=== PATIENT | male | born 1955 | race Caucasian/White ===

== ENCOUNTER 2020-12-21 09:50 | Emergency (ER) | payer OTHER ==
[2020-12-21] MEDS ORDERED: Ondansetron 4 MG/2 ML SDV IVPUSH ONE (10:05)
[2020-12-21] MEDS ORDERED: Lactated Ringers 1,000 ML IV ONE ×2 (10:05→10:44)
--- NOTE | 2020-12-21 10:12 | EDM.PDOC ---
ED HPI GENERAL MEDICAL PROBLEM - General Chief Complaint: Gastrointestinal Problem Stated Complaint: EMS Time Seen by Provider: 12/21/20 10:10 - History of Present Illness INITIAL COMMENTS - FREE TEXT/NARRATIVE: 65-year-old man with minimal past medical history presents with lightheadedness near syncope and emesis. Patient developed some chills this morning associated with lightheadedness. He originally takes a walk and got up and walked around he became more more lightheaded with walking. He had had tunnel vision went down to the ground and felt like he could pass out. He denied significant vomiting and dry heaves. No chest pain no back pain no vertigo. Abdominal pain during the night he was in emesis but not otherwise. Patient had bilateral inguinal hernia repairs 2 years ago but no other abdominal surgeries. Remote history of hepatitis in the past as well. Symptoms improved somewhat with the milligrams of Zofran that he was given by EMS in route. No other associated symptoms symptoms currently moderate. Treatments PIGMENT AND LACQUER MIXER: Reports: IV/IO, Other (see below) Other Treatments PIGMENT AND LACQUER MIXER: NS 500mls bolus, Zofran 8mg abdomen Pain Score (Numeric/FACES): 2 - Related Data Allergies Allergy/AdvReac Type Severity Reaction Status Date / Time codeine Allergy Other Verified 12/21/20 10:02 Corticosteroids Allergy Change Verified 08/26/16 08:54 (Glucocorticoids) Mental Status Home Meds: Home Meds Anti-Htn 12/21/20 [History] Potassium Chloride [Klor-Con M20] 20 meq PO DAILY 14 Days #14 tab.er.prt 12/21/20 [Rx] Past Medical History - Past Health History Medical/Surgical History: Denies Medical/Surgical History HEENT History: Reports: Sinusitis Other HEENT History: wears glasses Cardiovascular History: Reports: High Cholesterol, Hypertension Respiratory History: Reports: Sleep Apnea Gastrointestinal History: Reports: Hepatitis Other Gastrointestinal History: 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 Genitourinary History: Reports: Renal Calculus Musculoskeletal History: Reports: Arthritis Other Musculoskeletal History: hx right arm fx Neurological History: Reports: Other (See Below) Other Neuro History: [place] dse Psychiatric History: Reports: Anxiety Endocrine/Metabolic History: Reports: Obesity/BMI 30+ Hematologic History: Reports: None Immunologic History: Reports: None Oncologic (Cancer) History: Reports: None Dermatologic History: Reports: Eczema Other Dermatologic History: cellulitis or shingles to face, states "they were not sure which" - Infectious Disease History Infectious Disease History: Reports: Chicken Pox, Measles Other Infectious Disease History: Hepatitis possibly from too much codiene - Past Surgical History HEENT Surgical History: Reports: Naso-Sinus Surgery, Tonsillectomy Musculoskeletal Surgical History: Reports: Arthroscopic Knee Social & Family History - Family History Family Medical History: No Pertinent Family History - Caffeine Use Caffeine Use: Reports: None ED ROS GENERAL - Review of Systems Review Of Systems: See Below Free Text/Narrative/Comment: General: No fever. Skin: No rash. Eyes: No vision problems. ENT: No sore throat. Neck: No neck stiffness. Respiratory: No shortness of breath. Cardiac: No chest pain. Gastrointestinal: Per HPI Urinary: No dysuria. Musculoskeletal: No myalgias/arthralgias. Neurologic: No headache. ED EXAM, GENERAL - Physical Exam Exam: See Below Free Text/Narrative:: General Appearance: Pale but not acutely ill Skin: No rash HEENT: Normocephalic/atraumatic, sclera anicteric, mucous membranes dry Neck: Normal range of motion Chest and Lungs: Bilateral breath sounds, clear to auscultation Cardiovascular: Regular rate and rhythm, no murmur Abdomen: Soft, non-tender Back: Normal Musculoskeletal: No edema or tenderness Neurologic: Awake, alert, no obvious deficits, moving all extremities Psychiatric: Appropriate, cooperative #1 Interpretation EKG Date: 12/21/20 Time: 10:15 EKG Interpretation Comments: Normal sinus rhythm rate of 77 right bundle branch block no acute ischemia otherwise unremarkable QTC 472 Course - Vital Signs Last Recorded V/S: Last Vital Signs Temp 97.9 F 12/21/20 09:56 Pulse 82 12/21/20 09:56 Resp 18 12/21/20 09:56 BP 154/79 H 12/21/20 09:56 Pulse Ox 98 12/21/20 09:56 - Orders/Labs/Meds Orders: Active Orders 24 hr Category Date Time Status Accu Check [Blood Glucose Check, Bedside] [RC] ONETIME Care 12/21/20 12:19 Active EKG Documentation Completion [RC] STAT Care 12/21/20 10:05 Active Labs: Laboratory Tests 12/21/20 12/21/20 12/21/20 Range/Units 09:35 09:35 09:35 WBC 16.23 H (4.0-11.0) K/uL RBC 4.37 L (4.50-5.90) M/uL Hgb 14.4 (13.0-17.0) g/dL Hct 39.6 (38.0-50.0) % MCV 90.6 (80.0-98.0) fL MCH 33.0 H (27.0-32.0) pg MCHC 36.4 (31.0-37.0) g/dL RDW Std Deviation 41.9 (28.0-62.0) fl RDW Coeff of [place] 13 (11.0-15.0) % Plt Count 173 (150-400) K/uL MPV 11.10 (7.40-12.00) fL Neut % (Auto) 94.2 H (48.0-80.0) % Lymph % (Auto) 3.1 L (16.0-40.0) % [place] % (Auto) 2.5 (0.0-15.0) % Eos % (Auto) 0.1 (0.0-7.0) % Baso % (Auto) 0.1 (0.0-1.5) % Neut # (Auto) 15.3 H (1.4-5.7) K/uL Lymph # (Auto) 0.5 L (0.6-2.4) K/uL [place] # (Auto) 0.4 (0.0-0.8) K/uL Eos # (Auto) 0.0 (0.0-0.7) K/uL Baso # (Auto) 0.0 (0.0-0.1) K/uL Nucleated RBC % 0.0 /100WBC Nucleated RBCs # 0 K/uL Sodium 139 (136-148) mmol/L Potassium 3.2 L (3.5-5.1) mmol/L Chloride 103 (98-107) mmol/L Carbon Dioxide 17.9 L (21.0-32.0) mmol/L BUN 11 (7.0-18.0) mg/dL Creatinine 1.0 (0.8-1.3) mg/dL Est Cr Clr Drug Dosing 81.91 mL/min Estimated GFR (MDRD) > 60.0 ml/min Glucose 359 H (74-106) mg/dL POC Glucose (70-99) mg/dL Calcium 8.7 (8.5-10.1) mg/dL Total Bilirubin 1.1 H (0.2-1.0) mg/dL AST 13 L (15-37) IU/L ALT 18 (14-63) IU/L Alkaline Phosphatase 90 (46-116) U/L Troponin I (0.000-0.056) ng/mL Total Protein 6.5 (6.4-8.2) g/dL Albumin 3.7 (3.4-5.0) g/dL Globulin 2.8 (2.6-4.0) g/dL Albumin/Globulin Ratio 1.3 (0.9-1.6) Lipase 51 L (73-393) U/L 12/21/20 12/21/20 Range/Units 09:35 12:24 WBC (4.0-11.0) K/uL RBC (4.50-5.90) M/uL Hgb (13.0-17.0) g/dL Hct (38.0-50.0) % MCV (80.0-98.0) fL MCH (27.0-32.0) pg MCHC (31.0-37.0) g/dL RDW Std Deviation (28.0-62.0) fl RDW Coeff of [place] (11.0-15.0) % Plt Count (150-400) K/uL MPV (7.40-12.00) fL Neut % (Auto) (48.0-80.0) % Lymph % (Auto) (16.0-40.0) % [place] % (Auto) (0.0-15.0) % Eos % (Auto) (0.0-7.0) % Baso % (Auto) (0.0-1.5) % Neut # (Auto) (1.4-5.7) K/uL Lymph # (Auto) (0.6-2.4) K/uL [place] # (Auto) (0.0-0.8) K/uL Eos # (Auto) (0.0-0.7) K/uL Baso # (Auto) (0.0-0.1) K/uL Nucleated RBC % /100WBC Nucleated RBCs # K/uL Sodium (136-148) mmol/L Potassium (3.5-5.1) mmol/L Chloride (98-107) mmol/L Carbon Dioxide (21.0-32.0) mmol/L BUN (7.0-18.0) mg/dL Creatinine (0.8-1.3) mg/dL Est Cr Clr Drug Dosing mL/min Estimated GFR (MDRD) ml/min Glucose (74-106) mg/dL POC Glucose 262 H (70-99) mg/dL Calcium (8.5-10.1) mg/dL Total Bilirubin (0.2-1.0) mg/dL AST (15-37) IU/L ALT (14-63) IU/L Alkaline Phosphatase (46-116) U/L Troponin I < 0.050 (0.000-0.056) ng/mL Total Protein (6.4-8.2) g/dL Albumin (3.4-5.0) g/dL Globulin (2.6-4.0) g/dL Albumin/Globulin Ratio (0.9-1.6) Lipase (73-393) U/L Meds: Medications Discontinued Medications Generic Name Dose Route Start Last Admin Trade Name Freq PRN Reason Stop Dose Admin Lactated Ringer's 1,000 mls @ 999 mls/hr 12/21/20 10:05 12/21/20 10:12 Ringers, Lactated IV 12/21/20 11:05 999 mls/hr .BOLUS ONE Administration Lactated Ringer's 1,000 mls @ 999 mls/hr 12/21/20 10:44 12/21/20 10:55 Ringers, Lactated IV 12/21/20 11:44 999 mls/hr .BOLUS ONE Administration Iopamidol 100 ml 12/21/20 11:15 12/21/20 11:16 Iopamidol 755 Mg/Ml 500 Ml Multipack Bottle IVPUSH 12/21/20 11:16 100 ml ONETIME ONE Administration Ondansetron HCl 4 mg 12/21/20 10:05 12/21/20 10:19 Ondansetron 4 Mg/2 Ml Sdv IVPUSH 12/21/20 10:06 Not Given ONETIME ONE Departure - Departure Time of Disposition: 12:19 Disposition: Home, Self-Care 01 Condition: Good Clinical Impression: Hypokalemia, Hyperglycemia - Discharge Information *PRESCRIPTION DRUG MONITORING PROGRAM REVIEWED*: Not Applicable *COPY OF PRESCRIPTION DRUG MONITORING REPORT IN PATIENT OBI: Not Applicable Prescriptions: Potassium Chloride [Klor-Con M20] 20 meq PO DAILY 14 Days #14 tab.er.prt Instructions: Hypokalemia, Hyperglycemia, [id number] Referrals: Yue Burks NP [Primary Care Provider] - Forms: ED Department Discharge Additional Instructions: You have been placed on potassium supplements to help with your low potassium. Your blood sugar was also significantly elevated today. I strongly encourage you to follow-up with your primary care doctor for repeat blood work and further evaluation of your general health. Given your age and gender you are at risk for hypertension, high cholesterol, diabetes as well as coronary artery disease. [facility] [address] [place] [address] [place] [address] The following information is given to patients seen in the emergency department who are being discharged to home. This information is to outline your options for follow-up care. We provide all patients seen in our emergency department with a follow-up referral. The need for follow-up, as well as the timing and circumstances, are variable depending upon the specifics of your emergency department visit. If you don't have a primary care physician on staff, we will provide you with a referral. We always advise you to contact your personal physician following an emergency department visit to inform them of the circumstance of the visit and for follow-up with them and/or the need for any referrals to a consulting specialist. The emergency department will also refer you to a specialist when appropriate. This referral assures that you have the opportunity for follow-up care with a specialist. All of these measure are taken in an effort to provide you with optimal care, which includes your follow-up. Under all circumstances we always encourage you to contact your private physician who remains a resource for coordinating your care. When calling for follow-up care, please make the office aware that this follow-up is from your recent emergency room visit. If for any reason you are refused follow-up, please contact the [facility] Emergency Department at and asked to speak to the emergency department charge nurse. Sepsis Event Note (ED) - Evaluation Sepsis Screening Result: No Definite Risk - Focused Exam Vital Signs: Vital Signs Temp Pulse Resp BP Pulse Ox 12/21/20 09:56 97.9 F 82 18 154/79 H 98 - My Orders Last 24 Hours: My Active Orders 12/21/20 10:05 EKG Documentation Completion [RC] STAT 12/21/20 12:19 Accu Check [Blood Glucose Check, Bedside] [RC] ONETIME - Assessment/Plan Last 24 Hours: My Active Orders 12/21/20 10:05 EKG Documentation Completion [RC] STAT 12/21/20 12:19 Accu Check [Blood Glucose Check, Bedside] [RC] ONETIME Assessment:: 65-year-old male presenting with lightheadedness near syncope while walking associate with nausea vomiting dry heaves. There is a significant gastrointestinal illness on through the community at this time it could represent a case of that. However, cardiac process considered as well I think this is less likely as there is no chest pain but EKG and troponin pending. Pancreatitis is a consideration though no significant abdominal pain makes this less likely. Abdomen is without focal finding on exam. Nothing at this point suggest Boerhaave's chest x-ray ordered to exclude. CBC, CMP, lipase, IV fluid and will reassess. Patient is already given 8 mg of Zofran by EMS. 1220: Patient's labs are notable for hypokalemia and hyperglycemia. He was given 2 L of IV fluid for this. Patient now feels much better. We will perform an ambulatory trial. EKG is without acute ischemia imaging is without concerning finding. Is: Is full of stool. He reports that he had a bowel movement yesterday. His stools have been intermittently loose for some time. Patient will be placed on potassium supplements we discussed his low potassium and his hyperglycemia and I strongly recommended follow-up with primary care. 1230: BG has improved, pt ambulates well without sx. Pt discharged with instructions to f/u.
[2020-12-21 10:25] LABS: CARBON DIOXIDE,CO2 17.9 mmol/L (21.0-32.0); CHLORIDE,CL 103 mmol/L (98-107); POTASSIUM,K 3.2 mmol/L (3.5-5.1); SODIUM,NA 139 mmol/L (136-148)
[2020-12-21 10:38] LABS: BLOOD UREA NITROGEN,BUN 11 mg/dL (7.0-18.0); GLUCOSE RANDOM 359 mg/dL (74-106)
[2020-12-21] MEDS ORDERED: Iopamidol 755 MG/ML 500 ML Multipack Bottle IVPUSH ONE (11:15)
--- NOTE | 2020-12-21 12:05 | CT ---
INDICATION: Lower abdominal tenderness, emesis TECHNIQUE: CT abdomen and pelvis acquired with IV contrast. 100 cc Isovue 370 COMPARISON: 04/27/2014 FINDINGS: Lower chest: Unremarkable. Liver: Subcentimeter probable cyst left lobe of the liver. Spleen: Unremarkable. Pancreas: Unremarkable. Gallbladder and bile ducts: Unremarkable. Kidneys: Unremarkable. Adrenal glands: Unremarkable. GI tract: Diffuse colonic fecal retention. Normal appendix. Vascular structures: Unremarkable. Lymph nodes: Unremarkable. Miscellaneous: 2.8 centimeter soft tissue density left lower quadrant anterior to the iliopsoas muscle belly. Findings are nonspecific. No free air or significant free fluid. Pelvic Organs: Prostatomegaly. Bones: Unremarkable for age. IMPRESSION: Diffuse colonic fecal retention. 2.8 centimeters soft tissue density left lower quadrant anterior to the iliopsoas muscle belly. Findings nonspecific. Prostatomegaly. Please note that all CT scans at this facility use dose modulation, iterative reconstruction, and/or weight-based dosing when appropriate to reduce radiation dose to as low as reasonably achievable. Dictated by Jose J Eastman MD @ 12/21/2020 12:03:[address] Jose J Eastman @ Dec 21 2020 12:03PM
[2020-12-21 18:19] VITALS: BP 122/55; PULSE 98
== END 2020-12-21 13:12 | disposition home or self-care (01) ==
LOC: MW.ED 09:50
DX: R73.9 Hyperglycemia, unspecified (principal); E87.6 Hypokalemia; I10 Essential (primary) hypertension; E66.9 Obesity, unspecified; Z68.31 Body mass index [BMI] 31.0-31.9, adult; Z88.5 Allergy status to narcotic agent; Z88.8 Allergy status to other drugs, medicaments and biological substances
CPT/HCPCS: 36415; 74177; 80053; 82947; 83690; 84484; 85025; 93005; 99284; J7120; Q9967

== ENCOUNTER 2020-12-30 21:57 | Observation (INO) | payer OTHER ==
[2020-12-30] MEDS ORDERED: Sodium Chloride 0.9% 2.5 ML Syringe FLUSH PRN (22:17)
[2020-12-30] MEDS ORDERED: Sodium Chloride 0.9% 10 ML Syringe FLUSH PRN (22:17)
--- NOTE | 2020-12-30 22:20 | EDM.PDOC ---
<Nohemy Cruz - Last Filed: 12/30/20 23:10> ED HPI GENERAL MEDICAL PROBLEM - General Chief Complaint: Chest Pain Stated Complaint: CHEST PAIN, SHORT OF BREATH, LT ARM TINGLING Time Seen by Provider: 12/30/20 22:15 Source of Information: Reports: Patient History Limitations: Reports: No Limitations - History of Present Illness INITIAL COMMENTS - FREE TEXT/NARRATIVE: HISTORY AND PHYSICAL: History of present illness: Patient is a 65-year-old male that presents to the emergency room complaints of chest pain for the last 4 to 5 days. The patient reports that he falls asleep and wakes up feeling as if he is about ready to . He states his chest pain is midsternal nonreproducible. The patient was seen in this ER on December 21 after becoming ill at work and having a syncopal episode. The patient was started on potassium. The patient followed up with his primary care provider and the potassium was discontinued. It was found that the patient's glucose was 300 and a new diabetic. He was started on Metformin 500 mg ER with instructions to take 1 tablet daily by mouth for 3 days, 2 tablets for 3 days, 3 tablets for 3 days, then 4 tablets daily thereafter. The patient reports that he has had some stomach upset but no diarrhea at present. The patient reports that he was also started on a diabetic medication that starts with a "B" that he takes once a week. He stated that his blood sugar prior to arrival was 225. The patient was also started on a blood pressure medication Telmisartan 40 daily around the same time as the metformin was started but has not taken it today because he states when he wakes up when he was taking it he felt as if his blood pressure was too low. The patient acknowledges that his chest pain is only at night. During the day he walks 1 mile 3 times during the day and does not have chest pain or shortness of breath or any problems with it. At night after falling asleep he wakes up with chest pain, anxiety, diaphoresis. Patient states he did have an attack like this once before when he was on antianxiety medication he just could not take it. Patient denies any fever, chills, headache, change in vision, syncope or near syncope. Denies any chest pain, back pain, or cough. Denies any diarrhea, constipation or dysuria. Has not noted any blood in urine or stool. Patient has been eating and drinking appropriately. Review of systems: As per history of present illness and below otherwise all systems reviewed and negative. Past medical history: As per history of present illness and as reviewed below otherwise noncontributory. Surgical history: As per history of present illness and as reviewed below otherwise noncontributory. Social history: See social history for further information Family history: As per history of present illness and as reviewed below otherwise noncontributory. Physical exam: General: Well developed and well nourished. Alert and orientated x 3. Nontoxic in appearance and in no acute distress. Vital signs are stable and have been reviewed by me. Nursing notes were reviewed. HEENT: Atraumatic, normocephalic, pupils equal and reactive bilaterally, negati ve for conjunctival pallor or scleral icterus, mucous membranes moist, TMs normal bilaterally, throat clear, neck supple, nontender, trachea midline. No drooling or trismus noted. No meningeal signs. No hot potato voice noted. Lungs: Clear to auscultation bilaterally. No wheezes, rales, or rhonchi. Chest nontender. Normal work of breathing, no accessory muscles used. Heart: S1S2, regular rate and rhythm without overt murmur, gallops, or rubs. No JVD. LLE edematous. Abdomen: Soft, nondistended, nontender. Normoactive bowel sounds. Negative for masses or costovertebral tenderness. Skin: Intact, warm, dry. No lesions or rashes noted. Hematologic: No petechiae or purpra. Mucosa appropriate color and normal nail bed color and refill. Extremities: Atraumatic, moves all extremities per self without difficulty or deficits, negative for cords or calf pain. Neurovascular unremarkable. Neuro: Awake, alert, oriented. Cranial nerves II through XII unremarkable. Cerebellum unremarkable. Motor and sensory unremarkable throughout. Exam nonfocal. Psychiatric: Mood and affect are appropriate. Normal thought process. Answering questions appropriately. Notes: *This patient was seen and evaluated during the 2019 SARS-CoV-2 novel coronavirus pandemic period. Community viral transmission is ongoing at time of this encounter and the emergency department is operating under pandemic response procedures. After examination and discussion the patient is agreeable to blood work, EKG, chest x-ray, Zofran. The patient's D-dimer is elevated, his creatinine is normal I will order a PE CT. The CBC is unremarkable. Troponin is < 0.050. CMP: Potassium is 3.1, I will treat with 40 mEq of potassium orally. Carbon dioxide 19.6 and glucose 216. Patient reports that he had a cellulitis of his left leg and had a flareup a little while ago and it and as such his left leg has remained edematous. There is a noted difference in the circumference with the left > right. Report given to Dr. Moura who will take over and handle patient's disposition. I have talked with the patient about today's findings, in addition to providing specific details for plan of care. Reassessment at the time of disposition demonstrates that the patient is in no acute distress. The patient is stable for discharge, counseling was provided and we discussed in great detail signs and symptoms that would prompt them to return to the Emergency Department. Medication, follow up and supportive care measures were reviewed and discussed. Voices understanding and is agreeable to plan of care. Denies any further questions or concerns at this time. Diagnostics: CBC, CMP, troponin, EKG, magnesium, CXR Therapeutics: Zofran Prescription: Impression: Plan: 1. You were evaluated today on an emergent basis. Your 2. You can alternate Tylenol and ibuprofen as needed for pain and fever management. 3. We encourage you to follow up with your primary care provider and/or recommended specialist in the next few days for re-evaluation and further care/management. 4. If your symptoms should worsen, new symptoms develop or any of the signs and symptoms we discussed should arise please return to the emergency room or call 911 (if needed). Definitive disposition and diagnosis as appropriate pending reevaluation and review of above. Middle Chest Pain Score (Numeric/FACES): 4 - Related Data Allergies Allergy/AdvReac Type Severity Reaction Status Date / Time codeine Allergy Other Verified 12/21/20 10:02 Corticosteroids Allergy Change Verified 08/26/16 08:54 (Glucocorticoids) Mental Status Home Meds: Home Meds Anti-Htn 12/21/20 [History] Potassium Chloride [Klor-Con M20] 20 meq PO DAILY 14 Days #14 tab.er.prt 12/21/20 [Rx] Past Medical History - Past Health History Medical/Surgical History: Denies Medical/Surgical History HEENT History: Reports: Sinusitis Other HEENT History: wears glasses Cardiovascular History: Reports: High Cholesterol, Hypertension Respiratory History: Reports: Sleep Apnea Gastrointestinal History: Reports: Hepatitis Other Gastrointestinal History: 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 Genitourinary History: Reports: Renal Calculus Musculoskeletal History: Reports: Arthritis Other Musculoskeletal History: hx right arm fx Neurological History: Reports: Other (See Below) Other Neuro History: [place] dse Psychiatric History: Reports: Anxiety Endocrine/Metabolic History: Reports: Obesity/BMI 30+ Hematologic History: Reports: None Immunologic History: Reports: None Oncologic (Cancer) History: Reports: None Dermatologic History: Reports: Eczema Other Dermatologic History: cellulitis or shingles to face, states "they were not sure which" - Infectious Disease History Infectious Disease History: Reports: Chicken Pox, Hepatitis C, Measles Other Infectious Disease History: Hepatitis possibly from too much codiene - Past Surgical History HEENT Surgical History: Reports: Naso-Sinus Surgery, Tonsillectomy Musculoskeletal Surgical History: Reports: Arthroscopic Knee Social & Family History - Family History Family Medical History: No Pertinent Family History - Caffeine Use Caffeine Use: Reports: Coffee, Soda Departure - Departure Disposition: Refer to Observation Clinical Impression: Hypokalemia, Chest pain, Pulmonary emboli, Ventricular dysfunction, right Instructions: Hypokalemia Referrals: Yue Burks NP [Primary Care Provider] - Forms: ED Department Discharge Sepsis Event Note (ED) - Evaluation Sepsis Screening Result: No Definite Risk <Maurice Moura - Last Filed: 12/31/20 01:59> ED ROS GENERAL - Review of Systems Review Of Systems: Comprehensive ROS is negative, except as noted in HPI. ED EXAM, GENERAL - Physical Exam Exam: See Below Free Text/Narrative:: Physical exam is in the HPI #1 Interpretation EKG Interpretation Comments: KG done at 2200 hrs. sinus rhythm heart rate 60. GA interval 166 QT duration 458. [place] 69. Normal QRS. Nonspecific ST changes. T wave is inverted in V1. Compared to 12/21/2020 it was not read in V1 and V2 likely lead placement no other change. Impression no obvious injury. Course - Vital Signs Text/Narrative:: 0155 hrs. the patient has proven to have a pulmonary embolus with evidence on the CT of ventricular strain. He is stable. He is not short of breath at rest. He has a good blood pressure. His oxygen saturations have been good. Discussed with Dr. Lerma and she agreed to admit the patient. Patient admitted and heparinized. Heparin bolus was adjusted according to local protocol. Last Recorded V/S: Last Vital Signs Temp 36.2 C 12/31/20 01:18 Pulse 62 12/31/20 01:18 Resp 18 12/31/20 01:18 BP 175/92 H 12/31/20 01:18 Pulse Ox 100 12/31/20 01:18 - Orders/Labs/Meds Orders: Active Orders 24 hr Category Date Time Status Admission Status [Patient Status] [ADT] Stat ADT 12/31/20 01:52 Active EKG Documentation Completion [RC] STAT Care 12/30/20 22:17 Active CORONAVIRUS COVID-19 LEONARD [MOLEC] Stat Lab 12/31/20 01:20 Received PTT,PARTIAL THROMBOPLSTIN TIME [COAG] Q Lab 12/31/20 02:00 Ordered PTT,PARTIAL THROMBOPLSTIN TIME [COAG] Q Lab 12/31/20 07:30 Ordered PTT,PARTIAL THROMBOPLSTIN TIME [COAG] [facility] Lab 12/31/20 08:00 Ordered PTT,PARTIAL THROMBOPLSTIN TIME [COAG] [facility] Lab 12/31/20 13:30 Ordered PTT,PARTIAL THROMBOPLSTIN TIME [COAG] [facility] Lab 12/31/20 14:00 Ordered PTT,PARTIAL THROMBOPLSTIN TIME [COAG] [facility] Lab 12/31/20 19:30 Ordered PTT,PARTIAL THROMBOPLSTIN TIME [COAG] Q Lab 12/31/20 20:00 Ordered PTT,PARTIAL THROMBOPLSTIN TIME [COAG] Q Lab 01/01/21 01:30 Ordered PTT,PARTIAL THROMBOPLSTIN TIME [COAG] Q Lab 01/01/21 02:00 Ordered PTT,PARTIAL THROMBOPLSTIN TIME [COAG] Q Lab 01/01/21 07:30 Ordered PTT,PARTIAL THROMBOPLSTIN TIME [COAG] Q Lab 01/01/21 08:00 Ordered PTT,PARTIAL THROMBOPLSTIN TIME [COAG] [facility] Lab 01/01/21 13:30 Ordered PTT,PARTIAL THROMBOPLSTIN TIME [COAG] Q6H Lab 01/01/21 14:00 Ordered PTT,PARTIAL THROMBOPLSTIN TIME [COAG] Stat Lab 12/31/20 01:52 Ordered Heparin Sodium/0.45% NaCl [Heparin 25,000 Units in 1/2 Med 12/31/20 01:45 Active NS 500 ML] 500 ml IV TITRATE Sodium Chloride 0.9% [Saline Flush] Med 12/30/20 22:17 Active 10 ml FLUSH ASDIRECTED PRN Sodium Chloride 0.9% [Saline Flush] Med 12/30/20 22:17 Active 2.5 ml FLUSH ASDIRECTED PRN Saline Lock Insert [OM.PC] Stat Oth 12/30/20 22:17 Ordered Medication Orders Heparin Sodium/Sodium Chloride (Heparin 25,000 Units In 1/2 Ns 500 Ml) 500 mls @ 38.16 mls/hr IV TITRATE AWA; Protocol Sodium Chloride (Sodium Chloride 0.9% 10 Ml Syringe) 10 ml FLUSH ASDIRECTED PRN PRN Reason: Keep Vein Open Sodium Chloride (Sodium Chloride 0.9% 2.5 Ml Syringe) 2.5 ml FLUSH ASDIRECTED PRN PRN Reason: Keep Vein Open Labs: Laboratory Tests 12/30/20 12/30/20 12/30/20 Range/Units 22:10 22:10 22:10 WBC 8.25 (4.0-11.0) K/uL RBC 4.92 (4.50-5.90) M/uL Hgb 16.2 (13.0-17.0) g/dL Hct 45.0 (38.0-50.0) % MCV 91.5 (80.0-98.0) fL MCH 32.9 H (27.0-32.0) pg MCHC 36.0 (31.0-37.0) g/dL RDW Std Deviation 42.7 (28.0-62.0) fl RDW Coeff of [place] 13 (11.0-15.0) % Plt Count 256 (150-400) K/uL MPV 10.80 (7.40-12.00) fL Neut % (Auto) 49.0 (48.0-80.0) % Lymph % (Auto) 43.5 H (16.0-40.0) % [place] % (Auto) 6.1 (0.0-15.0) % Eos % (Auto) 1.0 (0.0-7.0) % Baso % (Auto) 0.4 (0.0-1.5) % Neut # (Auto) 4.1 (1.4-5.7) K/uL Lymph # (Auto) 3.6 H (0.6-2.4) K/uL [place] # (Auto) 0.5 (0.0-0.8) K/uL Eos # (Auto) 0.1 (0.0-0.7) K/uL Baso # (Auto) 0.0 (0.0-0.1) K/uL Nucleated RBC % 0.0 /100WBC Nucleated RBCs # 0 K/uL APTT (18.6-31.3) SEC D-Dimer, Quantitative 2.38 H (0.0-0.50) mg/L FEU Sodium 138 (136-148) mmol/L Potassium 3.1 L (3.5-5.1) mmol/L Chloride 102 (98-107) mmol/L Carbon Dioxide 19.6 L (21.0-32.0) mmol/L BUN 14 (7.0-18.0) mg/dL Creatinine 1.2 (0.8-1.3) mg/dL Est Cr Clr Drug Dosing 52.67 mL/min Estimated GFR (MDRD) > 60.0 ml/min Glucose 216 H (74-106) mg/dL Calcium 9.6 (8.5-10.1) mg/dL Magnesium 1.8 (1.8-2.4) mg/dL Total Bilirubin 0.9 (0.2-1.0) mg/dL AST 15 (15-37) IU/L ALT 26 (14-63) IU/L Alkaline Phosphatase 88 (46-116) U/L Lactate Dehydrogenase (81-234) U/L Troponin I < 0.050 (0.000-0.056) ng/mL Total Protein 8.3 H (6.4-8.2) g/dL Albumin 4.2 (3.4-5.0) g/dL Globulin 4.1 H (2.6-4.0) g/dL Albumin/Globulin Ratio 1.0 (0.9-1.6) Urine Color Urine Appearance Urine pH (5.0-8.0) Ur Specific [place] (1.001-1.035) Urine Protein (NEGATIVE) mg/dL Urine Glucose (UA) (NEGATIVE) mg/dL Urine Ketones (NEGATIVE) mg/dL Urine Occult Blood (NEGATIVE) Urine Nitrite (NEGATIVE) Urine Bilirubin (NEGATIVE) Urine Urobilinogen (<2.0) EU/dL Ur Leukocyte Esterase (NEGATIVE) Urine RBC (0-2/HPF) Urine WBC (0-5/HPF) Ur Epithelial Cells (NONE-FEW) Urine Bacteria (NEGATIVE) 12/30/20 12/31/20 12/31/20 Range/Units 22:25 00:50 00:50 WBC (4.0-11.0) K/uL RBC (4.50-5.90) M/uL Hgb (13.0-17.0) g/dL Hct (38.0-50.0) % MCV (80.0-98.0) fL MCH (27.0-32.0) pg MCHC (31.0-37.0) g/dL RDW Std Deviation (28.0-62.0) fl RDW Coeff of [place] (11.0-15.0) % Plt Count (150-400) K/uL MPV (7.40-12.00) fL Neut % (Auto) (48.0-80.0) % Lymph % (Auto) (16.0-40.0) % [place] % (Auto) (0.0-15.0) % Eos % (Auto) (0.0-7.0) % Baso % (Auto) (0.0-1.5) % Neut # (Auto) (1.4-5.7) K/uL Lymph # (Auto) (0.6-2.4) K/uL [place] # (Auto) (0.0-0.8) K/uL Eos # (Auto) (0.0-0.7) K/uL Baso # (Auto) (0.0-0.1) K/uL Nucleated RBC % /100WBC Nucleated RBCs # K/uL APTT (18.6-31.3) SEC D-Dimer, Quantitative (0.0-0.50) mg/L FEU Sodium (136-148) mmol/L Potassium (3.5-5.1) mmol/L Chloride (98-107) mmol/L Carbon Dioxide (21.0-32.0) mmol/L BUN (7.0-18.0) mg/dL Creatinine (0.8-1.3) mg/dL Est Cr Clr Drug Dosing mL/min Estimated GFR (MDRD) ml/min Glucose (74-106) mg/dL Calcium (8.5-10.1) mg/dL Magnesium (1.8-2.4) mg/dL Total Bilirubin (0.2-1.0) mg/dL AST (15-37) IU/L ALT (14-63) IU/L Alkaline Phosphatase (46-116) U/L Lactate Dehydrogenase 168 (81-234) U/L Troponin I < 0.050 (0.000-0.056) ng/mL Total Protein (6.4-8.2) g/dL Albumin (3.4-5.0) g/dL Globulin (2.6-4.0) g/dL Albumin/Globulin Ratio (0.9-1.6) Urine Color YELLOW Urine Appearance CLEAR Urine pH 6.0 (5.0-8.0) Ur Specific [place] 1.010 (1.001-1.035) Urine Protein NEGATIVE (NEGATIVE) mg/dL Urine Glucose (UA) NEGATIVE (NEGATIVE) mg/dL Urine Ketones TRACE H (NEGATIVE) mg/dL Urine Occult Blood NEGATIVE (NEGATIVE) Urine Nitrite NEGATIVE (NEGATIVE) Urine Bilirubin NEGATIVE (NEGATIVE) Urine Urobilinogen 0.2 (<2.0) EU/dL Ur Leukocyte Esterase NEGATIVE (NEGATIVE) Urine RBC 0-1 (0-2/HPF) Urine WBC 0-2 (0-5/HPF) Ur Epithelial Cells RARE (NONE-FEW) Urine Bacteria RARE (NEGATIVE) 12/31/20 Range/Units 01:30 WBC (4.0-11.0) K/uL RBC (4.50-5.90) M/uL Hgb (13.0-17.0) g/dL Hct (38.0-50.0) % MCV (80.0-98.0) fL MCH (27.0-32.0) pg MCHC (31.0-37.0) g/dL RDW Std Deviation (28.0-62.0) fl RDW Coeff of [place] (11.0-15.0) % Plt Count (150-400) K/uL MPV (7.40-12.00) fL Neut % (Auto) (48.0-80.0) % Lymph % (Auto) (16.0-40.0) % [place] % (Auto) (0.0-15.0) % Eos % (Auto) (0.0-7.0) % Baso % (Auto) (0.0-1.5) % Neut # (Auto) (1.4-5.7) K/uL Lymph # (Auto) (0.6-2.4) K/uL [place] # (Auto) (0.0-0.8) K/uL Eos # (Auto) (0.0-0.7) K/uL Baso # (Auto) (0.0-0.1) K/uL Nucleated RBC % /100WBC Nucleated RBCs # K/uL APTT 21.6 (18.6-31.3) SEC D-Dimer, Quantitative (0.0-0.50) mg/L FEU Sodium (136-148) mmol/L Potassium (3.5-5.1) mmol/L Chloride (98-107) mmol/L Carbon Dioxide (21.0-32.0) mmol/L BUN (7.0-18.0) mg/dL Creatinine (0.8-1.3) mg/dL Est Cr Clr Drug Dosing mL/min Estimated GFR (MDRD) ml/min Glucose (74-106) mg/dL Calcium (8.5-10.1) mg/dL Magnesium (1.8-2.4) mg/dL Total Bilirubin (0.2-1.0) mg/dL AST (15-37) IU/L ALT (14-63) IU/L Alkaline Phosphatase (46-116) U/L Lactate Dehydrogenase (81-234) U/L Troponin I (0.000-0.056) ng/mL Total Protein (6.4-8.2) g/dL Albumin (3.4-5.0) g/dL Globulin (2.6-4.0) g/dL Albumin/Globulin Ratio (0.9-1.6) Urine Color Urine Appearance Urine pH (5.0-8.0) Ur Specific [place] (1.001-1.035) Urine Protein (NEGATIVE) mg/dL Urine Glucose (UA) (NEGATIVE) mg/dL Urine Ketones (NEGATIVE) mg/dL Urine Occult Blood (NEGATIVE) Urine Nitrite (NEGATIVE) Urine Bilirubin (NEGATIVE) Urine Urobilinogen (<2.0) EU/dL Ur Leukocyte Esterase (NEGATIVE) Urine RBC (0-2/HPF) Urine WBC (0-5/HPF) Ur Epithelial Cells (NONE-FEW) Urine Bacteria (NEGATIVE) Meds: Medications Generic Name Dose Route Start Last Admin Trade Name Freq PRN Reason Stop Dose Admin Heparin Sodium/Sodium Chloride 500 mls @ 38.16 mls/hr 12/31/20 01:45 Heparin 25,000 Units In 1/2 Ns 500 Ml IV TITRATE AWA Protocol 18 UNITS/KG/HR Sodium Chloride 10 ml 12/30/20 22:17 Sodium Chloride 0.9% 10 Ml Syringe FLUSH ASDIRECTED PRN Keep Vein Open Sodium Chloride 2.5 ml 12/30/20 22:17 Sodium Chloride 0.9% 2.5 Ml Syringe FLUSH ASDIRECTED PRN Keep Vein Open Discontinued Medications Generic Name Dose Route Start Last Admin Trade Name Freq PRN Reason Stop Dose Admin Heparin Sodium (Porcine) 4,800 units 12/31/20 01:27 12/31/20 01:49 Heparin Sodium 5,000 Units/Ml Vial IVPUSH 12/31/20 01:28 Not Given .BOLUS ONE Heparin Sodium (Porcine) 8,480 units 12/31/20 01:39 Heparin Sodium 5,000 Units/Ml Vial IVPUSH 12/31/20 01:40 .BOLUS ONE Heparin Sodium (Porcine) 7,500 units 12/31/20 01:50 Heparin Sodium 5,000 Units/Ml Vial IVPUSH 12/31/20 01:51 ONETIME ONE Protocol Sodium Chloride 1,000 mls @ 999 mls/hr 12/30/20 23:15 12/30/20 23:20 Normal Saline IV 12/31/20 00:15 999 mls/hr .BOLUS ONE Administration Heparin Sodium/Sodium Chloride 500 mls @ 21.555 mls/hr 12/31/20 01:30 Heparin 25,000 Units In 1/2 Ns 500 Ml IV TITRATE AWA Protocol 18 UNITS/KG/HR Iopamidol 100 ml 12/31/20 00:32 12/31/20 00:32 Iopamidol 755 Mg/Ml 500 Ml Multipack Bottle IVPUSH 12/31/20 00:33 100 ml ONETIME STA Administration Ondansetron HCl 4 mg 12/30/20 22:27 12/30/20 22:34 Ondansetron 4 Mg/2 Ml Sdv IVPUSH 12/30/20 22:28 4 mg ONETIME ONE Administration Potassium Chloride 40 meq 12/30/20 23:15 12/30/20 23:25 Potassium Chloride 20 Meq Tab.Er PO 12/30/20 23:16 Not Given ONETIME ONE Departure - Departure Time of Disposition: 01:56 Condition: Good Sepsis Event Note (ED) - Focused Exam Vital Signs: Vital Signs Temp Pulse Resp BP Pulse Ox 12/31/20 01:18 36.2 C 62 18 175/92 H 100 12/30/20 23:20 55 L 18 153/78 H 97 12/30/20 21:59 35.8 C L 56 L 20 189/111 H 99 - My Orders Last 24 Hours: My Active Orders 12/31/20 01:20 CORONAVIRUS COVID-19 LEONARD [MOLEC] Stat 12/31/20 01:45 Heparin Sodium/0.45% NaCl [Heparin 25,000 Units in 1/2 NS 500 ML] 500 ml IV TITRATE 12/31/20 01:52 Admission Status [Patient Status] [ADT] Stat PTT,PARTIAL THROMBOPLSTIN TIME [COAG] Stat 12/31/20 02:00 PTT,PARTIAL THROMBOPLSTIN TIME [COAG] Q6H 12/31/20 07:30 PTT,PARTIAL THROMBOPLSTIN TIME [COAG] Q6H 12/31/20 08:00 PTT,PARTIAL THROMBOPLSTIN TIME [COAG] Q6H 12/31/20 13:30 PTT,PARTIAL THROMBOPLSTIN TIME [COAG] Q6H 12/31/20 14:00 PTT,PARTIAL THROMBOPLSTIN TIME [COAG] Q6H 12/31/20 19:30 PTT,PARTIAL THROMBOPLSTIN TIME [COAG] Q6H 12/31/20 20:00 PTT,PARTIAL THROMBOPLSTIN TIME [COAG] Q6H 01/01/21 01:30 PTT,PARTIAL THROMBOPLSTIN TIME [COAG] Q6 01/01/21 02:00 PTT,PARTIAL THROMBOPLSTIN TIME [COAG] Q6 01/01/21 07:30 PTT,PARTIAL THROMBOPLSTIN TIME [COAG] Q6 01/01/21 08:00 PTT,PARTIAL THROMBOPLSTIN TIME [COAG] Q6 01/01/21 13:30 PTT,PARTIAL THROMBOPLSTIN TIME [COAG] Q6 01/01/21 14:00 PTT,PARTIAL THROMBOPLSTIN TIME [COAG] Q6 - Assessment/Plan Last 24 Hours: My Active Orders 12/31/20 01:20 CORONAVIRUS COVID-19 LEONARD [MOLEC] Stat 12/31/20 01:45 Heparin Sodium/0.45% NaCl [Heparin 25,000 Units in 1/2 NS 500 ML] 500 ml IV TIT RATE 12/31/20 01:52 Admission Status [Patient Status] [ADT] Stat PTT,PARTIAL THROMBOPLSTIN TIME [COAG] Stat 12/31/20 02:00 PTT,PARTIAL THROMBOPLSTIN TIME [COAG] Q6 12/31/20 07:30 PTT,PARTIAL THROMBOPLSTIN TIME [COAG] Q6 12/31/20 08:00 PTT,PARTIAL THROMBOPLSTIN TIME [COAG] Q6 12/31/20 13:30 PTT,PARTIAL THROMBOPLSTIN TIME [COAG] Q6 12/31/20 14:00 PTT,PARTIAL THROMBOPLSTIN TIME [COAG] Q6 12/31/20 19:30 PTT,PARTIAL THROMBOPLSTIN TIME [COAG] Q6 12/31/20 20:00 PTT,PARTIAL THROMBOPLSTIN TIME [COAG] Q6 01/01/21 01:30 PTT,PARTIAL THROMBOPLSTIN TIME [COAG] Q6 01/01/21 02:00 PTT,PARTIAL THROMBOPLSTIN TIME [COAG] Q6 01/01/21 07:30 PTT,PARTIAL THROMBOPLSTIN TIME [COAG] Q6 01/01/21 08:00 PTT,PARTIAL THROMBOPLSTIN TIME [COAG] Q6 01/01/21 13:30 PTT,PARTIAL THROMBOPLSTIN TIME [COAG] Q6 01/01/21 14:00 PTT,PARTIAL THROMBOPLSTIN TIME [COAG] Q6H
[2020-12-30] MEDS ORDERED: Ondansetron 4 MG/2 ML SDV IVPUSH ONE (22:27)
[2020-12-30 22:40] LABS: BLOOD UREA NITROGEN,BUN 14 mg/dL (7.0-18.0); CARBON DIOXIDE,CO2 19.6 mmol/L (21.0-32.0); CHLORIDE,CL 102 mmol/L (98-107); GLUCOSE RANDOM 216 mg/dL (74-106); POTASSIUM,K 3.1 mmol/L (3.5-5.1); SODIUM,NA 138 mmol/L (136-148)
[2020-12-30] MEDS ORDERED: Potassium Chloride 20 MEQ Tab.ER PO ONE (23:15)
[2020-12-30] MEDS ORDERED: Sodium Chloride 0.9% 1,000 ML IV ONE (23:15)
--- NOTE | 2020-12-30 23:21 | CR ---
INDICATION: Chest pain TECHNIQUE: Portable upright AP view of the chest COMPARISON: None FINDINGS: The lungs are clear. There is no sizable pleural effusion or pneumothorax. The cardiomediastinal silhouette is normal. The visualized osseous structures are unremarkable. IMPRESSION: No acute intrathoracic process. Dictated by Shoshana Oshea MD @ 12/30/2020 11:19:[address] Shoshana Oshea @ Dec 30 2020 11:19PM
[2020-12-31] MEDS ORDERED: Iopamidol 755 MG/ML 500 ML Multipack Bottle IVPUSH STA (00:32)
--- NOTE | 2020-12-31 01:18 | CT ---
INDICATION: Chest pain, elevated D-dimer TECHNIQUE: CT chest pulmonary PE protocol acquired with 100 cc Isovue 370 IV contrast. COMPARISON: Chest radiograph December 30, 2020 FINDINGS: Cardiovascular structures: There is a small pulmonary embolism in the proximal right pulmonary artery as well as segmental and subsegmental right upper lobe and segmental right lower pulmonary emboli. Heart size is normal. Mild bowing of the intraventricular septum. There are coronary artery calcifications. No sign of aneurysm in the thoracic aorta. Mediastinum and jose roberto: No mass or adenopathy. Lungs: Clear. Pleura and pericardium: No effusions. Chest wall and axilla: No mass or adenopathy. Upper abdomen: Cholelithiasis. Bones: No significant findings. IMPRESSION: Right-sided, acute pulmonary emboli with evidence for right heart strain. Cholelithiasis. Findings discussed with Dr. Moura at 1:15am on 12/31/2020. Please note that all CT scans at this facility use dose modulation, iterative reconstruction, and/or weight-based dosing when appropriate to reduce radiation dose to as low as reasonably achievable. Dictated by Ana Paula Noriega MD @ 12/31/2020 1:15:[address] Ana Paula Noriega @ Dec 31 2020 1:15AM
[2020-12-31] MEDS ORDERED: Heparin Sodium 5,000 Units/ML Vial IVPUSH ONE ×5 (01:27→14:56)
[2020-12-31] MEDS ORDERED: Heparin Sodium/0.45% NaCl 500 ML IV SCH ×2 (01:30→01:45)
[2020-12-31] MEDS ORDERED: Heparin Sodium/0.45% NaCl 500 ML ONE (01:54)
[2020-12-31] MEDS ORDERED: Potassium Chloride 20 MEQ Tab.ER PO ONE (04:51)
[2020-12-31] MEDS ORDERED: Glucagon,Human Recombinant 1 MG Vial IM PRN (04:58)
[2020-12-31] MEDS ORDERED: 50% Dextrose in Water 50 ML Syringe IV PRN (04:58)
[2020-12-31] MEDS ORDERED: Morphine 2 MG/ML SYRINGE IVPUSH PRN (05:01)
[2020-12-31] MEDS ORDERED: Albuterol/Ipratropium 3.0-0.5 MG/3 ML Neb Soln NEB PRN (05:02)
[2020-12-31] MEDS: Lactated Ringers 1,000 ML IV SCH ×2 (06:47→19:59)
[2020-12-31] MEDS: Insulin Aspart 100 Units/ML 3 ML Pen SUBCUT SCH ×3 (07:49→17:23)
--- NOTE | 2020-12-31 08:16 | PCM.HP.2 ---
H&P History of Present Illness - General Date of Service: 12/31/20 Admit Problem/Dx: Admission Diagnosis/Problem Admission Diagnosis/Problem Pulmonary embolism Source of Information: Patient History Limitations: Reports: No Limitations - History of Present Illness Initial Comments - Free Text/Narative: This 65-year-old male with past medical history of elevated blood sugars, hypertension and anxiety presented to the ER last night with concerns of shortness of breath waking up and feeling like he cannot sleep along with lightheadedness dizziness. He reports that he was seen December 21 in the ER with complaints of syncopal episode along with lightheadedness of dizziness at home. He was found to be hypokalemic with elevated blood sugars he was started on potassium as well as Metformin and to follow-up with PCP. He reports he is continue to have this dizziness and trouble breathing especially at nighttime. He reports his anxiety is significantly elevated and feeling like he is unable to breathe. He denies any long travel or flights. He does report recent cellu litis to left lower extremity which was treated with topical ointment. He denies any history of bleeding or clotting. Denies any history of fevers chills or chest pain. No abdominal pain no dysuria. No black or bloody bowel movements. He denies any tobacco, alcohol or recreational drug use. In the ER no leukocytosis noted hemoglobin 16.2 hematocrit 45.0 platelet count 256,000 D-dimer elevated at 2.38 sodium 138 potassium 3.1 bicarb 19.6. Glucose elevated at 216 no transaminitis or hyperbilirubinemia noted, troponins negative. Chest x-ray obtained which revealed no acute intrathoracic process. Due to elevated D-dimer CTA of the chest was performed. This revealed small pulmonary embolism in the proximal right pulmonary artery as well as segmental and subsegmental right upper lobe and segmental right lower lobe emboli. Heart size is normal mild bowing of the intraventricular septum. There are coronary artery calcifications no sign of aneurysm in the thoracic aorta. Lungs clear. He started on heparin with heparin bolus. PTT 21.6. Middle Chest Pain Score (Numeric/FACES): 4 - Related Data Allergies/Adverse Reactions: Allergies Allergy/AdvReac Type Severity Reaction Status Date / Time codeine Allergy Other Verified 12/31/20 03:32 Corticosteroids Allergy Change Verified 12/31/20 03:32 (Glucocorticoids) Mental Status Home Medications: Home Meds Telmisartan 1 tab PO DAILY 12/21/20 [History] Exenatide Microspheres [Bydureon] 1 injection SQ WEEKLY 12/31/20 [History] metFORMIN HCl [Metformin HCl ER] 3 tab PO DAILY 12/31/20 [History] Past Medical History - Past Health History Medical/Surgical History: Denies Medical/Surgical History HEENT History: Reports: Sinusitis Other HEENT History: wears glasses Cardiovascular History: Reports: High Cholesterol, Hypertension Respiratory History: Reports: Sleep Apnea Gastrointestinal History: Reports: Hepatitis Other Gastrointestinal History: 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 Genitourinary History: Reports: Renal Calculus Musculoskeletal History: Reports: Arthritis Other Musculoskeletal History: hx right arm fx Neurological History: Reports: Other (See Below) Other Neuro History: Lyme dse Psychiatric History: Reports: Anxiety Endocrine/Metabolic History: Reports: Obesity/BMI 30+ Hematologic History: Reports: None Immunologic History: Reports: None Oncologic (Cancer) History: Reports: None Dermatologic History: Reports: Eczema Other Dermatologic History: cellulitis or shingles to face, states "they were not sure which" - Infectious Disease History Infectious Disease History: Reports: Chicken Pox, Hepatitis C, Measles Other Infectious Disease History: Hepatitis possibly from too much codiene. Per pt Hepatis C Non A Non B classification - Past Surgical History Head Surgeries/Procedures: Reports: None HEENT Surgical History: Reports: Naso-Sinus Surgery, Tonsillectomy Cardiovascular Surgical History: Reports: None Respiratory Surgical History: Reports: None Other Respiratory Surgeries/Procedures: central sleep apnea GI Surgical History: Reports: Colonoscopy Other GI Surgeries/Procedures: inguinal hernia repair 2x Male Surgical History: Reports: None Endocrine Surgical History: Reports: None Neurological Surgical History: Reports: None Musculoskeletal Surgical History: Reports: Arthroscopic Knee Other Musculoskeletal Surgeries/Procedures:: knee arthroscopy x3, left x2 - ri ght x1 Oncologic Surgical History: Reports: None Dermatological Surgical History: Reports: None Social & Family History - Family History Family Medical History: No Pertinent Family History - Tobacco Use Tobacco Use Status *Q: Never Tobacco User Second Hand Smoke Exposure: Yes - Caffeine Use Caffeine Use: Reports: Coffee, Soda - Recreational Drug Use Recreational Drug Use: No H&P Review of Systems - Review of Systems: Review Of Systems: See Below General: Reports: Malaise. Denies: Fever, Chills HEENT: Denies: No Symptoms, Headaches, Sinus Congestion, Sore Throat, Vertigo Pulmonary: Reports: Shortness of Breath Cardiovascular: Reports: Dyspnea on Exertion, Orthopnea, Syncope. Denies: Chest Pain, Palpitations, Lightheadedness Gastrointestinal: Reports: No Symptoms. Denies: Abdominal Pain, Bloody Stool, Hematemesis, Nausea, Vomiting Genitourinary: Reports: No Symptoms. Denies: Dysuria, Frequency Skin: Reports: No Symptoms. Denies: Erythema, Wound Psychiatric: Reports: Anxiety Neurological: Reports: No Symptoms Hematologic/Lymphatic: Reports: No Symptoms Immunologic: Reports: No Symptoms Exam - Exam Exam: See Below - Vital Signs Vital Signs: Last Vital Signs Temp 97.6 F 12/31/20 08:10 Pulse 60 12/31/20 08:10 Resp 16 12/31/20 08:10 BP 150/83 H 12/31/20 08:10 Pulse Ox 96 12/31/20 08:10 Weight: 105.233 kg - Exam General: Alert, Oriented HEENT: Conjunctiva Clear, Mucosa Moist & [place], Posterior Pharynx Clear Neck: Supple, Trachea Midline Lungs: Clear to Auscultation, Normal Respiratory Effort Cardiovascular: Regular Rate, Regular Rhythm, Normal S1, Normal S2. No: Systolic Murmur GI/Abdominal Exam: Normal Bowel Sounds, Non-Tender Back Exam: Normal Inspection, Full Range of Motion Extremities: Normal Inspection, Normal Range of Motion, Non-Tender, No Pedal Edema Peripheral Pulses: 2+: Posterior Tibial (L), Posterior Tibial (R), Dorsalis Pedis (L), Dorsalis Pedis (R) Skin: Warm, Dry Neurological: Cranial Nerves Intact Neuro Extensive - Mental Status: Alert, Oriented x3 Neuro Extensive - Motor, Sensory, Reflexes: CN II-XII Intact Psychiatric: Alert, Normal Affect, Anxious - Patient Data Lab Results Last 24 hrs: Laboratory Results - last 24 hr 12/30/20 12/30/20 12/30/20 Range/Units 22:10 22:10 22:10 WBC 8.25 (4.0-11.0) K/uL RBC 4.92 (4.50-5.90) M/uL Hgb 16.2 (13.0-17.0) g/dL Hct 45.0 (38.0-50.0) % MCV 91.5 (80.0-98.0) fL MCH 32.9 H (27.0-32.0) pg MCHC 36.0 (31.0-37.0) g/dL RDW Std Deviation 42.7 (28.0-62.0) fl RDW Coeff of [place] 13 (11.0-15.0) % Plt Count 256 (150-400) K/uL MPV 10.80 (7.40-12.00) fL Neut % (Auto) 49.0 (48.0-80.0) % Lymph % (Auto) 43.5 H (16.0-40.0) % Ralls % (Auto) 6.1 (0.0-15.0) % Eos % (Auto) 1.0 (0.0-7.0) % Baso % (Auto) 0.4 (0.0-1.5) % Neut # (Auto) 4.1 (1.4-5.7) K/uL Lymph # (Auto) 3.6 H (0.6-2.4) K/uL Ralls # (Auto) 0.5 (0.0-0.8) K/uL Eos # (Auto) 0.1 (0.0-0.7) K/uL Baso # (Auto) 0.0 (0.0-0.1) K/uL Nucleated RBC % 0.0 /100WBC Nucleated RBCs # 0 K/uL APTT (18.6-31.3) SEC D-Dimer, Quantitative 2.38 H (0.0-0.50) mg/L FEU Sodium 138 (136-148) mmol/L Potassium 3.1 L (3.5-5.1) mmol/L Chloride 102 (98-107) mmol/L Carbon Dioxide 19.6 L (21.0-32.0) mmol/L BUN 14 (7.0-18.0) mg/dL Creatinine 1.2 (0.8-1.3) mg/dL Est Cr Clr Drug Dosing 52.67 mL/min Estimated GFR (MDRD) > 60.0 ml/min Glucose 216 H (74-106) mg/dL Calcium 9.6 (8.5-10.1) mg/dL Phosphorus (2.6-4.7) mg/dL Magnesium 1.8 (1.8-2.4) mg/dL Total Bilirubin 0.9 (0.2-1.0) mg/dL AST 15 (15-37) IU/L ALT 26 (14-63) IU/L Alkaline Phosphatase 88 (46-116) U/L Lactate Dehydrogenase (81-234) U/L Troponin I < 0.050 (0.000-0.056) ng/mL B-Natriuretic Peptide (<100) PG/ML Total Protein 8.3 H (6.4-8.2) g/dL Albumin 4.2 (3.4-5.0) g/dL Globulin 4.1 H (2.6-4.0) g/dL Albumin/Globulin Ratio 1.0 (0.9-1.6) Urine Color Urine Appearance Urine pH (5.0-8.0) Ur Specific [place] (1.001-1.035) Urine Protein (NEGATIVE) mg/dL Urine Glucose (UA) (NEGATIVE) mg/dL Urine Ketones (NEGATIVE) mg/dL Urine Occult Blood (NEGATIVE) Urine Nitrite (NEGATIVE) Urine Bilirubin (NEGATIVE) Urine Urobilinogen (<2.0) EU/dL Ur Leukocyte Esterase (NEGATIVE) Urine RBC (0-2/HPF) Urine WBC (0-5/HPF) Ur Epithelial Cells (NONE-FEW) Urine Bacteria (NEGATIVE) SARS-CoV-2 RNA (LEONARD) (NEGATIVE) 12/30/20 12/31/20 12/31/20 Range/Units 22:25 00:50 00:50 WBC (4.0-11.0) K/uL RBC (4.50-5.90) M/uL Hgb (13.0-17.0) g/dL Hct (38.0-50.0) % MCV (80.0-98.0) fL MCH (27.0-32.0) pg MCHC (31.0-37.0) g/dL RDW Std Deviation (28.0-62.0) fl RDW Coeff of [place] (11.0-15.0) % Plt Count (150-400) K/uL MPV (7.40-12.00) fL Neut % (Auto) (48.0-80.0) % Lymph % (Auto) (16.0-40.0) % Ralls % (Auto) (0.0-15.0) % Eos % (Auto) (0.0-7.0) % Baso % (Auto) (0.0-1.5) % Neut # (Auto) (1.4-5.7) K/uL Lymph # (Auto) (0.6-2.4) K/uL Ralls # (Auto) (0.0-0.8) K/uL Eos # (Auto) (0.0-0.7) K/uL Baso # (Auto) (0.0-0.1) K/uL Nucleated RBC % /100WBC Nucleated RBCs # K/uL APTT (18.6-31.3) SEC D-Dimer, Quantitative (0.0-0.50) mg/L FEU Sodium (136-148) mmol/L Potassium (3.5-5.1) mmol/L Chloride (98-107) mmol/L Carbon Dioxide (21.0-32.0) mmol/L BUN (7.0-18.0) mg/dL Creatinine (0.8-1.3) mg/dL Est Cr Clr Drug Dosing mL/min Estimated GFR (MDRD) ml/min Glucose (74-106) mg/dL Calcium (8.5-10.1) mg/dL Phosphorus (2.6-4.7) mg/dL Magnesium (1.8-2.4) mg/dL Total Bilirubin (0.2-1.0) mg/dL AST (15-37) IU/L ALT (14-63) IU/L Alkaline Phosphatase (46-116) U/L Lactate Dehydrogenase 168 (81-234) U/L Troponin I < 0.050 (0.000-0.056) ng/mL B-Natriuretic Peptide (<100) PG/ML Total Protein (6.4-8.2) g/dL Albumin (3.4-5.0) g/dL Globulin (2.6-4.0) g/dL Albumin/Globulin Ratio (0.9-1.6) Urine Color YELLOW Urine Appearance CLEAR Urine pH 6.0 (5.0-8.0) Ur Specific [place] 1.010 (1.001-1.035) Urine Protein NEGATIVE (NEGATIVE) mg/dL Urine Glucose (UA) NEGATIVE (NEGATIVE) mg/dL Urine Ketones TRACE H (NEGATIVE) mg/dL Urine Occult Blood NEGATIVE (NEGATIVE) Urine Nitrite NEGATIVE (NEGATIVE) Urine Bilirubin NEGATIVE (NEGATIVE) Urine Urobilinogen 0.2 (<2.0) EU/dL Ur Leukocyte Esterase NEGATIVE (NEGATIVE) Urine RBC 0-1 (0-2/HPF) Urine WBC 0-2 (0-5/HPF) Ur Epithelial Cells RARE (NONE-FEW) Urine Bacteria RARE (NEGATIVE) SARS-CoV-2 RNA (LEONARD) (NEGATIVE) 12/31/20 12/31/20 12/31/20 Range/Units 01:20 01:30 05:40 WBC 6.35 (4.0-11.0) K/uL RBC 4.39 L (4.50-5.90) M/uL Hgb 14.4 (13.0-17.0) g/dL Hct 40.0 (38.0-50.0) % MCV 91.1 (80.0-98.0) fL MCH 32.8 H (27.0-32.0) pg MCHC 36.0 (31.0-37.0) g/dL RDW Std Deviation 42.1 (28.0-62.0) fl RDW Coeff of [place] 13 (11.0-15.0) % Plt Count 238 (150-400) K/uL MPV 10.90 (7.40-12.00) fL Neut % (Auto) 58.0 (48.0-80.0) % Lymph % (Auto) 36.2 (16.0-40.0) % [place] % (Auto) 4.4 (0.0-15.0) % Eos % (Auto) 1.1 (0.0-7.0) % Baso % (Auto) 0.3 (0.0-1.5) % Neut # (Auto) 3.7 (1.4-5.7) K/uL Lymph # (Auto) 2.3 (0.6-2.4) K/uL [place] # (Auto) 0.3 (0.0-0.8) K/uL Eos # (Auto) 0.1 (0.0-0.7) K/uL Baso # (Auto) 0.0 (0.0-0.1) K/uL Nucleated RBC % 0.0 /100WBC Nucleated RBCs # 0 K/uL APTT 21.6 (18.6-31.3) SEC D-Dimer, Quantitative (0.0-0.50) mg/L FEU Sodium (136-148) mmol/L Potassium (3.5-5.1) mmol/L Chloride (98-107) mmol/L Carbon Dioxide (21.0-32.0) mmol/L BUN (7.0-18.0) mg/dL Creatinine (0.8-1.3) mg/dL Est Cr Clr Drug Dosing mL/min Estimated GFR (MDRD) ml/min Glucose (74-106) mg/dL Calcium (8.5-10.1) mg/dL Phosphorus (2.6-4.7) mg/dL Magnesium (1.8-2.4) mg/dL Total Bilirubin (0.2-1.0) mg/dL AST (15-37) IU/L ALT (14-63) IU/L Alkaline Phosphatase (46-116) U/L Lactate Dehydrogenase (81-234) U/L Troponin I (0.000-0.056) ng/mL B-Natriuretic Peptide (<100) PG/ML Total Protein (6.4-8.2) g/dL Albumin (3.4-5.0) g/dL Globulin (2.6-4.0) g/dL Albumin/Globulin Ratio (0.9-1.6) Urine Color Urine Appearance Urine pH (5.0-8.0) Ur Specific [place] (1.001-1.035) Urine Protein (NEGATIVE) mg/dL Urine Glucose (UA) (NEGATIVE) mg/dL Urine Ketones (NEGATIVE) mg/dL Urine Occult Blood (NEGATIVE) Urine Nitrite (NEGATIVE) Urine Bilirubin (NEGATIVE) Urine Urobilinogen (<2.0) EU/dL Ur Leukocyte Esterase (NEGATIVE) Urine RBC (0-2/HPF) Urine WBC (0-5/HPF) Ur Epithelial Cells (NONE-FEW) Urine Bacteria (NEGATIVE) SARS-CoV-2 RNA (LEONARD) NEGATIVE (NEGATIVE) 12/31/20 12/31/20 Range/Units 05:40 05:40 WBC (4.0-11.0) K/uL RBC (4.50-5.90) M/uL Hgb (13.0-17.0) g/dL Hct (38.0-50.0) % MCV (80.0-98.0) fL MCH (27.0-32.0) pg MCHC (31.0-37.0) g/dL RDW Std Deviation (28.0-62.0) fl RDW Coeff of [place] (11.0-15.0) % Plt Count (150-400) K/uL MPV (7.40-12.00) fL Neut % (Auto) (48.0-80.0) % Lymph % (Auto) (16.0-40.0) % [place] % (Auto) (0.0-15.0) % Eos % (Auto) (0.0-7.0) % Baso % (Auto) (0.0-1.5) % Neut # (Auto) (1.4-5.7) K/uL Lymph # (Auto) (0.6-2.4) K/uL [place] # (Auto) (0.0-0.8) K/uL Eos # (Auto) (0.0-0.7) K/uL Baso # (Auto) (0.0-0.1) K/uL Nucleated RBC % /100WBC Nucleated RBCs # K/uL APTT (18.6-31.3) SEC D-Dimer, Quantitative (0.0-0.50) mg/L FEU Sodium (136-148) mmol/L Potassium (3.5-5.1) mmol/L Chloride (98-107) mmol/L Carbon Dioxide (21.0-32.0) mmol/L BUN (7.0-18.0) mg/dL Creatinine (0.8-1.3) mg/dL Est Cr Clr Drug Dosing mL/min Estimated GFR (MDRD) ml/min Glucose (74-106) mg/dL Calcium (8.5-10.1) mg/dL Phosphorus 2.5 L (2.6-4.7) mg/dL Magnesium 1.6 L (1.8-2.4) mg/dL Total Bilirubin (0.2-1.0) mg/dL AST (15-37) IU/L ALT (14-63) IU/L Alkaline Phosphatase (46-116) U/L Lactate Dehydrogenase (81-234) U/L Troponin I (0.000-0.056) ng/mL B-Natriuretic Peptide 21 (<100) PG/ML Total Protein (6.4-8.2) g/dL Albumin (3.4-5.0) g/dL Globulin (2.6-4.0) g/dL Albumin/Globulin Ratio (0.9-1.6) Urine Color Urine Appearance Urine pH (5.0-8.0) Ur Specific [place] (1.001-1.035) Urine Protein (NEGATIVE) mg/dL Urine Glucose (UA) (NEGATIVE) mg/dL Urine Ketones (NEGATIVE) mg/dL Urine Occult Blood (NEGATIVE) Urine Nitrite (NEGATIVE) Urine Bilirubin (NEGATIVE) Urine Urobilinogen (<2.0) EU/dL Ur Leukocyte Esterase (NEGATIVE) Urine RBC (0-2/HPF) Urine WBC (0-5/HPF) Ur Epithelial Cells (NONE-FEW) Urine Bacteria (NEGATIVE) SARS-CoV-2 RNA (LEONARD) (NEGATIVE) Result Diagrams: 12/31/20 05:40 12/30/20 22:10 Sepsis Event Note - Evaluation Sepsis Screening Result: No Definite Risk - Focused Exam Vital Signs: Vital Signs Temp Pulse Resp BP BP Pulse Ox Pulse Ox 12/31/20 08:10 97.6 F 60 16 150/83 H 96 12/31/20 04:50 98 12/31/20 03:32 96.8 F L 55 L 20 150/88 H 98 12/31/20 01:18 97.2 F 62 18 175/92 H 100 12/30/20 23:20 55 L 18 153/78 H 97 12/30/20 21:59 96.4 F L 56 L 20 189/111 H 99 - Problem List (1) Pulmonary emboli SNOMED Code(s): 39988428 ICD Code: I26.99 - OTHER PULMONARY EMBOLISM WITHOUT ACUTE COR PULMONALE Status: Acute Current Visit: Yes Qualifiers: Chronicity: acute Acute cor pulmonale presence: without acute cor pulmonale (2) Diabetes type 2, uncontrolled SNOMED Code(s): 203992869, 669026406 ICD Code: E11.65 - TYPE 2 DIABETES MELLITUS WITH HYPERGLYCEMIA Status: Chronic Current Visit: Yes Qualifiers: Glycemic state: with hyperglycemia Qualified Code(s): E11.65 - Type 2 diabetes mellitus with hyperglycemia (3) Hypertension SNOMED Code(s): 09129118 ICD Code: I10 - ESSENTIAL (PRIMARY) HYPERTENSION Status: Chronic Current Visit: Yes Qualifiers: Hypertension type: essential hypertension Qualified Code(s): I10 - Essential (primary) hypertension (4) Hypokalemia SNOMED Code(s): 94358249 ICD Code: E87.6 - HYPOKALEMIA Status: Acute Current Visit: Yes Problem List Initiated/Reviewed/Updated: Yes Orders Last 24hrs: Active Orders 24 hr Category Date Time Status Admission Status [Patient Status] [ADT] Stat ADT 12/31/20 01:52 Active Activity as Tolerated [RC] .Routine Care 12/31/20 04:54 Active Blood Glucose Check, Bedside [RC] TIDMEALS Care 12/31/20 04:56 Active Communication Order [RC] ROUTINE Care 12/31/20 04:52 Active Communication Order [RC] ROUTINE Care 12/31/20 04:52 Active Oxygen Therapy Adult [Oxygen Therapy] [RC] ASDIRECTED Care 12/31/20 04:50 Active RT Aerosol Therapy [RC] ASDIRECTED Care 12/31/20 05:04 Active Telemetry Monitoring [Cardiac Monitoring] [RC] Q8H Care 12/31/20 02:28 Active Vital Signs [RC] Q4H Care 12/31/20 04:50 Active ADA Diabetic [[place] [employer] Diet] [DIET Diet 12/31/20 Breakfast Active ] Echo Comp wo Cont [US] Routine Exams 12/31/20 07:36 Ordered PTT,PARTIAL THROMBOPLSTIN TIME [COAG] Q6H Lab 12/31/20 08:00 Ordered PTT,PARTIAL THROMBOPLSTIN TIME [COAG] Q6H Lab 12/31/20 14:00 Ordered PTT,PARTIAL THROMBOPLSTIN TIME [COAG] Q6H Lab 12/31/20 20:00 Ordered PTT,PARTIAL THROMBOPLSTIN TIME [COAG] Q6H Lab 01/01/21 02:00 Ordered PTT,PARTIAL THROMBOPLSTIN TIME [COAG] Q6H Lab 01/01/21 08:00 Ordered PTT,PARTIAL THROMBOPLSTIN TIME [COAG] Q6H Lab 01/01/21 14:00 Ordered Acetaminophen [TylenoL] Med 12/31/20 05:00 Active 650 mg PO Q4H PRN Albuterol/Ipratropium [DuoNeb 3.0-0.5 MG/3 ML] Med 12/31/20 05:02 Active 3 ml NEB Q4HRRT PRN Dextrose 50% in Water Med 12/31/20 04:58 Active 50 ml IV ASDIRECTED PRN Glucagon,Human Recombinant [GlucaGen] Med 12/31/20 04:58 Active 1 mg IM ASDIRECTED PRN Heparin Sodium/0.45% NaCl [Heparin 25,000 Units in 1/2 Med 12/31/20 02:45 Active NS 500 ML] 500 ml IV TITRATE Insulin Aspart [NovoLOG] Med 12/31/20 07:30 Active See Protocol SUBCUT TIDAC Lactated Ringers [Ringers, Lactated] 1,000 ml Med 12/31/20 05:00 Active IV ASDIRECTED Magnesium Sulfate 2 GM ONETIME Med 12/31/20 08:14 Ordered Magnesium Sulfate/Water [Magnesium Sulfate in Water 2 GM/50 ML] 2 gm in 50 ml IV ONETIME Morphine Med 12/31/20 05:01 Active 1 mg IVPUSH Q4H PRN Potassium Chloride 40 meq Med 12/31/20 08:14 Ordered Sodium Chloride 0.9% [Normal Saline] 500 ml IV ONETIME Sodium Chloride 0.9% [Saline Flush] Med 12/30/20 22:17 Active 10 ml FLUSH ASDIRECTED PRN Sodium Chloride 0.9% [Saline Flush] Med 12/30/20 22:17 Active 2.5 ml FLUSH ASDIRECTED PRN Telmisartan [Micardis] Med 12/31/20 09:00 Active 40 mg PO DAILY Saline Lock Insert [OM.PC] Stat Oth 12/30/20 22:17 Ordered Medication Orders Acetaminophen (Acetaminophen 325 Mg Tab) 650 mg PO Q4H PRN PRN Reason: Pain Albuterol/Ipratropium (Albuterol/Ipratropium 3.0-0.5 Mg/3 Ml Neb Soln) 3 ml NEB Q4HRRT PRN PRN Reason: Shortness of Breath Dextrose/Water (50% Dextrose In Water 50 Ml Syringe) 50 ml IV ASDIRECTED PRN PRN Reason: Hypoglycemia Glucagon (Glucagon,Human Recombinant 1 Mg Vial) 1 mg IM ASDIRECTED PRN PRN Reason: Hypoglycemia Heparin Sodium/Sodium Chloride (Heparin 25,000 Units In 1/2 Ns 500 Ml) 500 mls @ 25.991 mls/hr IV TITRATE AWA; Protocol Lactated Ringer's (Ringers, Lactated) 1,000 mls @ 125 mls/hr IV ASDIRECTED AWA Last Admin: 12/31/20 06:47 Dose: 125 mls/hr Documented by: ALEC Potassium Chloride 40 meq/ (Sodium Chloride) 520 mls @ 75 mls/hr IV ONETIME ONE Stop: 12/31/20 15:09 Magnesium Sulfate (Magnesium Sulfate In Water 2 Gm/50 Ml) 2 gm in 50 mls @ 50 mls/hr IV ONETIME ONE Stop: 12/31/20 09:13 Insulin Aspart (Insulin Aspart 100 Units/Ml 3 Ml Pen) 0 unit SUBCUT TIDAC AWA; Protocol Last Admin: 12/31/20 07:49 Dose: Not Given Documented by: VIRILAMarcio Morphine Sulfate (Morphine 2 Mg/Ml Syringe) 1 mg IVPUSH Q4H PRN PRN Reason: Pain Sodium Chloride (Sodium Chloride 0.9% 10 Ml Syringe) 10 ml FLUSH ASDIRECTED PRN PRN Reason: Keep Vein Open Sodium Chloride (Sodium Chloride 0.9% 2.5 Ml Syringe) 2.5 ml FLUSH ASDIRECTED PRN PRN Reason: Keep Vein Open Telmisartan (Telmisartan 40 Mg Tab) 40 mg PO DAILY AWA Assessment/Plan Comment:: This 65-year-old male admitted with acute PE with mild right heart strain. 1. Acute pulmonary embolism with right heart strain -Continue heparin drip, monitoring PTTs per policy -Echo pending -Continuous pulse ox -Likely provoked secondary to recent left lower extremity cellulitis and swelling -May need lab work to evaluate hypercoagulable state as an outpatient -Monitor on telemetry 2. DM type II -Reports he has a history of elevated blood sugars but has not been on me dication recently. -He was recently started on Bydureon and Metformin outpatient. -A1c today 12.1 -NovoLog sliding scale -Monitor blood sugars 3 times daily AC -ADA diet 3. Hypertension -Continue losartan monitor blood pressures 4. Anxiety -Patient usually just monitor his diet unable to tolerate any benzodiazepines as these have caused suicidal ideation in the past. VTE prophylaxis: Heparin CODE STATUS: Full code Dispo: 1 to 2 days pending improvement. Significant other at bedside and updated on rounds this morning. - Mortality Measure Prognosis:: Good
[2020-12-31] MEDS ORDERED: Sodium Chloride 0.9% 2.5 ML Syringe FLUSH PRN (08:19)
[2020-12-31] MEDS ORDERED: Magnesium Sulfate/Water 2 GM/50 ML BAG IV ONE (08:30)
[2020-12-31] MEDS ORDERED: Potassium Chloride 40 MEQ in Sodium Chloride 0.9% 500 ML IV ONE (08:30)
[2020-12-31] MEDS: Heparin Sodium/0.45% NaCl 500 ML IV SCH ×2 (09:38→19:49)
[2020-12-31 10:22] LABS: HEMOGLOBIN A1C 12.1 %
[2020-12-31] MEDS: Phosphorus #1 250 MG Tab PO SCH ×2 (15:23→17:35)
[2021-01-01] MEDS: Phosphorus #1 250 MG Tab PO SCH ×4 (00:21→17:15)
[2021-01-01] MEDS: Acetaminophen 325 MG Tab PO PRN ×3 (00:27→21:04)
[2021-01-01] MEDS: Lactated Ringers 1,000 ML IV SCH ×2 (05:09→20:08)
[2021-01-01] MEDS: Insulin Aspart 100 Units/ML 3 ML Pen SUBCUT SCH ×3 (08:29→17:15)
[2021-01-01] MEDS: Docusate Sodium 100 MG Cap PO SCH (08:30)
[2021-01-01] MEDS ORDERED: Bisacodyl 5 MG Tab PO ONE (08:30)
[2021-01-01 08:48] LABS: BLOOD UREA NITROGEN,BUN 6 mg/dL (7.0-18.0); CARBON DIOXIDE,CO2 22.9 mmol/L (21.0-32.0); CHLORIDE,CL 106 mmol/L (98-107); GLUCOSE RANDOM 234 mg/dL (74-106); POTASSIUM,K 3.6 mmol/L (3.5-5.1); SODIUM,NA 139 mmol/L (136-148)
[2021-01-01] MEDS ORDERED: Magnesium Sulfate/Water 2 GM/50 ML BAG IV ONE (09:30)
[2021-01-01] MEDS: Apixaban 5 MG Tab PO SCH ×2 (09:53→21:04)
--- NOTE | 2021-01-01 10:02 | PCM.PN ---
<Mey Claudio M - Last Filed: 01/01/21 11:37> - General Info Date of Service: 01/01/21 Admission Dx/Problem (Free Text): Admission Diagnosis/Problem Admission Diagnosis/Problem Pulmonary embolism Subjective Update: Doing well today, had dip in oxygen overnight to 88% with sleep. Denies chest pain, mild SOB otherwise doing better. Continues to have anxiety intermittently. Functional Status: Reports: Pain Controlled, Tolerating Diet, Ambulating, Urinating - Review of Systems General: Denies: Weakness, Fatigue, Malaise HEENT: Reports: No Symptoms. Denies: Headaches, Sore Throat, Visual Changes Pulmonary: Reports: Shortness of Breath (intermittently) Cardiovascular: Reports: No Symptoms. Denies: Chest Pain Gastrointestinal: Reports: No Symptoms. Denies: Abdominal Pain, Nausea, Vomiting Genitourinary: Reports: No Symptoms Musculoskeletal: Reports: No Symptoms Skin: Reports: No Symptoms Neurological: Reports: No Symptoms Psychiatric: Reports: Anxiety - Patient Data Vitals - Most Recent: Last Vital Signs Temp 97.5 F 01/01/21 05:53 Pulse 51 L 01/01/21 05:53 Resp 16 01/01/21 05:53 BP 149/90 H 01/01/21 05:53 Pulse Ox 99 01/01/21 05:53 Weight - Most Recent: 105.233 kg I&O - Last 24 Hours: Intake & Output 12/31/20 01/01/21 01/01/21 22:59 06:59 14:59 Intake Total 2139 3564 Output Total 1900 2070 Balance 239 1494 Lab Results Last 24 Hours: Laboratory Results - last 24 hr 12/31/20 12/31/20 12/31/20 Range/Units 05:40 06:41 11:26 WBC (4.0-11.0) K/uL RBC (4.50-5.90) M/uL Hgb (13.0-17.0) g/dL Hct (38.0-50.0) % MCV (80.0-98.0) fL MCH (27.0-32.0) pg MCHC (31.0-37.0) g/dL RDW Std Deviation (28.0-62.0) fl RDW Coeff of [place] (11.0-15.0) % Plt Count (150-400) K/uL MPV (7.40-12.00) fL Neut % (Auto) (48.0-80.0) % Lymph % (Auto) (16.0-40.0) % [place] % (Auto) (0.0-15.0) % Eos % (Auto) (0.0-7.0) % Baso % (Auto) (0.0-1.5) % Neut # (Auto) (1.4-5.7) K/uL Lymph # (Auto) (0.6-2.4) K/uL [place] # (Auto) (0.0-0.8) K/uL Eos # (Auto) (0.0-0.7) K/uL Baso # (Auto) (0.0-0.1) K/uL Nucleated RBC % /100WBC Nucleated RBCs # K/uL APTT (18.6-31.3) SEC Sodium (136-148) mmol/L Potassium (3.5-5.1) mmol/L Chloride (98-107) mmol/L Carbon Dioxide (21.0-32.0) mmol/L BUN (7.0-18.0) mg/dL Creatinine (0.8-1.3) mg/dL Est Cr Clr Drug Dosing mL/min Estimated GFR (MDRD) ml/min Glucose (74-106) mg/dL POC Glucose 189 H 167 H (70-99) mg/dL Hemoglobin A1c 12.1 H (4.5 - 6.2) % Calcium (8.5-10.1) mg/dL Magnesium (1.8-2.4) mg/dL 12/31/20 12/31/20 12/31/20 Range/Units 14:25 17:21 20:08 WBC (4.0-11.0) K/uL RBC (4.50-5.90) M/uL Hgb (13.0-17.0) g/dL Hct (38.0-50.0) % MCV (80.0-98.0) fL MCH (27.0-32.0) pg MCHC (31.0-37.0) g/dL RDW Std Deviation (28.0-62.0) fl RDW Coeff of [place] (11.0-15.0) % Plt Count (150-400) K/uL MPV (7.40-12.00) fL Neut % (Auto) (48.0-80.0) % Lymph % (Auto) (16.0-40.0) % [place] % (Auto) (0.0-15.0) % Eos % (Auto) (0.0-7.0) % Baso % (Auto) (0.0-1.5) % Neut # (Auto) (1.4-5.7) K/uL Lymph # (Auto) (0.6-2.4) K/uL [place] # (Auto) (0.0-0.8) K/uL Eos # (Auto) (0.0-0.7) K/uL Baso # (Auto) (0.0-0.1) K/uL Nucleated RBC % /100WBC Nucleated RBCs # K/uL APTT 44.8 H 51.4 H (18.6-31.3) SEC Sodium (136-148) mmol/L Potassium (3.5-5.1) mmol/L Chloride (98-107) mmol/L Carbon Dioxide (21.0-32.0) mmol/L BUN (7.0-18.0) mg/dL Creatinine (0.8-1.3) mg/dL Est Cr Clr Drug Dosing mL/min Estimated GFR (MDRD) ml/min Glucose (74-106) mg/dL POC Glucose 203 H (70-99) mg/dL Hemoglobin A1c (4.5 - 6.2) % Calcium (8.5-10.1) mg/dL Magnesium (1.8-2.4) mg/dL 01/01/21 01/01/21 01/01/21 Range/Units 02:12 06:34 08:16 WBC 6.43 (4.0-11.0) K/uL RBC 4.46 L (4.50-5.90) M/uL Hgb 14.4 (13.0-17.0) g/dL Hct 41.0 (38.0-50.0) % MCV 91.9 (80.0-98.0) fL MCH 32.3 H (27.0-32.0) pg MCHC 35.1 (31.0-37.0) g/dL RDW Std Deviation 42.9 (28.0-62.0) fl RDW Coeff of [place] 13 (11.0-15.0) % Plt Count 215 (150-400) K/uL MPV 10.90 (7.40-12.00) fL Neut % (Auto) 58.5 (48.0-80.0) % Lymph % (Auto) 35.0 (16.0-40.0) % [place] % (Auto) 4.8 (0.0-15.0) % Eos % (Auto) 1.4 (0.0-7.0) % Baso % (Auto) 0.3 (0.0-1.5) % Neut # (Auto) 3.8 (1.4-5.7) K/uL Lymph # (Auto) 2.3 (0.6-2.4) K/uL [place] # (Auto) 0.3 (0.0-0.8) K/uL Eos # (Auto) 0.1 (0.0-0.7) K/uL Baso # (Auto) 0.0 (0.0-0.1) K/uL Nucleated RBC % 0.0 /100WBC Nucleated RBCs # 0 K/uL APTT 63.0 H (18.6-31.3) SEC Sodium (136-148) mmol/L Potassium (3.5-5.1) mmol/L Chloride (98-107) mmol/L Carbon Dioxide (21.0-32.0) mmol/L BUN (7.0-18.0) mg/dL Creatinine (0.8-1.3) mg/dL Est Cr Clr Drug Dosing mL/min Estimated GFR (MDRD) ml/min Glucose (74-106) mg/dL POC Glucose 185 H (70-99) mg/dL Hemoglobin A1c (4.5 - 6.2) % Calcium (8.5-10.1) mg/dL Magnesium (1.8-2.4) mg/dL 01/01/21 Range/Units 08:16 WBC (4.0-11.0) K/uL RBC (4.50-5.90) M/uL Hgb (13.0-17.0) g/dL Hct (38.0-50.0) % MCV (80.0-98.0) fL MCH (27.0-32.0) pg MCHC (31.0-37.0) g/dL RDW Std Deviation (28.0-62.0) fl RDW Coeff of [place] (11.0-15.0) % Plt Count (150-400) K/uL MPV (7.40-12.00) fL Neut % (Auto) (48.0-80.0) % Lymph % (Auto) (16.0-40.0) % [place] % (Auto) (0.0-15.0) % Eos % (Auto) (0.0-7.0) % Baso % (Auto) (0.0-1.5) % Neut # (Auto) (1.4-5.7) K/uL Lymph # (Auto) (0.6-2.4) K/uL [place] # (Auto) (0.0-0.8) K/uL Eos # (Auto) (0.0-0.7) K/uL Baso # (Auto) (0.0-0.1) K/uL Nucleated RBC % /100WBC Nucleated RBCs # K/uL APTT (18.6-31.3) SEC Sodium 139 (136-148) mmol/L Potassium 3.6 (3.5-5.1) mmol/L Chloride 106 (98-107) mmol/L Carbon Dioxide 22.9 (21.0-32.0) mmol/L BUN 6 L (7.0-18.0) mg/dL Creatinine 0.8 (0.8-1.3) mg/dL Est Cr Clr Drug Dosing 102.39 mL/min Estimated GFR (MDRD) > 60.0 ml/min Glucose 234 H (74-106) mg/dL POC Glucose (70-99) mg/dL Hemoglobin A1c (4.5 - 6.2) % Calcium 8.2 L (8.5-10.1) mg/dL Magnesium 1.7 L (1.8-2.4) mg/dL Med Orders - Current: Current Medications Acetaminophen (Acetaminophen 325 Mg Tab) 650 mg PO Q4H PRN PRN Reason: Pain Last Admin: 01/01/21 05:02 Dose: 650 mg Documented by: Albuterol/Ipratropium (Albuterol/Ipratropium 3.0-0.5 Mg/3 Ml Neb Soln) 3 ml NEB Q4HRRT PRN PRN Reason: Shortness of Breath Apixaban (Apixaban 5 Mg Tab) 10 mg PO BID [facility] Last Admin: 01/01/21 09:53 Dose: 10 mg Documented by: Dextrose/Water (50% Dextrose In Water 50 Ml Syringe) 50 ml IV ASDIRECTED PRN PRN Reason: Hypoglycemia Docusate Sodium (Docusate Sodium 100 Mg Cap) 100 mg PO DAILY [facility] Last Admin: 01/01/21 08:30 Dose: 100 mg Documented by: Glucagon (Glucagon,Human Recombinant 1 Mg Vial) 1 mg IM ASDIRECTED PRN PRN Reason: Hypoglycemia Lactated Ringer's (Ringers, Lactated) 1,000 mls @ 125 mls/hr IV ASDIRECTED [facility] Last Admin: 01/01/21 05:09 Dose: 125 mls/hr Documented by: Magnesium Sulfate (Magnesium Sulfate In Water 2 Gm/50 Ml) 2 gm in 50 mls @ 50 mls/hr IV ONETIME ONE Stop: 01/01/21 10:29 Last Admin: 01/01/21 09:55 Dose: 50 mls/hr Documented by: Insulin Aspart (Insulin Aspart 100 Units/Ml 3 Ml Pen) 0 unit SUBCUT TIDAC [facility]; Protocol Last Admin: 01/01/21 08:29 Dose: 1 unit Documented by: Morphine Sulfate (Morphine 2 Mg/Ml Syringe) 1 mg IVPUSH Q4H PRN PRN Reason: Pain Telmisartan 40 Mg (Tablet) 1 each PO DAILY [facility] Last Admin: 01/01/21 08:31 Dose: 1 each Documented by: Sodium Chloride (Sodium Chloride 0.9% 2.5 Ml Syringe) 2.5 ml FLUSH ASDIRECTED PRN PRN Reason: Keep Vein Open Sodium Phosphate (Phosphorus #1 250 Mg Tab) 250 mg PO QID [facility] Last Admin: 01/01/21 05:02 Dose: 250 mg Documented by: Discontinued Medications Bisacodyl (Bisacodyl 5 Mg Tab) 5 mg PO ONETIME ONE Stop: 01/01/21 08:31 Last Admin: 01/01/21 08:30 Dose: 5 mg Documented by: Heparin Sodium (Porcine) (Heparin Sodium 5,000 Units/Ml Vial) 4,800 units IVPUSH .BOLUS ONE Stop: 12/31/20 01:28 Last Admin: 12/31/20 01:49 Dose: Not Given Documented by: Heparin Sodium (Porcine) (Heparin Sodium 5,000 Units/Ml Vial) 8,480 units IVPUSH .BOLUS ONE Stop: 12/31/20 01:40 Last Admin: 12/31/20 02:09 Dose: Not Given Documented by: Heparin Sodium (Porcine) (Heparin Sodium 5,000 Units/Ml Vial) 7,500 units IVPUSH ONETIME ONE; Protocol Stop: 12/31/20 01:51 Last Admin: 12/31/20 02:06 Dose: 7,500 units Documented by: Heparin Sodium (Porcine) (Heparin Sodium 5,000 Units/Ml Vial) 1,500 units IVPUSH .BOLUS ONE Stop: 12/31/20 09:31 Last Admin: 12/31/20 09:38 Dose: 1,500 units Documented by: Heparin Sodium (Porcine) (Heparin Sodium 5,000 Units/Ml Vial) 1,500 units IVPUSH .BOLUS ONE Stop: 12/31/20 14:57 Last Admin: 12/31/20 15:20 Dose: 1,500 units Documented by: Sodium Chloride (Normal Saline) 1,000 mls @ 999 mls/hr IV .BOLUS ONE Stop: 12/31/20 00:15 Last Admin: 12/30/20 23:20 Dose: 999 mls/hr Documented by: Heparin Sodium/Sodium Chloride (Heparin 25,000 Units In 1/2 Ns 500 Ml) 500 mls @ 21.555 mls/hr IV TITRATE AWA; Protocol Heparin Sodium/Sodium Chloride (Heparin 25,000 Units In 1/2 Ns 500 Ml) 500 mls @ 38.16 mls/hr IV TITRATE AWA; Protocol Last Titration: 12/31/20 02:47 Dose: 12 units/kg/hr, 25.44 mls/hr Documented by: Heparin Sodium/Sodium Chloride (Heparin 25,000 Units In 1/2 Ns 500 Ml) Confirm Administered Dose 500 mls @ as directed .ROUTE .STK-MED ONE Stop: 12/31/20 01:55 Last Admin: 12/31/20 02:14 Dose: Not Given Documented by: Heparin Sodium/Sodium Chloride (Heparin 25,000 Units In 1/2 Ns 500 Ml) 500 mls @ 25.991 mls/hr IV TITRATE AWA; Protocol Last Titration: 01/01/21 03:36 Dose: 16 unit/kg/hr, 33.92 mls/hr Documented by: Potassium Chloride 40 meq/ (Sodium Chloride) 520 mls @ 75 mls/hr IV ONETIME ONE Stop: 12/31/20 15:25 Last Admin: 12/31/20 09:41 Dose: 75 mls/hr Documented by: Magnesium Sulfate (Magnesium Sulfate In Water 2 Gm/50 Ml) 2 gm in 50 mls @ 50 mls/hr IV ONETIME ONE Stop: 12/31/20 09:29 Last Admin: 12/31/20 08:29 Dose: 50 mls/hr Documented by: Iopamidol (Iopamidol 755 Mg/Ml 500 Ml Multipack Bottle) 100 ml IVPUSH ONETIME STA Stop: 12/31/20 00:33 Last Admin: 12/31/20 00:32 Dose: 100 ml Documented by: Ondansetron HCl (Ondansetron 4 Mg/2 Ml Sdv) 4 mg IVPUSH ONETIME ONE Stop: 12/30/20 22:28 Last Admin: 12/30/20 22:34 Dose: 4 mg Documented by: Potassium Chloride (Potassium Chloride 20 Meq Tab.Er) 40 meq PO ONETIME ONE Stop: 12/30/20 23:16 Last Admin: 12/30/20 23:25 Dose: Not Given Documented by: Potassium Chloride (Potassium Chloride 20 Meq Tab.Er) 40 meq PO ONETIME ONE Stop: 12/31/20 04:52 Last Admin: 12/31/20 06:47 Dose: Not Given Documented by: Sodium Chloride (Sodium Chloride 0.9% 10 Ml Syringe) 10 ml FLUSH ASDIRECTED PRN PRN Reason: Keep Vein Open Sodium Chloride (Sodium Chloride 0.9% 2.5 Ml Syringe) 2.5 ml FLUSH ASDIRECTED PRN PRN Reason: Keep Vein Open - Exam Quality Assessment: Supplemental Oxygen (for comfort) General: Alert, Oriented, Cooperative Lungs: Clear to Auscultation, Normal Respiratory Effort Cardiovascular: Regular Rate, Regular Rhythm, No Murmurs GI/Abdominal Exam: Normal Bowel Sounds, Soft, Non-Tender Extremities: Normal Inspection, Normal Range of Motion, Non-Tender, No Pedal Edema Neurological: No New Focal Deficit Psy/Mental Status: Alert, Normal Affect, Anxious (on second rounds) - Patient Data Lab Results Last 24 hrs: Laboratory Results - last 24 hr 12/31/20 12/31/20 12/31/20 Range/Units 05:40 06:41 11:26 WBC (4.0-11.0) K/uL RBC (4.50-5.90) M/uL Hgb (13.0-17.0) g/dL Hct (38.0-50.0) % MCV (80.0-98.0) fL MCH (27.0-32.0) pg MCHC (31.0-37.0) g/dL RDW Std Deviation (28.0-62.0) fl RDW Coeff of [place] (11.0-15.0) % Plt Count (150-400) K/uL MPV (7.40-12.00) fL Neut % (Auto) (48.0-80.0) % Lymph % (Auto) (16.0-40.0) % [place] % (Auto) (0.0-15.0) % Eos % (Auto) (0.0-7.0) % Baso % (Auto) (0.0-1.5) % Neut # (Auto) (1.4-5.7) K/uL Lymph # (Auto) (0.6-2.4) K/uL [place] # (Auto) (0.0-0.8) K/uL Eos # (Auto) (0.0-0.7) K/uL Baso # (Auto) (0.0-0.1) K/uL Nucleated RBC % /100WBC Nucleated RBCs # K/uL APTT (18.6-31.3) SEC Sodium (136-148) mmol/L Potassium (3.5-5.1) mmol/L Chloride (98-107) mmol/L Carbon Dioxide (21.0-32.0) mmol/L BUN (7.0-18.0) mg/dL Creatinine (0.8-1.3) mg/dL Est Cr Clr Drug Dosing mL/min Estimated GFR (MDRD) ml/min Glucose (74-106) mg/dL POC Glucose 189 H 167 H (70-99) mg/dL Hemoglobin A1c 12.1 H (4.5 - 6.2) % Calcium (8.5-10.1) mg/dL Magnesium (1.8-2.4) mg/dL 12/31/20 12/31/20 12/31/20 Range/Units 14:25 17:21 20:08 WBC (4.0-11.0) K/uL RBC (4.50-5.90) M/uL Hgb (13.0-17.0) g/dL Hct (38.0-50.0) % MCV (80.0-98.0) fL MCH (27.0-32.0) pg MCHC (31.0-37.0) g/dL RDW Std Deviation (28.0-62.0) fl RDW Coeff of [place] (11.0-15.0) % Plt Count (150-400) K/uL MPV (7.40-12.00) fL Neut % (Auto) (48.0-80.0) % Lymph % (Auto) (16.0-40.0) % [place] % (Auto) (0.0-15.0) % Eos % (Auto) (0.0-7.0) % Baso % (Auto) (0.0-1.5) % Neut # (Auto) (1.4-5.7) K/uL Lymph # (Auto) (0.6-2.4) K/uL [place] # (Auto) (0.0-0.8) K/uL Eos # (Auto) (0.0-0.7) K/uL Baso # (Auto) (0.0-0.1) K/uL Nucleated RBC % /100WBC Nucleated RBCs # K/uL APTT 44.8 H 51.4 H (18.6-31.3) SEC Sodium (136-148) mmol/L Potassium (3.5-5.1) mmol/L Chloride (98-107) mmol/L Carbon Dioxide (21.0-32.0) mmol/L BUN (7.0-18.0) mg/dL Creatinine (0.8-1.3) mg/dL Est Cr Clr Drug Dosing mL/min Estimated GFR (MDRD) ml/min Glucose (74-106) mg/dL POC Glucose 203 H (70-99) mg/dL Hemoglobin A1c (4.5 - 6.2) % Calcium (8.5-10.1) mg/dL Magnesium (1.8-2.4) mg/dL 01/01/21 01/01/21 01/01/21 Range/Units 02:12 06:34 08:16 WBC 6.43 (4.0-11.0) K/uL RBC 4.46 L (4.50-5.90) M/uL Hgb 14.4 (13.0-17.0) g/dL Hct 41.0 (38.0-50.0) % MCV 91.9 (80.0-98.0) fL MCH 32.3 H (27.0-32.0) pg MCHC 35.1 (31.0-37.0) g/dL RDW Std Deviation 42.9 (28.0-62.0) fl RDW Coeff of [place] 13 (11.0-15.0) % Plt Count 215 (150-400) K/uL MPV 10.90 (7.40-12.00) fL Neut % (Auto) 58.5 (48.0-80.0) % Lymph % (Auto) 35.0 (16.0-40.0) % [place] % (Auto) 4.8 (0.0-15.0) % Eos % (Auto) 1.4 (0.0-7.0) % Baso % (Auto) 0.3 (0.0-1.5) % Neut # (Auto) 3.8 (1.4-5.7) K/uL Lymph # (Auto) 2.3 (0.6-2.4) K/uL [place] # (Auto) 0.3 (0.0-0.8) K/uL Eos # (Auto) 0.1 (0.0-0.7) K/uL Baso # (Auto) 0.0 (0.0-0.1) K/uL Nucleated RBC % 0.0 /100WBC Nucleated RBCs # 0 K/uL APTT 63.0 H (18.6-31.3) SEC Sodium (136-148) mmol/L Potassium (3.5-5.1) mmol/L Chloride (98-107) mmol/L Carbon Dioxide (21.0-32.0) mmol/L BUN (7.0-18.0) mg/dL Creatinine (0.8-1.3) mg/dL Est Cr Clr Drug Dosing mL/min Estimated GFR (MDRD) ml/min Glucose (74-106) mg/dL POC Glucose 185 H (70-99) mg/dL Hemoglobin A1c (4.5 - 6.2) % Calcium (8.5-10.1) mg/dL Magnesium (1.8-2.4) mg/dL 01/01/21 Range/Units 08:16 WBC (4.0-11.0) K/uL RBC (4.50-5.90) M/uL Hgb (13.0-17.0) g/dL Hct (38.0-50.0) % MCV (80.0-98.0) fL MCH (27.0-32.0) pg MCHC (31.0-37.0) g/dL RDW Std Deviation (28.0-62.0) fl RDW Coeff of [place] (11.0-15.0) % Plt Count (150-400) K/uL MPV (7.40-12.00) fL Neut % (Auto) (48.0-80.0) % Lymph % (Auto) (16.0-40.0) % [place] % (Auto) (0.0-15.0) % Eos % (Auto) (0.0-7.0) % Baso % (Auto) (0.0-1.5) % Neut # (Auto) (1.4-5.7) K/uL Lymph # (Auto) (0.6-2.4) K/uL [place] # (Auto) (0.0-0.8) K/uL Eos # (Auto) (0.0-0.7) K/uL Baso # (Auto) (0.0-0.1) K/uL Nucleated RBC % /100WBC Nucleated RBCs # K/uL APTT (18.6-31.3) SEC Sodium 139 (136-148) mmol/L Potassium 3.6 (3.5-5.1) mmol/L Chloride 106 (98-107) mmol/L Carbon Dioxide 22.9 (21.0-32.0) mmol/L BUN 6 L (7.0-18.0) mg/dL Creatinine 0.8 (0.8-1.3) mg/dL Est Cr Clr Drug Dosing 102.39 mL/min Estimated GFR (MDRD) > 60.0 ml/min Glucose 234 H (74-106) mg/dL POC Glucose (70-99) mg/dL Hemoglobin A1c (4.5 - 6.2) % Calcium 8.2 L (8.5-10.1) mg/dL Magnesium 1.7 L (1.8-2.4) mg/dL Result Diagrams: 01/01/21 08:16 01/01/21 08:16 Sepsis Event Note - Evaluation Sepsis Screening Result: No Definite Risk - Focused Exam Vital Signs: Vital Signs Temp Pulse Resp BP BP Pulse Ox 01/01/21 05:53 97.5 F 51 L 16 149/90 H 99 01/01/21 00:22 97.7 F 54 L 15 140/78 100 - Problem List & Annotations (1) Pulmonary emboli SNOMED Code(s): 27286919 Code(s): I26.99 - OTHER PULMONARY EMBOLISM WITHOUT ACUTE COR PULMONALE Status: Acute Current Visit: Yes Qualifiers: Chronicity: acute Acute cor pulmonale presence: without acute cor pulmonale (2) Diabetes type 2, uncontrolled SNOMED Code(s): 201116800, 540695650 Code(s): E11.65 - TYPE 2 DIABETES MELLITUS WITH HYPERGLYCEMIA Status: Chronic Current Visit: Yes Qualifiers: Glycemic state: with hyperglycemia Qualified Code(s): E11.65 - Type 2 diabetes mellitus with hyperglycemia (3) Hypertension SNOMED Code(s): 59030213 Code(s): I10 - ESSENTIAL (PRIMARY) HYPERTENSION Status: Chronic Current Visit: Yes Qualifiers: Hypertension type: essential hypertension Qualified Code(s): I10 - Essenti al (primary) hypertension (4) Hypokalemia SNOMED Code(s): 31522389 Code(s): E87.6 - HYPOKALEMIA Status: Acute Current Visit: Yes - Problem List Review Problem List Initiated/Reviewed/Updated: Yes - My Orders Last 24 Hours: My Active Orders 12/31/20 14:27 Phosphorus #1 [Neutra-Phos] 250 mg PO QID 01/01/21 08:58 Overnight Pulse Oximetry [RC] Click to Edit 01/01/21 09:00 Docusate Sodium [Colace] 100 mg PO DAILY 01/01/21 09:30 Apixaban [Eliquis] 10 mg PO BID Magnesium Sulfate/Water [Magnesium Sulfate in Water 2 GM/50 ML] 2 gm in 50 ml IV ONETIME - Plan Plan:: This 65-year-old male admitted with acute PE with mild right heart strain. 1. Acute pulmonary embolism with right heart strain -DC heparin gtt, transition to Eliquis 10 mg BID x 7 days then 5 mg BID there after -Echo reveals EF 60 to 65%. Normal right ventricular systolic function, aortic valve is structurally normal and tricuspid, no evidence of mitral valve regurg no tricuspid valve regurgitation. Right ventricular systolic pressure is unable to be determined and no regional wall motion abnormalities noted -Continuous pulse ox for comfort of patient -Patient feels more comfortable with 1 L of oxygen on even though oxygen saturations ranged from 98 to 100% on room air. -Likely provoked secondary to recent left lower extremity cellulitis and swelling -Monitor on telemetry -Patient ambulated with nursing staff in the hallway tolerated well did multiple laps oxygen saturations well above 92% on room air during the entire walk. 2. DM type II -Blood sugar stable -He was recently started on Bydureon and Metformin outpatient. -A1c today 12.1 -NovoLog sliding scale -Monitor blood sugars 3 times daily AC -ADA diet 3. Hypertension -Continue losartan monitor blood pressures 4. Anxiety -Patient usually just monitor his diet unable to tolerate any benzodiazepines as these have caused suicidal ideation in the past. VTE prophylaxis: Heparin CODE STATUS: Full code Dispo: Possible DC in the morning <Harish Lerma - Last Filed: 01/02/21 12:01> - Patient Data Vitals - Most Recent: Last Vital Signs Temp 36.7 C 01/02/21 11:42 Pulse 51 L 01/02/21 11:42 Resp 14 01/02/21 11:42 BP 154/83 H 01/02/21 11:42 Pulse Ox 97 01/02/21 11:42 I&O - Last 24 Hours: Intake & Output 01/01/21 01/02/21 01/02/21 22:59 06:59 14:59 Intake Total 1400 2493 Output Total 1925 2200 Balance -525 293 Lab Results Last 24 Hours: Laboratory Results - last 24 hr 01/01/21 01/02/21 01/02/21 Range/Units 17:08 05:03 05:03 WBC 6.74 (4.0-11.0) K/uL RBC 4.49 L (4.50-5.90) M/uL Hgb 14.4 (13.0-17.0) g/dL Hct 41.5 (38.0-50.0) % MCV 92.4 (80.0-98.0) fL MCH 32.1 H (27.0-32.0) pg MCHC 34.7 (31.0-37.0) g/dL RDW Std Deviation 43.7 (28.0-62.0) fl RDW Coeff of [place] 13 (11.0-15.0) % Plt Count 223 (150-400) K/uL MPV 11.00 (7.40-12.00) fL Neut % (Auto) 59.0 (48.0-80.0) % Lymph % (Auto) 34.0 (16.0-40.0) % [place] % (Auto) 5.3 (0.0-15.0) % Eos % (Auto) 1.3 (0.0-7.0) % Baso % (Auto) 0.4 (0.0-1.5) % Neut # (Auto) 4.0 (1.4-5.7) K/uL Lymph # (Auto) 2.3 (0.6-2.4) K/uL [place] # (Auto) 0.4 (0.0-0.8) K/uL Eos # (Auto) 0.1 (0.0-0.7) K/uL Baso # (Auto) 0.0 (0.0-0.1) K/uL Nucleated RBC % 0.0 /100WBC Nucleated RBCs # 0 K/uL Sodium 141 (136-148) mmol/L Potassium 3.6 (3.5-5.1) mmol/L Chloride 106 (98-107) mmol/L Carbon Dioxide 22.2 (21.0-32.0) mmol/L BUN 11 (7.0-18.0) mg/dL Creatinine 0.9 (0.8-1.3) mg/dL Est Cr Clr Drug Dosing 91.01 mL/min Estimated GFR (MDRD) > 60.0 ml/min Glucose 211 H (74-106) mg/dL POC Glucose 201 H (70-99) mg/dL Calcium 8.2 L (8.5-10.1) mg/dL Magnesium 1.8 (1.8-2.4) mg/dL 01/02/21 01/02/21 Range/Units 06:22 11:37 WBC (4.0-11.0) K/uL RBC (4.50-5.90) M/uL Hgb (13.0-17.0) g/dL Hct (38.0-50.0) % MCV (80.0-98.0) fL MCH (27.0-32.0) pg MCHC (31.0-37.0) g/dL RDW Std Deviation (28.0-62.0) fl RDW Coeff of [place] (11.0-15.0) % Plt Count (150-400) K/uL MPV (7.40-12.00) fL Neut % (Auto) (48.0-80.0) % Lymph % (Auto) (16.0-40.0) % [place] % (Auto) (0.0-15.0) % Eos % (Auto) (0.0-7.0) % Baso % (Auto) (0.0-1.5) % Neut # (Auto) (1.4-5.7) K/uL Lymph # (Auto) (0.6-2.4) K/uL [place] # (Auto) (0.0-0.8) K/uL Eos # (Auto) (0.0-0.7) K/uL Baso # (Auto) (0.0-0.1) K/uL Nucleated RBC % /100WBC Nucleated RBCs # K/uL Sodium (136-148) mmol/L Potassium (3.5-5.1) mmol/L Chloride (98-107) mmol/L Carbon Dioxide (21.0-32.0) mmol/L BUN (7.0-18.0) mg/dL Creatinine (0.8-1.3) mg/dL Est Cr Clr Drug Dosing mL/min Estimated GFR (MDRD) ml/min Glucose (74-106) mg/dL POC Glucose 194 H 188 H (70-99) mg/dL Calcium (8.5-10.1) mg/dL Magnesium (1.8-2.4) mg/dL Med Orders - Current: Current Medications Acetaminophen (Acetaminophen 325 Mg Tab) 650 mg PO Q4H PRN PRN Reason: Pain Last Admin: 01/01/21 21:04 Dose: 650 mg Documented by: Albuterol/Ipratropium (Albuterol/Ipratropium 3.0-0.5 Mg/3 Ml Neb Soln) 3 ml NEB Q4HRRT PRN PRN Reason: Shortness of Breath Apixaban (Apixaban 5 Mg Tab) 10 mg PO BID [facility] Last Admin: 01/02/21 08:17 Dose: 10 mg Documented by: Dextrose/Water (50% Dextrose In Water 50 Ml Syringe) 50 ml IV ASDIRECTED PRN PRN Reason: Hypoglycemia Docusate Sodium (Docusate Sodium 100 Mg Cap) 100 mg PO DAILY [facility] Last Admin: 01/02/21 08:17 Dose: 100 mg Documented by: Glucagon (Glucagon,Human Recombinant 1 Mg Vial) 1 mg IM ASDIRECTED PRN PRN Reason: Hypoglycemia Lactated Ringer's (Ringers, Lactated) 1,000 mls @ 125 mls/hr IV ASDIRECTED [facility] Last Admin: 01/02/21 04:10 Dose: 125 mls/hr Documented by: Insulin Aspart (Insulin Aspart 100 Units/Ml 3 Ml Pen) 0 unit SUBCUT TIDAC [facility]; Protocol Last Admin: 01/02/21 11:39 Dose: 1 unit Documented by: Morphine Sulfate (Morphine 2 Mg/Ml Syringe) 1 mg IVPUSH Q4H PRN PRN Reason: Pain Telmisartan 40 Mg (Tablet) 1 each PO DAILY [facility] Last Admin: 01/02/21 08:18 Dose: 1 each Documented by: Polyethylene Glycol (Polyethylene Glycol 3350 Powder 17 Gm Packet) 17 gm PO TID PRN PRN Reason: Constipation Last Admin: 01/02/21 11:39 Dose: 17 gm Documented by: Sodium Chloride (Sodium Chloride 0.9% 2.5 Ml Syringe) 2.5 ml FLUSH ASDIRECTED PRN PRN Reason: Keep Vein Open Last Admin: 01/01/21 19:31 Dose: 2.5 ml Documented by: Sodium Phosphate (Phosphorus #1 250 Mg Tab) 250 mg PO QID AWA Last Admin: 01/02/21 11:39 Dose: 250 mg Documented by: Discontinued Medications Bisacodyl (Bisacodyl 5 Mg Tab) 5 mg PO ONETIME ONE Stop: 01/01/21 08:31 Last Admin: 01/01/21 08:30 Dose: 5 mg Documented by: Heparin Sodium (Porcine) (Heparin Sodium 5,000 Units/Ml Vial) 4,800 units IVPUSH .BOLUS ONE Stop: 12/31/20 01:28 Last Admin: 12/31/20 01:49 Dose: Not Given Documented by: Heparin Sodium (Porcine) (Heparin Sodium 5,000 Units/Ml Vial) 8,480 units IVPUSH .BOLUS ONE Stop: 12/31/20 01:40 Last Admin: 12/31/20 02:09 Dose: Not Given Documented by: Heparin Sodium (Porcine) (Heparin Sodium 5,000 Units/Ml Vial) 7,500 units IVPUSH ONETIME ONE; Protocol Stop: 12/31/20 01:51 Last Admin: 12/31/20 02:06 Dose: 7,500 units Documented by: Heparin Sodium (Porcine) (Heparin Sodium 5,000 Units/Ml Vial) 1,500 units IVPUSH .BOLUS ONE Stop: 12/31/20 09:31 Last Admin: 12/31/20 09:38 Dose: 1,500 units Documented by: Heparin Sodium (Porcine) (Heparin Sodium 5,000 Units/Ml Vial) 1,500 units IVPUSH .BOLUS ONE Stop: 12/31/20 14:57 Last Admin: 12/31/20 15:20 Dose: 1,500 units Documented by: Sodium Chloride (Normal Saline) 1,000 mls @ 999 mls/hr IV .BOLUS ONE Stop: 12/31/20 00:15 Last Admin: 12/30/20 23:20 Dose: 999 mls/hr Documented by: Heparin Sodium/Sodium Chloride (Heparin 25,000 Units In 1/2 Ns 500 Ml) 500 mls @ 21.555 mls/hr IV TITRATE AWA; Protocol Heparin Sodium/Sodium Chloride (Heparin 25,000 Units In 1/2 Ns 500 Ml) 500 mls @ 38.16 mls/hr IV TITRATE AWA; Protocol Last Titration: 12/31/20 02:47 Dose: 12 units/kg/hr, 25.44 mls/hr Documented by: Heparin Sodium/Sodium Chloride (Heparin 25,000 Units In 1/2 Ns 500 Ml) Confirm Administered Dose 500 mls @ as directed .ROUTE .STK-MED ONE Stop: 12/31/20 01:55 Last Admin: 12/31/20 02:14 Dose: Not Given Documented by: Heparin Sodium/Sodium Chloride (Heparin 25,000 Units In 1/2 Ns 500 Ml) 500 mls @ 25.991 mls/hr IV TITRATE AWA; Protocol Last Titration: 01/01/21 03:36 Dose: 16 unit/kg/hr, 33.92 mls/hr Documented by: Potassium Chloride 40 meq/ (Sodium Chloride) 520 mls @ 75 mls/hr IV ONETIME ONE Stop: 12/31/20 15:25 Last Admin: 12/31/20 09:41 Dose: 75 mls/hr Documented by: Magnesium Sulfate (Magnesium Sulfate In Water 2 Gm/50 Ml) 2 gm in 50 mls @ 50 mls/hr IV ONETIME ONE Stop: 12/31/20 09:29 Last Admin: 12/31/20 08:29 Dose: 50 mls/hr Documented by: Magnesium Sulfate (Magnesium Sulfate In Water 2 Gm/50 Ml) 2 gm in 50 mls @ 50 mls/hr IV ONETIME ONE Stop: 01/01/21 10:29 Last Admin: 01/01/21 09:55 Dose: 50 mls/hr Documented by: Iopamidol (Iopamidol 755 Mg/Ml 500 Ml Multipack Bottle) 100 ml IVPUSH ONETIME STA Stop: 12/31/20 00:33 Last Admin: 12/31/20 00:32 Dose: 100 ml Documented by: Ondansetron HCl (Ondansetron 4 Mg/2 Ml Sdv) 4 mg IVPUSH ONETIME ONE Stop: 12/30/20 22:28 Last Admin: 12/30/20 22:34 Dose: 4 mg Documented by: Potassium Chloride (Potassium Chloride 20 Meq Tab.Er) 40 meq PO ONETIME ONE Stop: 12/30/20 23:16 Last Admin: 12/30/20 23:25 Dose: Not Given Documented by: Potassium Chloride (Potassium Chloride 20 Meq Tab.Er) 40 meq PO ONETIME ONE Stop: 12/31/20 04:52 Last Admin: 12/31/20 06:47 Dose: Not Given Documented by: Sodium Chloride (Sodium Chloride 0.9% 10 Ml Syringe) 10 ml FLUSH ASDIRECTED PRN PRN Reason: Keep Vein Open Sodium Chloride (Sodium Chloride 0.9% 2.5 Ml Syringe) 2.5 ml FLUSH ASDIRECTED PRN PRN Reason: Keep Vein Open - Patient Data Lab Results Last 24 hrs: Laboratory Results - last 24 hr 01/01/21 01/02/21 01/02/21 Range/Units 17:08 05:03 05:03 WBC 6.74 (4.0-11.0) K/uL RBC 4.49 L (4.50-5.90) M/uL Hgb 14.4 (13.0-17.0) g/dL Hct 41.5 (38.0-50.0) % MCV 92.4 (80.0-98.0) fL MCH 32.1 H (27.0-32.0) pg MCHC 34.7 (31.0-37.0) g/dL RDW Std Deviation 43.7 (28.0-62.0) fl RDW Coeff of [place] 13 (11.0-15.0) % Plt Count 223 (150-400) K/uL MPV 11.00 (7.40-12.00) fL Neut % (Auto) 59.0 (48.0-80.0) % Lymph % (Auto) 34.0 (16.0-40.0) % [place] % (Auto) 5.3 (0.0-15.0) % Eos % (Auto) 1.3 (0.0-7.0) % Baso % (Auto) 0.4 (0.0-1.5) % Neut # (Auto) 4.0 (1.4-5.7) K/uL Lymph # (Auto) 2.3 (0.6-2.4) K/uL [place] # (Auto) 0.4 (0.0-0.8) K/uL Eos # (Auto) 0.1 (0.0-0.7) K/uL Baso # (Auto) 0.0 (0.0-0.1) K/uL Nucleated RBC % 0.0 /100WBC Nucleated RBCs # 0 K/uL Sodium 141 (136-148) mmol/L Potassium 3.6 (3.5-5.1) mmol/L Chloride 106 (98-107) mmol/L Carbon Dioxide 22.2 (21.0-32.0) mmol/L BUN 11 (7.0-18.0) mg/dL Creatinine 0.9 (0.8-1.3) mg/dL Est Cr Clr Drug Dosing 91.01 mL/min Estimated GFR (MDRD) > 60.0 ml/min Glucose 211 H (74-106) mg/dL POC Glucose 201 H (70-99) mg/dL Calcium 8.2 L (8.5-10.1) mg/dL Magnesium 1.8 (1.8-2.4) mg/dL 01/02/21 01/02/21 Range/Units 06:22 11:37 WBC (4.0-11.0) K/uL RBC (4.50-5.90) M/uL Hgb (13.0-17.0) g/dL Hct (38.0-50.0) % MCV (80.0-98.0) fL MCH (27.0-32.0) pg MCHC (31.0-37.0) g/dL RDW Std Deviation (28.0-62.0) fl RDW Coeff of [place] (11.0-15.0) % Plt Count (150-400) K/uL MPV (7.40-12.00) fL Neut % (Auto) (48.0-80.0) % Lymph % (Auto) (16.0-40.0) % [place] % (Auto) (0.0-15.0) % Eos % (Auto) (0.0-7.0) % Baso % (Auto) (0.0-1.5) % Neut # (Auto) (1.4-5.7) K/uL Lymph # (Auto) (0.6-2.4) K/uL [place] # (Auto) (0.0-0.8) K/uL Eos # (Auto) (0.0-0.7) K/uL Baso # (Auto) (0.0-0.1) K/uL Nucleated RBC % /100WBC Nucleated RBCs # K/uL Sodium (136-148) mmol/L Potassium (3.5-5.1) mmol/L Chloride (98-107) mmol/L Carbon Dioxide (21.0-32.0) mmol/L BUN (7.0-18.0) mg/dL Creatinine (0.8-1.3) mg/dL Est Cr Clr Drug Dosing mL/min Estimated GFR (MDRD) ml/min Glucose (74-106) mg/dL POC Glucose 194 H 188 H (70-99) mg/dL Calcium (8.5-10.1) mg/dL Magnesium (1.8-2.4) mg/dL Result Diagrams: 01/02/21 05:03 01/02/21 05:03 Sepsis Event Note - Focused Exam Vital Signs: Vital Signs Temp Pulse Resp BP BP Pulse Ox 01/02/21 11:42 36.7 C 51 L 14 154/83 H 97 01/02/21 08:13 36.3 C 51 L 14 146/78 H 98 01/02/21 05:05 36.6 C 50 L 16 145/90 H 98 01/02/21 00:49 36.5 C 47 L 16 139/75 96 - My Orders Last 24 Hours: My Active Orders 01/02/21 11:27 Ready for Discharge [RC] PER UNIT ROUTINE - Plan Plan:: I have seen and evaluated the patient and agree with the residents note unless specified in my note.
[2021-01-02] MEDS: Phosphorus #1 250 MG Tab PO SCH ×3 (00:49→11:39)
[2021-01-02] MEDS: Lactated Ringers 1,000 ML IV SCH (04:10)
[2021-01-02] MEDS: Acetaminophen 325 MG Tab PO PRN (05:07)
[2021-01-02 06:01] LABS: BLOOD UREA NITROGEN,BUN 11 mg/dL (7.0-18.0); CARBON DIOXIDE,CO2 22.2 mmol/L (21.0-32.0); CHLORIDE,CL 106 mmol/L (98-107); GLUCOSE RANDOM 211 mg/dL (74-106); POTASSIUM,K 3.6 mmol/L (3.5-5.1); SODIUM,NA 141 mmol/L (136-148)
[2021-01-02 08:14] VITALS: PULSE 51
[2021-01-02] MEDS: Insulin Aspart 100 Units/ML 3 ML Pen SUBCUT SCH ×2 (08:16→11:39)
[2021-01-02] MEDS: Docusate Sodium 100 MG Cap PO SCH (08:17)
[2021-01-02] MEDS: Apixaban 5 MG Tab PO SCH (08:17)
[2021-01-02] MEDS ORDERED: Polyethylene Glycol 3350 Powder 17 GM Packet PO PRN (09:33)
--- NOTE | 2021-01-02 11:32 | PCM.DCSUM1 ---
Discharge Summary - Hospital Course Free Text/Narrative:: This 65-year-old male with past medical history of elevated blood sugars, hypertension and anxiety presented to the ER last night with concerns of shortness of breath waking up and feeling like he cannot sleep along with lightheadedness dizziness. He reports that he was seen December 21 in the ER with complaints of syncopal episode along with lightheadedness of dizziness at home. He was found to be hypokalemic with elevated blood sugars he was started on p otassium as well as Metformin and to follow-up with PCP. He reports he is continue to have this dizziness and trouble breathing especially at nighttime. He reports his anxiety is significantly elevated and feeling like he is unable to breathe. He denies any long travel or flights. He does report recent cellulitis/swelling, to left lower extremity which was treated with topical ointment. He denies any history of bleeding or clotting. Denies any history of fevers chills or chest pain. No abdominal pain no dysuria. No black or bloody bowel movements. He denies any tobacco, alcohol or recreational drug use. 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 In the ER no leukocytosis noted hemoglobin 16.2 hematocrit 45.0 platelet count 256,000 D-dimer elevated at 2.38 sodium 138 potassium 3.1 bicarb 19.6. Glucose elevated at 216 no transaminitis or hyperbilirubinemia noted, troponin negative. Chest x-ray obtained which revealed no acute intrathoracic process. Due to elevated D-dimer CTA of the chest was performed. This revealed small pulmonary embolism in the proximal right pulmonary artery as well as segmental and subsegmental right upper lobe and segmental right lower lobe emboli. Heart size is normal mild bowing of the intraventricular septum. There are coronary artery calcifications no sign of aneurysm in the thoracic aorta. Lungs clear. He started on heparin with heparin bolus, Troponin was negative. Patient was on heparin gtt for 24 hours later switch to NOAC (Eliquis) , patient was hemodynamically stable, required oxygen only for comfort, ambulatory oxygen was checked, patient did several laps around the hallways without any hypoxia or SOB. Patient was hemodynamically stable for dc on oral NOAC with recommendations to fu with PCP upon dc. Diagnosis: Stroke: No - Discharge Data Discharge Date: 01/02/21 Discharge Disposition: Home, Self-Care 01 Condition: Stable - Referral to Home Health Primary Care Physician: Yue Burks NP - Patient Instructions Diet: Heart Healthy Diet Driving: May Drive Today Showering/Bathing: May Shower Notify Provider of: Fever, Increased Pain, Swelling and Redness, Drainage, Nausea and/or Vomiting Other/Special Instructions: Inform a doctor/return to ER in case of worsening shortness of breath, dizziness, syncope, chest pain - Discharge Plan *PRESCRIPTION DRUG MONITORING PROGRAM REVIEWED*: No *COPY OF PRESCRIPTION DRUG MONITORING REPORT IN PATIENT OBI: No Prescriptions/Med Rec: Apixaban [Eliquis] 10 mg PO BID #64 tablet Home Medications: Home Meds Telmisartan 40 mg PO DAILY 12/21/20 [History] Exenatide Microspheres [Bydureon] 2 mg SQ WEEKLY 12/31/20 [History] metFORMIN HCl [Metformin HCl ER] 1,500 mg PO DAILY 12/31/20 [History] Potassium Chloride [Klor-Con M20] 20 meq PO DAILY 01/01/21 [History] Apixaban [Eliquis] 10 mg PO BID #64 tablet 01/02/21 [Rx] Patient Handouts: Hypokalemia, Hyperglycemia, [id number], Nonspecific Chest P ain, Adult, [id number], Pulmonary Embolism, Hypertension, Adult, [id number], Apixaban oral tablets Referrals: Yue Burks NP [Primary Care Provider] - 01/07/21 10:15 am - Discharge Summary/Plan Comment DC Time >30 min.: No - Patient Data Vitals - Most Recent: Last Vital Signs Temp 36.3 C 01/02/21 08:13 Pulse 51 L 01/02/21 08:13 Resp 14 01/02/21 08:13 BP 146/78 H 01/02/21 08:13 Pulse Ox 98 01/02/21 08:13 Weight - Most Recent: 105.233 kg I&O - Last 24 hours: Intake & Output 01/01/21 01/02/21 01/02/21 22:59 06:59 14:59 Intake Total 1400 2493 Output Total 1925 2200 Balance -525 293 Lab Results - Last 24 hrs: Laboratory Results - last 24 hr 01/01/21 01/01/21 01/02/21 Range/Units 11:19 17:08 05:03 WBC 6.74 (4.0-11.0) K/uL RBC 4.49 L (4.50-5.90) M/uL Hgb 14.4 (13.0-17.0) g/dL Hct 41.5 (38.0-50.0) % MCV 92.4 (80.0-98.0) fL MCH 32.1 H (27.0-32.0) pg MCHC 34.7 (31.0-37.0) g/dL RDW Std Deviation 43.7 (28.0-62.0) fl RDW Coeff of [place] 13 (11.0-15.0) % Plt Count 223 (150-400) K/uL MPV 11.00 (7.40-12.00) fL Neut % (Auto) 59.0 (48.0-80.0) % Lymph % (Auto) 34.0 (16.0-40.0) % [place] % (Auto) 5.3 (0.0-15.0) % Eos % (Auto) 1.3 (0.0-7.0) % Baso % (Auto) 0.4 (0.0-1.5) % Neut # (Auto) 4.0 (1.4-5.7) K/uL Lymph # (Auto) 2.3 (0.6-2.4) K/uL [place] # (Auto) 0.4 (0.0-0.8) K/uL Eos # (Auto) 0.1 (0.0-0.7) K/uL Baso # (Auto) 0.0 (0.0-0.1) K/uL Nucleated RBC % 0.0 /100WBC Nucleated RBCs # 0 K/uL Sodium (136-148) mmol/L Potassium (3.5-5.1) mmol/L Chloride (98-107) mmol/L Carbon Dioxide (21.0-32.0) mmol/L BUN (7.0-18.0) mg/dL Creatinine (0.8-1.3) mg/dL Est Cr Clr Drug Dosing mL/min Estimated GFR (MDRD) ml/min Glucose (74-106) mg/dL POC Glucose 193 H 201 H (70-99) mg/dL Calcium (8.5-10.1) mg/dL Magnesium (1.8-2.4) mg/dL 01/02/21 01/02/21 Range/Units 05:03 06:22 WBC (4.0-11.0) K/uL RBC (4.50-5.90) M/uL Hgb (13.0-17.0) g/dL Hct (38.0-50.0) % MCV (80.0-98.0) fL MCH (27.0-32.0) pg MCHC (31.0-37.0) g/dL RDW Std Deviation (28.0-62.0) fl RDW Coeff of [place] (11.0-15.0) % Plt Count (150-400) K/uL MPV (7.40-12.00) fL Neut % (Auto) (48.0-80.0) % Lymph % (Auto) (16.0-40.0) % [place] % (Auto) (0.0-15.0) % Eos % (Auto) (0.0-7.0) % Baso % (Auto) (0.0-1.5) % Neut # (Auto) (1.4-5.7) K/uL Lymph # (Auto) (0.6-2.4) K/uL [place] # (Auto) (0.0-0.8) K/uL Eos # (Auto) (0.0-0.7) K/uL Baso # (Auto) (0.0-0.1) K/uL Nucleated RBC % /100WBC Nucleated RBCs # K/uL Sodium 141 (136-148) mmol/L Potassium 3.6 (3.5-5.1) mmol/L Chloride 106 (98-107) mmol/L Carbon Dioxide 22.2 (21.0-32.0) mmol/L BUN 11 (7.0-18.0) mg/dL Creatinine 0.9 (0.8-1.3) mg/dL Est Cr Clr Drug Dosing 91.01 mL/min Estimated GFR (MDRD) > 60.0 ml/min Glucose 211 H (74-106) mg/dL POC Glucose 194 H (70-99) mg/dL Calcium 8.2 L (8.5-10.1) mg/dL Magnesium 1.8 (1.8-2.4) mg/dL Med Orders - Current: Current Medications Acetaminophen (Acetaminophen 325 Mg Tab) 650 mg PO Q4H PRN PRN Reason: Pain Last Admin: 01/01/21 21:04 Dose: 650 mg Documented by: Albuterol/Ipratropium (Albuterol/Ipratropium 3.0-0.5 Mg/3 Ml Neb Soln) 3 ml NEB Q4HRRT PRN PRN Reason: Shortness of Breath Apixaban (Apixaban 5 Mg Tab) 10 mg PO BID [facility] Last Admin: 01/02/21 08:17 Dose: 10 mg Documented by: Dextrose/Water (50% Dextrose In Water 50 Ml Syringe) 50 ml IV ASDIRECTED PRN PRN Reason: Hypoglycemia Docusate Sodium (Docusate Sodium 100 Mg Cap) 100 mg PO DAILY [facility] Last Admin: 01/02/21 08:17 Dose: 100 mg Documented by: Glucagon (Glucagon,Human Recombinant 1 Mg Vial) 1 mg IM ASDIRECTED PRN PRN Reason: Hypoglycemia Lactated Ringer's (Ringers, Lactated) 1,000 mls @ 125 mls/hr IV ASDIRECTED [facility] Last Admin: 01/02/21 04:10 Dose: 125 mls/hr Documented by: Insulin Aspart (Insulin Aspart 100 Units/Ml 3 Ml Pen) 0 unit SUBCUT TIDAC [facility]; Protocol Last Admin: 01/02/21 08:16 Dose: 1 unit Documented by: Morphine Sulfate (Morphine 2 Mg/Ml Syringe) 1 mg IVPUSH Q4H PRN PRN Reason: Pain Telmisartan 40 Mg (Tablet) 1 each PO DAILY [facility] Last Admin: 01/02/21 08:18 Dose: 1 each Documented by: Polyethylene Glycol (Polyethylene Glycol 3350 Powder 17 Gm Packet) 17 gm PO TID PRN PRN Reason: Constipation Sodium Chloride (Sodium Chloride 0.9% 2.5 Ml Syringe) 2.5 ml FLUSH ASDIRECTED PRN PRN Reason: Keep Vein Open Last Admin: 01/01/21 19:31 Dose: 2.5 ml Documented by: Sodium Phosphate (Phosphorus #1 250 Mg Tab) 250 mg PO QID [facility] Last Admin: 01/02/21 06:21 Dose: 250 mg Documented by: Discontinued Medications Bisacodyl (Bisacodyl 5 Mg Tab) 5 mg PO ONETIME ONE Stop: 01/01/21 08:31 Last Admin: 01/01/21 08:30 Dose: 5 mg Documented by: Heparin Sodium (Porcine) (Heparin Sodium 5,000 Units/Ml Vial) 4,800 units IVPUSH .BOLUS ONE Stop: 12/31/20 01:28 Last Admin: 12/31/20 01:49 Dose: Not Given Documented by: Heparin Sodium (Porcine) (Heparin Sodium 5,000 Units/Ml Vial) 8,480 units IVPUSH .BOLUS ONE Stop: 12/31/20 01:40 Last Admin: 12/31/20 02:09 Dose: Not Given Documented by: Heparin Sodium (Porcine) (Heparin Sodium 5,000 Units/Ml Vial) 7,500 units IVPUSH ONETIME ONE; Protocol Stop: 12/31/20 01:51 Last Admin: 12/31/20 02:06 Dose: 7,500 units Documented by: Heparin Sodium (Porcine) (Heparin Sodium 5,000 Units/Ml Vial) 1,500 units IVPUSH .BOLUS ONE Stop: 12/31/20 09:31 Last Admin: 12/31/20 09:38 Dose: 1,500 units Documented by: Heparin Sodium (Porcine) (Heparin Sodium 5,000 Units/Ml Vial) 1,500 units IVPUSH .BOLUS ONE Stop: 12/31/20 14:57 Last Admin: 12/31/20 15:20 Dose: 1,500 units Documented by: Sodium Chloride (Normal Saline) 1,000 mls @ 999 mls/hr IV .BOLUS ONE Stop: 12/31/20 00:15 Last Admin: 12/30/20 23:20 Dose: 999 mls/hr Documented by: Heparin Sodium/Sodium Chloride (Heparin 25,000 Units In 1/2 Ns 500 Ml) 500 mls @ 21.555 mls/hr IV TITRATE AWA; Protocol Heparin Sodium/Sodium Chloride (Heparin 25,000 Units In 1/2 Ns 500 Ml) 500 mls @ 38.16 mls/hr IV TITRATE AWA; Protocol Last Titration: 12/31/20 02:47 Dose: 12 units/kg/hr, 25.44 mls/hr Documented by: Heparin Sodium/Sodium Chloride (Heparin 25,000 Units In 1/2 Ns 500 Ml) Confirm Administered Dose 500 mls @ as directed .ROUTE .STK-MED ONE Stop: 12/31/20 01:55 Last Admin: 12/31/20 02:14 Dose: Not Given Documented by: Heparin Sodium/Sodium Chloride (Heparin 25,000 Units In 1/2 Ns 500 Ml) 500 mls @ 25.991 mls/hr IV TITRATE AWA; Protocol Last Titration: 01/01/21 03:36 Dose: 16 unit/kg/hr, 33.92 mls/hr Documented by: Potassium Chloride 40 meq/ (Sodium Chloride) 520 mls @ 75 mls/hr IV ONETIME ONE Stop: 12/31/20 15:25 Last Admin: 12/31/20 09:41 Dose: 75 mls/hr Documented by: Magnesium Sulfate (Magnesium Sulfate In Water 2 Gm/50 Ml) 2 gm in 50 mls @ 50 mls/hr IV ONETIME ONE Stop: 12/31/20 09:29 Last Admin: 12/31/20 08:29 Dose: 50 mls/hr Documented by: Magnesium Sulfate (Magnesium Sulfate In Water 2 Gm/50 Ml) 2 gm in 50 mls @ 50 mls/hr IV ONETIME ONE Stop: 01/01/21 10:29 Last Admin: 01/01/21 09:55 Dose: 50 mls/hr Documented by: Iopamidol (Iopamidol 755 Mg/Ml 500 Ml Multipack Bottle) 100 ml IVPUSH ONETIME STA Stop: 12/31/20 00:33 Last Admin: 12/31/20 00:32 Dose: 100 ml Documented by: Ondansetron HCl (Ondansetron 4 Mg/2 Ml Sdv) 4 mg IVPUSH ONETIME ONE Stop: 12/30/20 22:28 Last Admin: 12/30/20 22:34 Dose: 4 mg Documented by: Potassium Chloride (Potassium Chloride 20 Meq Tab.Er) 40 meq PO ONETIME ONE Stop: 12/30/20 23:16 Last Admin: 12/30/20 23:25 Dose: Not Given Documented by: Potassium Chloride (Potassium Chloride 20 Meq Tab.Er) 40 meq PO ONETIME ONE Stop: 12/31/20 04:52 Last Admin: 12/31/20 06:47 Dose: Not Given Documented by: Sodium Chloride (Sodium Chloride 0.9% 10 Ml Syringe) 10 ml FLUSH ASDIRECTED PRN PRN Reason: Keep Vein Open Sodium Chloride (Sodium Chloride 0.9% 2.5 Ml Syringe) 2.5 ml FLUSH ASDIRECTED PRN PRN Reason: Keep Vein Open
[2021-01-02 11:44] VITALS: BP 154/83
--- NOTE | 2021-01-03 12:04 | ECHO ---
EXAM DATE: 12/31/20 PATIENT'S AGE: 65 The ECHO report has been scanned into [employer] and can be seen in this patient's EMR (Electronic Medical Record) under the REPORTS section. The report has also been scanned into PACS. [facility]
== END 2021-01-02 15:50 | disposition home or self-care (01) ==
LOC: MW.ED 21:57 → MW.MS 12-31 01:52
PROVIDERS: ADMIT Student in an Organized Health Care Education/Training Program; ATTEND Student in an Organized Health Care Education/Training Program
DX: I26.99 Other pulmonary embolism without acute cor pulmonale (principal); E87.6 Hypokalemia; I51.9 Heart disease, unspecified; R07.9 Chest pain, unspecified; I10 Essential (primary) hypertension; E11.65 Type 2 diabetes mellitus with hyperglycemia; E78.00 Pure hypercholesterolemia, unspecified; G47.30 Sleep apnea, unspecified; F41.9 Anxiety disorder, unspecified; R79.1 Abnormal coagulation profile; E66.9 Obesity, unspecified; Z68.31 Body mass index [BMI] 31.0-31.9, adult; Z20.822 Contact with and (suspected) exposure to COVID-19; Z88.6 Allergy status to analgesic agent; Z88.8 Allergy status to other drugs, medicaments and biological substances; Z79.84 Long term (current) use of oral hypoglycemic drugs
CPT/HCPCS: 36415; 71045; 71275; 80048; 80053; 81001; 82947; 83036; 83615; 83735; 83880; 84100; 84484; 85025; 85379; 85730; 87635; 93005; 93306; 96365; 96366; 96367; 96375; 96376; 99285; A9270; G0378; J1644; J1815; J2405; J3475; J3480; J7030; J7040; J7120; Q9967; U0002

== ENCOUNTER 2021-01-09 02:13 | Emergency (ER) | payer OTHER ==
[2021-01-09] MEDS ORDERED: Ondansetron 4 MG/2 ML SDV IVPUSH ONE (02:35)
[2021-01-09] MEDS ORDERED: Sodium Chloride 0.9% 1,000 ML IV ONE (02:35)
[2021-01-09] MEDS ORDERED: Sodium Chloride 0.9% 10 ML Syringe FLUSH PRN (02:35)
[2021-01-09] MEDS ORDERED: Sodium Chloride 0.9% 2.5 ML Syringe FLUSH PRN (02:35)
[2021-01-09] MEDS ORDERED: Morphine 4 MG/ML Syringe IVPUSH ONE (02:36)
[2021-01-09 03:02] LABS: BLOOD UREA NITROGEN,BUN 19 mg/dL (7.0-18.0); CARBON DIOXIDE,CO2 18.9 mmol/L (21.0-32.0); CHLORIDE,CL 101 mmol/L (98-107); GLUCOSE RANDOM 147 mg/dL (74-106); POTASSIUM,K 3.8 mmol/L (3.5-5.1); SODIUM,NA 137 mmol/L (136-148)
[2021-01-09] MEDS ORDERED: Iopamidol 755 Mg/ML 100 ML Bottle IVPUSH ONE (03:17)
--- NOTE | 2021-01-09 04:41 | CT ---
HISTORY: Chest pain. History of pulmonary embolism. TECHNIQUE: CT chest with IV contrast, pulmonary embolism protocol. 100 mL Isovue 370 IV. COMPARISON: CT chest 12/31/2020. FINDINGS: Pulmonary arteries: Small hypodense filling defect in right upper lobar pulmonary artery has slightly decreased in size. Additional hypodense filling defects seen previously in right pulmonary artery branches have resolved. No new pulmonary emboli. Main pulmonary artery is normal caliber. Lungs: Central airways are patent. No airspace consolidation. No pleural effusion or pneumothorax. Mediastinum: Thoracic aorta is normal caliber. Coronary artery calcifications. No pericardial effusion. Lymph nodes: No lymphadenopathy. Musculoskeletal: Degenerative changes of the spine. Upper abdomen: Cholelithiasis. IMPRESSION: 1. Small amount of persistent thrombus in right upper lobe pulmonary artery. Other pulmonary emboli have resolved. No new pulmonary emboli. 2. No acute pulmonary abnormality. Please note that all CT scans at this facility use dose modulation, iterative reconstruction, and/or weight-based dosing when appropriate to reduce radiation dose to as low as reasonably achievable. Dictated by Edin Baker MD @ 01/09/2021 4:40:[address] Edin Baker @ Jan 09 2021 4:40AM
--- NOTE | 2021-01-09 04:44 | EDM.PDOC ---
ED HPI GENERAL MEDICAL PROBLEM - General Chief Complaint: Chest Pain Stated Complaint: CHEST PAIN Time Seen by Provider: 01/09/21 02:25 - History of Present Illness INITIAL COMMENTS - FREE TEXT/NARRATIVE: HISTORY AND PHYSICAL: History of present illness: This is a 65-year-old gentleman with history significant for hypertension, diabetes, recent diagnosis of PE currently on Xarelto, presents ER today complaining of left-sided sharp chest pain similar to the pain he had when he was diagnosed with his PE approximately 1-2 week ago. Patient denies any recent fevers, shakes, chills, nausea, vomiting, diarrhea, dysuria, frequency, urgency, abdominal pain. Patient denies any diaphoresis. Patient has any pain rating down his arm jaw or back. Patient denies any exertional component to the discomfort. Patient reports that the pain is sharp in nature. Patient reports pain started earlier this evening. Patient reports he was also recently diagnosed with infection to his lower extremities however he reports that he was ruled out for a blood clot. Review of systems: As per history of present illness and below otherwise all systems reviewed and negative. Past medical history: As per history of present illness and as reviewed below otherwise noncontributory. Surgical history: As per history of present illness and as reviewed below otherwise noncontributory. Social history: No reported history of drug abuse. Family history: As per history of present illness and as reviewed below otherwise noncontributory. Physical exam: This patient was seen and evaluated during the 2019 SARS-CoV-2 novel coronavirus pandemic period. Community viral transmission is ongoing at time of this encounter and the emergency department is operating under pandemic response procedures. Constitutional: Patient is oriented to person, place, and time. Appears well- developed and well-nourished. No distress. HEENT: Moist mucous membranes Head: Normocephalic and atraumatic Eyes: Right eye exhibits no discharge. Left eye exhibits no discharge. No scleral icterus Neck: Normal range of motion. No tracheal deviation present. Cardiovascular: Normal rate and regular rhythm. Pulmonary: Effort normal, no respiratory distress. Abdominal: No distention Musculoskeletal: Normal range of motion Neurologic: Alert and oriented to person, place and time. Skin: [place], warm and dry. Psychiatric: Normal mood and affect. Behavior is normal. Judgment and thought content normal. Nursing note and vital signs have been reviewed Diagnostics: CBC, CMP within normal limits. Patient's troponin is normal. CT scan of the thorax reveals small amount of persistent thrombus in the right upper lobe pulmonary arteries. Other pulmonary emboli have resolved. No new pulmonary emboli identified. No acute pulmonary abnormalities identified. EKG: As interpreted by ER physician: Carolynn: Nonspecific ST-T wave abnormalities Normal axis No evidence of ST elevation MD Normal sinus rhythm heart rate of 68 Therapeutics: Morphine for pain Assessment and plan: 65-year-old gentleman who presents ER today complaining of chest pain discomfort similar to his prior PE. Patient reports that his prior PE was on the right side however this time is on the left. Patient will get a CTA of his chest to further evaluate the discomfort that he is having. Patient's presentation does not appear to be consistent with coronary artery disease. Patient's presentation is unclear as to the cause. Patient's labs including troponin, EKG are all within normal limits. At this time, I do not see an indication for admission to the hospital. I will recommend that the patient follow-up with his primary care physician in the morning for reevaluation. Patient was instructed to return to the ER if he develops any new or concerning symptoms. Reassessment at the time of disposition demonstrates that the patient is in no acute distress. The patient has remained stable throughout the entire ED visit and is without objective evidence for acute process requiring urgent intervention or hospitalization. The patient is stable for discharge, counseling is provided as documented above, discussed symptomatic treatment and specific conditions for return. I have spoken with the patient/caregiver and discussed todays findings, in addition to providing specific details for the plan of care. Questions are answered and there is agreement with the plan. Definitive disposition and diagnosis as appropriate pending reevaluation and review of above. back, chest, side Pain Score (Numeric/FACES): 7 - Related Data Allergies Allergy/AdvReac Type Severity Reaction Status Date / Time codeine Allergy Other Verified 01/09/21 02:21 Corticosteroids Allergy Change Verified 01/09/21 02:21 (Glucocorticoids) Mental Status Home Meds: Home Meds Telmisartan 40 mg PO DAILY 12/21/20 [History] Exenatide Microspheres [Bydureon] 2 mg SQ WEEKLY 12/31/20 [History] metFORMIN HCl [Metformin HCl ER] 1,000 mg PO DAILY 12/31/20 [History] Potassium Chloride [Klor-Con M20] 20 meq PO DAILY 01/01/21 [History] Apixaban [Eliquis] 10 mg PO BID #64 tablet 01/02/21 [Rx] Past Medical History - Past Health History Medical/Surgical History: Denies Medical/Surgical History HEENT History: Reports: Sinusitis Other HEENT History: wears glasses Cardiovascular History: Reports: High Cholesterol, Hypertension Respiratory History: Reports: Sleep Apnea Gastrointestinal History: Reports: Hepatitis Other Gastrointestinal History: 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 Genitourinary History: Reports: Renal Calculus Musculoskeletal History: Reports: Arthritis Other Musculoskeletal History: hx right arm fx Neurological History: Reports: Other (See Below) Other Neuro History: Lyme dse Psychiatric History: Reports: Anxiety Endocrine/Metabolic History: Reports: Obesity/BMI 30+ Hematologic History: Reports: None Immunologic History: Reports: None Oncologic (Cancer) History: Reports: None Dermatologic History: Reports: Eczema Other Dermatologic History: cellulitis or shingles to face, states "they were not sure which" - Infectious Disease History Infectious Disease History: Reports: Chicken Pox, Hepatitis C, Measles, Rubella Other Infectious Disease History: Hepatitis possibly from too much codiene. Per pt Hepatis C Non A Non B classification - Past Surgical History Head Surgeries/Procedures: Reports: None HEENT Surgical History: Reports: Naso-Sinus Surgery, Tonsillectomy Cardiovascular Surgical History: Reports: None Respiratory Surgical History: Reports: None Other Respiratory Surgeries/Procedures: central sleep apnea GI Surgical History: Reports: Colonoscopy Other GI Surgeries/Procedures: inguinal hernia repair 2x Male Surgical History: Reports: None Endocrine Surgical History: Reports: None Neurological Surgical History: Reports: None Musculoskeletal Surgical History: Reports: Arthroscopic Knee Other Musculoskeletal Surgeries/Procedures:: knee arthroscopy x3, left x2 - right x1 Oncologic Surgical History: Reports: None Dermatological Surgical History: Reports: None Social & Family History - Family History Family Medical History: No Pertinent Family History - Caffeine Use Caffeine Use: Reports: Coffee, Soda ED ROS GENERAL - Review of Systems Review Of Systems: See Below ED EXAM, GENERAL - Physical Exam Exam: See Below #1 Interpretation EKG Interpretation Comments: EKG: As interpreted by ER physician: Carolynn: Nonspecific ST-T wave abnormalities Normal axis No evidence of ST elevation MD Normal sinus rhythm heart rate of 68 Course - Vital Signs Last Recorded V/S: Last Vital Signs Temp 97.0 F 01/09/21 02:22 Pulse 55 L 01/09/21 04:17 Resp 18 01/09/21 02:22 BP 137/78 01/09/21 04:17 Pulse Ox 96 01/09/21 04:17 - Orders/Labs/Meds Orders: Active Orders 24 hr Category Date Time Status EKG Documentation Completion [RC] AM Care 01/09/21 02:35 Active Sodium Chloride 0.9% [Saline Flush] Med 01/09/21 02:35 Active 10 ml FLUSH ASDIRECTED PRN Sodium Chloride 0.9% [Saline Flush] Med 01/09/21 02:35 Active 2.5 ml FLUSH ASDIRECTED PRN Saline Lock Insert [OM.PC] Stat Oth 01/09/21 02:35 Ordered Medication Orders Sodium Chloride (Sodium Chloride 0.9% 10 Ml Syringe) 10 ml FLUSH ASDIRECTED PRN PRN Reason: Keep Vein Open Last Admin: 01/09/21 02:43 Dose: 10 ml Documented by: PAPO Sodium Chloride (Sodium Chloride 0.9% 2.5 Ml Syringe) 2.5 ml FLUSH ASDIRECTED PRN PRN Reason: Keep Vein Open Last Admin: 01/09/21 02:44 Dose: 2.5 ml Documented by: PAPO Labs: Laboratory Tests 01/09/21 01/09/21 Range/Units 02:20 02:20 WBC 7.07 (4.0-11.0) K/uL RBC 4.86 (4.50-5.90) M/uL Hgb 16.0 (13.0-17.0) g/dL Hct 45.0 (38.0-50.0) % MCV 92.6 (80.0-98.0) fL MCH 32.9 H (27.0-32.0) pg MCHC 35.6 (31.0-37.0) g/dL RDW Std Deviation 43.5 (28.0-62.0) fl RDW Coeff of [place] 13 (11.0-15.0) % Plt Count 205 (150-400) K/uL MPV 11.10 (7.40-12.00) fL Neut % (Auto) 51.9 (48.0-80.0) % Lymph % (Auto) 39.9 (16.0-40.0) % [place] % (Auto) 6.6 (0.0-15.0) % Eos % (Auto) 1.3 (0.0-7.0) % Baso % (Auto) 0.3 (0.0-1.5) % Neut # (Auto) 3.7 (1.4-5.7) K/uL Lymph # (Auto) 2.8 H (0.6-2.4) K/uL [place] # (Auto) 0.5 (0.0-0.8) K/uL Eos # (Auto) 0.1 (0.0-0.7) K/uL Baso # (Auto) 0.0 (0.0-0.1) K/uL Nucleated RBC % 0.0 /100WBC Nucleated RBCs # 0 K/uL Sodium 137 (136-148) mmol/L Potassium 3.8 (3.5-5.1) mmol/L Chloride 101 (98-107) mmol/L Carbon Dioxide 18.9 L (21.0-32.0) mmol/L BUN 19 H (7.0-18.0) mg/dL Creatinine 1.1 (0.8-1.3) mg/dL Est Cr Clr Drug Dosing 74.46 mL/min Estimated GFR (MDRD) > 60.0 ml/min Glucose 147 H (74-106) mg/dL Calcium 9.0 (8.5-10.1) mg/dL Total Bilirubin 0.8 (0.2-1.0) mg/dL AST 10 L (15-37) IU/L ALT 31 (14-63) IU/L Alkaline Phosphatase 83 (46-116) U/L Troponin I < 0.050 (0.000-0.056) ng/mL Total Protein 8.3 H (6.4-8.2) g/dL Albumin 4.3 (3.4-5.0) g/dL Globulin 4.0 (2.6-4.0) g/dL Albumin/Globulin Ratio 1.1 (0.9-1.6) TSH 3rd Generation 3.58 (0.36-3.74) uIU/mL Meds: Medications Generic Name Dose Route Start Last Admin Trade Name Freq PRN Reason Stop Dose Admin Sodium Chloride 10 ml 01/09/21 02:35 01/09/21 02:43 Sodium Chloride 0.9% 10 Ml Syringe FLUSH 10 ml ASDIRECTED PRN Administration Keep Vein Open Sodium Chloride 2.5 ml 01/09/21 02:35 01/09/21 02:44 Sodium Chloride 0.9% 2.5 Ml Syringe FLUSH 2.5 ml ASDIRECTED PRN Administration Keep Vein Open Discontinued Medications Generic Name Dose Route Start Last Admin Trade Name [place] PRN Reason Stop Dose Admin Sodium Chloride 1,000 mls @ 999 mls/hr 01/09/21 02:35 01/09/21 02:42 Normal Saline IV 01/09/21 03:35 999 mls/hr .Bol[place] ONE Administration Iopamidol 100 ml 01/09/21 03:17 01/09/21 03:48 Iopamidol 755 Mg/Ml 100 Ml Bottle IVPUSH 01/09/21 03:18 100 ml ONETIME ONE Administration Morphine Sulfate 4 mg 01/09/21 02:36 01/09/21 02:44 Morphine 4 Mg/Ml Syringe IVPUSH 01/09/21 02:37 4 mg ONETIME ONE Administration Ondansetron HCl 4 mg 01/09/21 02:35 01/09/21 02:43 Ondansetron 4 Mg/2 Ml Sdv IVPUSH 01/09/21 02:36 4 mg ONETIME ONE Administration Departure - Departure Time of Disposition: 04:48 Disposition: Home, Self-Care 01 Condition: Good Clinical Impression: Atypical chest pain - Discharge Information Instructions: Nonspecific Chest Pain, Adult Referrals: David Prieto MD [Primary Care Provider] - Forms: ED Department Discharge Additional Instructions: You were seen and evaluated in ER today secondary to pain in your chest similar to your prior pulmonary embolism pain. The CT scan that we obtained today reveals a small amount of persistent thrombus in the right upper lobe of your lung however the other pulmonary emboli have resolved and there is no new pulmonary emboli identified. The etiology of the pain that you are experiencing is unclear at this time. Please make an appointment to see your doctor in the morning for reevaluation. Continue taking all your medications. The following information is given to patients seen in the emergency department who are being discharged to home. This information is to outline your options for follow-up care. We provide all patients seen in our emergency department with a follow-up referral. The need for follow-up, as well as the timing and circumstances, are variable depending upon the specifics of your emergency department visit. If you don't have a primary care physician on staff, we will provide you with a referral. We always advise you to contact your personal physician following an emergency department visit to inform them of the circumstance of the visit and for follow-up with them and/or the need for any referrals to a consulting specialist. The emergency department will also refer you to a specialist when appropriate. This referral assures that you have the opportunity for follow-up care with a specialist. All of these measure are taken in an effort to provide you with optimal care, which includes your follow-up. Under all circumstances we always encourage you to contact your private physician who remains a resource for coordinating your care. When calling for follow-up care, please make the office aware that this follow-up is from your recent emergency room visit. If for any reason you are refused follow-up, please contact the [facility] Emergency Department at and asked to speak to the emergency department charge nurse. [facility] - [facility] [address] [place] [address] [place] [address] Sepsis Event Note (ED) - Evaluation Sepsis Screening Result: No Definite Risk - Focused Exam Vital Signs: Vital Signs Temp Pulse Resp BP Pulse Ox 01/09/21 04:17 55 L 137/78 96 01/09/21 03:48 56 L 151/84 H 98 01/09/21 03:15 56 L 163/89 H 97 01/09/21 02:45 61 151/85 H 96 01/09/21 02:22 97.0 F 63 18 190/101 H 96 - My Orders Last 24 Hours: My Active Orders 01/09/21 02:35 EKG Documentation Completion [RC] AM Sodium Chloride 0.9% [Saline Flush] 10 ml FLUSH ASDIRECTED PRN Sodium Chloride 0.9% [Saline Flush] 2.5 ml FLUSH ASDIRECTED PRN Saline Lock Insert [OM.PC] Stat - Assessment/Plan Last 24 Hours: My Active Orders 01/09/21 02:35 EKG Documentation Completion [RC] AM Sodium Chloride 0.9% [Saline Flush] 10 ml FLUSH ASDIRECTED PRN Sodium Chloride 0.9% [Saline Flush] 2.5 ml FLUSH ASDIRECTED PRN Saline Lock Insert [OM.PC] Stat
[2021-01-09 05:04] VITALS: BP 136/72; PULSE 63
== END 2021-01-09 05:02 | disposition home or self-care (01) ==
LOC: MW.ED 02:13
DX: R07.89 Other chest pain (principal); I10 Essential (primary) hypertension; E78.00 Pure hypercholesterolemia, unspecified; E66.9 Obesity, unspecified; E11.9 Type 2 diabetes mellitus without complications; Z86.711 Personal history of pulmonary embolism; Z79.01 Long term (current) use of anticoagulants; Z88.5 Allergy status to narcotic agent; Z88.8 Allergy status to other drugs, medicaments and biological substances; Z68.30 Body mass index [BMI] 30.0-30.9, adult
CPT/HCPCS: 36415; 71275; 80053; 84443; 84484; 85025; 93005; 96374; 96375; 99285; J2270; J2405; J7030; Q9967; 93010; 99284

== ENCOUNTER 2021-04-11 15:04 | Inpatient (IN) | payer OTHER ==
[2021-04-11] MEDS ORDERED: Sodium Chloride 0.9% 1,000 ML IV ONE ×2 (18:16→19:21)
[2021-04-11] MEDS ORDERED: Cephalexin 500 MG Cap PO ONE (18:22)
[2021-04-11] MEDS ORDERED: Sulfamethoxazole/Trimethoprim 800-160 MG Tab PO ONE (18:24)
--- NOTE | 2021-04-11 18:26 | EDM.PDOC ---
ED HPI GENERAL MEDICAL PROBLEM - General Chief Complaint: Lower Extremity Injury/Pain Stated Complaint: CELLULITIS ON LEFT LEG Time Seen by Provider: 04/11/21 17:50 Source of Information: Reports: Patient History Limitations: Reports: No Limitations - History of Present Illness INITIAL COMMENTS - FREE TEXT/NARRATIVE: HISTORY AND PHYSICAL: History of present illness: Patient is a 65-year-old male who presents to the emergency room with complaints of cellulitis to the left anterior dooley. He states on Thursday he had a cat scratch to his dooley and has progressively become red and warm to touch. He initially went to the walk-in clinic as he was concerned of fevers. They performed a COVID-19 test (negative) and recommended he come to the emergency room for his cellulitis. Patient is a type II diabetic, takes oral Metformin. Does not have any neuropathy. Patient denies any chills, headache, change in vision, syncope or near syncope. Denies any chest pain, back pain, shortness of breath or cough. Denies any abdominal pain, diarrhea, constipation or dysuria. Has not noted any blood in urine or stool. Patient has been eating and drinking appropriately. Currently on Eliquist for previous PE. Review of systems: As per history of present illness and below otherwise all systems reviewed and negative. Past medical history: As per history of present illness and as reviewed below otherwise noncontributory. Surgical history: As per history of present illness and as reviewed below otherwise noncontributory. Social history: See social history for further information Family history: As per history of present illness and as reviewed below otherwise noncontributory. Physical exam: General: Well developed and well nourished 65 year old male. Alert and orien tated x 3. Nontoxic in appearance and in no acute distress. Vital signs are stable and have been reviewed by me. Nursing notes were reviewed. HEENT: Atraumatic, normocephalic, pupils equal and reactive bilaterally, negative for conjunctival pallor or scleral icterus, mucous membranes moist, trachea midline. No drooling or trismus noted. No meningeal signs. No hot potato voice noted. Lungs: Clear to auscultation bilaterally. No wheezes, rales, or rhonchi. Chest nontender. Normal work of breathing, no accessory muscles used. Heart: S1S2, regular rate and rhythm without overt murmur, gallops, or rubs. No JVD. No peripheral edema Abdomen: Soft, nondistended, nontender. Normoactive bowel sounds. Negative for masses or costovertebral tenderness. Skin: Erythema and warmth from distal dooley to distal ankle,sparingly involves the posterior calf. It does not involve the foot. Remaining skin is intact, warm, dry. No lesions or rashes noted. Hematologic: No petechiae or purpra. Mucosa appropriate color and normal nail bed color and refill. Extremities: Atraumatic, moves all extremities per self without difficulty or deficits, negative for cords or calf pain. See SKIN for details. Strong pedal and pretibial pulses. Cap refill less than 3 seconds. Neurovascular unremarkable. Neuro: Awake, alert, oriented. Cranial nerves II through XII unremarkable. Cerebellum unremarkable. Motor and sensory unremarkable throughout. Exam nonfocal. Psychiatric: Mood and affect are appropriate. Normal thought process. Answering questions appropriately. Notes: *This patient was seen and evaluated during the 2019 SARS-CoV-2 novel coronavirus pandemic period. Community viral transmission is ongoing at time of this encounter and the emergency department is operating under pandemic response procedures. Patient is a 65-year-old male who has a cellulitis of the left lower extremity. Upon arrival I did inform the patient that his cellulitis looked significant enough that he should possibly be admitted for IV antibiotics and further care. He states he had a COVID-19 swab at [facility] and although he is unable to get his records to prove negative test he will not be admitted if he needs to be re-swabbed. The nursing staff went in for IV establishment, he declines stating he will not be admitted so he does not need an IV. He is agreeable to have lab draw him. Refuses x-ray. Nursing staff was able to convince the patient to allow diagnostics. He has now agreeable to appropriate lab work, x-ray and COVID swab. He does have a leukocytosis. I spoke with Dr. Lerma about this patient, we feel he needs admission. Patient is aware and agreeable to plan of care. Zosyn and vancomycin will be hung after blood cultures have been obtained. Diagnostics: CBC, CMP, blood cultures x2, lactate, Lower ext xray Therapeutics: Vancomycin, Zosyn Impression: Cellulitis Plan: Observation to Med/Surg Definitive disposition and diagnosis as appropriate pending reevaluation and review of above. Duration: Day(s): Location: Reports: Lower Extremity, Left Left Lower Leg Pain Score (Numeric/FACES): 6 - Related Data Allergies Allergy/AdvReac Type Severity Reaction Status Date / Time codeine Allergy Other Verified 01/09/21 02:21 Corticosteroids Allergy Change Verified 01/09/21 02:21 (Glucocorticoids) Mental Status Home Meds: Home Meds Telmisartan 40 mg PO DAILY 12/21/20 [History] metFORMIN HCl [Metformin HCl ER] 500 mg PO DAILY 12/31/20 [History] Apixaban [Eliquis] 5 mg PO BID 04/11/21 [History] Past Medical History - Past Health History Medical/Surgical History: Denies Medical/Surgical History HEENT History: Reports: Sinusitis Other HEENT History: wears glasses Cardiovascular History: Reports: High Cholesterol, Hypertension Respiratory History: Reports: Sleep Apnea Gastrointestinal History: Reports: Hepatitis Other Gastrointestinal History: 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 Genitourinary History: Reports: Renal Calculus Musculoskeletal History: Reports: Arthritis Other Musculoskeletal History: hx right arm fx Neurological History: Reports: Other (See Below) Other Neuro History: Lyme dse Psychiatric History: Reports: Anxiety Endocrine/Metabolic History: Reports: Obesity/BMI 30+ Hematologic History: Reports: None Immunologic History: Reports: None Oncologic (Cancer) History: Reports: None Dermatologic History: Reports: Eczema Other Dermatologic History: cellulitis or shingles to face, states "they were not sure which" - Infectious Disease History Infectious Disease History: Reports: Chicken Pox, Hepatitis C, Measles, Rubella Other Infectious Disease History: Hepatitis possibly from too much codiene. Per pt Hepatis C Non A Non B classification - Past Surgical History Head Surgeries/Procedures: Reports: None HEENT Surgical History: Reports: Naso-Sinus Surgery, Tonsillectomy Cardiovascular Surgical History: Reports: None Respiratory Surgical History: Reports: None Other Respiratory Surgeries/Procedures: central sleep apnea GI Surgical History: Reports: Colonoscopy Other GI Surgeries/Procedures: inguinal hernia repair 2x Male Surgical History: Reports: None Endocrine Surgical History: Reports: None Neurological Surgical History: Reports: None Musculoskeletal Surgical History: Reports: Arthroscopic Knee Other Musculoskeletal Surgeries/Procedures:: knee arthroscopy x3, left x2 - right x1 Oncologic Surgical History: Reports: None Dermatological Surgical History: Reports: None Social & Family History - Family History Family Medical History: No Pertinent Family History - Tobacco Use Tobacco Use Status *Q: Never Tobacco User - Caffeine Use Caffeine Use: Reports: Coffee, Energy Drinks, Soda - Recreational Drug Use Recreational Drug Use: No Review of Systems - Review of Systems Review Of Systems: Comprehensive ROS is negative, except as noted in HPI. ED EXAM, GENERAL - Physical Exam Exam: See Below (See dictation) Course - Vital Signs Last Recorded V/S: Last Vital Signs Temp 97.6 F 04/11/21 16:11 Pulse 69 04/11/21 16:11 Resp 20 04/11/21 16:11 BP 151/96 H 04/11/21 16:11 Pulse Ox 96 04/11/21 16:11 - Orders/Labs/Meds Orders: Active Orders 24 hr Category Date Time Status CULTURE BLOOD [BC] Stat Lab 04/11/21 19:07 Received CULTURE BLOOD [BC] Stat Lab 04/11/21 19:15 Received Sodium Chloride 0.9% [Normal Saline] 1,000 ml Med 04/11/21 19:21 Active IV STAT Blood Culture x2 Reflex Set [OM.PC] Stat Oth 04/11/21 18:16 Ordered Medication Orders Sodium Chloride (Normal Saline) 1,000 mls @ 100 mls/hr IV STAT ONE Stop: 04/12/21 05:20 Last Admin: 04/11/21 19:35 Dose: 100 mls/hr Documented by: KELLEN Labs: Laboratory Tests 04/11/21 04/11/21 04/11/21 Range/Units 19:07 19:07 19:07 WBC 16.66 H (4.0-11.0) K/uL RBC 4.50 (4.50-5.90) M/uL Hgb 14.9 (13.0-17.0) g/dL Hct 41.0 (38.0-50.0) % MCV 91.1 (80.0-98.0) fL MCH 33.1 H (27.0-32.0) pg MCHC 36.3 (31.0-37.0) g/dL RDW Std Deviation 45.6 (28.0-62.0) fl RDW Coeff of [place] 14 (11.0-15.0) % Plt Count 176 (150-400) K/uL MPV 11.30 (7.40-12.00) fL Neut % (Auto) 86.7 H (48.0-80.0) % Lymph % (Auto) 8.6 L (16.0-40.0) % [place] % (Auto) 4.4 (0.0-15.0) % Eos % (Auto) 0.2 (0.0-7.0) % Baso % (Auto) 0.1 (0.0-1.5) % Neut # (Auto) 14.4 H (1.4-5.7) K/uL Lymph # (Auto) 1.4 (0.6-2.4) K/uL [place] # (Auto) 0.7 (0.0-0.8) K/uL Eos # (Auto) 0.0 (0.0-0.7) K/uL Baso # (Auto) 0.0 (0.0-0.1) K/uL Nucleated RBC % 0.0 /100WBC Nucleated RBCs # 0 K/uL Sodium 137 (136-148) mmol/L Potassium 3.4 L (3.5-5.1) mmol/L Chloride 102 (98-107) mmol/L Carbon Dioxide 23.0 (21.0-32.0) mmol/L BUN 19 H (7.0-18.0) mg/dL Creatinine 1.2 (0.8-1.3) mg/dL Est Cr Clr Drug Dosing 66.24 mL/min Estimated GFR (MDRD) > 60.0 ml/min Glucose 125 H (74-106) mg/dL Lactic Acid 1.3 (0.4-2.0) mmol/L Calcium 8.8 (8.5-10.1) mg/dL Total Bilirubin 1.2 H (0.2-1.0) mg/dL AST 17 (15-37) IU/L ALT 25 (14-63) IU/L Alkaline Phosphatase 76 (46-116) U/L Total Protein 7.3 (6.4-8.2) g/dL Albumin 3.6 (3.4-5.0) g/dL Globulin 3.7 (2.6-4.0) g/dL Albumin/Globulin Ratio 1.0 (0.9-1.6) SARS-CoV-2 RNA (LEONARD) (NEGATIVE) 04/11/21 Range/Units 19:20 WBC (4.0-11.0) K/uL RBC (4.50-5.90) M/uL Hgb (13.0-17.0) g/dL Hct (38.0-50.0) % MCV (80.0-98.0) fL MCH (27.0-32.0) pg MCHC (31.0-37.0) g/dL RDW Std Deviation (28.0-62.0) fl RDW Coeff of [place] (11.0-15.0) % Plt Count (150-400) K/uL MPV (7.40-12.00) fL Neut % (Auto) (48.0-80.0) % Lymph % (Auto) (16.0-40.0) % [place] % (Auto) (0.0-15.0) % Eos % (Auto) (0.0-7.0) % Baso % (Auto) (0.0-1.5) % Neut # (Auto) (1.4-5.7) K/uL Lymph # (Auto) (0.6-2.4) K/uL [place] # (Auto) (0.0-0.8) K/uL Eos # (Auto) (0.0-0.7) K/uL Baso # (Auto) (0.0-0.1) K/uL Nucleated RBC % /100WBC Nucleated RBCs # K/uL Sodium (136-148) mmol/L Potassium (3.5-5.1) mmol/L Chloride (98-107) mmol/L Carbon Dioxide (21.0-32.0) mmol/L BUN (7.0-18.0) mg/dL Creatinine (0.8-1.3) mg/dL Est Cr Clr Drug Dosing mL/min Estimated GFR (MDRD) ml/min Glucose (74-106) mg/dL Lactic Acid (0.4-2.0) mmol/L Calcium (8.5-10.1) mg/dL Total Bilirubin (0.2-1.0) mg/dL AST (15-37) IU/L ALT (14-63) IU/L Alkaline Phosphatase (46-116) U/L Total Protein (6.4-8.2) g/dL Albumin (3.4-5.0) g/dL Globulin (2.6-4.0) g/dL Albumin/Globulin Ratio (0.9-1.6) SARS-CoV-2 RNA (LEONARD) NEGATIVE (NEGATIVE) Meds: Medications Generic Name Dose Route Start Last Admin Trade Name [place] PRN Reason Stop Dose Admin Sodium Chloride 1,000 mls @ 100 mls/hr 04/11/21 19:21 04/11/21 19:35 Normal Saline IV 04/12/21 05:20 100 mls/hr STAT ONE Administration Discontinued Medications Generic Name Dose Route Start Last Admin Trade Name Meetq PRN Reason Stop Dose Admin Cephalexin 500 mg 04/11/21 18:22 04/11/21 18:51 Cephalexin 500 Mg Cap PO 04/11/21 18:23 500 mg ONETIME ONE Administration Sodium Chloride 1,000 mls @ 125 mls/hr 04/11/21 18:16 04/11/21 18:22 Normal Saline IV 04/12/21 02:15 Not Given STAT ONE Vancomycin HCl 1 gm/ Sodium 250 mls @ 166 mls/hr 04/11/21 19:41 Chloride IV 04/11/21 21:11 ONETIME ONE Piperacillin Sod/Tazobactam 50 mls @ 100 mls/hr 04/11/21 19:42 04/11/21 20:16 Sod 3.375 gm/ Sodium Chloride IV 04/11/21 20:11 100 mls/hr ONETIME ONE Administration Trimethoprim/Sulfamethoxazole 1 tab 04/11/21 18:24 04/11/21 18:51 Sulfamethoxazole/Trimethoprim 800-160 Mg Tab PO 04/11/21 18:25 1 tab ONETIME ONE Administration Departure - Departure Time of Disposition: 21:52 Disposition: Refer to Observation Clinical Impression: Cellulitis - Discharge Information Sepsis Event Note (ED) - Focused Exam Vital Signs: Vital Signs Temp Pulse Resp BP Pulse Ox 04/11/21 16:11 97.6 F 69 20 151/96 H 96 - My Orders Last 24 Hours: My Active Orders 04/11/21 18:16 Blood Culture x2 Reflex Set [OM.PC] Stat 04/11/21 19:07 CULTURE BLOOD [BC] Stat 04/11/21 19:15 CULTURE BLOOD [BC] Stat 04/11/21 19:21 Sodium Chloride 0.9% [Normal Saline] 1,000 ml IV STAT - Assessment/Plan Last 24 Hours: My Active Orders 04/11/21 18:16 Blood Culture x2 Reflex Set [OM.PC] Stat 04/11/21 19:07 CULTURE BLOOD [BC] Stat 04/11/21 19:15 CULTURE BLOOD [BC] Stat 04/11/21 19:21 Sodium Chloride 0.9% [Normal Saline] 1,000 ml IV STAT
[2021-04-11 19:42] LABS: BLOOD UREA NITROGEN,BUN 19 mg/dL (7.0-18.0); CHLORIDE,CL 102 mmol/L (98-107); GLUCOSE RANDOM 125 mg/dL (74-106); POTASSIUM,K 3.4 mmol/L (3.5-5.1); SODIUM,NA 137 mmol/L (136-148)
[2021-04-11] MEDS ORDERED: Piperacillin/Tazobactam 3.375 GM in Sodium Chloride 0.9% 50 ML IV ONE (19:42)
--- NOTE | 2021-04-11 20:57 | CR ---
INDICATION: Swelling/cellulitis. COMPARISON: None. FINDINGS/IMPRESSION: Left tibia/fibula, four views. Diffuse soft tissue swelling is present over the distal leg proper. No soft tissue gas collections are noted. No bony erosions are seen to suggest osteomyelitis. Incidentally noted is a small plantar calcaneal spur. Dictated by Frankie Joy MD @ 04/11/2021 8:54:48 PM Dictated by: Frankie Joy MD @ 04/11/2021 20:55:01 (Electronically Signed)
--- NOTE | 2021-04-11 22:38 | PCM.HP.2 ---
H&P History of Present Illness - General Date of Service: 04/11/21 Admit Problem/Dx: Admission Diagnosis/Problem Admission Diagnosis/Problem Cellulitis - History of Present Illness Initial Comments - Free Text/Narative: Patient is a 65-year-old male with past medical history of diabetes, hypertension, PE on anticoagulation and anxiety presented to the ER with complaints of cellulitis to the left anterior dooley redness and swelling. He states on Thursday his son's dog scratched his leg and has progressively become red and warm to touch. He went to the walk-in clinic after he felt he was febrile, he was checked for Covid at the clinic which was reportedly negative and patient was recommended he come to the emergency room for possible cellulitis patient is a type II diabetic, takes oral Metformin. Patient denies any chills, headache, change in vision, syncope or near syncope. Denies any chest pain, back pain, shortness of breath or cough. Denies any abdominal pain, diarrhea, constipation or dysuria. Has not noted any blood in urine or stool. Patient has been eating and drinking appropriately. In the ER x-ray of the showed some cellulitic soft tissue changes but no underlying bone involvement, patient also had leukocytosis but was not septic. Initially patient had normal stool and received oral antibiotics but eventually he decided to stay for admission and was started on IV antibiotics. Patient was admitted to the hospital for further management of his cellulitis. Left Lower Leg Pain Score (Numeric/FACES): 6 - Related Data Allergies/Adverse Reactions: Allergies Allergy/AdvReac Type Severity Reaction Status Date / Time codeine Allergy Other Verified 01/09/21 02:21 Corticosteroids Allergy Change Verified 01/09/21 02:21 (Glucocorticoids) Mental Status Home Medications: Home Meds Telmisartan 40 mg PO DAILY 12/21/20 [History] metFORMIN HCl [Metformin HCl ER] 500 mg PO DAILY 12/31/20 [History] Apixaban [Eliquis] 5 mg PO BID 04/11/21 [History] Past Medical History - Past Health History Medical/Surgical History: Denies Medical/Surgical History HEENT History: Reports: Sinusitis Other HEENT History: wears glasses Cardiovascular History: Reports: High Cholesterol, Hypertension Respiratory History: Reports: Sleep Apnea Gastrointestinal History: Reports: Hepatitis Other Gastrointestinal History: 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 Genitourinary History: Reports: Renal Calculus Musculoskeletal History: Reports: Arthritis Other Musculoskeletal History: hx right arm fx Neurological History: Reports: Other (See Below) Other Neuro History: Lyme dse Psychiatric History: Reports: Anxiety Endocrine/Metabolic History: Reports: Obesity/BMI 30+ Hematologic History: Reports: None Immunologic History: Reports: None Oncologic (Cancer) History: Reports: None Dermatologic History: Reports: Eczema Other Dermatologic History: cellulitis or shingles to face, states "they were not sure which" - Infectious Disease History Infectious Disease History: Reports: Chicken Pox, Hepatitis C, Measles, Rubella Other Infectious Disease History: Hepatitis possibly from too much codiene. Per pt Hepatis C Non A Non B classification - Past Surgical History Head Surgeries/Procedures: Reports: None HEENT Surgical History: Reports: Naso-Sinus Surgery, Tonsillectomy Cardiovascular Surgical History: Reports: None Respiratory Surgical History: Reports: None Other Respiratory Surgeries/Procedures: central sleep apnea GI Surgical History: Reports: Colonoscopy Other GI Surgeries/Procedures: inguinal hernia repair 2x Male Surgical History: Reports: None Endocrine Surgical History: Reports: None Neurological Surgical History: Reports: None Musculoskeletal Surgical History: Reports: Arthroscopic Knee Other Musculoskeletal Surgeries/Procedures:: knee arthroscopy x3, left x2 - right x1 Oncologic Surgical History: Reports: None Dermatological Surgical History: Reports: None Social & Family History - Family History Family Medical History: No Pertinent Family History - Tobacco Use Tobacco Use Status *Q: Never Tobacco User - Caffeine Use Caffeine Use: Reports: Coffee, Energy Drinks, Soda - Recreational Drug Use Recreational Drug Use: No H&P Review of Systems - Review of Systems: Review Of Systems: See Below General: Reports: Fever. Denies: Chills, Malaise, Weakness, Fatigue Pulmonary: Denies: Shortness of Breath, Wheezing Cardiovascular: Denies: Chest Pain, Palpitations, Dyspnea on Exertion Gastrointestinal: Denies: Abdominal Pain, Anorexia, Black Stool Genitourinary: Denies: Dysuria, Frequency, Burning, Urgency Musculoskeletal: Denies: Neck Pain, Shoulder Pain, Arm Pain Skin: Reports: Erythema, Change in Color. Denies: Cyanosis, Jaundice, Mottled Psychiatric: Reports: Anxiety. Denies: Confusion, Depression, Mood Lability Neurological: Denies: Confusion, Dizziness, Headache Exam - Exam Exam: See Below - Vital Signs Vital Signs: Last Vital Signs Temp 36.4 C 04/11/21 16:11 Pulse 69 04/11/21 16:11 Resp 20 04/11/21 16:11 BP 151/96 H 04/11/21 16:11 Pulse Ox 96 04/11/21 16:11 Weight: 101.151 kg - Exam General: Alert, Oriented Neck: Supple, Trachea Midline Lungs: Clear to Auscultation, Normal Respiratory Effort Cardiovascular: Regular Rate, Regular Rhythm, Normal S1, Normal S2 GI/Abdominal Exam: Normal Bowel Sounds, Soft, Non-Tender Extremities: Normal Inspection, Normal Range of Motion, Leg Pain, Increased Warmth, Redness - Patient Data Lab Results Last 24 hrs: Laboratory Results - last 24 hr 04/11/21 04/11/21 04/11/21 Range/Units 19:07 19:07 19:07 WBC 16.66 H (4.0-11.0) K/uL RBC 4.50 (4.50-5.90) M/uL Hgb 14.9 (13.0-17.0) g/dL Hct 41.0 (38.0-50.0) % MCV 91.1 (80.0-98.0) fL MCH 33.1 H (27.0-32.0) pg MCHC 36.3 (31.0-37.0) g/dL RDW Std Deviation 45.6 (28.0-62.0) fl RDW Coeff of [place] 14 (11.0-15.0) % Plt Count 176 (150-400) K/uL MPV 11.30 (7.40-12.00) fL Neut % (Auto) 86.7 H (48.0-80.0) % Lymph % (Auto) 8.6 L (16.0-40.0) % [place] % (Auto) 4.4 (0.0-15.0) % Eos % (Auto) 0.2 (0.0-7.0) % Baso % (Auto) 0.1 (0.0-1.5) % Neut # (Auto) 14.4 H (1.4-5.7) K/uL Lymph # (Auto) 1.4 (0.6-2.4) K/uL [place] # (Auto) 0.7 (0.0-0.8) K/uL Eos # (Auto) 0.0 (0.0-0.7) K/uL Baso # (Auto) 0.0 (0.0-0.1) K/uL Nucleated RBC % 0.0 /100WBC Nucleated RBCs # 0 K/uL Sodium 137 (136-148) mmol/L Potassium 3.4 L (3.5-5.1) mmol/L Chloride 102 (98-107) mmol/L Carbon Dioxide 23.0 (21.0-32.0) mmol/L BUN 19 H (7.0-18.0) mg/dL Creatinine 1.2 (0.8-1.3) mg/dL Est Cr Clr Drug Dosing 66.24 mL/min Estimated GFR (MDRD) > 60.0 ml/min Glucose 125 H (74-106) mg/dL Lactic Acid 1.3 (0.4-2.0) mmol/L Calcium 8.8 (8.5-10.1) mg/dL Total Bilirubin 1.2 H (0.2-1.0) mg/dL AST 17 (15-37) IU/L ALT 25 (14-63) IU/L Alkaline Phosphatase 76 (46-116) U/L Total Protein 7.3 (6.4-8.2) g/dL Albumin 3.6 (3.4-5.0) g/dL Globulin 3.7 (2.6-4.0) g/dL Albumin/Globulin Ratio 1.0 (0.9-1.6) SARS-CoV-2 RNA (LEONARD) (NEGATIVE) 04/11/21 Range/Units 19:20 WBC (4.0-11.0) K/uL RBC (4.50-5.90) M/uL Hgb (13.0-17.0) g/dL Hct (38.0-50.0) % MCV (80.0-98.0) fL MCH (27.0-32.0) pg MCHC (31.0-37.0) g/dL RDW Std Deviation (28.0-62.0) fl RDW Coeff of [place] (11.0-15.0) % Plt Count (150-400) K/uL MPV (7.40-12.00) fL Neut % (Auto) (48.0-80.0) % Lymph % (Auto) (16.0-40.0) % [place] % (Auto) (0.0-15.0) % Eos % (Auto) (0.0-7.0) % Baso % (Auto) (0.0-1.5) % Neut # (Auto) (1.4-5.7) K/uL Lymph # (Auto) (0.6-2.4) K/uL [place] # (Auto) (0.0-0.8) K/uL Eos # (Auto) (0.0-0.7) K/uL Baso # (Auto) (0.0-0.1) K/uL Nucleated RBC % /100WBC Nucleated RBCs # K/uL Sodium (136-148) mmol/L Potassium (3.5-5.1) mmol/L Chloride (98-107) mmol/L Carbon Dioxide (21.0-32.0) mmol/L BUN (7.0-18.0) mg/dL Creatinine (0.8-1.3) mg/dL Est Cr Clr Drug Dosing mL/min Estimated GFR (MDRD) ml/min Glucose (74-106) mg/dL Lactic Acid (0.4-2.0) mmol/L Calcium (8.5-10.1) mg/dL Total Bilirubin (0.2-1.0) mg/dL AST (15-37) IU/L ALT (14-63) IU/L Alkaline Phosphatase (46-116) U/L Total Protein (6.4-8.2) g/dL Albumin (3.4-5.0) g/dL Globulin (2.6-4.0) g/dL Albumin/Globulin Ratio (0.9-1.6) SARS-CoV-2 RNA (LEONARD) NEGATIVE (NEGATIVE) Result Diagrams: 04/11/21 19:07 04/11/21 19:07 Sepsis Event Note - Focused Exam Vital Signs: Vital Signs Temp Pulse Resp BP Pulse Ox 04/11/21 16:11 36.4 C 69 20 151/96 H 96 Problem List Initiated/Reviewed/Updated: Yes Orders Last 24hrs: Active Orders 24 hr Category Date Time Status Admission Status [Patient Status] [ADT] Stat ADT 04/11/21 19:45 Active CULTURE BLOOD [BC] Stat Lab 04/11/21 19:07 Received CULTURE BLOOD [BC] Stat Lab 04/11/21 19:15 Received Sodium Chloride 0.9% [Normal Saline] 1,000 ml Med 04/11/21 19:21 Active IV STAT Blood Culture x2 Reflex Set [OM.PC] Stat Oth 04/11/21 18:16 Ordered Medication Orders Sodium Chloride (Normal Saline) 1,000 mls @ 100 mls/hr IV STAT ONE Stop: 04/12/21 05:20 Last Admin: 04/11/21 19:35 Dose: 100 mls/hr Documented by: CARERIC Assessment/Plan Comment:: 65-year-old male admitted for left leg cellulitis secondary to dog scratch Diffuse erythema and tenderness noted which has been marked Continue IV antibiotics De-escalate based on patient's response, no culture obtained as there is no drainage possibly strep infection Sliding scale insulin Low probability of DVT as patient is already on a blood thinner Continue home meds as appropriate Hypokalemia, repleted Monitor and replete electrolytes as needed Continue IV fluids
[2021-04-11] MEDS ORDERED: Ondansetron 4 MG/2 ML SDV IVPUSH PRN (22:43)
[2021-04-11] MEDS ORDERED: Potassium Chloride 10% 20 MEQ/15 ML Soln 30 ML UD Cup PO ONE (22:48)
[2021-04-11] MEDS ORDERED: 50% Dextrose in Water 50 ML Syringe IVPUSH PRN (22:49)
[2021-04-11] MEDS ORDERED: Glucagon,Human Recombinant 1 MG Vial IM PRN (22:49)
[2021-04-11] MEDS ORDERED: Vancomycin 1 GM AdvVial ONE (23:53)
[2021-04-11] MEDS ORDERED: Sodium Chloride 0.9% 250 ML ONE (23:55)
[2021-04-12] MEDS: Acetaminophen 325 MG Tab PO PRN (00:06)
[2021-04-12] MEDS ORDERED: Morphine 2 MG/ML SYRINGE IVPUSH PRN (01:05)
[2021-04-12] MEDS: Apixaban 5 MG Tab PO SCH ×3 (01:56→20:24)
[2021-04-12] MEDS: Piperacillin/Tazobactam 3.375 GM in Sodium Chloride 0.9% 50 ML IV SCH ×4 (04:41→21:59)
[2021-04-12] MEDS: Lactated Ringers 1,000 ML IV SCH ×2 (06:18→16:32)
[2021-04-12 06:27] LABS: BLOOD UREA NITROGEN,BUN 17 mg/dL (7.0-18.0); CARBON DIOXIDE,CO2 25.4 mmol/L (21.0-32.0); CHLORIDE,CL 104 mmol/L (98-107); GLUCOSE RANDOM 134 mg/dL (74-106); POTASSIUM,K 3.7 mmol/L (3.5-5.1); SODIUM,NA 139 mmol/L (136-148)
[2021-04-12] MEDS: VANCOmycin 1.5 GM/300 ML 1.5 GM in Premix Bag 1 BAG IV SCH ×2 (08:18→20:12)
[2021-04-12] MEDS: Insulin Aspart 100 Units/ML 3 ML Pen SUBCUT SCH ×3 (08:18→17:41)
[2021-04-12] MEDS ORDERED: Non-Formulary Medication 1 Each (Metformin Hcl [Metformin Hcl Er] 500 MG Tab.Er.24h) PO SCH (09:00)
[2021-04-12] MEDS: Pantoprazole 40 MG in Sodium Chloride 0.9% 10 ML IV SCH (09:50)
[2021-04-12 11:44] LABS: HEMOGLOBIN A1C 6.3 %
--- NOTE | 2021-04-12 17:20 | PCM.PN ---
- General Info Date of Service: 04/12/21 Subjective Update: Patient denies pain of the left tibia. Patient states swelling and erythema have subsided significantly. Denies fever, chills, nausea vomiting. - Review of Systems General: Denies: Fever, Chills Pulmonary: Denies: Shortness of Breath Cardiovascular: Denies: Chest Pain, Orthopnea Gastrointestinal: Denies: Abdominal Pain, Nausea, Vomiting Musculoskeletal: Denies: Leg Pain Neurological: Denies: Confusion, Dizziness - Patient Data Vitals - Most Recent: Last Vital Signs Temp 96.9 F 04/12/21 15:47 Pulse 61 04/12/21 15:47 Resp 22 H 04/12/21 15:47 BP 128/75 04/12/21 15:47 Pulse Ox 96 04/12/21 15:47 Weight - Most Recent: 233 lb I&O - Last 24 Hours: Intake & Output 04/12/21 04/12/21 04/12/21 06:59 14:59 22:59 Intake Total 1920 50 2424 Output Total 800 1200 Balance 1120 50 1224 Lab Results Last 24 Hours: Laboratory Results - last 24 hr 04/11/21 04/11/21 04/11/21 Range/Units 19:07 19:07 19:07 WBC 16.66 H (4.0-11.0) K/uL RBC 4.50 (4.50-5.90) M/uL Hgb 14.9 (13.0-17.0) g/dL Hct 41.0 (38.0-50.0) % MCV 91.1 (80.0-98.0) fL MCH 33.1 H (27.0-32.0) pg MCHC 36.3 (31.0-37.0) g/dL RDW Std Deviation 45.6 (28.0-62.0) fl RDW Coeff of [place] 14 (11.0-15.0) % Plt Count 176 (150-400) K/uL MPV 11.30 (7.40-12.00) fL Neut % (Auto) 86.7 H (48.0-80.0) % Lymph % (Auto) 8.6 L (16.0-40.0) % [place] % (Auto) 4.4 (0.0-15.0) % Eos % (Auto) 0.2 (0.0-7.0) % Baso % (Auto) 0.1 (0.0-1.5) % Neut # (Auto) 14.4 H (1.4-5.7) K/uL Lymph # (Auto) 1.4 (0.6-2.4) K/uL [place] # (Auto) 0.7 (0.0-0.8) K/uL Eos # (Auto) 0.0 (0.0-0.7) K/uL Baso # (Auto) 0.0 (0.0-0.1) K/uL Nucleated RBC % 0.0 /100WBC Nucleated RBCs # 0 K/uL Sodium 137 (136-148) mmol/L Potassium 3.4 L (3.5-5.1) mmol/L Chloride 102 (98-107) mmol/L Carbon Dioxide 23.0 (21.0-32.0) mmol/L BUN 19 H (7.0-18.0) mg/dL Creatinine 1.2 (0.8-1.3) mg/dL Est Cr Clr Drug Dosing 66.24 mL/min Estimated GFR (MDRD) > 60.0 ml/min Glucose 125 H (74-106) mg/dL POC Glucose (70-99) mg/dL Hemoglobin A1c (4.5 - 6.2) % Lactic Acid 1.3 (0.4-2.0) mmol/L Calcium 8.8 (8.5-10.1) mg/dL Phosphorus (2.6-4.7) mg/dL Magnesium (1.8-2.4) mg/dL Total Bilirubin 1.2 H (0.2-1.0) mg/dL AST 17 (15-37) IU/L ALT 25 (14-63) IU/L Alkaline Phosphatase 76 (46-116) U/L Total Protein 7.3 (6.4-8.2) g/dL Albumin 3.6 (3.4-5.0) g/dL Globulin 3.7 (2.6-4.0) g/dL Albumin/Globulin Ratio 1.0 (0.9-1.6) SARS-CoV-2 RNA (LEONARD) (NEGATIVE) 04/11/21 04/12/21 04/12/21 Range/Units 19:20 05:11 05:11 WBC 13.75 H (4.0-11.0) K/uL RBC 4.14 L (4.50-5.90) M/uL Hgb 13.5 (13.0-17.0) g/dL Hct 38.1 (38.0-50.0) % MCV 92.0 (80.0-98.0) fL MCH 32.6 H (27.0-32.0) pg MCHC 35.4 (31.0-37.0) g/dL RDW Std Deviation 45.4 (28.0-62.0) fl RDW Coeff of [place] 14 (11.0-15.0) % Plt Count 162 (150-400) K/uL MPV 11.20 (7.40-12.00) fL Neut % (Auto) 79.1 (48.0-80.0) % Lymph % (Auto) 14.6 L (16.0-40.0) % [place] % (Auto) 5.7 (0.0-15.0) % Eos % (Auto) 0.5 (0.0-7.0) % Baso % (Auto) 0.1 (0.0-1.5) % Neut # (Auto) 10.9 H (1.4-5.7) K/uL Lymph # (Auto) 2.0 (0.6-2.4) K/uL [place] # (Auto) 0.8 (0.0-0.8) K/uL Eos # (Auto) 0.1 (0.0-0.7) K/uL Baso # (Auto) 0.0 (0.0-0.1) K/uL Nucleated RBC % 0.0 /100WBC Nucleated RBCs # 0 K/uL Sodium 139 (136-148) mmol/L Potassium 3.7 (3.5-5.1) mmol/L Chloride 104 (98-107) mmol/L Carbon Dioxide 25.4 (21.0-32.0) mmol/L BUN 17 (7.0-18.0) mg/dL Creatinine 1.1 (0.8-1.3) mg/dL Est Cr Clr Drug Dosing 72.26 mL/min Estimated GFR (MDRD) > 60.0 ml/min Glucose 134 H (74-106) mg/dL POC Glucose (70-99) mg/dL Hemoglobin A1c (4.5 - 6.2) % Lactic Acid (0.4-2.0) mmol/L Calcium 8.2 L (8.5-10.1) mg/dL Phosphorus 3.1 (2.6-4.7) mg/dL Magnesium 2.1 (1.8-2.4) mg/dL Total Bilirubin (0.2-1.0) mg/dL AST (15-37) IU/L ALT (14-63) IU/L Alkaline Phosphatase (46-116) U/L Total Protein (6.4-8.2) g/dL Albumin (3.4-5.0) g/dL Globulin (2.6-4.0) g/dL Albumin/Globulin Ratio (0.9-1.6) SARS-CoV-2 RNA (LEONARD) NEGATIVE (NEGATIVE) 04/12/21 04/12/21 04/12/21 Range/Units 05:11 06:21 11:43 WBC (4.0-11.0) K/uL RBC (4.50-5.90) M/uL Hgb (13.0-17.0) g/dL Hct (38.0-50.0) % MCV (80.0-98.0) fL MCH (27.0-32.0) pg MCHC (31.0-37.0) g/dL RDW Std Deviation (28.0-62.0) fl RDW Coeff of [place] (11.0-15.0) % Plt Count (150-400) K/uL MPV (7.40-12.00) fL Neut % (Auto) (48.0-80.0) % Lymph % (Auto) (16.0-40.0) % [place] % (Auto) (0.0-15.0) % Eos % (Auto) (0.0-7.0) % Baso % (Auto) (0.0-1.5) % Neut # (Auto) (1.4-5.7) K/uL Lymph # (Auto) (0.6-2.4) K/uL [place] # (Auto) (0.0-0.8) K/uL Eos # (Auto) (0.0-0.7) K/uL Baso # (Auto) (0.0-0.1) K/uL Nucleated RBC % /100WBC Nucleated RBCs # K/uL Sodium (136-148) mmol/L Potassium (3.5-5.1) mmol/L Chloride (98-107) mmol/L Carbon Dioxide (21.0-32.0) mmol/L BUN (7.0-18.0) mg/dL Creatinine (0.8-1.3) mg/dL Est Cr Clr Drug Dosing mL/min Estimated GFR (MDRD) ml/min Glucose (74-106) mg/dL POC Glucose 137 H 156 H (70-99) mg/dL Hemoglobin A1c 6.3 H (4.5 - 6.2) % Lactic Acid (0.4-2.0) mmol/L Calcium (8.5-10.1) mg/dL Phosphorus (2.6-4.7) mg/dL Magnesium (1.8-2.4) mg/dL Total Bilirubin (0.2-1.0) mg/dL AST (15-37) IU/L ALT (14-63) IU/L Alkaline Phosphatase (46-116) U/L Total Protein (6.4-8.2) g/dL Albumin (3.4-5.0) g/dL Globulin (2.6-4.0) g/dL Albumin/Globulin Ratio (0.9-1.6) SARS-CoV-2 RNA (LEONARD) (NEGATIVE) 04/12/21 Range/Units 16:41 WBC (4.0-11.0) K/uL RBC (4.50-5.90) M/uL Hgb (13.0-17.0) g/dL Hct (38.0-50.0) % MCV (80.0-98.0) fL MCH (27.0-32.0) pg MCHC (31.0-37.0) g/dL RDW Std Deviation (28.0-62.0) fl RDW Coeff of [place] (11.0-15.0) % Plt Count (150-400) K/uL MPV (7.40-12.00) fL Neut % (Auto) (48.0-80.0) % Lymph % (Auto) (16.0-40.0) % [place] % (Auto) (0.0-15.0) % Eos % (Auto) (0.0-7.0) % Baso % (Auto) (0.0-1.5) % Neut # (Auto) (1.4-5.7) K/uL Lymph # (Auto) (0.6-2.4) K/uL [place] # (Auto) (0.0-0.8) K/uL Eos # (Auto) (0.0-0.7) K/uL Baso # (Auto) (0.0-0.1) K/uL Nucleated RBC % /100WBC Nucleated RBCs # K/uL Sodium (136-148) mmol/L Potassium (3.5-5.1) mmol/L Chloride (98-107) mmol/L Carbon Dioxide (21.0-32.0) mmol/L BUN (7.0-18.0) mg/dL Creatinine (0.8-1.3) mg/dL Est Cr Clr Drug Dosing mL/min Estimated GFR (MDRD) ml/min Glucose (74-106) mg/dL POC Glucose 158 H (70-99) mg/dL Hemoglobin A1c (4.5 - 6.2) % Lactic Acid (0.4-2.0) mmol/L Calcium (8.5-10.1) mg/dL Phosphorus (2.6-4.7) mg/dL Magnesium (1.8-2.4) mg/dL Total Bilirubin (0.2-1.0) mg/dL AST (15-37) IU/L ALT (14-63) IU/L Alkaline Phosphatase (46-116) U/L Total Protein (6.4-8.2) g/dL Albumin (3.4-5.0) g/dL Globulin (2.6-4.0) g/dL Albumin/Globulin Ratio (0.9-1.6) SARS-CoV-2 RNA (LEONARD) (NEGATIVE) Med Orders - Current: Current Medications Acetaminophen (Acetaminophen 325 Mg Tab) 650 mg PO Q4H PRN PRN Reason: Pain (Mild 1-3)/fever Last Admin: 04/12/21 00:06 Dose: 650 mg Documented by: Apixaban (Apixaban 5 Mg Tab) 5 mg PO BID AWA Last Admin: 04/12/21 09:47 Dose: 5 mg Documented by: Dextrose/Water (50% Dextrose In Water 50 Ml Syringe) 50 ml IVPUSH ASDIRECTED PRN PRN Reason: Hypoglycemia Glucagon (Glucagon,Human Recombinant 1 Mg Vial) 1 mg IM ASDIRECTED PRN PRN Reason: Hypoglycemia Lactated Ringer's (Ringers, Lactated) 1,000 mls @ 125 mls/hr IV ASDIRECTED [facility] Last Admin: 04/12/21 16:32 Dose: 125 mls/hr Documented by: Pantoprazole Sodium 40 mg/ (Sodium Chloride) 10 mls @ 300 mls/hr IV DAILY [facility] Last Admin: 04/12/21 09:50 Dose: 300 mls/hr Documented by: Piperacillin Sod/Tazobactam (Sod 3.375 gm/ Sodium Chloride) 50 mls @ 100 mls/hr IV Q6H [facility] Last Admin: 04/12/21 15:53 Dose: 100 mls/hr Documented by: Vancomycin HCl 1.5 gm/ Premix 300 mls @ 200 mls/hr IV Q12H [facility] Last Admin: 04/12/21 08:18 Dose: 200 mls/hr Documented by: Insulin Aspart (Insulin Aspart 100 Units/Ml 3 Ml Pen) 0 unit SUBCUT TIDAC [facility]; Protocol Last Admin: 04/12/21 12:11 Dose: 1 unit Documented by: Morphine Sulfate (Morphine 2 Mg/Ml Syringe) 1 mg IVPUSH Q4H PRN PRN Reason: Pain Ondansetron HCl (Ondansetron 4 Mg/2 Ml Sdv) 4 mg IVPUSH Q4H PRN PRN Reason: Nausea/Vomiting Telmisartan (Telmisartan 40 Mg Tab) 40 mg PO DAILY [facility] Last Admin: 04/12/21 12:10 Dose: 40 mg Documented by: Vancomycin HCl (Pharmacy To Dose - Vancomycin) 0 dose .XX ASDIRECTED [facility] Discontinued Medications Cephalexin (Cephalexin 500 Mg Cap) 500 mg PO ONETIME ONE Stop: 04/11/21 18:23 Last Admin: 04/11/21 18:51 Dose: 500 mg Documented by: Sodium Chloride (Normal Saline) 1,000 mls @ 125 mls/hr IV STAT ONE Stop: 04/12/21 02:15 Last Admin: 04/11/21 18:22 Dose: Not Given Documented by: Sodium Chloride (Normal Saline) 1,000 mls @ 100 mls/hr IV STAT ONE Stop: 04/12/21 05:20 Last Admin: 04/11/21 19:35 Dose: 100 mls/hr Documented by: Vancomycin HCl 1 gm/ Sodium (Chloride) 250 mls @ 166 mls/hr IV ONETIME ONE Stop: 04/11/21 21:11 Last Admin: 04/12/21 00:06 Dose: 166 mls/hr Documented by: Piperacillin Sod/Tazobactam (Sod 3.375 gm/ Sodium Chloride) 50 mls @ 100 mls/hr IV ONETIME ONE Stop: 04/11/21 20:11 Last Admin: 04/11/21 20:16 Dose: 100 mls/hr Documented by: Sodium Chloride (Normal Saline (Advbag)) Confirm Administered Dose 250 mls @ as directed .ROUTE .STK-MED ONE Stop: 04/11/21 23:56 Last Admin: 04/12/21 00:11 Dose: Not Given Documented by: Non-Formulary Medication (Metformin Hcl [Metformin Hcl Er]) 500 mg PO DAILY AWA Potassium Chloride (Potassium Chloride 10% 20 Meq/15 Ml Soln 30 Ml Ud Cup) 40 meq PO ONETIME ONE Stop: 04/11/21 22:49 Last Admin: 04/12/21 00:06 Dose: 40 meq Documented by: Trimethoprim/Sulfamethoxazole (Sulfamethoxazole/Trimethoprim 800-160 Mg Tab) 1 tab PO ONETIME ONE Stop: 04/11/21 18:25 Last Admin: 04/11/21 18:51 Dose: 1 tab Documented by: Vancomycin HCl (Vancomycin 1 Gm Advvial) Confirm Administered Dose 1 gm .ROUTE .STK-MED ONE Stop: 04/11/21 23:54 Last Admin: 04/12/21 00:11 Dose: Not Given Documented by: - Exam General: Alert, Oriented Lungs: Clear to Auscultation, Normal Respiratory Effort Cardiovascular: Regular Rate, Regular Rhythm GI/Abdominal Exam: Soft, Non-Tender Extremities: No Pedal Edema, Other (erythema, mild swelling noted on anterior left tibia. Patient denies tenderness or pain with touch. ) - Patient Data Lab Results Last 24 hrs: Laboratory Results - last 24 hr 08/19/21 08/19/21 08/19/21 Range/Units 19:07 19:07 19:07 WBC 16.66 H (4.0-11.0) K/uL RBC 4.50 (4.50-5.90) M/uL Hgb 14.9 (13.0-17.0) g/dL Hct 41.0 (38.0-50.0) % MCV 91.1 (80.0-98.0) fL MCH 33.1 H (27.0-32.0) pg MCHC 36.3 (31.0-37.0) g/dL RDW Std Deviation 45.6 (28.0-62.0) fl RDW Coeff of [place] 14 (11.0-15.0) % Plt Count 176 (150-400) K/uL MPV 11.30 (7.40-12.00) fL Neut % (Auto) 86.7 H (48.0-80.0) % Lymph % (Auto) 8.6 L (16.0-40.0) % [place] % (Auto) 4.4 (0.0-15.0) % Eos % (Auto) 0.2 (0.0-7.0) % Baso % (Auto) 0.1 (0.0-1.5) % Neut # (Auto) 14.4 H (1.4-5.7) K/uL Lymph # (Auto) 1.4 (0.6-2.4) K/uL [place] # (Auto) 0.7 (0.0-0.8) K/uL Eos # (Auto) 0.0 (0.0-0.7) K/uL Baso # (Auto) 0.0 (0.0-0.1) K/uL Nucleated RBC % 0.0 /100WBC Nucleated RBCs # 0 K/uL Sodium 137 (136-148) mmol/L Potassium 3.4 L (3.5-5.1) mmol/L Chloride 102 (98-107) mmol/L Carbon Dioxide 23.0 (21.0-32.0) mmol/L BUN 19 H (7.0-18.0) mg/dL Creatinine 1.2 (0.8-1.3) mg/dL Est Cr Clr Drug Dosing 66.24 mL/min Estimated GFR (MDRD) > 60.0 ml/min Glucose 125 H (74-106) mg/dL POC Glucose (70-99) mg/dL Hemoglobin A1c (4.5 - 6.2) % Lactic Acid 1.3 (0.4-2.0) mmol/L Calcium 8.8 (8.5-10.1) mg/dL Phosphorus (2.6-4.7) mg/dL Magnesium (1.8-2.4) mg/dL Total Bilirubin 1.2 H (0.2-1.0) mg/dL AST 17 (15-37) IU/L ALT 25 (14-63) IU/L Alkaline Phosphatase 76 (46-116) U/L Total Protein 7.3 (6.4-8.2) g/dL Albumin 3.6 (3.4-5.0) g/dL Globulin 3.7 (2.6-4.0) g/dL Albumin/Globulin Ratio 1.0 (0.9-1.6) SARS-CoV-2 RNA (LEONARD) (NEGATIVE) 04/11/21 04/12/21 04/12/21 Range/Units 19:20 05:11 05:11 WBC 13.75 H (4.0-11.0) K/uL RBC 4.14 L (4.50-5.90) M/uL Hgb 13.5 (13.0-17.0) g/dL Hct 38.1 (38.0-50.0) % MCV 92.0 (80.0-98.0) fL MCH 32.6 H (27.0-32.0) pg MCHC 35.4 (31.0-37.0) g/dL RDW Std Deviation 45.4 (28.0-62.0) fl RDW Coeff of [place] 14 (11.0-15.0) % Plt Count 162 (150-400) K/uL MPV 11.20 (7.40-12.00) fL Neut % (Auto) 79.1 (48.0-80.0) % Lymph % (Auto) 14.6 L (16.0-40.0) % [place] % (Auto) 5.7 (0.0-15.0) % Eos % (Auto) 0.5 (0.0-7.0) % Baso % (Auto) 0.1 (0.0-1.5) % Neut # (Auto) 10.9 H (1.4-5.7) K/uL Lymph # (Auto) 2.0 (0.6-2.4) K/uL [place] # (Auto) 0.8 (0.0-0.8) K/uL Eos # (Auto) 0.1 (0.0-0.7) K/uL Baso # (Auto) 0.0 (0.0-0.1) K/uL Nucleated RBC % 0.0 /100WBC Nucleated RBCs # 0 K/uL Sodium 139 (136-148) mmol/L Potassium 3.7 (3.5-5.1) mmol/L Chloride 104 (98-107) mmol/L Carbon Dioxide 25.4 (21.0-32.0) mmol/L BUN 17 (7.0-18.0) mg/dL Creatinine 1.1 (0.8-1.3) mg/dL Est Cr Clr Drug Dosing 72.26 mL/min Estimated GFR (MDRD) > 60.0 ml/min Glucose 134 H (74-106) mg/dL POC Glucose (70-99) mg/dL Hemoglobin A1c (4.5 - 6.2) % Lactic Acid (0.4-2.0) mmol/L Calcium 8.2 L (8.5-10.1) mg/dL Phosphorus 3.1 (2.6-4.7) mg/dL Magnesium 2.1 (1.8-2.4) mg/dL Total Bilirubin (0.2-1.0) mg/dL AST (15-37) IU/L ALT (14-63) IU/L Alkaline Phosphatase (46-116) U/L Total Protein (6.4-8.2) g/dL Albumin (3.4-5.0) g/dL Globulin (2.6-4.0) g/dL Albumin/Globulin Ratio (0.9-1.6) SARS-CoV-2 RNA (LEONARD) NEGATIVE (NEGATIVE) 04/12/21 04/12/21 04/12/21 Range/Units 05:11 06:21 11:43 WBC (4.0-11.0) K/uL RBC (4.50-5.90) M/uL Hgb (13.0-17.0) g/dL Hct (38.0-50.0) % MCV (80.0-98.0) fL MCH (27.0-32.0) pg MCHC (31.0-37.0) g/dL RDW Std Deviation (28.0-62.0) fl RDW Coeff of [place] (11.0-15.0) % Plt Count (150-400) K/uL MPV (7.40-12.00) fL Neut % (Auto) (48.0-80.0) % Lymph % (Auto) (16.0-40.0) % [place] % (Auto) (0.0-15.0) % Eos % (Auto) (0.0-7.0) % Baso % (Auto) (0.0-1.5) % Neut # (Auto) (1.4-5.7) K/uL Lymph # (Auto) (0.6-2.4) K/uL [place] # (Auto) (0.0-0.8) K/uL Eos # (Auto) (0.0-0.7) K/uL Baso # (Auto) (0.0-0.1) K/uL Nucleated RBC % /100WBC Nucleated RBCs # K/uL Sodium (136-148) mmol/L Potassium (3.5-5.1) mmol/L Chloride (98-107) mmol/L Carbon Dioxide (21.0-32.0) mmol/L BUN (7.0-18.0) mg/dL Creatinine (0.8-1.3) mg/dL Est Cr Clr Drug Dosing mL/min Estimated GFR (MDRD) ml/min Glucose (74-106) mg/dL POC Glucose 137 H 156 H (70-99) mg/dL Hemoglobin A1c 6.3 H (4.5 - 6.2) % Lactic Acid (0.4-2.0) mmol/L Calcium (8.5-10.1) mg/dL Phosphorus (2.6-4.7) mg/dL Magnesium (1.8-2.4) mg/dL Total Bilirubin (0.2-1.0) mg/dL AST (15-37) IU/L ALT (14-63) IU/L Alkaline Phosphatase (46-116) U/L Total Protein (6.4-8.2) g/dL Albumin (3.4-5.0) g/dL Globulin (2.6-4.0) g/dL Albumin/Globulin Ratio (0.9-1.6) SARS-CoV-2 RNA (LEONARD) (NEGATIVE) 04/12/21 Range/Units 16:41 WBC (4.0-11.0) K/uL RBC (4.50-5.90) M/uL Hgb (13.0-17.0) g/dL Hct (38.0-50.0) % MCV (80.0-98.0) fL MCH (27.0-32.0) pg MCHC (31.0-37.0) g/dL RDW Std Deviation (28.0-62.0) fl RDW Coeff of [place] (11.0-15.0) % Plt Count (150-400) K/uL MPV (7.40-12.00) fL Neut % (Auto) (48.0-80.0) % Lymph % (Auto) (16.0-40.0) % [place] % (Auto) (0.0-15.0) % Eos % (Auto) (0.0-7.0) % Baso % (Auto) (0.0-1.5) % Neut # (Auto) (1.4-5.7) K/uL Lymph # (Auto) (0.6-2.4) K/uL [place] # (Auto) (0.0-0.8) K/uL Eos # (Auto) (0.0-0.7) K/uL Baso # (Auto) (0.0-0.1) K/uL Nucleated RBC % /100WBC Nucleated RBCs # K/uL Sodium (136-148) mmol/L Potassium (3.5-5.1) mmol/L Chloride (98-107) mmol/L Carbon Dioxide (21.0-32.0) mmol/L BUN (7.0-18.0) mg/dL Creatinine (0.8-1.3) mg/dL Est Cr Clr Drug Dosing mL/min Estimated GFR (MDRD) ml/min Glucose (74-106) mg/dL POC Glucose 158 H (70-99) mg/dL Hemoglobin A1c (4.5 - 6.2) % Lactic Acid (0.4-2.0) mmol/L Calcium (8.5-10.1) mg/dL Phosphorus (2.6-4.7) mg/dL Magnesium (1.8-2.4) mg/dL Total Bilirubin (0.2-1.0) mg/dL AST (15-37) IU/L ALT (14-63) IU/L Alkaline Phosphatase (46-116) U/L Total Protein (6.4-8.2) g/dL Albumin (3.4-5.0) g/dL Globulin (2.6-4.0) g/dL Albumin/Globulin Ratio (0.9-1.6) SARS-CoV-2 RNA (LEONARD) (NEGATIVE) Result Diagrams: 04/12/21 05:11 04/12/21 05:11 Sepsis Event Note - Evaluation Sepsis Screening Result: Possible Sepsis Risk - Focused Exam Vital Signs: Vital Signs Temp Pulse Resp BP BP Pulse Ox 04/12/21 15:47 96.9 F 61 22 H 128/75 96 04/12/21 12:10 141/84 H 04/12/21 11:38 96.5 F L 58 L 20 141/84 H 96 04/12/21 08:00 97.0 F 58 L 20 133/77 99 - Problem List & Annotations (1) Cellulitis SNOMED Code(s): 425909586 Code(s): L03.90 - CELLULITIS, UNSPECIFIED Status: Acute Current Visit: Yes (2) Pulmonary emboli SNOMED Code(s): 66154314 Code(s): I26.99 - OTHER PULMONARY EMBOLISM WITHOUT ACUTE COR PULMONALE Status: Acute Current Visit: No Qualifiers: Chronicity: acute Acute cor pulmonale presence: without acute cor pulmonale (3) Diabetes type 2, uncontrolled SNOMED Code(s): 118934737, 426749491 Code(s): E11.65 - TYPE 2 DIABETES MELLITUS WITH HYPERGLYCEMIA Status: Chronic Current Visit: No Qualifiers: Glycemic state: with hyperglycemia Qualified Code(s): E11.65 - Type 2 loy betes mellitus with hyperglycemia - Problem List Review Problem List Initiated/Reviewed/Updated: Yes - Plan Plan:: Left leg cellulitis secondary to dog scratch-Vancomycin, zosyn Diabetes- Sliding scale insulin, diabetic diet, Hba1c 6.3 Resume Eliquis, Telmisartan, LR 125ml/hr
[2021-04-13] MEDS: Acetaminophen 325 MG Tab PO PRN ×2 (02:44→19:46)
[2021-04-13] MEDS: Lactated Ringers 1,000 ML IV SCH ×2 (02:45→13:45)
[2021-04-13] MEDS: Piperacillin/Tazobactam 3.375 GM in Sodium Chloride 0.9% 50 ML IV SCH ×4 (04:43→21:33)
[2021-04-13] MEDS: Insulin Aspart 100 Units/ML 3 ML Pen SUBCUT SCH ×3 (07:35→18:03)
[2021-04-13] MEDS: VANCOmycin 1.5 GM/300 ML 1.5 GM in Premix Bag 1 BAG IV SCH ×2 (07:35→19:44)
[2021-04-13 08:20] LABS: BLOOD UREA NITROGEN,BUN 15 mg/dL (7.0-18.0); CHLORIDE,CL 106 mmol/L (98-107); GLUCOSE RANDOM 155 mg/dL (74-106); POTASSIUM,K 3.9 mmol/L (3.5-5.1); SODIUM,NA 139 mmol/L (136-148)
[2021-04-13] MEDS: Apixaban 5 MG Tab PO SCH ×2 (08:36→21:33)
[2021-04-13] MEDS: Pantoprazole 40 MG in Sodium Chloride 0.9% 10 ML IV SCH (08:37)
--- NOTE | 2021-04-13 17:50 | PCM.PN ---
- General Info Date of Service: 04/13/21 Subjective Update: Patient states significant improvement of left leg cellulitis from the prior day. Patient states less swelling less erythema no pain or tenderness with touch. Initially patient stated that he would like to go home but after further reconsideration patient states he would like to stay for 1 more night of IV antibiotic therapy. Patient denies fever, chills, nausea, vomiting, left leg pain. - Review of Systems General: Denies: Fever, Chills Pulmonary: Denies: Shortness of Breath, Cough Cardiovascular: Denies: Chest Pain Gastrointestinal: Denies: Abdominal Pain, Nausea, Vomiting Musculoskeletal: Denies: Leg Pain Neurological: Denies: Confusion, Dizziness - Patient Data Vitals - Most Recent: Last Vital Signs Temp 97.3 F 04/13/21 16:09 Pulse 53 L 04/13/21 16:09 Resp 16 04/13/21 16:09 BP 133/65 04/13/21 16:09 Pulse Ox 96 04/13/21 16:09 Weight - Most Recent: 233 lb I&O - Last 24 Hours: Intake & Output 04/13/21 04/13/21 04/13/21 06:59 14:59 22:59 Intake Total 1346 2009 Output Total 1950 1999 Balance -604 10 Lab Results Last 24 Hours: Laboratory Results - last 24 hr 04/13/21 04/13/21 04/13/21 Range/Units 06:56 07:26 07:26 WBC 9.24 (4.0-11.0) K/uL RBC 3.87 L (4.50-5.90) M/uL Hgb 12.7 L (13.0-17.0) g/dL Hct 35.7 L (38.0-50.0) % MCV 92.2 (80.0-98.0) fL MCH 32.8 H (27.0-32.0) pg MCHC 35.6 (31.0-37.0) g/dL RDW Std Deviation 45.1 (28.0-62.0) fl RDW Coeff of [place] 14 (11.0-15.0) % Plt Count 157 (150-400) K/uL MPV 11.20 (7.40-12.00) fL Neut % (Auto) 68.6 (48.0-80.0) % Lymph % (Auto) 22.8 (16.0-40.0) % [place] % (Auto) 7.0 (0.0-15.0) % Eos % (Auto) 1.3 (0.0-7.0) % Baso % (Auto) 0.3 (0.0-1.5) % Neut # (Auto) 6.3 H (1.4-5.7) K/uL Lymph # (Auto) 2.1 (0.6-2.4) K/uL [place] # (Auto) 0.7 (0.0-0.8) K/uL Eos # (Auto) 0.1 (0.0-0.7) K/uL Baso # (Auto) 0.0 (0.0-0.1) K/uL Nucleated RBC % 0.0 /100WBC Nucleated RBCs # 0 K/uL Sodium 139 (136-148) mmol/L Potassium 3.9 (3.5-5.1) mmol/L Chloride 106 (98-107) mmol/L Carbon Dioxide 22.0 (21.0-32.0) mmol/L BUN 15 (7.0-18.0) mg/dL Creatinine 1.0 (0.8-1.3) mg/dL Est Cr Clr Drug Dosing 79.48 mL/min Estimated GFR (MDRD) > 60.0 ml/min Glucose 155 H (74-106) mg/dL POC Glucose 151 H (70-99) mg/dL Calcium 8.2 L (8.5-10.1) mg/dL 04/13/21 Range/Units 11:35 WBC (4.0-11.0) K/uL RBC (4.50-5.90) M/uL Hgb (13.0-17.0) g/dL Hct (38.0-50.0) % MCV (80.0-98.0) fL MCH (27.0-32.0) pg MCHC (31.0-37.0) g/dL RDW Std Deviation (28.0-62.0) fl RDW Coeff of [place] (11.0-15.0) % Plt Count (150-400) K/uL MPV (7.40-12.00) fL Neut % (Auto) (48.0-80.0) % Lymph % (Auto) (16.0-40.0) % [place] % (Auto) (0.0-15.0) % Eos % (Auto) (0.0-7.0) % Baso % (Auto) (0.0-1.5) % Neut # (Auto) (1.4-5.7) K/uL Lymph # (Auto) (0.6-2.4) K/uL [place] # (Auto) (0.0-0.8) K/uL Eos # (Auto) (0.0-0.7) K/uL Baso # (Auto) (0.0-0.1) K/uL Nucleated RBC % /100WBC Nucleated RBCs # K/uL Sodium (136-148) mmol/L Potassium (3.5-5.1) mmol/L Chloride (98-107) mmol/L Carbon Dioxide (21.0-32.0) mmol/L BUN (7.0-18.0) mg/dL Creatinine (0.8-1.3) mg/dL Est Cr Clr Drug Dosing mL/min Estimated GFR (MDRD) ml/min Glucose (74-106) mg/dL POC Glucose 172 H (70-99) mg/dL Calcium (8.5-10.1) mg/dL Thomas Results Last 24 Hours: Microbiology 04/11/21 19:15 Aerobic Blood Culture - Preliminary Blood - Venous - Lab Draw NO GROWTH AFTER 1 DAY Anaerobic Blood Culture - Preliminary NO GROWTH AFTER 1 DAY 04/11/21 19:07 Aerobic Blood Culture - Preliminary Blood - Venous NO GROWTH AFTER 1 DAY Anaerobic Blood Culture - Preliminary NO GROWTH AFTER 1 DAY Med Orders - Current: Current Medications Acetaminophen (Acetaminophen 325 Mg Tab) 650 mg PO Q4H PRN PRN Reason: Pain (Mild 1-3)/fever Last Admin: 04/13/21 02:44 Dose: 650 mg Documented by: Apixaban (Apixaban 5 Mg Tab) 5 mg PO BID AWA Last Admin: 04/13/21 08:36 Dose: 5 mg Documented by: Dextrose/Water (50% Dextrose In Water 50 Ml Syringe) 50 ml IVPUSH ASDIRECTED PRN PRN Reason: Hypoglycemia Glucagon (Glucagon,Human Recombinant 1 Mg Vial) 1 mg IM ASDIRECTED PRN PRN Reason: Hypoglycemia Lactated Ringer's (Ringers, Lactated) 1,000 mls @ 125 mls/hr IV ASDIRECTED [facility] Last Admin: 04/13/21 13:45 Dose: 125 mls/hr Documented by: Pantoprazole Sodium 40 mg/ (Sodium Chloride) 10 mls @ 300 mls/hr IV DAILY [facility] Last Admin: 04/13/21 08:37 Dose: 300 mls/hr Documented by: Piperacillin Sod/Tazobactam (Sod 3.375 gm/ Sodium Chloride) 50 mls @ 100 mls/hr IV Q6H [facility] Last Admin: 04/13/21 16:12 Dose: 100 mls/hr Documented by: Vancomycin HCl 1.5 gm/ Premix 300 mls @ 200 mls/hr IV Q12H [facility] Last Admin: 04/13/21 07:35 Dose: 200 mls/hr Documented by: Insulin Aspart (Insulin Aspart 100 Units/Ml 3 Ml Pen) 0 unit SUBCUT TIDAC [facility]; Protocol Last Admin: 04/13/21 13:55 Dose: Not Given Documented by: Morphine Sulfate (Morphine 2 Mg/Ml Syringe) 1 mg IVPUSH Q4H PRN PRN Reason: Pain Last Admin: 04/12/21 22:09 Dose: 1 mg Documented by: Ondansetron HCl (Ondansetron 4 Mg/2 Ml Sdv) 4 mg IVPUSH Q4H PRN PRN Reason: Nausea/Vomiting Telmisartan (Telmisartan 40 Mg Tab) 40 mg PO DAILY [facility] Last Admin: 04/13/21 08:36 Dose: 40 mg Documented by: Vancomycin HCl (Pharmacy To Dose - Vancomycin) 0 dose .XX ASDIRECTED [facility] Discontinued Medications Cephalexin (Cephalexin 500 Mg Cap) 500 mg PO ONETIME ONE Stop: 04/11/21 18:23 Last Admin: 04/11/21 18:51 Dose: 500 mg Documented by: Sodium Chloride (Normal Saline) 1,000 mls @ 125 mls/hr IV STAT ONE Stop: 04/12/21 02:15 Last Admin: 04/11/21 18:22 Dose: Not Given Documented by: Sodium Chloride (Normal Saline) 1,000 mls @ 100 mls/hr IV STAT ONE Stop: 04/12/21 05:20 Last Admin: 04/11/21 19:35 Dose: 100 mls/hr Documented by: Vancomycin HCl 1 gm/ Sodium (Chloride) 250 mls @ 166 mls/hr IV ONETIME ONE Stop: 04/11/21 21:11 Last Admin: 04/12/21 00:06 Dose: 166 mls/hr Documented by: Piperacillin Sod/Tazobactam (Sod 3.375 gm/ Sodium Chloride) 50 mls @ 100 mls/hr IV ONETIME ONE Stop: 04/11/21 20:11 Last Admin: 04/11/21 20:16 Dose: 100 mls/hr Documented by: Sodium Chloride (Normal Saline (Advbag)) Confirm Administered Dose 250 mls @ as directed .ROUTE .STK-MED ONE Stop: 04/11/21 23:56 Last Admin: 04/12/21 00:11 Dose: Not Given Documented by: Non-Formulary Medication (Metformin Hcl [Metformin Hcl Er]) 500 mg PO DAILY AWA Potassium Chloride (Potassium Chloride 10% 20 Meq/15 Ml Soln 30 Ml Ud Cup) 40 meq PO ONETIME ONE Stop: 04/11/21 22:49 Last Admin: 04/12/21 00:06 Dose: 40 meq Documented by: Trimethoprim/Sulfamethoxazole (Sulfamethoxazole/Trimethoprim 800-160 Mg Tab) 1 tab PO ONETIME ONE Stop: 04/11/21 18:25 Last Admin: 04/11/21 18:51 Dose: 1 tab Documented by: Vancomycin HCl (Vancomycin 1 Gm Advvial) Confirm Administered Dose 1 gm .ROUTE .STK-MED ONE Stop: 04/11/21 23:54 Last Admin: 04/12/21 00:11 Dose: Not Given Documented by: - Exam General: Alert, Oriented Lungs: Clear to Auscultation, Normal Respiratory Effort Cardiovascular: Regular Rate, Regular Rhythm GI/Abdominal Exam: Soft, Non-Tender Extremities: Other (Decreased left leg erythema, swelling from previous day. No pain or tenderness on palpation. Cellulitis area on left leg is still warm to touch.) Psy/Mental Status: Alert - Patient Data Lab Results Last 24 hrs: Laboratory Results - last 24 hr 04/13/21 04/13/21 04/13/21 Range/Units 06:56 07:26 07:26 WBC 9.24 (4.0-11.0) K/uL RBC 3.87 L (4.50-5.90) M/uL Hgb 12.7 L (13.0-17.0) g/dL Hct 35.7 L (38.0-50.0) % MCV 92.2 (80.0-98.0) fL MCH 32.8 H (27.0-32.0) pg MCHC 35.6 (31.0-37.0) g/dL RDW Std Deviation 45.1 (28.0-62.0) fl RDW Coeff of [place] 14 (11.0-15.0) % Plt Count 157 (150-400) K/uL MPV 11.20 (7.40-12.00) fL Neut % (Auto) 68.6 (48.0-80.0) % Lymph % (Auto) 22.8 (16.0-40.0) % [place] % (Auto) 7.0 (0.0-15.0) % Eos % (Auto) 1.3 (0.0-7.0) % Baso % (Auto) 0.3 (0.0-1.5) % Neut # (Auto) 6.3 H (1.4-5.7) K/uL Lymph # (Auto) 2.1 (0.6-2.4) K/uL [place] # (Auto) 0.7 (0.0-0.8) K/uL Eos # (Auto) 0.1 (0.0-0.7) K/uL Baso # (Auto) 0.0 (0.0-0.1) K/uL Nucleated RBC % 0.0 /100WBC Nucleated RBCs # 0 K/uL Sodium 139 (136-148) mmol/L Potassium 3.9 (3.5-5.1) mmol/L Chloride 106 (98-107) mmol/L Carbon Dioxide 22.0 (21.0-32.0) mmol/L BUN 15 (7.0-18.0) mg/dL Creatinine 1.0 (0.8-1.3) mg/dL Est Cr Clr Drug Dosing 79.48 mL/min Estimated GFR (MDRD) > 60.0 ml/min Glucose 155 H (74-106) mg/dL POC Glucose 151 H (70-99) mg/dL Calcium 8.2 L (8.5-10.1) mg/dL 04/13/21 Range/Units 11:35 WBC (4.0-11.0) K/uL RBC (4.50-5.90) M/uL Hgb (13.0-17.0) g/dL Hct (38.0-50.0) % MCV (80.0-98.0) fL MCH (27.0-32.0) pg MCHC (31.0-37.0) g/dL RDW Std Deviation (28.0-62.0) fl RDW Coeff of [place] (11.0-15.0) % Plt Count (150-400) K/uL MPV (7.40-12.00) fL Neut % (Auto) (48.0-80.0) % Lymph % (Auto) (16.0-40.0) % [place] % (Auto) (0.0-15.0) % Eos % (Auto) (0.0-7.0) % Baso % (Auto) (0.0-1.5) % Neut # (Auto) (1.4-5.7) K/uL Lymph # (Auto) (0.6-2.4) K/uL [place] # (Auto) (0.0-0.8) K/uL Eos # (Auto) (0.0-0.7) K/uL Baso # (Auto) (0.0-0.1) K/uL Nucleated RBC % /100WBC Nucleated RBCs # K/uL Sodium (136-148) mmol/L Potassium (3.5-5.1) mmol/L Chloride (98-107) mmol/L Carbon Dioxide (21.0-32.0) mmol/L BUN (7.0-18.0) mg/dL Creatinine (0.8-1.3) mg/dL Est Cr Clr Drug Dosing mL/min Estimated GFR (MDRD) ml/min Glucose (74-106) mg/dL POC Glucose 172 H (70-99) mg/dL Calcium (8.5-10.1) mg/dL Result Diagrams: 04/13/21 07:26 04/13/21 07:26 Thomas Results Last 24 hrs: Microbiology 04/11/21 19:15 Aerobic Blood Culture - Preliminary Blood - Venous - Lab Draw NO GROWTH AFTER 1 DAY Anaerobic Blood Culture - Preliminary NO GROWTH AFTER 1 DAY 04/11/21 19:07 Aerobic Blood Culture - Preliminary Blood - Venous NO GROWTH AFTER 1 DAY Anaerobic Blood Culture - Preliminary NO GROWTH AFTER 1 DAY Sepsis Event Note - Evaluation Sepsis Screening Result: No Definite Risk - Focused Exam Vital Signs: Vital Signs Temp Pulse Resp BP BP Pulse Ox 04/13/21 16:09 97.3 F 53 L 16 133/65 96 04/13/21 11:00 98.2 F 57 L 18 154/85 H 96 04/13/21 08:36 150/87 H 04/13/21 07:30 97.0 F 47 L 16 150/87 H 98 - Problem List & Annotations (1) Cellulitis SNOMED Code(s): 365656514 Code(s): L03.90 - CELLULITIS, UNSPECIFIED Status: Acute Current Visit: Yes (2) Pulmonary emboli SNOMED Code(s): 32194500 Code(s): I26.99 - OTHER PULMONARY EMBOLISM WITHOUT ACUTE COR PULMONALE Status: Acute Current Visit: No Qualifiers: Chronicity: acute Acute cor pulmonale presence: without acute cor pulmonale (3) Diabetes type 2, uncontrolled SNOMED Code(s): 239316766, 645545503 Code(s): E11.65 - TYPE 2 DIABETES MELLITUS WITH HYPERGLYCEMIA Status: Chronic Current Visit: No Qualifiers: Glycemic state: with hyperglycemia Qualified Code(s): E11.65 - Type 2 diabetes mellitus with hyperglycemia - Problem List Review Problem List Initiated/Reviewed/Updated: Yes - Plan Plan:: Left leg cellulitis secondary to dog scratch-Vancomycin, zosyn Diabetes- Sliding scale insulin, diabetic diet, Hba1c 6.3 Resume Eliquis, Telmisartan, LR 125ml/hr Patient to be discharged tomorrow tomorrow on antibiotics.
[2021-04-14] MEDS: Lactated Ringers 1,000 ML IV SCH (00:16)
[2021-04-14] MEDS: Piperacillin/Tazobactam 3.375 GM in Sodium Chloride 0.9% 50 ML IV SCH ×2 (04:17→10:07)
[2021-04-14] MEDS: Acetaminophen 325 MG Tab PO PRN (04:22)
[2021-04-14 08:02] LABS: BLOOD UREA NITROGEN,BUN 15 mg/dL (7.0-18.0); CARBON DIOXIDE,CO2 23.7 mmol/L (21.0-32.0); CHLORIDE,CL 105 mmol/L (98-107); GLUCOSE RANDOM 169 mg/dL (74-106); SODIUM,NA 140 mmol/L (136-148)
[2021-04-14] MEDS: Apixaban 5 MG Tab PO SCH (08:07)
[2021-04-14] MEDS: VANCOmycin 1.5 GM/300 ML 1.5 GM in Premix Bag 1 BAG IV SCH (08:07)
[2021-04-14] MEDS: Insulin Aspart 100 Units/ML 3 ML Pen SUBCUT SCH ×2 (08:07→12:00)
[2021-04-14] MEDS: Pantoprazole 40 MG in Sodium Chloride 0.9% 10 ML IV SCH (08:07)
[2021-04-14 12:03] VITALS: BP 168/81; PULSE 52
--- NOTE | 2021-04-14 13:46 | PCM.DCSUM1 ---
Discharge Summary - Hospital Course Free Text/Narrative:: 65-year-old male was admitted to the hospital for left leg cellulitis after being scratched by a dog. Patient presented with increased left lower leg pain and swelling. He was also found of erythema. Patient was afebrile. Patient was treated with IV Zosyn and vancomycin. Over his stay his pain and erythema gradually improved. There was less swelling and less tenderness to touch. Patient's infection greatly improved, on WBC today 8. Temperature 98.1. This patient was continued on sliding scale for his diabetes and Eliquis for his history of pulmonary embolism. Patient's infection is improving and he is being discharged on doxycycline for 10 days. He is to see his primary care physician for close follow-up to ensure improvement of his cellulitis and also to address his concerns for possible left great toe nail fungus. Return precautions d iscussed. - Discharge Data Discharge Date: 04/14/21 Discharge Disposition: Home, Self-Care 01 Condition: Good - Referral to Home Health Primary Care Physician: David Prieto MD - Patient Instructions Diet: Regular Diet as Tolerated Activity: As Tolerated Notify Provider of: Fever, Increased Pain, Swelling and Redness, Drainage Other/Special Instructions: You are being discharged on doxycycline to be taken every 12 hours for 10 days. If you experience increased redness, swelling, pain or fevers please seek medical attention immediately as your cellulitis infection may be worsening if this occurs. Please follow-up with your primary care doctor for post hospital visit to evaluate the cellulitis and to manage your toenail concerns. - Discharge Plan *PRESCRIPTION DRUG MONITORING PROGRAM REVIEWED*: Not Applicable *COPY OF PRESCRIPTION DRUG MONITORING REPORT IN PATIENT OBI: Not Applicable Prescriptions/Med Rec: Doxycycline [Vibra-Tabs] 100 mg PO Q12HR 10 Days #20 tab Home Medications: Home Meds Telmisartan 40 mg PO DAILY 12/21/20 [History] metFORMIN HCl [Metformin HCl ER] 500 mg PO DAILY 12/31/20 [History] Apixaban [Eliquis] 5 mg PO BID 04/11/21 [History] Doxycycline [Vibra-Tabs] 100 mg PO Q12HR 10 Days #20 tab 04/14/21 [Rx] Patient Handouts: Cellulitis, Adult Forms: ED Department Discharge Referrals: David Prieto MD [Primary Care Provider] - 04/23/21 10:30 am - Discharge Summary/Plan Comment DC Time >30 min.: Yes Total # of Minutes for Discharge Time: 45 - General Info Admission Dx/Problem (Free Text: Admission Diagnosis/Problem Admission Diagnosis/Problem Cellulitis - Review of Systems General: Reports: No Symptoms HEENT: Reports: No Symptoms Pulmonary: Reports: No Symptoms Cardiovascular: Reports: No Symptoms Gastrointestinal: Reports: No Symptoms Genitourinary: Reports: No Symptoms Musculoskeletal: Denies: Leg Pain, Foot Pain, Joint Pain, Joint Swelling Neurological: Reports: No Symptoms - Patient Data Vitals - Most Recent: Last Vital Signs Temp 98.1 F 04/14/21 12:02 Pulse 52 L 04/14/21 12:02 Resp 17 04/14/21 12:02 BP 168/81 H 04/14/21 12:02 Pulse Ox 97 04/14/21 12:02 Weight - Most Recent: 233 lb I&O - Last 24 hours: Intake & Output 04/13/21 04/14/21 04/14/21 22:59 06:59 14:59 Intake Total 2360 1357 Output Total 2000 2700 Balance 360 -1343 Lab Results - Last 24 hrs: Laboratory Results - last 24 hr 04/13/21 04/13/21 04/14/21 Range/Units 17:56 19:01 06:33 WBC 8.45 (4.0-11.0) K/uL RBC 4.13 L (4.50-5.90) M/uL Hgb 13.2 (13.0-17.0) g/dL Hct 38.0 (38.0-50.0) % MCV 92.0 (80.0-98.0) fL MCH 32.0 (27.0-32.0) pg MCHC 34.7 (31.0-37.0) g/dL RDW Std Deviation 44.8 (28.0-62.0) fl RDW Coeff of [place] 13 (11.0-15.0) % Plt Count 191 (150-400) K/uL MPV 11.20 (7.40-12.00) fL Neut % (Auto) 62.0 (48.0-80.0) % Lymph % (Auto) 27.2 (16.0-40.0) % [place] % (Auto) 7.5 (0.0-15.0) % Eos % (Auto) 2.8 (0.0-7.0) % Baso % (Auto) 0.5 (0.0-1.5) % Neut # (Auto) 5.2 (1.4-5.7) K/uL Lymph # (Auto) 2.3 (0.6-2.4) K/uL [place] # (Auto) 0.6 (0.0-0.8) K/uL Eos # (Auto) 0.2 (0.0-0.7) K/uL Baso # (Auto) 0.0 (0.0-0.1) K/uL Nucleated RBC % 0.0 /100WBC Nucleated RBCs # 0 K/uL Sodium (136-148) mmol/L Potassium (3.5-5.1) mmol/L Chloride (98-107) mmol/L Carbon Dioxide (21.0-32.0) mmol/L BUN (7.0-18.0) mg/dL Creatinine (0.8-1.3) mg/dL Est Cr Clr Drug Dosing mL/min Estimated GFR (MDRD) ml/min Glucose (74-106) mg/dL POC Glucose 130 H (70-99) mg/dL Calcium (8.5-10.1) mg/dL Vancomycin Trough 11.3 H (5.0-10.0) ug/mL 04/14/21 04/14/21 04/14/21 Range/Units 06:33 06:55 11:57 WBC (4.0-11.0) K/uL RBC (4.50-5.90) M/uL Hgb (13.0-17.0) g/dL Hct (38.0-50.0) % MCV (80.0-98.0) fL MCH (27.0-32.0) pg MCHC (31.0-37.0) g/dL RDW Std Deviation (28.0-62.0) fl RDW Coeff of [place] (11.0-15.0) % Plt Count (150-400) K/uL MPV (7.40-12.00) fL Neut % (Auto) (48.0-80.0) % Lymph % (Auto) (16.0-40.0) % [place] % (Auto) (0.0-15.0) % Eos % (Auto) (0.0-7.0) % Baso % (Auto) (0.0-1.5) % Neut # (Auto) (1.4-5.7) K/uL Lymph # (Auto) (0.6-2.4) K/uL [place] # (Auto) (0.0-0.8) K/uL Eos # (Auto) (0.0-0.7) K/uL Baso # (Auto) (0.0-0.1) K/uL Nucleated RBC % /100WBC Nucleated RBCs # K/uL Sodium 140 (136-148) mmol/L Potassium 4.0 (3.5-5.1) mmol/L Chloride 105 (98-107) mmol/L Carbon Dioxide 23.7 (21.0-32.0) mmol/L BUN 15 (7.0-18.0) mg/dL Creatinine 0.9 (0.8-1.3) mg/dL Est Cr Clr Drug Dosing 88.31 mL/min Estimated GFR (MDRD) > 60.0 ml/min Glucose 169 H (74-106) mg/dL POC Glucose 155 H 217 H (70-99) mg/dL Calcium 8.6 (8.5-10.1) mg/dL Vancomycin Trough (5.0-10.0) ug/mL NILTNO Results - Last 24 hrs: Microbiology 04/11/21 19:15 Aerobic Blood Culture - Preliminary Blood - Venous - Lab Draw NO GROWTH AFTER 2 DAYS Anaerobic Blood Culture - Preliminary NO GROWTH AFTER 2 DAYS 04/11/21 19:07 Aerobic Blood Culture - Preliminary Blood - Venous NO GROWTH AFTER 2 DAYS Anaerobic Blood Culture - Preliminary NO GROWTH AFTER 2 DAYS Med Orders - Current: Current Medications Acetaminophen (Acetaminophen 325 Mg Tab) 650 mg PO Q4H PRN PRN Reason: Pain (Mild 1-3)/fever Last Admin: 04/14/21 04:22 Dose: 650 mg Documented by: Apixaban (Apixaban 5 Mg Tab) 5 mg PO BID AWA Last Admin: 04/14/21 08:07 Dose: 5 mg Documented by: Dextrose/Water (50% Dextrose In Water 50 Ml Syringe) 50 ml IVPUSH ASDIRECTED PRN PRN Reason: Hypoglycemia Glucagon (Glucagon,Human Recombinant 1 Mg Vial) 1 mg IM ASDIRECTED PRN PRN Reason: Hypoglycemia Pantoprazole Sodium 40 mg/ (Sodium Chloride) 10 mls @ 300 mls/hr IV DAILY [facility] Last Admin: 04/14/21 08:07 Dose: 300 mls/hr Documented by: Piperacillin Sod/Tazobactam (Sod 3.375 gm/ Sodium Chloride) 50 mls @ 100 mls/hr IV Q6H [facility] Last Admin: 04/14/21 10:07 Dose: 100 mls/hr Documented by: Vancomycin HCl 1.5 gm/ Premix 300 mls @ 200 mls/hr IV Q12H [facility] Last Admin: 04/14/21 08:07 Dose: 200 mls/hr Documented by: Insulin Aspart (Insulin Aspart 100 Units/Ml 3 Ml Pen) 0 unit SUBCUT TIDAC [facility]; Protocol Last Admin: 04/14/21 12:00 Dose: 2 unit Documented by: Morphine Sulfate (Morphine 2 Mg/Ml Syringe) 1 mg IVPUSH Q4H PRN PRN Reason: Pain Last Admin: 04/12/21 22:09 Dose: 1 mg Documented by: Ondansetron HCl (Ondansetron 4 Mg/2 Ml Sdv) 4 mg IVPUSH Q4H PRN PRN Reason: Nausea/Vomiting Telmisartan (Telmisartan 40 Mg Tab) 40 mg PO DAILY [facility] Last Admin: 04/14/21 08:07 Dose: 40 mg Documented by: Vancomycin HCl (Pharmacy To Dose - Vancomycin) 0 dose .XX ASDIRECTED [facility] Discontinued Medications Cephalexin (Cephalexin 500 Mg Cap) 500 mg PO ONETIME ONE Stop: 04/11/21 18:23 Last Admin: 04/11/21 18:51 Dose: 500 mg Documented by: Sodium Chloride (Normal Saline) 1,000 mls @ 125 mls/hr IV STAT ONE Stop: 04/12/21 02:15 Last Admin: 04/11/21 18:22 Dose: Not Given Documented by: Sodium Chloride (Normal Saline) 1,000 mls @ 100 mls/hr IV STAT ONE Stop: 04/12/21 05:20 Last Admin: 04/11/21 19:35 Dose: 100 mls/hr Documented by: Vancomycin HCl 1 gm/ Sodium (Chloride) 250 mls @ 166 mls/hr IV ONETIME ONE Stop: 04/11/21 21:11 Last Admin: 04/12/21 00:06 Dose: 166 mls/hr Documented by: Piperacillin Sod/Tazobactam (Sod 3.375 gm/ Sodium Chloride) 50 mls @ 100 mls/hr IV ONETIME ONE Stop: 04/11/21 20:11 Last Admin: 04/11/21 20:16 Dose: 100 mls/hr Documented by: Lactated Ringer's (Ringers, Lactated) 1,000 mls @ 125 mls/hr IV ASDIRECTED [facility] Last Admin: 04/14/21 00:16 Dose: 125 mls/hr Documented by: Sodium Chloride (Normal Saline (Advbag)) Confirm Administered Dose 250 mls @ as directed .ROUTE .STK-MED ONE Stop: 04/11/21 23:56 Last Admin: 04/12/21 00:11 Dose: Not Given Documented by: Non-Formulary Medication (Metformin Hcl [Metformin Hcl Er]) 500 mg PO DAILY [facility] Potassium Chloride (Potassium Chloride 10% 20 Meq/15 Ml Soln 30 Ml Ud Cup) 40 meq PO ONETIME ONE Stop: 04/11/21 22:49 Last Admin: 04/12/21 00:06 Dose: 40 meq Documented by: Trimethoprim/Sulfamethoxazole (Sulfamethoxazole/Trimethoprim 800-160 Mg Tab) 1 tab PO ONETIME ONE Stop: 04/11/21 18:25 Last Admin: 04/11/21 18:51 Dose: 1 tab Documented by: Vancomycin HCl (Vancomycin 1 Gm Advvial) Confirm Administered Dose 1 gm .ROUTE .ST-MED ONE Stop: 04/11/21 23:54 Last Admin: 04/12/21 00:11 Dose: Not Given Documented by: - Exam General: Reports: Alert, Oriented HEENT: Reports: Pupils Equal Neck: Reports: Supple Lungs: Reports: Clear to Auscultation Cardiovascular: Reports: Regular Rate, Regular Rhythm GI/Abdominal Exam: Normal Bowel Sounds, Soft, Non-Tender Back Exam: Reports: Normal Inspection Extremities: Normal Range of Motion, No Pedal Edema, Redness, Other (Left lower extremity erythema regressing in relation to marked outline. No swelling. Not warm to touch.). No: Joint Swelling, Claudy's Sign, Increased Warmth Neurological: Reports: No New Focal Deficit
== END 2021-04-14 14:30 | disposition home or self-care (01) | DRG 603 ==
LOC: MW.ED 15:04 → MW.MS 19:45 → OBSVTOIN 04-13 15:23 → MW.MS 04-13 16:35
PROVIDERS: ADMIT Student in an Organized Health Care Education/Training Program; ATTEND Student in an Organized Health Care Education/Training Program
DX: L03.116 Cellulitis of left lower limb (principal); E78.00 Pure hypercholesterolemia, unspecified; I10 Essential (primary) hypertension; F41.9 Anxiety disorder, unspecified; E66.9 Obesity, unspecified; M19.90 Unspecified osteoarthritis, unspecified site; Z20.822 Contact with and (suspected) exposure to COVID-19; G47.30 Sleep apnea, unspecified; E87.6 Hypokalemia; S80.812A Abrasion, left lower leg, initial encounter; E11.65 Type 2 diabetes mellitus with hyperglycemia; B35.1 Tinea unguium; Z88.5 Allergy status to narcotic agent; Z88.8 Allergy status to other drugs, medicaments and biological substances; Z79.84 Long term (current) use of oral hypoglycemic drugs; Z79.899 Other long term (current) drug therapy; Z98.890 Other specified postprocedural states; Z87.442 Personal history of urinary calculi; Z86.711 Personal history of pulmonary embolism; W54.0XXA Bitten by dog, initial encounter
CPT/HCPCS: 36415; 73590-26-LT; 73590-LT; 80048; 80053; 80202; 82947; 83036; 83605; 83735; 84100; 85025; 87040; 96365; 96366; 96367; 96375; 96376; 99284-25; A9270-GY; C9113; G0378; J1815-GY; J2270; J2543; J3370; J7030; J7050; J7120; U0002

== ENCOUNTER 2021-08-11 11:04 | Emergency (ER) | payer OTHER ==
[2021-08-11] MEDS ORDERED: Sodium Chloride 0.9% 2.5 ML Syringe FLUSH PRN (11:31)
[2021-08-11] MEDS ORDERED: Sodium Chloride 0.9% 10 ML Syringe FLUSH PRN (11:31)
[2021-08-11] MEDS ORDERED: Sodium Chloride 0.9% 1,000 ML IV ONE (11:32)
[2021-08-11] MEDS ORDERED: Ondansetron 4 MG/2 ML SDV IVPUSH ONE (11:32)
--- NOTE | 2021-08-11 11:39 | EDM.PDOC ---
ED HPI GENERAL MEDICAL PROBLEM - General Chief Complaint: Gastrointestinal Problem Stated Complaint: SINUS INFECTION, NAUSEATED Time Seen by Provider: 08/11/21 11:09 Source of Information: Reports: Patient History Limitations: Reports: No Limitations - History of Present Illness INITIAL COMMENTS - FREE TEXT/NARRATIVE: HISTORY AND PHYSICAL: History of present illness: The patient is a 66-year-old male with a history of diabetes type 2, hypertension, and pulmonary embolism, who presents to the emergency department with complaints of nasal drainage, coughing, and nausea that started 3 weeks ago have progressed to diarrhea 4 days ago. The patient states that he was tested for Covid 8 days ago which was negative and was given an antibiotic. He is on day 8 of the antibiotic and states that he is no better. The patient's main reason for the emergency room presentation is that he was unable to sleep last night. He states that coughing and the inability to be comfortable due to right shoulder and lower back pain caused him not to be able to sleep. The right shoulder and lower back pain are chronic. Patient states that he is so nauseated he is unable to eat. The patient has been taking fluids but an increased fluid intake. Patient states that he feels as if he has been having normal urination. Patient denies any fever, chills, headache, change in vision, syncope or near syncope. Denies any chest pain. Denies any abdominal pain, constipation or dysuria. Has not noted any blood in urine or stool. In the emergency department the patient is hemodynamically stable with a blood pressure of 147/82 and a heart rate of 97. The patient is afebrile with a temperature of 98.9. The patient is not in respiratory distress with a respiratory rate of 20 and an SPO2 of 100% Review of systems: As per history of present illness and below otherwise all systems reviewed and negative. Past medical history: As per history of present illness and as reviewed below otherwise noncontributory. Surgical history: As per history of present illness and as reviewed below otherwise noncontributory. Social history: See social history for further information Family history: As per history of present illness and as reviewed below otherwise noncontributory. Physical exam: General: Well developed and well nourished. Alert and orientated x 3. Nontoxic in appearance and in no acute distress. Vital signs are stable and have been reviewed by me. Nursing notes were reviewed. HEENT: Atraumatic, normocephalic, pupils equal and reactive bilaterally, negative for conjunctival pallor or scleral icterus, mucous membranes moist, TMs normal bilaterally, throat clear, neck supple, nontender, trachea midline. No drooling or trismus noted. No meningeal signs. No hot potato voice noted. Lungs: Clear to auscultation bilaterally. No wheezes, rales, or rhonchi. Chest nontender. Normal work of breathing, no accessory muscles used. Heart: S1S2, regular rate and rhythm without overt murmur, gallops, or rubs. No JVD. No peripheral edema Abdomen: Soft, nondistended, nontender. Normoactive bowel sounds. Negative for masses or costovertebral tenderness. Skin: Intact, warm, dry. No lesions or rashes noted. Hematologic: No petechiae or purpra. Mucosa appropriate color and normal nail bed color and refill. Extremities: Atraumatic, moves all extremities per self without difficulty or deficits, negative for cords or calf pain. Neurovascular unremarkable. Neuro: Awake, alert, oriented. Cranial nerves II through XII unremarkable. Cerebellum unremarkable. Motor and sensory unremarkable throughout. Exam nonfocal. Psychiatric: Mood and affect are appropriate. Normal thought process. Answering questions appropriately. Notes: *This patient was seen and evaluated during the 2019 SARS-CoV-2 novel coronavirus pandemic period. Community viral transmission is ongoing at time of this encounter and the emergency department is operating under pandemic response procedures. As stated above the patient is a 66-year-old male who presents to the emergency room with complaints of nausea, coughing, diarrhea, and right and left shoulder pain. The patient was seen 8 days ago and tested for Covid. The patient states that his Covid testing was just in his front years as opposed to a nasopharyngeal testing. Patient said his previous Covid test had caused him to have a nosebleed and since he was on Eliquis his nose bled for approximately 1.5 hours. The patient was given an antibiotic when his Covid test came back negative which he has been taking but which has not helped. For today's purposes we will do a work-up to include blood work, EKG, chest x-ray and give IV fluids and Zofran. The patient CBC is unremarkable, the patient's INR is within normal limits, the patient's sodium is 134 and the patient did receive a liter of fluids. The patient's glucose is 241 and he is a type II diabetic taking Metformin. Chest x- ray IMPRESSION: Moderate diffuse multifocal ground-glass. With the patient's symptoms and his moderate diffuse multifocal groundglass in his chest x-ray will diagnose the patient with presumptive COVID-19. I have discussed the findings with the patient regarding treatment of COVID-19. As we are unsure when the patient started his first symptoms as in his description stated about 3 weeks he does not meet criteria for monoclonal antibodies. The patient's SPO2 is 94 to 95% on room air. I educated the patient on maintaining his distance at home from his family members to decrease the viral load. I advised the patient in detail on when he needed to return to the emergency department. The patient states that his nausea is much better after receiving the Zofran the patient was able to eat some sips and get some rest. I have prescribed Zofran 4 mg ODT 1 every 6 hours as needed for nausea. The patient is agreeable with this discharge plan. a I have talked with the patient about today's findings, in addition to providing specific details for plan of care. Reassessment at the time of disposition demonstrates that the patient is in no acute distress. The patient is stable for discharge, counseling was provided and we discussed in great detail signs and symptoms that would prompt them to return to the Emergency Department. Medication, follow up and supportive care measures were reviewed and discussed. Voices understanding and is agreeable to plan of care. Denies any further questions or concerns at this time. Diagnostics: CBC, CMP, INR, EKG, chest x-ray Therapeutics: IV fluids, Zofran Prescription: Zofran 4 mg ODT every 6 hours as needed for nausea Impression: COVID-19 Plan: 1. You were evaluated today on an emergent basis. Your complaints of nausea, coughing, diarrhea, right and left shoulder pain were evaluated today with blood work and a chest x-ray which did show groundglass appearance which is indicative of COVID-19. I am giving you a presumptive diagnosis of COVID-19. As we discussed obtain an oxygen saturation monitor and if it drops below 90 please return to the emergency department. Just try to keep fluids going in such as Gatorade. I have prescribed Zofran 4 mg ODT every 6 hours as needed for nausea which was sent to [facility] pharmacy. 1. Your COVID-19 screening is positive. That means you do have the coronavirus and you are considered contagious. Your vital signs and oxygen saturation are well enough that you were able to monitor your symptoms at home. Continue to monitor for trouble breathing, new confusion or inability to arouse, bluish lips or face or any of the other symptoms we discussed -if this occurs please return to the emergency room. 2. Please self quarantine until cleared by [facility]. Inform any persons that you have been in contact with since you started becoming symptomatic that you have tested positive; they should be made aware and take the appropriate steps as needed. 3. You can take NyQuil during the evening to help get a restful night sleep. May alternate Tylenol and ibuprofen as needed for pain and fever management. 4. I will give you a note for work and another 6 days off with presumptive Covid. 5. As we are unsure of when you are Covid started you are in eligible for the monoclonal antibodies. Definitive disposition and diagnosis as appropriate pending reevaluation and review of above. legs, lower back Pain Score (Numeric/FACES): 7 - Related Data Allergies Allergy/AdvReac Type Severity Reaction Status Date / Time codeine Allergy Other Verified 08/11/21 11:25 Corticosteroids Allergy Change Verified 08/11/21 11:25 (Glucocorticoids) Mental Status morphine Allergy Other Verified 08/11/21 11:25 antidepressant Allergy Other Uncoded 08/11/21 11:25 Home Meds: Home Meds metFORMIN HCl [Metformin HCl ER] 500 mg PO DAILY 12/31/20 [History] Apixaban [Eliquis] 5 mg PO BID 04/11/21 [History] Doxycycline [Vibra-Tabs] 100 mg PO Q12HR 10 Days #20 tab 04/14/21 [Rx] Telmisartan 40 mg PO DAILY 7 Days #7 tab 04/14/21 [Rx] Ondansetron [Zofran ODT] 4 mg PO Q6H PRN #10 tab.dis 08/11/21 [Rx] Past Medical History - Past Health History Medical/Surgical History: Denies Medical/Surgical History HEENT History: Reports: Sinusitis Other HEENT History: wears glasses Cardiovascular History: Reports: High Cholesterol, Hypertension Respiratory History: Reports: Sleep Apnea Gastrointestinal History: Reports: Hepatitis Other Gastrointestinal History: Pt 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" Genitourinary History: Reports: Renal Calculus Musculoskeletal History: Reports: Arthritis Other Musculoskeletal History: hx right arm fx Neurological History: Reports: Other (See Below) Other Neuro History: Lyme dse Psychiatric History: Reports: Anxiety Endocrine/Metabolic History: Reports: Diabetes, Type II, Obesity/BMI 30+ Hematologic History: Reports: None Immunologic History: Reports: None Oncologic (Cancer) History: Reports: None Dermatologic History: Reports: Eczema Other Dermatologic History: cellulitis - Infectious Disease History Infectious Disease History: Reports: Chicken Pox, Hepatitis C, Measles, Rubella Other Infectious Disease History: Hepatitis possibly from too much codiene/morphine in 1988 - Past Surgical History Head Surgeries/Procedures: Reports: None HEENT Surgical History: Reports: Naso-Sinus Surgery, Tonsillectomy Cardiovascular Surgical History: Reports: None Respiratory Surgical History: Reports: None Other Respiratory Surgeries/Procedures: central sleep apnea GI Surgical History: Reports: Colonoscopy Other GI Surgeries/Procedures: inguinal hernia repair 2x Male Surgical History: Reports: None Endocrine Surgical History: Reports: None Neurological Surgical History: Reports: None Musculoskeletal Surgical History: Reports: Arthroscopic Knee Other Musculoskeletal Surgeries/Procedures:: knee arthroscopy x3, left x2 - right x1 Oncologic Surgical History: Reports: None Dermatological Surgical History: Reports: None Social & Family History - Family History Family Medical History: No Pertinent Family History - Tobacco Use Tobacco Use Status *Q: Never Tobacco User - Caffeine Use Caffeine Use: Reports: Coffee, Tea - Recreational Drug Use Recreational Drug Use: No ED ROS GENERAL - Review of Systems Review Of Systems: Comprehensive ROS is negative, except as noted in HPI. ED EXAM, GENERAL - Physical Exam Exam: See Below (See Dictation) Course - Vital Signs Last Recorded V/S: Last Vital Signs Temp 98.3 F 08/11/21 14:20 Pulse 84 08/11/21 14:20 Resp 21 H 08/11/21 14:20 BP 133/80 08/11/21 14:20 Pulse Ox 93 L 08/11/21 14:20 - Orders/Labs/Meds Orders: Active Orders 24 hr Category Date Time Status Saline Lock Insert [OM.PC] Stat Oth 08/11/21 11:32 Ordered Labs: Laboratory Tests 08/11/21 08/11/21 08/11/21 Range/Units 11:45 12:19 12:19 WBC 6.04 (4.0-11.0) K/uL RBC 4.47 L (4.50-5.90) M/uL Hgb 14.3 (13.0-17.0) g/dL Hct 39.4 (38.0-50.0) % MCV 88.1 (80.0-98.0) fL MCH 32.0 (27.0-32.0) pg MCHC 36.3 (31.0-37.0) g/dL RDW Std Deviation 40.3 (28.0-62.0) fl RDW Coeff of [place] 13 (11.0-15.0) % Plt Count 175 (150-400) K/uL MPV 11.60 (7.40-12.00) fL Neut % (Auto) 72.4 (48.0-80.0) % Lymph % (Auto) 23.3 (16.0-40.0) % [place] % (Auto) 4.1 (0.0-15.0) % Eos % (Auto) 0.0 (0.0-7.0) % Baso % (Auto) 0.2 (0.0-1.5) % Neut # (Auto) 4.4 (1.4-5.7) K/uL Lymph # (Auto) 1.4 (0.6-2.4) K/uL Ste[place]s # (Auto) 0.3 (0.0-0.8) K/uL Eos # (Auto) 0.0 (0.0-0.7) K/uL Baso # (Auto) 0.0 (0.0-0.1) K/uL Nucleated RBC % 0.0 /100WBC Nucleated RBCs # 0 K/uL INR 1.02 Sodium 134 L (136-148) mmol/L Potassium 3.6 (3.5-5.1) mmol/L Chloride 99 (98-107) mmol/L Carbon Dioxide 22.6 (21.0-32.0) mmol/L BUN 18 (7.0-18.0) mg/dL Creatinine 1.2 (0.8-1.3) mg/dL Est Cr Clr Drug Dosing 65.36 mL/min Estimated GFR (MDRD) > 60.0 ml/min Glucose 241 H (74-106) mg/dL Calcium 8.4 L (8.5-10.1) mg/dL Total Bilirubin 0.4 (0.2-1.0) mg/dL AST 25 (15-37) IU/L ALT 17 (14-63) IU/L Alkaline Phosphatase 59 (46-116) U/L Total Protein 6.7 (6.4-8.2) g/dL Albumin 3.1 L (3.4-5.0) g/dL Globulin 3.6 (2.6-4.0) g/dL Albumin/Globulin Ratio 0.9 (0.9-1.6) Meds: Medications Discontinued Medications Generic Name Dose Route Start Last Admin Trade Name Freq PRN Reason Stop Dose Admin Sodium Chloride 1,000 mls @ 999 mls/hr 08/11/21 11:32 08/11/21 11:35 Normal Saline IV 08/11/21 12:32 999 mls/hr .BOLUS ONE Administration Ondansetron HCl 4 mg 08/11/21 11:32 08/11/21 11:55 Ondansetron 4 Mg/2 Ml Sdv IVPUSH 08/11/21 11:33 4 mg ONETIME ONE Administration Sodium Chloride 10 ml 08/11/21 11:31 08/11/21 12:08 Sodium Chloride 0.9% 10 Ml Syringe FLUSH 10 ml ASDIRECTED PRN Administration Keep Vein Open Sodium Chloride 2.5 ml 08/11/21 11:31 08/11/21 12:08 Sodium Chloride 0.9% 2.5 Ml Syringe FLUSH 2.5 ml ASDIRECTED PRN Administration Keep Vein Open Departure - Departure Time of Disposition: 13:51 Disposition: Home, Self-Care 01 Condition: Good Clinical Impression: COVID-19 - Discharge Information *PRESCRIPTION DRUG MONITORING PROGRAM REVIEWED*: Not Applicable *COPY OF PRESCRIPTION DRUG MONITORING REPORT IN PATIENT OBI: Not Applicable Prescriptions: Ondansetron [Zofran ODT] 4 mg PO Q6H PRN #10 tab.dis PRN Reason: Nausea Instructions: COVID-19: What to Do If You Are Sick- [facility] [place] (11/07/2020) Referrals: David Prieto MD [Primary Care Provider] - Forms: ED Department Discharge Additional Instructions: The following information is given to patients seen in the emergency department who are being discharged to home. This information is to outline your options for follow-up care. We provide all patients seen in our emergency department with a follow-up referral. The need for follow-up, as well as the timing and circumstances, are variable depending upon the specifics of your emergency department visit. If you don't have a primary care physician on staff, we will provide you with a referral. We always advise you to contact your personal physician following an emergency department visit to inform them of the circumstance of the visit and for follow-up with them and/or the need for any referrals to a consulting specialist. The emergency department will also refer you to a specialist when appropriate. This referral assures that you have the opportunity for follow-up care with a specialist. All of these measure are taken in an effort to provide you with optimal care, which includes your follow-up. Under all circumstances we always encourage you to contact your private physician who remains a resource for coordinating your care. When calling for follow-up care, please make the office aware that this follow-up is from your recent emergency room visit. If for any reason you are refused follow-up, please contact the [facility] Emergency Department at and asked to speak to the emergency department charge nurse. [facility] - Primary Care [address] [place] [address] [id number] [address] [id number] Plan: 1. You were evaluated today on an emergent basis. Your complaints of nausea, coughing, diarrhea, right and left shoulder pain were evaluated today with blood work and a chest x-ray which did show groundglass appearance which is indicative of COVID-19. I am giving you a presumptive diagnosis of COVID-19. As we discu ssed obtain an oxygen saturation monitor and if it drops below 90 please return to the emergency department. Just try to keep fluids going in such as Gatorade. I have prescribed Zofran 4 mg ODT every 6 hours as needed for nausea which was sent to [facility] pharmacy. 1. Your COVID-19 screening is positive. That means you do have the coronavirus and you are considered contagious. Your vital signs and oxygen saturation are well enough that you were able to monitor your symptoms at home. Continue to monitor for trouble breathing, new confusion or inability to arouse, bluish lips or face or any of the other symptoms we discussed -if this occurs please return to the emergency room. 2. Please self quarantine until cleared by [facility] Department. Inform any persons that you have been in contact with since you started becoming symptomatic that you have tested positive; they should be made aware and take the appropriate steps as needed. 3. You can take NyQuil during the evening to help get a restful night sleep. May alternate Tylenol and ibuprofen as needed for pain and fever management. 4. I will give you a note for work and another 6 days off with presumptive Covid. 5. As we are unsure of when you are Covid started you are in eligible for the monoclonal antibodies. Sepsis Event Note (ED) - Evaluation Sepsis Screening Result: No Definite Risk - Focused Exam Vital Signs: Vital Signs Temp Pulse Resp BP Pulse Ox 08/11/21 14:20 98.3 F 84 21 H 133/80 93 L 08/11/21 11:22 98.9 F 97 20 147/82 H 100 - My Orders Last 24 Hours: My Active Orders 08/11/21 11:32 Saline Lock Insert [OM.PC] Stat - Assessment/Plan Last 24 Hours: My Active Orders 08/11/21 11:32 Saline Lock Insert [OM.PC] Stat
[2021-08-11 12:32] LABS: BLOOD UREA NITROGEN,BUN 18 mg/dL (7.0-18.0)
[2021-08-11 12:45] LABS: CARBON DIOXIDE,CO2 22.6 mmol/L (21.0-32.0); CHLORIDE,CL 99 mmol/L (98-107); GLUCOSE RANDOM 241 mg/dL (74-106); POTASSIUM,K 3.6 mmol/L (3.5-5.1); SODIUM,NA 134 mmol/L (136-148)
--- NOTE | 2021-08-11 13:10 | CR ---
INDICATION: Patient with a cough COMPARISON: December 30, 2020 TECHNIQUE: Single-view chest radiograph obtained is an AP upright study FINDINGS: TUBES AND LINES: None. HEART AND MEDIASTINUM: The heart size is normal. The mediastinal contour appears normal for patient age. LUNGS AND PLEURAL SPACES: Moderate diffuse multifocal ground-glass opacification. The primary differential considerations are edema versus a diffuse inflammatory process.Consistent with COVID related lung disease in the appropriate clinical setting. OSSEOUS STRUCTURES: Age-appropriate appearance. No acute focal finding. IMPRESSION: Moderate diffuse multifocal ground-glass Dictated by Martinez James MD @ 08/11/2021 1:08:05 PM (Electronically Signed)
--- NOTE | 2021-08-11 14:25 | PCM.EKG ---
#1 Interpretation EKG Date: 08/11/21 Time: 12:30 EKG Interpretation Comments: Normal sinus rhythm rate of 76 right axis deviation some baseline wander but no acute ischemia unremarkable intervals
[2021-08-11 14:35] VITALS: BP 133/80; PULSE 84
== END 2021-08-11 14:30 | disposition home or self-care (01) ==
LOC: MW.ED 11:04
DX: U07.1 COVID-19 (principal); E11.9 Type 2 diabetes mellitus without complications; I10 Essential (primary) hypertension; E66.9 Obesity, unspecified; Z68.33 Body mass index [BMI] 33.0-33.9, adult; Z88.5 Allergy status to narcotic agent; Z88.0 Allergy status to penicillin; Z88.8 Allergy status to other drugs, medicaments and biological substances; Z79.84 Long term (current) use of oral hypoglycemic drugs; Z79.899 Other long term (current) drug therapy
CPT/HCPCS: 71045; 80053; 85025; 85610; 93005; 96374; 99284; J2405; J7030

== ENCOUNTER 2021-08-15 19:36 | Inpatient (IN) | payer OTHER ==
[2021-08-15] MEDS ORDERED: REMDESIVIR 200 MG in Sodium Chloride 0.9% 250 ML IV ONE (19:51)
--- NOTE | 2021-08-15 20:01 | EDM.PDOC ---
ED HPI GENERAL MEDICAL PROBLEM - General Chief Complaint: Respiratory Problem Stated Complaint: SOB,COVID Time Seen by Provider: 08/15/21 19:39 Source of Information: Reports: Patient History Limitations: Reports: No Limitations - History of Present Illness INITIAL COMMENTS - FREE TEXT/NARRATIVE: HISTORY AND PHYSICAL: History of present illness: Patient is a 66-year-old male who presents to the emergency room with complaints of shortness of breath with COVID-19. He states he was diagnosed with COVID-19 approximately 1 week ago and has become increasingly short of breath. Upon arrival the patient's oxygen saturation is 79% on room air. Does complain of mild nausea without vomiting. Patient has a past medical history of PE (currently on Eliquis), hypertension, sleep apnea, hepatitis C and type 2 diabetes. Patient denies any fever, chills, headache, change in vision, syncope or near syncope. Denies any chest pain, back pain, abdominal pain, diarrhea, constipation or dysuria. Has not noted any blood in urine or stool. Patient has been eating and drinking appropriately. No recent travel or sick contacts. Review of systems: As per history of present illness and below otherwise all systems reviewed and negative. Past medical history: As per history of present illness and as reviewed below otherwise noncontributory. Surgical history: As per history of present illness and as reviewed below otherwise noncontributory. Social history: See social history for further information Family history: As per history of present illness and as reviewed below otherwise noncontributory. Physical exam: General: Well developed and well nourished 66 year old male. Alert and orientated x 3. Nontoxic in appearance and in mild respiratory distress. Vital signs have been reviewed by me. Nursing notes were reviewed. HEENT: Atraumatic, normocephalic, pupils equal and reactive bilaterally, negative for conjunctival pallor or scleral icterus, mucous membranes moist, TMs normal bilaterally, throat clear, neck supple, nontender, trachea midline. No drooling or trismus noted. No meningeal signs. No hot potato voice noted. Lungs: Diminished to auscultation bilaterally. Fine expiratory wheezes noted. No rales or rhonchi. Chest nontender. Moderate work of breathing with mild accessory muscles used. Heart: S1S2, regular rate and rhythm without overt murmur, gallops, or rubs. No JVD. No peripheral edema Abdomen: Soft, nondistended, nontender. Normoactive bowel sounds. Negative for masses or costovertebral tenderness. Skin: Intact, warm, dry. No lesions or rashes noted. Hematologic: No petechiae or purpra. Mucosa appropriate color and normal nail bed color and refill. Extremities: Atraumatic, moves all extremities per self without difficulty or deficits, negative for cords or calf pain. Neurovascular unremarkable. Neuro: Awake, alert, oriented. Cranial nerves II through XII unremarkable. Cerebellum unremarkable. Motor and sensory unremarkable throughout. Exam nonfocal. Psychiatric: Mood and affect are appropriate. Normal thought process. Answering questions appropriately. Please note that the patient was seen and evaluated during the 2019 SARS-CoV-2 novel coronavirus pandemic period. Community viral transmission is ongoing at time of this encounter and the emergency department is operating under pandemic response procedures. Medical Decision Making: Patient is a 66-year-old male who presents to the emergency room with known COVID-19 with complaints of shortness of breath. Upon arrival his oxygen saturation is 79% on room air. He was placed on a nonrebreather and does feel improved with the effort of breathing. Dr Kate, hospitalist on-call, happened to be here for another patient and was briefed on likely admission. He did go and evaluate the patient and gave verbal orders. Will follow lab work and CT of the chest. Patient will be admitted as inpatient for COVID-19 and hypoxia. Patient was made aware and agreeable to plan of care. Patient is unable to have dexamethasone due to allergies to corticosteroids. Remdesivir has been ordered. Diagnostics: CBC, CMP, CRP,, chest x-ray, D-dimer, troponin, EKG Therapeutics: Remdesivir Impression: COVID-19 Hypoxia Uncontrolled DM Definitive disposition and diagnosis as appropriate pending reevaluation and review of above. - Related Data Allergies Allergy/AdvReac Type Severity Reaction Status Date / Time codeine Allergy Other Verified 08/16/21 00:54 Corticosteroids Allergy Change Verified 08/16/21 00:54 (Glucocorticoids) Mental Status morphine Allergy Other Verified 08/16/21 00:54 antidepressant Allergy Other Uncoded 08/16/21 00:54 Home Meds: Home Meds metFORMIN HCl [Metformin HCl ER] 2,000 mg PO DAILY 12/31/20 [History] Apixaban [Eliquis] 5 mg PO BID 04/11/21 [History] Doxycycline [Vibra-Tabs] 100 mg PO Q12HR 10 Days #20 tab 04/14/21 [Rx] Telmisartan 40 mg PO DAILY 7 Days #7 tab 04/14/21 [Rx] Ondansetron [Zofran ODT] 4 mg PO Q6H PRN #10 tab.dis 08/11/21 [Rx] Past Medical History - Past Health History Medical/Surgical History: Denies Medical/Surgical History HEENT History: Reports: Sinusitis Other HEENT History: wears glasses Cardiovascular History: Reports: High Cholesterol, Hypertension Respiratory History: Reports: Sleep Apnea Gastrointestinal History: Reports: Hepatitis Other Gastrointestinal History: Pt 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" Genitourinary History: Reports: Renal Calculus Musculoskeletal History: Reports: Arthritis Other Musculoskeletal History: hx right arm fx Neurological History: Reports: Other (See Below) Other Neuro History: Lyme dse Psychiatric History: Reports: Anxiety Endocrine/Metabolic History: Reports: Diabetes, Type II, Obesity/BMI 30+ Hematologic History: Reports: None Immunologic History: Reports: None Oncologic (Cancer) History: Reports: None Dermatologic History: Reports: Eczema Other Dermatologic History: cellulitis - Infectious Disease History Infectious Disease History: Reports: Chicken Pox, Hepatitis C, Measles, Rubella Other Infectious Disease History: Hepatitis possibly from too much codiene/morphine in 1988 - Past Surgical History Head Surgeries/Procedures: Reports: None HEENT Surgical History: Reports: Naso-Sinus Surgery, Tonsillectomy Cardiovascular Surgical History: Reports: None Respiratory Surgical History: Reports: None Other Respiratory Surgeries/Procedures: central sleep apnea GI Surgical History: Reports: Colonoscopy Other GI Surgeries/Procedures: inguinal hernia repair 2x Male Surgical History: Reports: None Endocrine Surgical History: Reports: None Neurological Surgical History: Reports: None Musculoskeletal Surgical History: Reports: Arthroscopic Knee Other Musculoskeletal Surgeries/Procedures:: knee arthroscopy x3, left x2 - right x1 Oncologic Surgical History: Reports: None Dermatological Surgical History: Reports: None Social & Family History - Family History Family Medical History: No Pertinent Family History - Caffeine Use Caffeine Use: Reports: Coffee, Tea ED ROS GENERAL - Review of Systems Review Of Systems: Comprehensive ROS is negative, except as noted in HPI. ED EXAM, GENERAL - Physical Exam Exam: See Below (See dictation) Course - Vital Signs Last Recorded V/S: Last Vital Signs Temp 96.4 F L 08/19/21 08:45 Pulse 82 08/19/21 08:45 Resp 20 08/19/21 08:45 BP 137/80 08/19/21 08:45 Pulse Ox 90 L 08/19/21 08:45 - Orders/Labs/Meds Orders: Medication Orders Hydrocodone Bitart/Acetaminophen (Acetaminophen/Hydrocodone 325-5 Mg Tab) 1 tab PO Q4H PRN PRN Reason: Pain (moderate 4-6) Last Admin: 08/19/21 02:36 Dose: 1 tab Documented by: Admin: 08/18/21 17:58 Dose: 1 tab Documented by: BENY Albuterol/Ipratropium (Albuterol/Ipratropium 3.0-0.5 Mg/3 Ml Neb Soln) 3 ml NEB Q2H PRN PRN Reason: Dyspepsia Albuterol/Ipratropium (Albuterol/Ipratropium 3.0-0.5 Mg/3 Ml Neb Soln) 3 ml NEB Q4HRRT [facility] Last Admin: 08/19/21 09:31 Dose: Not Given Documented by: Admin: 08/19/21 06:29 Dose: 3 ml Documented by: Admin: 08/19/21 02:38 Dose: Not Given Documented by: Admin: 08/18/21 21:57 Dose: 3 ml Documented by: Admin: 08/18/21 17:14 Dose: 3 ml Documented by: Admin: 08/18/21 14:04 Dose: 3 ml Documented by: Admin: 08/18/21 09:06 Dose: 3 ml Documented by: Admin: 08/18/21 05:34 Dose: 3 ml Documented by: Admin: 08/18/21 02:14 Dose: 3 ml Documented by: Admin: 08/17/21 22:19 Dose: 3 ml Documented by: Admin: 08/17/21 17:07 Dose: 3 ml Documented by: Admin: 08/17/21 13:55 Dose: 3 ml Documented by: Admin: 08/17/21 10:08 Dose: 3 ml Documented by: Admin: 08/17/21 06:28 Dose: 3 ml Documented by: Admin: 08/17/21 03:29 Dose: Not Given Documented by: Admin: 08/16/21 21:42 Dose: 3 ml Documented by: Admin: 08/16/21 17:07 Dose: 3 ml Documented by: Admin: 08/16/21 14:00 Dose: 3 ml Documented by: Admin: 08/16/21 10:09 Dose: 3 ml Documented by: Admin: 08/16/21 06:25 Dose: 3 ml Documented by: Admin: 08/16/21 06:08 Dose: Not Given Documented by: Admin: 08/16/21 02:46 Dose: Not Given Documented by: Admin: 08/15/21 23:00 Dose: Not Given Documented by: LEVY Baricitinib (Baricitinib 2 Mg Tab) 4 mg PO DAILY [facility] Stop: 08/30/21 09:01 Last Admin: 08/19/21 09:24 Dose: 4 mg Documented by: Admin: 08/18/21 08:01 Dose: 4 mg Documented by: Admin: 08/17/21 08:13 Dose: 4 mg Documented by: Admin: 08/16/21 08:46 Dose: 4 mg Documented by: ADITYA Dexamethasone (Dexamethasone 4 Mg Tab) 6 mg PO DAILY [facility] Last Admin: 08/19/21 09:24 Dose: 6 mg Documented by: Admin: 08/18/21 08:01 Dose: 6 mg Documented by: Admin: 08/17/21 08:13 Dose: 6 mg Documented by: Admin: 08/16/21 09:42 Dose: 6 mg Documented by: Admin: 08/15/21 23:00 Dose: Not Given Documented by: LEVY Dextrose/Water (50% Dextrose In Water 50 Ml Syringe) 50 ml IVPUSH ASDIRECTED PRN PRN Reason: Hypoglycemia Dextrose/Water (50% Dextrose In Water 50 Ml Syringe) 50 ml IVPUSH ASDIRECTED PRN PRN Reason: Hypoglycemia Enoxaparin Sodium (Enoxaparin 40 Mg/0.4 Ml Syringe) 40 mg SUBCUT Q12HR AWA Last Admin: 08/19/21 09:25 Dose: 40 mg Documented by: Admin: 08/18/21 21:45 Dose: 40 mg Documented by: Admin: 08/18/21 08:01 Dose: 40 mg Documented by: Admin: 08/17/21 22:08 Dose: 40 mg Documented by: Admin: 08/17/21 08:13 Dose: 40 mg Documented by: Admin: 08/16/21 20:48 Dose: 40 mg Documented by: Admin: 08/16/21 08:45 Dose: 40 mg Documented by: ADITYA Glucagon (Glucagon,Human Recombinant 1 Mg Vial) 1 mg IM ASDIRECTED PRN PRN Reason: Hypoglycemia Glucagon (Glucagon,Human Recombinant 1 Mg Vial) 1 mg IM ASDIRECTED PRN PRN Reason: Hypoglycemia Guaifenesin/Dextromethorphan (Guaifenesin/Dextromethorphan 100-10 Mg/5 Ml Soln 10 Ml Cup) 10 ml PO Q6H PRN PRN Reason: Cough Last Admin: 08/19/21 02:32 Dose: 10 ml Documented by: KEITH Remdesivir 100 mg/ Sodium (Chloride) 100 mls @ 100 mls/hr IV Q24H AWA Stop: 08/19/21 21:59 Last Admin: 08/18/21 21:42 Dose: 100 mls/hr Documented by: Infusion: 08/17/21 23:09 Dose: 100 mls/hr Documented by: Admin: 08/17/21 22:09 Dose: 100 mls/hr Documented by: Infusion: 08/16/21 21:50 Dose: 100 mls/hr Documented by: Admin: 08/16/21 20:50 Dose: 100 mls/hr Documented by: USHA Insulin Aspart (Insulin Aspart 100 Units/Ml 3 Ml Pen) 0 unit SUBCUT TIDAC AWA; Protocol Last Admin: 08/19/21 09:21 Dose: 6 units Documented by: Admin: 08/18/21 17:58 Dose: 15 units Documented by: Admin: 08/18/21 11:48 Dose: 15 units Documented by: Admin: 08/18/21 08:00 Dose: 12 units Documented by: Admin: 08/17/21 18:13 Dose: 15 units Documented by: Admin: 08/17/21 11:56 Dose: 10 units Documented by: ADITYA Insulin Glargine (Insulin Glargine,Human Rec. Analog 100 Units/Ml 3 Ml Pen) 20 units SUBCUT BEDTIME AWA Last Admin: 08/18/21 21:46 Dose: 20 units Documented by: KEITH Melatonin (Melatonin 3 Mg Tab) 6 mg PO BEDTIME PRN PRN Reason: Insomnia Last Admin: 08/18/21 21:45 Dose: 6 mg Documented by: Admin: 08/17/21 22:16 Dose: 6 mg Documented by: Admin: 08/17/21 13:40 Dose: 6 mg Documented by: ADITYA Ondansetron HCl (Ondansetron 4 Mg Tab.Dis) 4 mg PO Q6H PRN PRN Reason: nausea, able to take PO Last Admin: 08/17/21 13:41 Dose: 4 mg Documented by: Admin: 08/16/21 07:41 Dose: 4 mg Documented by: ADITYA Potassium Chloride (Potassium Chloride 20 Meq Tab.Er) 20 meq PO TID AWA Stop: 08/19/21 14:01 Last Admin: 08/19/21 05:57 Dose: 20 meq Documented by: Admin: 08/18/21 21:44 Dose: 20 meq Documented by: Admin: 08/18/21 13:52 Dose: 20 meq Documented by: Admin: 08/18/21 05:52 Dose: 20 meq Documented by: Admin: 08/17/21 22:16 Dose: 20 meq Documented by: Admin: 08/17/21 13:40 Dose: 20 meq Documented by: Admin: 08/17/21 05:59 Dose: 20 meq Documented by: Admin: 08/16/21 21:42 Dose: 20 meq Documented by: USHA Labs: Laboratory Tests 08/15/21 08/15/21 08/15/21 Range/Units 19:59 20:00 20:00 WBC 9.05 (4.0-11.0) K/uL RBC 4.67 (4.50-5.90) M/uL Hgb 14.9 (13.0-17.0) g/dL Hct 40.4 (38.0-50.0) % MCV 86.5 (80.0-98.0) fL MCH 31.9 (27.0-32.0) pg MCHC 36.9 (31.0-37.0) g/dL RDW Std Deviation 39.6 (28.0-62.0) fl RDW Coeff of [place] 13 (11.0-15.0) % Plt Count 232 (150-400) K/uL MPV 10.90 (7.40-12.00) fL Add Manual Diff YES Neutrophils % (Manual) 92 H (48.0-80.0) % Lymphocytes % (Manual) 7 L (16.0-40.0) % Monocytes % (Manual) 1 (0.0-15.0) % Nucleated RBC % 0.0 /100WBC Absolute Seg Neuts 8.3 H (1.4-5.7) Lymphocytes # (Manual) 0.6 (0.6-2.4) Monocytes # (Manual) 0.1 (0.0-0.8) Nucleated RBCs # 0 K/uL D-Dimer, Quantitative (0.0-0.50) mg/L FEU Sodium 133 L (136-148) mmol/L Potassium 3.2 L (3.5-5.1) mmol/L Chloride 94 L (98-107) mmol/L Carbon Dioxide 23.4 (21.0-32.0) mmol/L BUN 16 (7.0-18.0) mg/dL Creatinine 1.2 (0.8-1.3) mg/dL Est Cr Clr Drug Dosing TNP Estimated GFR (MDRD) > 60.0 ml/min Glucose 214 H (74-106) mg/dL Lactic Acid (0.4-2.0) mmol/L Calcium 9.0 (8.5-10.1) mg/dL Total Bilirubin 1.0 (0.2-1.0) mg/dL AST 76 H (15-37) IU/L ALT 36 (14-63) IU/L Alkaline Phosphatase 60 (46-116) U/L Troponin I < 0.050 (0.000-0.056) ng/mL C-Reactive Protein 22.40 H (0.00-0.90) mg/dL Total Protein 7.7 (6.4-8.2) g/dL Albumin 3.1 L (3.4-5.0) g/dL Globulin 4.6 H (2.6-4.0) g/dL Albumin/Globulin Ratio 0.7 L (0.9-1.6) Influenza Type A RNA NEGATIVE (NEGATIVE) Influenza Type B RNA NEGATIVE (NEGATIVE) SARS-CoV-2 RNA (LEONARD) POSITIVE H (NEGATIVE) 08/15/21 08/15/21 Range/Units 20:00 20:00 WBC (4.0-11.0) K/uL RBC (4.50-5.90) M/uL Hgb (13.0-17.0) g/dL Hct (38.0-50.0) % MCV (80.0-98.0) fL MCH (27.0-32.0) pg MCHC (31.0-37.0) g/dL RDW Std Deviation (28.0-62.0) fl RDW Coeff of [place] (11.0-15.0) % Plt Count (150-400) K/uL MPV (7.40-12.00) fL Add Manual Diff Neutrophils % (Manual) (48.0-80.0) % Lymphocytes % (Manual) (16.0-40.0) % Monocytes % (Manual) (0.0-15.0) % Nucleated RBC % /100WBC Absolute Seg Neuts (1.4-5.7) Lymphocytes # (Manual) (0.6-2.4) Monocytes # (Manual) (0.0-0.8) Nucleated RBCs # K/uL D-Dimer, Quantitative 2.43 H (0.0-0.50) mg/L FEU Sodium (136-148) mmol/L Potassium (3.5-5.1) mmol/L Chloride (98-107) mmol/L Carbon Dioxide (21.0-32.0) mmol/L BUN (7.0-18.0) mg/dL Creatinine (0.8-1.3) mg/dL Est Cr Clr Drug Dosing Estimated GFR (MDRD) ml/min Glucose (74-106) mg/dL Lactic Acid 2.4 H* (0.4-2.0) mmol/L Calcium (8.5-10.1) mg/dL Total Bilirubin (0.2-1.0) mg/dL AST (15-37) IU/L ALT (14-63) IU/L Alkaline Phosphatase (46-116) U/L Troponin I (0.000-0.056) ng/mL C-Reactive Protein (0.00-0.90) mg/dL Total Protein (6.4-8.2) g/dL Albumin (3.4-5.0) g/dL Globulin (2.6-4.0) g/dL Albumin/Globulin Ratio (0.9-1.6) Influenza Type A RNA (NEGATIVE) Influenza Type B RNA (NEGATIVE) SARS-CoV-2 RNA (LEONARD) (NEGATIVE) Meds: Medications Generic Name Dose Route Start Last Admin Trade Name Freq PRN Reason Stop Dose Admin Hydrocodone Bitart/Acetaminophen 1 tab 08/15/21 20:51 08/19/21 02:36 Acetaminophen/Hydrocodone 325-5 Mg Tab PO 1 tab Q4H PRN Administration Pain (moderate 4-6) Albuterol/Ipratropium 3 ml 08/15/21 20:51 Albuterol/Ipratropium 3.0-0.5 Mg/3 Ml Neb Soln NEB Q2H PRN Dyspepsia Albuterol/Ipratropium 3 ml 08/15/21 22:00 08/19/21 09:31 Albuterol/Ipratropium 3.0-0.5 Mg/3 Ml Neb Soln NEB Not Given Q4HRRT AWA Baricitinib 4 mg 08/16/21 09:00 08/19/21 09:24 Baricitinib 2 Mg Tab PO 08/30/21 09:01 4 mg DAILY AWA Administration Dexamethasone 6 mg 08/15/21 23:00 08/19/21 09:24 Dexamethasone 4 Mg Tab PO 6 mg DAILY AWA Administration Dextrose/Water 50 ml 08/15/21 21:32 50% Dextrose In Water 50 Ml Syringe IVPUSH ASDIRECTED PRN Hypoglycemia Dextrose/Water 50 ml 08/17/21 21:16 50% Dextrose In Water 50 Ml Syringe IVPUSH ASDIRECTED PRN Hypoglycemia Enoxaparin Sodium 40 mg 08/16/21 09:00 08/19/21 09:25 Enoxaparin 40 Mg/0.4 Ml Syringe SUBCUT 40 mg Q12HR AWA Administration Glucagon 1 mg 08/15/21 21:32 Glucagon,Human Recombinant 1 Mg Vial IM ASDIRECTED PRN Hypoglycemia Glucagon 1 mg 08/17/21 21:16 Glucagon,Human Recombinant 1 Mg Vial IM ASDIRECTED PRN Hypoglycemia Guaifenesin/Dextromethorphan 10 ml 08/19/21 02:18 08/19/21 02:32 Guaifenesin/Dextromethorphan 100-10 Mg/5 Ml Soln 10 Ml Cup PO 10 ml Q6H PRN Administration Cough Remdesivir 100 mg/ Sodium 100 mls @ 100 mls/hr 08/16/21 21:00 08/18/21 21:42 Chloride IV 08/19/21 21:59 100 mls/hr Q24H AWA Administration Insulin Aspart 0 unit 08/17/21 11:45 08/19/21 09:21 Insulin Aspart 100 Units/Ml 3 Ml Pen SUBCUT 6 units TIDAC AWA Administration Protocol Insulin Glargine 20 units 08/18/21 21:00 08/18/21 21:46 Insulin Glargine,Human Rec. Analog 100 Units/Ml 3 Ml Pen SUBCUT 20 units BEDTIME AWA Administration Melatonin 6 mg 08/17/21 11:40 08/18/21 21:45 Melatonin 3 Mg Tab PO 6 mg BEDTIME PRN Administration Insomnia Ondansetron HCl 4 mg 08/15/21 20:51 08/17/21 13:41 Ondansetron 4 Mg Tab.Dis PO 4 mg Q6H PRN Administration nausea, able to take PO Potassium Chloride 20 meq 08/16/21 22:00 08/19/21 05:57 Potassium Chloride 20 Meq Tab.Er PO 08/19/21 14:01 20 meq TID AWA Administration Discontinued Medications Generic Name Dose Route Start Last Admin Trade Name Freq PRN Reason Stop Dose Admin Dexamethasone 6 mg 08/15/21 21:00 08/16/21 17:40 Dexamethasone Solution 0.5 Mg/5 Ml PO Not Given DAILY AWA Enoxaparin Sodium 40 mg 08/15/21 21:00 08/16/21 17:40 Enoxaparin 40 Mg/0.4 Ml Syringe SUBCUT Not Given Q24H AWA Remdesivir 200 mg/ Sodium 250 mls @ 250 mls/hr 08/15/21 19:51 08/15/21 20:47 Chloride IV 08/15/21 19:52 250 mls/hr ONETIME ONE Administration Sodium Chloride 1,000 mls @ 150 mls/hr 08/15/21 20:57 08/15/21 23:01 Normal Saline IV 08/16/21 03:36 150 mls/hr STAT ONE Administration Potassium Chloride/Sodium Chloride 500 mls @ 75 mls/hr 08/15/21 21:30 Normal Saline With 20 Meq Kcl IV ASDIRECTED [facility] Insulin Aspart 0 unit 08/16/21 07:30 08/17/21 08:16 Insulin Aspart 100 Units/Ml 3 Ml Pen SUBCUT 5 units ACBREAKFASTANDBED [facility] Administration Protocol Insulin Aspart 0 unit 08/17/21 21:00 08/18/21 21:58 Insulin Aspart 100 Units/Ml 3 Ml Pen SUBCUT Not Given BEDTIME [facility] Protocol Insulin Aspart 6 unit 08/18/21 21:52 08/18/21 21:56 Insulin Aspart 100 Units/Ml 3 Ml Pen SUBCUT 08/18/21 21:53 6 units ONETIME ONE Administration Iopamidol 100 ml 08/15/21 20:59 08/15/21 21:37 Iopamidol 755 Mg/Ml 100 Ml Bottle IVPUSH 08/15/21 21:00 100 ml ONETIME ONE Administration Potassium Chloride 40 meq 08/19/21 08:54 08/19/21 09:24 Potassium Chloride 20 Meq Tab.Er PO 08/19/21 08:55 40 meq ONETIME ONE Administration Departure - Departure Time of Disposition: 22:00 Disposition: Admitted As Inpatient 67 Clinical Impression: COVID-19, Hypoxia Diabetes type 2, uncontrolled Qualifiers: Glycemic state: with hyperglycemia Qualified Code(s): E11.65 - Type 2 diabetes mellitus with hyperglycemia - Discharge Information
--- NOTE | 2021-08-15 20:08 | PCM.EKG ---
#1 Interpretation EKG Date: 08/15/21 Time: 19:52 Rhythm: NSR Rate (Beats/Min): 82 [place]: Normal P-Wave: Present QRS: Normal ST-T: Normal QT: Normal Comparison: No Change (08/11/21) EKG Interpretation Comments: Sinus Rhythm
[2021-08-15 20:36] LABS: BLOOD UREA NITROGEN,BUN 16 mg/dL (7.0-18.0); CARBON DIOXIDE,CO2 23.4 mmol/L (21.0-32.0); CHLORIDE,CL 94 mmol/L (98-107); GLUCOSE RANDOM 214 mg/dL (74-106); POTASSIUM,K 3.2 mmol/L (3.5-5.1); SODIUM,NA 133 mmol/L (136-148)
--- NOTE | 2021-08-15 20:46 | PCM.HP.2 ---
H&P History of Present Illness - General Date of Service: 08/15/21 Admit Problem/Dx: Admission Diagnosis/Problem Admission Diagnosis/Problem Hypoxia - History of Present Illness Initial Comments - Free Text/Narative: 66 y/o obese male with a h/o T2DM who presented to the ED with worsening SOB, cough, fatigue and dehydration. Pt has spent the past 3-4 days at home mostly laying in bed. He was first diagnosed 3 wks ago with COVID infection. His symptoms were fatigue and a dry cough. These have slowly progressed into shortness of breath and severe malaise. He denies having a fever or chills. He denies having any GI symptoms such as nausea, vomiting, abd pain or diarrhea. Overall he has had very limited oral intake for a couple of days. - Related Data Allergies/Adverse Reactions: Allergies Allergy/AdvReac Type Severity Reaction Status Date / Time codeine Allergy Other Verified 08/15/21 20:00 Corticosteroids Allergy Change Verified 08/15/21 20:00 (Glucocorticoids) Mental Status morphine Allergy Other Verified 08/15/21 20:00 antidepressant Allergy Other Uncoded 08/15/21 20:00 Home Medications: Home Meds metFORMIN HCl [Metformin HCl ER] 500 mg PO DAILY 12/31/20 [History] Apixaban [Eliquis] 5 mg PO BID 04/11/21 [History] Doxycycline [Vibra-Tabs] 100 mg PO Q12HR 10 Days #20 tab 04/14/21 [Rx] Telmisartan 40 mg PO DAILY 7 Days #7 tab 04/14/21 [Rx] Ondansetron [Zofran ODT] 4 mg PO Q6H PRN #10 tab.dis 08/11/21 [Rx] Past Medical History - Past Health History Medical/Surgical History: Denies Medical/Surgical History HEENT History: Reports: Sinusitis Other HEENT History: wears glasses Cardiovascular History: Reports: High Cholesterol, Hypertension Respiratory History: Reports: Sleep Apnea Gastrointestinal History: Reports: Hepatitis Other Gastrointestinal History: Pt 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" Genitourinary History: Reports: Renal Calculus Musculoskeletal History: Reports: Arthritis Other Musculoskeletal History: hx right arm fx Neurological History: Reports: Other (See Below) Other Neuro History: Lyme dse Psychiatric History: Reports: Anxiety Endocrine/Metabolic History: Reports: Diabetes, Type II, Obesity/BMI 30+ Hematologic History: Reports: None Immunologic History: Reports: None Oncologic (Cancer) History: Reports: None Dermatologic History: Reports: Eczema Other Dermatologic History: cellulitis - Infectious Disease History Infectious Disease History: Reports: Chicken Pox, Hepatitis C, Measles, Rubella Other Infectious Disease History: Hepatitis possibly from too much codiene/morphine in 1988 - Past Surgical History Head Surgeries/Procedures: Reports: None HEENT Surgical History: Reports: Naso-Sinus Surgery, Tonsillectomy Cardiovascular Surgical History: Reports: None Respiratory Surgical History: Reports: None Other Respiratory Surgeries/Procedures: central sleep apnea GI Surgical History: Reports: Colonoscopy Other GI Surgeries/Procedures: inguinal hernia repair 2x Male Surgical History: Reports: None Endocrine Surgical History: Reports: None Neurological Surgical History: Reports: None Musculoskeletal Surgical History: Reports: Arthroscopic Knee Other Musculoskeletal Surgeries/Procedures:: knee arthroscopy x3, left x2 - right x1 Oncologic Surgical History: Reports: None Dermatological Surgical History: Reports: None Social & Family History - Family History Family Medical History: No Pertinent Family History - Caffeine Use Caffeine Use: Reports: Coffee, Tea H&P Review of Systems - Review of Systems: Review Of Systems: See Below Exam - Exam Exam: See Below - Vital Signs Vital Signs: Last Vital Signs Temp 99.1 F 08/15/21 20:00 Pulse 82 08/15/21 20:00 Resp 26 H 08/15/21 20:00 BP 159/92 H 08/15/21 20:00 Pulse Ox 78 L 08/15/21 20:00 Weight: 240 lb - Exam Physical Exam Comments:: General: Obese elderly male. In no distress CVS: S1S2 appreciated. RRR lungs: greatly diminished bilaterally with some crackles pa: soft, non tender ext: no clubbing, cyanosis or edema neuro: no focal deficits. - Patient Data Lab Results Last 24 hrs: Laboratory Results - last 24 hr 08/15/21 08/15/21 08/15/21 Range/Units 20:00 20:00 20:00 WBC 9.05 (4.0-11.0) K/uL RBC 4.67 (4.50-5.90) M/uL Hgb 14.9 (13.0-17.0) g/dL Hct 40.4 (38.0-50.0) % MCV 86.5 (80.0-98.0) fL MCH 31.9 (27.0-32.0) pg MCHC 36.9 (31.0-37.0) g/dL RDW Std Deviation 39.6 (28.0-62.0) fl RDW Coeff of [place] 13 (11.0-15.0) % Plt Count 232 (150-400) K/uL MPV 10.90 (7.40-12.00) fL Add Manual Diff YES Neutrophils % (Manual) 92 H (48.0-80.0) % Lymphocytes % (Manual) 7 L (16.0-40.0) % Monocytes % (Manual) 1 (0.0-15.0) % Nucleated RBC % 0.0 /100WBC Absolute Seg Neuts 8.3 H (1.4-5.7) Lymphocytes # (Manual) 0.6 (0.6-2.4) Monocytes # (Manual) 0.1 (0.0-0.8) Nucleated RBCs # 0 K/uL D-Dimer, Quantitative 2.43 H (0.0-0.50) mg/L FEU Lactic Acid 2.4 H* (0.4-2.0) mmol/L Result Diagrams: 08/15/21 20:00 Sepsis Event Note - Focused Exam Vital Signs: Vital Signs Temp Pulse Resp BP Pulse Ox 08/15/21 20:00 99.1 F 82 26 H 159/92 H 78 L - Problem List (1) Pneumonia due to COVID-19 virus SNOMED Code(s): 078249700388514271 ICD Code: U07.1 - COVID-19; J12.82 - PNEUMONIA DUE TO CORONAVIRUS DISEASE 2019 Status: Acute (2) Acute respiratory disease due to COVID-19 virus SNOMED Code(s): 420710039, 214271258 ICD Code: U07.1 - COVID-19; J06.9 - ACUTE UPPER RESPIRATORY INFECTION, UNSPECIFIED Status: Acute (3) Obesity (BMI 30-39.9) SNOMED Code(s): 366320063, 094511011 ICD Code: E66.9 - OBESITY, UNSPECIFIED Status: Acute (4) T2DM (type 2 diabetes mellitus) SNOMED Code(s): 80338910 ICD Code: E11.9 - TYPE 2 DIABETES MELLITUS WITHOUT COMPLICATIONS Status: Acute (5) Full code status SNOMED Code(s): 481622579 ICD Code: Z78.9 - OTHER SPECIFIED HEALTH STATUS Status: Acute Problem List Initiated/Reviewed/Updated: Yes Orders Last 24hrs: Active Orders 24 hr Category Date Time Status Admission Status [Patient Status] [ADT] Stat ADT 08/15/21 20:08 Active EKG Documentation Completion [RC] STAT Care 08/15/21 19:53 Active Oxygen Therapy, ED [RC] ASDIRECTED Care 08/15/21 19:53 Active PE Chest [Ang Chest] [CT] Stat Exams 08/15/21 20:08 Ordered C-REACTIVE PROTEIN [CHEM] Stat Lab 08/15/21 20:00 Received COMPREHENSIVE METABOLIC PN,CMP [CHEM] Stat Lab 08/15/21 20:00 Received COVID-19/FLU A+B [MOLEC] Stat Lab 08/15/21 19:59 Received REFLEX LACTIC ACID YES OR NO [CHEM] Routine Lab 08/15/21 20:38 Received TROPONIN I [CHEM] Stat Lab 08/15/21 20:00 Received UA RFX NILTON AND CULT IF INDIC [URIN] Stat Lab 08/15/21 19:51 Ordered Assessment/Plan Comment:: Acute hypoxemic respiratory failure due to COVID 19 pneumonia Admit to the med floor. Oxygen supplementation. Pt is currently requiring 15 L HFNC. Covid infection Start pt on decadron, remdesivir and duonebs. lovenox for anticoagulation check D dimer, CRP and CT Angio r/o P.E T2DM accuchecks BID resume home OHA's Obesity Full code. - Mortality Measure Prognosis:: Good
[2021-08-15] MEDS ORDERED: Albuterol/Ipratropium 3.0-0.5 MG/3 ML Neb Soln NEB PRN (20:51)
[2021-08-15 20:54] LABS: CORONAVIRUS COVID-19 NAA POSITIVE (NEGATIVE); INFLUENZA A NAA NEGATIVE (NEGATIVE); INFLUENZA B NAA NEGATIVE (NEGATIVE)
[2021-08-15] MEDS ORDERED: Sodium Chloride 0.9% 1,000 ML IV ONE (20:57)
[2021-08-15] MEDS ORDERED: Iopamidol 755 Mg/ML 100 ML Bottle IVPUSH ONE (20:59)
[2021-08-15] MEDS ORDERED: Enoxaparin 40 MG/0.4 ML Syringe SUBCUT SCH (21:00)
[2021-08-15] MEDS ORDERED: NS + KCl 20mEq/L 500 ML IV SCH (21:30)
[2021-08-15] MEDS ORDERED: Glucagon,Human Recombinant 1 MG Vial IM PRN (21:32)
[2021-08-15] MEDS ORDERED: 50% Dextrose in Water 50 ML Syringe IVPUSH PRN (21:32)
[2021-08-15 22:05] LABS: BLOOD UREA NITROGEN,BUN 16 mg/dL (7.0-18.0); CARBON DIOXIDE,CO2 21.4 mmol/L (21.0-32.0); CHLORIDE,CL 96 mmol/L (98-107); GLUCOSE RANDOM 222 mg/dL (74-106); SODIUM,NA 133 mmol/L (136-148)
--- NOTE | 2021-08-15 22:20 | CT ---
INDICATION: COVID-19 positive. Hypoxia. Elevated D-dimer. History pulmonary embolism. COMPARISON: CT pulmonary angiogram from 01/09/2021 TECHNIQUE: CT examination of the chest was performed with the uneventful intravenous administration of 100 cc of Isovue 370 while 1 in 1.5 mm thick axial sections were obtained through the pulmonary arteries. Please note that all CT scans at this facility use dose modulation, iterative reconstruction, and/or weight-based dosing when appropriate to reduce radiation dose to as low as reasonably achievable. FINDINGS: : There is no sign of pulmonary embolism, with normal enhancement and branching of the pulmonary arteries. The previously seen mild residual thrombus in the subsegmental branch of the anterior segment of the right upper lobe has resolved. There are new prominent confluent ground-glass infiltrates involving both lower lobes with moderate involvement throughout the rest of the chest, findings of severe COVID-19 pneumonia. There is new moderate right hilar lymphadenopathy with a dominant lymph node with short axis diameter of 1.6 centimeters. There is a moderately enlarged lymph node in the inferior left hilum measuring 1.5 centimeters in diameter. There is new mild mediastinal lymphadenopathy with a new right paratracheal lymph node with short axis diameter of 1.1 centimeters. The lymphadenopathy is probably reactive. There is no change in prominent LAD and mild LCX and RCA coronary calcification. The heart remains normal in size. There is age appropriate appearance of the thoracic aorta and ascending great vessels. There is no sign of supraclavicular axillary mass or adenopathy. The visualized superior liver, spleen, pancreas, kidneys, and adrenals are normal in appearance. Again seen is a small hiatal hernia. The osseous structures are normal in appearance for the patient`s age. IMPRESSION: No sign of pulmonary embolism. Resolution of previously seen minimal residual pulmonary embolism involving the anterior segment of the right upper lobe. New severe COVID-19 pneumonia, with most prominent involvement is in the lower lobes bilaterally. New mild mediastinal and moderate bilateral hilar lymphadenopathy, probably reactive. Again seen is a small hiatal hernia. Please note that all CT scans at this facility use dose modulation, iterative reconstruction, and/or weight-based dosing when appropriate to reduce radiation dose to as low as reasonably achievable. Dictated by Brien Saini MD @ 08/15/2021 10:18:56 PM (Electronically Signed)
[2021-08-15] MEDS: Albuterol/Ipratropium 3.0-0.5 MG/3 ML Neb Soln NEB SCH (23:00)
[2021-08-15] MEDS: Dexamethasone 4 MG Tab PO SCH (23:00)
[2021-08-16] MEDS: Albuterol/Ipratropium 3.0-0.5 MG/3 ML Neb Soln NEB SCH ×7 (02:46→21:42)
[2021-08-16 07:23] LABS: BLOOD UREA NITROGEN,BUN 14 mg/dL (7.0-18.0); CARBON DIOXIDE,CO2 23.6 mmol/L (21.0-32.0); CHLORIDE,CL 97 mmol/L (98-107); GLUCOSE RANDOM 214 mg/dL (74-106); SODIUM,NA 135 mmol/L (136-148)
[2021-08-16] MEDS: Ondansetron 4 MG Tab.DIS PO PRN (07:41)
[2021-08-16] MEDS: Enoxaparin 40 MG/0.4 ML Syringe SUBCUT SCH ×2 (08:45→20:48)
[2021-08-16] MEDS: Insulin Aspart 100 Units/ML 3 ML Pen SUBCUT SCH ×2 (08:51→20:48)
[2021-08-16] MEDS: Dexamethasone 4 MG Tab PO SCH (09:42)
--- NOTE | 2021-08-16 14:14 | PCM.PN ---
- General Info Date of Service: 08/16/21 Subjective Update: The patient is a 66-year-old male, on day 2 of service, who has a significant past medical history of obesity and diabetes mellitus type 2, who was admitted to the medical floor due to acute respiratory failure secondary to COVID-19 pneumonia. Upon interview with the patient today he was extremely tired and could barely answer questions. He was able to admit that his shortness of breath and cough have not changed since admission. He is currently on high flow nasal cannula 15 L and saturating above 90%. He seems to have a poor appetite as his meal near bedside was completely untouched. According to nursing staff the patient stated he could not tolerate steroid treatments but later received a dose without any reactions. He is on duo nebulizer treatments which are scheduled in order to alleviate his shortness of breath. We will continue to mon itor this patient. - Review of Systems General: Reports: Fatigue HEENT: Denies: Headaches Pulmonary: Reports: Shortness of Breath, Cough Cardiovascular: Denies: Chest Pain, Palpitations Gastrointestinal: Denies: Abdominal Pain Genitourinary: Denies: Dysuria - Patient Data Vitals - Most Recent: Last Vital Signs Temp 96.0 F L 08/16/21 12:00 Pulse 81 08/16/21 12:00 Resp 22 H 08/16/21 12:00 BP 129/76 08/16/21 12:00 Pulse Ox 90 L 08/16/21 12:00 Weight - Most Recent: 243 lb I&O - Last 24 Hours: Intake & Output 08/15/21 08/16/21 08/16/21 22:59 06:59 14:59 Intake Total 100 Output Total 350 Balance -250 Lab Results Last 24 Hours: Laboratory Results - last 24 hr 08/15/21 08/15/21 08/15/21 Range/Units 19:59 20:00 20:00 WBC 9.05 (4.0-11.0) K/uL RBC 4.67 (4.50-5.90) M/uL Hgb 14.9 (13.0-17.0) g/dL Hct 40.4 (38.0-50.0) % MCV 86.5 (80.0-98.0) fL MCH 31.9 (27.0-32.0) pg MCHC 36.9 (31.0-37.0) g/dL RDW Std Deviation 39.6 (28.0-62.0) fl RDW Coeff of [place] 13 (11.0-15.0) % Plt Count 232 (150-400) K/uL MPV 10.90 (7.40-12.00) fL Add Manual Diff YES Neutrophils % (Manual) 92 H (48.0-80.0) % Lymphocytes % (Manual) 7 L (16.0-40.0) % Monocytes % (Manual) 1 (0.0-15.0) % Nucleated RBC % 0.0 /100WBC Absolute Seg Neuts 8.3 H (1.4-5.7) Lymphocytes # (Manual) 0.6 (0.6-2.4) Monocytes # (Manual) 0.1 (0.0-0.8) Nucleated RBCs # 0 K/uL D-Dimer, Quantitative (0.0-0.50) mg/L FEU Sodium 133 L (136-148) mmol/L Potassium 3.2 L (3.5-5.1) mmol/L Chloride 94 L (98-107) mmol/L Carbon Dioxide 23.4 (21.0-32.0) mmol/L BUN 16 (7.0-18.0) mg/dL Creatinine 1.2 (0.8-1.3) mg/dL Est Cr Clr Drug Dosing TNP Estimated GFR (MDRD) > 60.0 ml/min Glucose 214 H (74-106) mg/dL POC Glucose (70-99) mg/dL Lactic Acid (0.4-2.0) mmol/L Calcium 9.0 (8.5-10.1) mg/dL Total Bilirubin 1.0 (0.2-1.0) mg/dL Direct Bilirubin (0.0-0.5) mg/dL AST 76 H (15-37) IU/L ALT 36 (14-63) IU/L Alkaline Phosphatase 60 (46-116) U/L Troponin I < 0.050 (0.000-0.056) ng/mL C-Reactive Protein 22.40 H (0.00-0.90) mg/dL Total Protein 7.7 (6.4-8.2) g/dL Albumin 3.1 L (3.4-5.0) g/dL Globulin 4.6 H (2.6-4.0) g/dL Albumin/Globulin Ratio 0.7 L (0.9-1.6) Urine Color Urine Appearance Urine pH (5.0-8.0) Ur Specific [place] (1.001-1.035) Urine Protein (NEGATIVE) mg/dL Urine Glucose (UA) (NEGATIVE) mg/dL Urine Ketones (NEGATIVE) mg/dL Urine Occult Blood (NEGATIVE) Urine Nitrite (NEGATIVE) Urine Bilirubin (NEGATIVE) Urine Urobilinogen (<2.0) EU/dL Ur Leukocyte Esterase (NEGATIVE) U Hyaline Cast (Auto) (0-2/LPF) Urine RBC (0-2/HPF) Urine WBC (0-5/HPF) Ur Epithelial Cells (NONE-FEW) Amorphous Sediment (NEGATIVE) Urine Bacteria (NEGATIVE) Urine Mucus (NONE-MOD) Influenza Type A RNA NEGATIVE (NEGATIVE) Influenza Type B RNA NEGATIVE (NEGATIVE) SARS-CoV-2 RNA (LEONARD) POSITIVE H (NEGATIVE) 08/15/21 08/15/21 08/15/21 Range/Units 20:00 20:00 21:41 WBC (4.0-11.0) K/uL RBC (4.50-5.90) M/uL Hgb (13.0-17.0) g/dL Hct (38.0-50.0) % MCV (80.0-98.0) fL MCH (27.0-32.0) pg MCHC (31.0-37.0) g/dL RDW Std Deviation (28.0-62.0) fl RDW Coeff of [place] (11.0-15.0) % Plt Count (150-400) K/uL MPV (7.40-12.00) fL Add Manual Diff Neutrophils % (Manual) (48.0-80.0) % Lymphocytes % (Manual) (16.0-40.0) % Monocytes % (Manual) (0.0-15.0) % Nucleated RBC % /100WBC Absolute Seg Neuts (1.4-5.7) Lymphocytes # (Manual) (0.6-2.4) Monocytes # (Manual) (0.0-0.8) Nucleated RBCs # K/uL D-Dimer, Quantitative 2.43 H (0.0-0.50) mg/L FEU Sodium 133 L (136-148) mmol/L Potassium 3.0 L (3.5-5.1) mmol/L Chloride 96 L (98-107) mmol/L Carbon Dioxide 21.4 (21.0-32.0) mmol/L BUN 16 (7.0-18.0) mg/dL Creatinine 1.0 (0.8-1.3) mg/dL Est Cr Clr Drug Dosing 78.44 Estimated GFR (MDRD) > 60.0 ml/min Glucose 222 H (74-106) mg/dL POC Glucose (70-99) mg/dL Lactic Acid 2.4 H* (0.4-2.0) mmol/L Calcium 8.0 L (8.5-10.1) mg/dL Total Bilirubin 0.9 (0.2-1.0) mg/dL Direct Bilirubin 0.30 (0.0-0.5) mg/dL AST 67 H (15-37) IU/L ALT 32 (14-63) IU/L Alkaline Phosphatase 54 (46-116) U/L Troponin I (0.000-0.056) ng/mL C-Reactive Protein (0.00-0.90) mg/dL Total Protein 5.9 L (6.4-8.2) g/dL Albumin 2.7 L (3.4-5.0) g/dL Globulin 3.2 (2.6-4.0) g/dL Albumin/Globulin Ratio 0.8 L (0.9-1.6) Urine Color Urine Appearance Urine pH (5.0-8.0) Ur Specific [place] (1.001-1.035) Urine Protein (NEGATIVE) mg/dL Urine Glucose (UA) (NEGATIVE) mg/dL Urine Ketones (NEGATIVE) mg/dL Urine Occult Blood (NEGATIVE) Urine Nitrite (NEGATIVE) Urine Bilirubin (NEGATIVE) Urine Urobilinogen (<2.0) EU/dL Ur Leukocyte Esterase (NEGATIVE) U Hyaline Cast (Auto) (0-2/LPF) Urine RBC (0-2/HPF) Urine WBC (0-5/HPF) Ur Epithelial Cells (NONE-FEW) Amorphous Sediment (NEGATIVE) Urine Bacteria (NEGATIVE) Urine Mucus (NONE-MOD) Influenza Type A RNA (NEGATIVE) Influenza Type B RNA (NEGATIVE) SARS-CoV-2 RNA (LE[place]ARD) (NEGATIVE) 08/15/21 08/16/21 08/16/21 Range/Units 21:52 01:25 06:20 WBC (4.0-11.0) K/uL RBC (4.50-5.90) M/uL Hgb (13.0-17.0) g/dL Hct (38.0-50.0) % MCV (80.0-98.0) fL MCH (27.0-32.0) pg MCHC (31.0-37.0) g/dL RDW Std Deviation (28.0-62.0) fl RDW Coeff of [place] (11.0-15.0) % Plt Count (150-400) K/uL MPV (7.40-12.00) fL Add Manual Diff Neutrophils % (Manual) (48.0-80.0) % Lymphocytes % (Manual) (16.0-40.0) % Monocytes % (Manual) (0.0-15.0) % Nucleated RBC % /100WBC Absolute Seg Neuts (1.4-5.7) Lymphocytes # (Manual) (0.6-2.4) Monocytes # (Manual) (0.0-0.8) Nucleated RBCs # K/uL D-Dimer, Quantitative (0.0-0.50) mg/L FEU Sodium (136-148) mmol/L Potassium (3.5-5.1) mmol/L Chloride (98-107) mmol/L Carbon Dioxide (21.0-32.0) mmol/L BUN (7.0-18.0) mg/dL Creatinine (0.8-1.3) mg/dL Est Cr Clr Drug Dosing Estimated GFR (MDRD) ml/min Glucose (74-106) mg/dL POC Glucose 202 H (70-99) mg/dL Lactic Acid 1.6 (0.4-2.0) mmol/L Calcium (8.5-10.1) mg/dL Total Bilirubin (0.2-1.0) mg/dL Direct Bilirubin (0.0-0.5) mg/dL AST (15-37) IU/L ALT (14-63) IU/L Alkaline Phosphatase (46-116) U/L Troponin I (0.000-0.056) ng/mL C-Reactive Protein (0.00-0.90) mg/dL Total Protein (6.4-8.2) g/dL Albumin (3.4-5.0) g/dL Globulin (2.6-4.0) g/dL Albumin/Globulin Ratio (0.9-1.6) Urine Color YELLOW Urine Appearance HAZY Urine pH 6.0 (5.0-8.0) Ur Specific [place] 1.025 (1.001-1.035) Urine Protein 100 H (NEGATIVE) mg/dL Urine Glucose (UA) 100 H (NEGATIVE) mg/dL Urine Ketones 15 H (NEGATIVE) mg/dL Urine Occult Blood LARGE H (NEGATIVE) Urine Nitrite NEGATIVE (NEGATIVE) Urine Bilirubin NEGATIVE (NEGATIVE) Urine Urobilinogen 0.2 (<2.0) EU/dL Ur Leukocyte Esterase NEGATIVE (NEGATIVE) U Hyaline Cast (Auto) 0-1 (0-2/LPF) Urine RBC 0-3 (0-2/HPF) Urine WBC 0-2 (0-5/HPF) Ur Epithelial Cells OCCASIONAL (NONE-FEW) Amorphous Sediment LIGHT (NEGATIVE) Urine Bacteria FEW (NEGATIVE) Urine Mucus LIGHT (NONE-MOD) Influenza Type A RNA (NEGATIVE) Influenza Type B RNA (NEGATIVE) SARS-CoV-2 RNA ([place]ONARD) (NEGATIVE) 08/16/21 08/16/21 Range/Units 06:54 06:54 WBC 9.88 (4.0-11.0) K/uL RBC 4.59 (4.50-5.90) M/uL Hgb 14.6 (13.0-17.0) g/dL Hct 39.8 (38.0-50.0) % MCV 86.7 (80.0-98.0) fL MCH 31.8 (27.0-32.0) pg MCHC 36.7 (31.0-37.0) g/dL RDW Std Deviation 39.8 (28.0-62.0) fl RDW Coeff of [place] 12 (11.0-15.0) % Plt Count 246 (150-400) K/uL MPV 10.90 (7.40-12.00) fL Add Manual Diff YES Neutrophils % (Manual) 94 H (48.0-80.0) % Lymphocytes % (Manual) 4 L (16.0-40.0) % Monocytes % (Manual) 2 (0.0-15.0) % Nucleated RBC % 0.0 /100WBC Absolute Seg Neuts 9.3 H (1.4-5.7) Lymphocytes # (Manual) 0.4 L (0.6-2.4) Monocytes # (Manual) 0.2 (0.0-0.8) Nucleated RBCs # 0 K/uL D-Dimer, Quantitative (0.0-0.50) mg/L FEU Sodium 135 L (136-148) mmol/L Potassium 3.0 L (3.5-5.1) mmol/L Chloride 97 L (98-107) mmol/L Carbon Dioxide 23.6 (21.0-32.0) mmol/L BUN 14 (7.0-18.0) mg/dL Creatinine 1.1 (0.8-1.3) mg/dL Est Cr Clr Drug Dosing 71.31 Estimated GFR (MDRD) > 60.0 ml/min Glucose 214 H (74-106) mg/dL POC Glucose (70-99) mg/dL Lactic Acid (0.4-2.0) mmol/L Calcium 8.3 L (8.5-10.1) mg/dL Total Bilirubin (0.2-1.0) mg/dL Direct Bilirubin (0.0-0.5) mg/dL AST (15-37) IU/L ALT (14-63) IU/L Alkaline Phosphatase (46-116) U/L Troponin I (0.000-0.056) ng/mL C-Reactive Protein (0.00-0.90) mg/dL Total Protein (6.4-8.2) g/dL Albumin (3.4-5.0) g/dL Globulin (2.6-4.0) g/dL Albumin/Globulin Ratio (0.9-1.6) Urine Color Urine Appearance Urine pH (5.0-8.0) Ur Specific [place] (1.001-1.035) Urine Protein (NEGATIVE) mg/dL Urine Glucose (UA) (NEGATIVE) mg/dL Urine Ketones (NEGATIVE) mg/dL Urine Occult Blood (NEGATIVE) Urine Nitrite (NEGATIVE) Urine Bilirubin (NEGATIVE) Urine Urobilinogen (<2.0) EU/dL Ur Leukocyte Esterase (NEGATIVE) U Hyaline Cast (Auto) (0-2/LPF) Urine RBC (0-2/HPF) Urine WBC (0-5/HPF) Ur Epithelial Cells (NONE-FEW) Amorphous Sediment (NEGATIVE) Urine Bacteria (NEGATIVE) Urine Mucus (NONE-MOD) Influenza Type A RNA (NEGATIVE) Influenza Type B RNA (NEGATIVE) SARS-CoV-2 RNA (LEONARD) (NEGATIVE) Med Orders - Current: Current Medications Hydrocodone Bitart/Acetaminophen (Acetaminophen/Hydrocodone 325-5 Mg Tab) 1 tab PO Q4H PRN PRN Reason: Pain (moderate 4-6) Albuterol/Ipratropium (Albuterol/Ipratropium 3.0-0.5 Mg/3 Ml Neb Soln) 3 ml NEB Q2H PRN PRN Reason: Dyspepsia Albuterol/Ipratropium (Albuterol/Ipratropium 3.0-0.5 Mg/3 Ml Neb Soln) 3 ml NEB Q4HRRT [facility] Last Admin: 08/16/21 14:00 Dose: 3 ml Documented by: Baricitinib (Baricitinib 2 Mg Tab) 4 mg PO DAILY [facility] Stop: 08/30/21 09:01 Last Admin: 08/16/21 08:46 Dose: 4 mg Documented by: Dexamethasone (Dexamethasone 4 Mg Tab) 6 mg PO DAILY [facility] Last Admin: 08/16/21 09:42 Dose: 6 mg Documented by: Dextrose/Water (50% Dextrose In Water 50 Ml Syringe) 50 ml IVPUSH ASDIRECTED PRN PRN Reason: Hypoglycemia Enoxaparin Sodium (Enoxaparin 40 Mg/0.4 Ml Syringe) 40 mg SUBCUT Q12HR [facility] Last Admin: 08/16/21 08:45 Dose: 40 mg Documented by: Glucagon (Glucagon,Human Recombinant 1 Mg Vial) 1 mg IM ASDIRECTED PRN PRN Reason: Hypoglycemia Remdesivir 100 mg/ Sodium (Chloride) 100 mls @ 100 mls/hr IV Q24H [facility] Stop: 08/19/21 21:59 Potassium Chloride/Sodium Chloride (Normal Saline With 20 Meq Kcl) 500 mls @ 75 mls/hr IV ASDIRECTED [facility] Insulin Aspart (Insulin Aspart 100 Units/Ml 3 Ml Pen) 0 unit SUBCUT ACBREAKFASTANDBED [facility]; Protocol Last Admin: 08/16/21 08:51 Dose: 2 units Documented by: Ondansetron HCl (Ondansetron 4 Mg Tab.Dis) 4 mg PO Q6H PRN PRN Reason: nausea, able to take PO Last Admin: 08/16/21 07:41 Dose: 4 mg Documented by: Discontinued Medications Dexamethasone (Dexamethasone Solution 0.5 Mg/5 Ml) 6 mg PO DAILY [facility] Enoxaparin Sodium (Enoxaparin 40 Mg/0.4 Ml Syringe) 40 mg SUBCUT Q24H [facility] Remdesivir 200 mg/ Sodium (Chloride) 250 mls @ 250 mls/hr IV ONETIME ONE Stop: 08/15/21 19:52 Last Admin: 08/15/21 20:47 Dose: 250 mls/hr Documented by: Sodium Chloride (Normal Saline) 1,000 mls @ 150 mls/hr IV STAT ONE Stop: 08/16/21 03:36 Last Admin: 08/15/21 23:01 Dose: 150 mls/hr Documented by: Iopamidol (Iopamidol 755 Mg/Ml 100 Ml Bottle) 100 ml IVPUSH ONETIME ONE Stop: 08/15/21 21:00 Last Admin: 08/15/21 21:37 Dose: 100 ml Documented by: - Exam General: Lethargic HEENT: No: Mucous Membr. Moist/[place] Neck: Trachea Midline Lungs: Wheezing Cardiovascular: Regular Rate, Regular Rhythm GI/Abdominal Exam: Normal Bowel Sounds, Soft - Patient Data Lab Results Last 24 hrs: Laboratory Results - last 24 hr 08/15/21 08/15/21 08/15/21 Range/Units 19:59 20:00 20:00 WBC 9.05 (4.0-11.0) K/uL RBC 4.67 (4.50-5.90) M/uL Hgb 14.9 (13.0-17.0) g/dL Hct 40.4 (38.0-50.0) % MCV 86.5 (80.0-98.0) fL MCH 31.9 (27.0-32.0) pg MCHC 36.9 (31.0-37.0) g/dL RDW Std Deviation 39.6 (28.0-62.0) fl RDW Coeff of [place] 13 (11.0-15.0) % Plt Count 232 (150-400) K/uL MPV 10.90 (7.40-12.00) fL Add Manual Diff YES Neutrophils % (Manual) 92 H (48.0-80.0) % Lymphocytes % (Manual) 7 L (16.0-40.0) % Monocytes % (Manual) 1 (0.0-15.0) % Nucleated RBC % 0.0 /100WBC Absolute Seg Neuts 8.3 H (1.4-5.7) Lymphocytes # (Manual) 0.6 (0.6-2.4) Monocytes # (Manual) 0.1 (0.0-0.8) Nucleated RBCs # 0 K/uL D-Dimer, Quantitative (0.0-0.50) mg/L FEU Sodium 133 L (136-148) mmol/L Potassium 3.2 L (3.5-5.1) mmol/L Chloride 94 L (98-107) mmol/L Carbon Dioxide 23.4 (21.0-32.0) mmol/L BUN 16 (7.0-18.0) mg/dL Creatinine 1.2 (0.8-1.3) mg/dL Est Cr Clr Drug Dosing TNP Estimated GFR (MDRD) > 60.0 ml/min Glucose 214 H (74-106) mg/dL POC Glucose (70-99) mg/dL Lactic Acid (0.4-2.0) mmol/L Calcium 9.0 (8.5-10.1) mg/dL Total Bilirubin 1.0 (0.2-1.0) mg/dL Direct Bilirubin (0.0-0.5) mg/dL AST 76 H (15-37) IU/L ALT 36 (14-63) IU/L Alkaline Phosphatase 60 (46-116) U/L Troponin I < 0.050 (0.000-0.056) ng/mL C-Reactive Protein 22.40 H (0.00-0.90) mg/dL Total Protein 7.7 (6.4-8.2) g/dL Albumin 3.1 L (3.4-5.0) g/dL Globulin 4.6 H (2.6-4.0) g/dL Albumin/Globulin Ratio 0.7 L (0.9-1.6) Urine Color Urine Appearance Urine pH (5.0-8.0) Ur Specific [place] (1.001-1.035) Urine Protein (NEGATIVE) mg/dL Urine Glucose (UA) (NEGATIVE) mg/dL Urine Ketones (NEGATIVE) mg/dL Urine Occult Blood (NEGATIVE) Urine Nitrite (NEGATIVE) Urine Bilirubin (NEGATIVE) Urine Urobilinogen (<2.0) EU/dL Ur Leukocyte Esterase (NEGATIVE) U Hyaline Cast (Auto) (0-2/LPF) Urine RBC (0-2/HPF) Urine WBC (0-5/HPF) Ur Epithelial Cells (NONE-FEW) Amorphous Sediment (NEGATIVE) Urine Bacteria (NEGATIVE) Urine Mucus (NONE-MOD) Influenza Type A RNA NEGATIVE (NEGATIVE) Influenza Type B RNA NEGATIVE (NEGATIVE) SARS-CoV-2 RNA (LEONARD) POSITIVE H (NEGATIVE) 08/15/21 08/15/21 08/15/21 Range/Units 20:00 20:00 21:41 WBC (4.0-11.0) K/uL RBC (4.50-5.90) M/uL Hgb (13.0-17.0) g/dL Hct (38.0-50.0) % MCV (80.0-98.0) fL MCH (27.0-32.0) pg MCHC (31.0-37.0) g/dL RDW Std Deviation (28.0-62.0) fl RDW Coeff of [place] (11.0-15.0) % Plt Count (150-400) K/uL MPV (7.40-12.00) fL Add Manual Diff Neutrophils % (Manual) (48.0-80.0) % Lymphocytes % (Manual) (16.0-40.0) % Monocytes % (Manual) (0.0-15.0) % Nucleated RBC % /100WBC Absolute Seg Neuts (1.4-5.7) Lymphocytes # (Manual) (0.6-2.4) Monocytes # (Manual) (0.0-0.8) Nucleated RBCs # K/uL D-Dimer, Quantitative 2.43 H (0.0-0.50) mg/L FEU Sodium 133 L (136-148) mmol/L Potassium 3.0 L (3.5-5.1) mmol/L Chloride 96 L (98-107) mmol/L Carbon Dioxide 21.4 (21.0-32.0) mmol/L BUN 16 (7.0-18.0) mg/dL Creatinine 1.0 (0.8-1.3) mg/dL Est Cr Clr Drug Dosing 78.44 Estimated GFR (MDRD) > 60.0 ml/min Glucose 222 H (74-106) mg/dL POC Glucose (70-99) mg/dL Lactic Acid 2.4 H* (0.4-2.0) mmol/L Calcium 8.0 L (8.5-10.1) mg/dL Total Bilirubin 0.9 (0.2-1.0) mg/dL Direct Bilirubin 0.30 (0.0-0.5) mg/dL AST 67 H (15-37) IU/L ALT 32 (14-63) IU/L Alkaline Phosphatase 54 (46-116) U/L Troponin I (0.000-0.056) ng/mL C-Reactive Protein (0.00-0.90) mg/dL Total Protein 5.9 L (6.4-8.2) g/dL Albumin 2.7 L (3.4-5.0) g/dL Globulin 3.2 (2.6-4.0) g/dL Albumin/Globulin Ratio 0.8 L (0.9-1.6) Urine Color Urine Appearance Urine pH (5.0-8.0) Ur Specific [place] (1.001-1.035) Urine Protein (NEGATIVE) mg/dL Urine Glucose (UA) (NEGATIVE) mg/dL Urine Ketones (NEGATIVE) mg/dL Urine Occult Blood (NEGATIVE) Urine Nitrite (NEGATIVE) Urine Bilirubin (NEGATIVE) Urine Urobilinogen (<2.0) EU/dL Ur Leukocyte Esterase (NEGATIVE) U Hyaline Cast (Auto) (0-2/LPF) Urine RBC (0-2/HPF) Urine WBC (0-5/HPF) Ur Epithelial Cells (NONE-FEW) Amorphous Sediment (NEGATIVE) Urine Bacteria (NEGATIVE) Urine Mucus (NONE-MOD) Influenza Type A RNA (NEGATIVE) Influenza Type B RNA (NEGATIVE) SARS-CoV-2 RNA (LEONARD) (NEGATIVE) 08/15/21 08/16/21 08/16/21 Range/Units 21:52 01:25 06:20 WBC (4.0-11.0) K/uL RBC (4.50-5.90) M/uL Hgb (13.0-17.0) g/dL Hct (38.0-50.0) % MCV (80.0-98.0) fL MCH (27.0-32.0) pg MCHC (31.0-37.0) g/dL RDW Std Deviation (28.0-62.0) fl RDW Coeff of [place] (11.0-15.0) % Plt Count (150-400) K/uL MPV (7.40-12.00) fL Add Manual Diff Neutrophils % (Manual) (48.0-80.0) % Lymphocytes % (Manual) (16.0-40.0) % Monocytes % (Manual) (0.0-15.0) % Nucleated RBC % /100WBC Absolute Seg Neuts (1.4-5.7) Lymphocytes # (Manual) (0.6-2.4) Monocytes # (Manual) (0.0-0.8) Nucleated RBCs # K/uL D-Dimer, Quantitative (0.0-0.50) mg/L FEU Sodium (136-148) mmol/L Potassium (3.5-5.1) mmol/L Chloride (98-107) mmol/L Carbon Dioxide (21.0-32.0) mmol/L BUN (7.0-18.0) mg/dL Creatinine (0.8-1.3) mg/dL Est Cr Clr Drug Dosing Estimated GFR (MDRD) ml/min Glucose (74-106) mg/dL POC Glucose 202 H (70-99) mg/dL Lactic Acid 1.6 (0.4-2.0) mmol/L Calcium (8.5-10.1) mg/dL Total Bilirubin (0.2-1.0) mg/dL Direct Bilirubin (0.0-0.5) mg/dL AST (15-37) IU/L ALT (14-63) IU/L Alkaline Phosphatase (46-116) U/L Troponin I (0.000-0.056) ng/mL C-Reactive Protein (0.00-0.90) mg/dL Total Protein (6.4-8.2) g/dL Albumin (3.4-5.0) g/dL Globulin (2.6-4.0) g/dL Albumin/Globulin Ratio (0.9-1.6) Urine Color YELLOW Urine Appearance HAZY Urine pH 6.0 (5.0-8.0) Ur Specific [place] 1.025 (1.001-1.035) Urine Protein 100 H (NEGATIVE) mg/dL Urine Glucose (UA) 100 H (NEGATIVE) mg/dL Urine Ketones 15 H (NEGATIVE) mg/dL Urine Occult Blood LARGE H (NEGATIVE) Urine Nitrite NEGATIVE (NEGATIVE) Urine Bilirubin NEGATIVE (NEGATIVE) Urine Urobilinogen 0.2 (<2.0) EU/dL Ur Leukocyte Esterase NEGATIVE (NEGATIVE) U Hyaline Cast (Auto) 0-1 (0-2/LPF) Urine RBC 0-3 (0-2/HPF) Urine WBC 0-2 (0-5/HPF) Ur Epithelial Cells OCCASIONAL (NONE-FEW) Amorphous Sediment LIGHT (NEGATIVE) Urine Bacteria FEW (NEGATIVE) Urine Mucus LIGHT (NONE-MOD) Influenza Type A RNA (NEGATIVE) Influenza Type B RNA (NEGATIVE) SARS-CoV-2 RNA (LEONARD) (NEGATIVE) 08/16/21 08/16/21 Range/Units 06:54 06:54 WBC 9.88 (4.0-11.0) K/uL RBC 4.59 (4.50-5.90) M/uL Hgb 14.6 (13.0-17.0) g/dL Hct 39.8 (38.0-50.0) % MCV 86.7 (80.0-98.0) fL MCH 31.8 (27.0-32.0) pg MCHC 36.7 (31.0-37.0) g/dL RDW Std Deviation 39.8 (28.0-62.0) fl RDW Coeff of [place] 12 (11.0-15.0) % Plt Count 246 (150-400) K/uL MPV 10.90 (7.40-12.00) fL Add Manual Diff YES Neutrophils % (Manual) 94 H (48.0-80.0) % Lymphocytes % (Manual) 4 L (16.0-40.0) % Monocytes % (Manual) 2 (0.0-15.0) % Nucleated RBC % 0.0 /100WBC Absolute Seg Neuts 9.3 H (1.4-5.7) Lymphocytes # (Manual) 0.4 L (0.6-2.4) Monocytes # (Manual) 0.2 (0.0-0.8) Nucleated RBCs # 0 K/uL D-Dimer, Quantitative (0.0-0.50) mg/L FEU Sodium 135 L (136-148) mmol/L Potassium 3.0 L (3.5-5.1) mmol/L Chloride 97 L (98-107) mmol/L Carbon Dioxide 23.6 (21.0-32.0) mmol/L BUN 14 (7.0-18.0) mg/dL Creatinine 1.1 (0.8-1.3) mg/dL Est Cr Clr Drug Dosing 71.31 Estimated GFR (MDRD) > 60.0 ml/min Glucose 214 H (74-106) mg/dL POC Glucose (70-99) mg/dL Lactic Acid (0.4-2.0) mmol/L Calcium 8.3 L (8.5-10.1) mg/dL Total Bilirubin (0.2-1.0) mg/dL Direct Bilirubin (0.0-0.5) mg/dL AST (15-37) IU/L ALT (14-63) IU/L Alkaline Phosphatase (46-116) U/L Troponin I (0.000-0.056) ng/mL C-Reactive Protein (0.00-0.90) mg/dL Total Protein (6.4-8.2) g/dL Albumin (3.4-5.0) g/dL Globulin (2.6-4.0) g/dL Albumin/Globulin Ratio (0.9-1.6) Urine Color Urine Appearance Urine pH (5.0-8.0) Ur Specific [place] (1.001-1.035) Urine Protein (NEGATIVE) mg/dL Urine Glucose (UA) (NEGATIVE) mg/dL Urine Ketones (NEGATIVE) mg/dL Urine Occult Blood (NEGATIVE) Urine Nitrite (NEGATIVE) Urine Bilirubin (NEGATIVE) Urine Urobilinogen (<2.0) EU/dL Ur Leukocyte Esterase (NEGATIVE) U Hyaline Cast (Auto) (0-2/LPF) Urine RBC (0-2/HPF) Urine WBC (0-5/HPF) Ur Epithelial Cells (NONE-FEW) Amorphous Sediment (NEGATIVE) Urine Bacteria (NEGATIVE) Urine Mucus (NONE-MOD) Influenza Type A RNA (NEGATIVE) Influenza Type B RNA (NEGATIVE) SARS-CoV-2 RNA (LEONARD) (NEGATIVE) Result Diagrams: 08/16/21 06:54 08/16/21 06:54 Sepsis Event Note - Evaluation Sepsis Screening Result: No Definite Risk - Focused Exam Vital Signs: Vital Signs Temp Pulse Resp BP Pulse Ox 08/16/21 12:00 96.0 F L 81 22 H 129/76 90 L 08/16/21 07:34 98.6 F 86 90 H 142/75 H 08/16/21 03:49 97.8 F 73 22 H 153/73 H 91 L - Problem List & Annotations (1) Acute respiratory disease due to COVID-19 virus SNOMED Code(s): 622816261, 160670483 Code(s): U07.1 - COVID-19; J06.9 - ACUTE UPPER RESPIRATORY INFECTION, UNSPECIFIED Status: Acute Current Visit: Yes (2) Obesity (BMI 30-39.9) SNOMED Code(s): 853752340, 857028908 Code(s): E66.9 - OBESITY, UNSPECIFIED Status: Acute Current Visit: Yes (3) T2DM (type 2 diabetes mellitus) SNOMED Code(s): 06976808 Code(s): E11.9 - TYPE 2 DIABETES MELLITUS WITHOUT COMPLICATIONS Status: Acute Current Visit: Yes - Problem List Review Problem List Initiated/Reviewed/Updated: Yes - Assessment Assessment:: 1. Acute respiratory failure secondary to COVID-19 pneumonia -continue dexamethasone 6 mg per oral route once a day -continue remdesivir 100 mg per IV route once a day -for shortness of breath continue duo nebulizer treatments -continue baricitinib 4 mg per oral route daily -encourage incentive spirometry in the prone position -supply oxygen as needed, patient is currently on high flow nasal cannula 15 L 2. Diabetes mellitus type 2 -continue with Accu-Cheks twice daily/insulin sliding scale/NovoLog
[2021-08-16] MEDS: REMDESIVIR 100 MG in Sodium Chloride 0.9% 100 ML IV SCH (20:50)
[2021-08-16] MEDS: Potassium Chloride 20 MEQ Tab.ER PO SCH (21:42)
[2021-08-17] MEDS: Albuterol/Ipratropium 3.0-0.5 MG/3 ML Neb Soln NEB SCH ×6 (03:29→22:19)
[2021-08-17] MEDS: Potassium Chloride 20 MEQ Tab.ER PO SCH ×3 (05:59→22:16)
[2021-08-17] MEDS: Enoxaparin 40 MG/0.4 ML Syringe SUBCUT SCH ×2 (08:13→22:08)
[2021-08-17] MEDS: Dexamethasone 4 MG Tab PO SCH (08:13)
[2021-08-17] MEDS: Insulin Aspart 100 Units/ML 3 ML Pen SUBCUT SCH ×4 (08:16→22:17)
[2021-08-17 08:27] LABS: CARBON DIOXIDE,CO2 26.5 mmol/L (21.0-32.0); POTASSIUM,K 3.2 mmol/L (3.5-5.1)
[2021-08-17] MEDS: Melatonin 3 MG Tab PO PRN ×2 (13:40→22:16)
[2021-08-17] MEDS: Ondansetron 4 MG Tab.DIS PO PRN (13:41)
--- NOTE | 2021-08-17 16:36 | PCM.PN ---
<Dmitri Presley - Last Filed: 08/17/21 20:58> - General Info Date of Service: 08/17/21 Subjective Update: Patient states Shortness of breath with exertion, fatigue, nausea, poor appetite, difficulty sleeping. States he is able to tolerate water and jello. Denies chest pain. - Review of Systems General: Reports: Weakness, Fatigue. Denies: Fever Pulmonary: Reports: Shortness of Breath. Denies: Wheezing Cardiovascular: Denies: Chest Pain, Edema Gastrointestinal: Reports: Decreased Appetite, Nausea. Denies: Abdominal Pain Neurological: Denies: Confusion Psychiatric: Denies: Confusion - Patient Data Vitals - Most Recent: Last Vital Signs Temp 97.5 F 08/17/21 12:00 Pulse 79 08/17/21 12:00 Resp 20 08/17/21 12:00 BP 126/64 08/17/21 12:00 Pulse Ox 92 L 08/17/21 12:00 Weight - Most Recent: 243 lb I&O - Last 24 Hours: Intake & Output 08/17/21 08/17/21 08/17/21 06:59 14:59 22:59 Intake Total 1000 Output Total 350 Balance 650 Lab Results Last 24 Hours: Laboratory Results - last 24 hr 08/16/21 08/17/21 08/17/21 Range/Units 20:47 06:20 07:03 WBC 9.49 (4.0-11.0) K/uL RBC 4.72 (4.50-5.90) M/uL Hgb 15.1 (13.0-17.0) g/dL Hct 41.4 (38.0-50.0) % MCV 87.7 (80.0-98.0) fL MCH 32.0 (27.0-32.0) pg MCHC 36.5 (31.0-37.0) g/dL RDW Std Deviation 40.5 (28.0-62.0) fl RDW Coeff of [place] 13 (11.0-15.0) % Plt Count 315 (150-400) K/uL MPV 11.10 (7.40-12.00) fL Neut % (Auto) 85.8 H (48.0-80.0) % Lymph % (Auto) 11.7 L (16.0-40.0) % [place] % (Auto) 2.4 (0.0-15.0) % Eos % (Auto) 0.0 (0.0-7.0) % Baso % (Auto) 0.1 (0.0-1.5) % Neut # (Auto) 8.1 H (1.4-5.7) K/uL Lymph # (Auto) 1.1 (0.6-2.4) K/uL [place] # (Auto) 0.2 (0.0-0.8) K/uL Eos # (Auto) 0.0 (0.0-0.7) K/uL Baso # (Auto) 0.0 (0.0-0.1) K/uL Nucleated RBC % 0.0 /100WBC Nucleated RBCs # 0 K/uL Sodium (136-148) mmol/L Potassium (3.5-5.1) mmol/L Chloride (98-107) mmol/L Carbon Dioxide (21.0-32.0) mmol/L BUN (7.0-18.0) mg/dL Creatinine (0.8-1.3) mg/dL Est Cr Clr Drug Dosing mL/min Estimated GFR (MDRD) ml/min Glucose (74-106) mg/dL POC Glucose 382 H 393 H (70-99) mg/dL Calcium (8.5-10.1) mg/dL Total Bilirubin (0.2-1.0) mg/dL AST (15-37) IU/L ALT (14-63) IU/L Alkaline Phosphatase (46-116) U/L Total Protein (6.4-8.2) g/dL Albumin (3.4-5.0) g/dL Globulin (2.6-4.0) g/dL Albumin/Globulin Ratio (0.9-1.6) 08/17/21 08/17/21 Range/Units 07:03 11:53 WBC (4.0-11.0) K/uL RBC (4.50-5.90) M/uL Hgb (13.0-17.0) g/dL Hct (38.0-50.0) % MCV (80.0-98.0) fL MCH (27.0-32.0) pg MCHC (31.0-37.0) g/dL RDW Std Deviation (28.0-62.0) fl RDW Coeff of [place] (11.0-15.0) % Plt Count (150-400) K/uL MPV (7.40-12.00) fL Neut % (Auto) (48.0-80.0) % Lymph % (Auto) (16.0-40.0) % [place] % (Auto) (0.0-15.0) % Eos % (Auto) (0.0-7.0) % Baso % (Auto) (0.0-1.5) % Neut # (Auto) (1.4-5.7) K/uL Lymph # (Auto) (0.6-2.4) K/uL [place] # (Auto) (0.0-0.8) K/uL Eos # (Auto) (0.0-0.7) K/uL Baso # (Auto) (0.0-0.1) K/uL Nucleated RBC % /100WBC Nucleated RBCs # K/uL Sodium 137 (136-148) mmol/L Potassium 3.2 L (3.5-5.1) mmol/L Chloride 98 (98-107) mmol/L Carbon Dioxide 26.5 (21.0-32.0) mmol/L BUN 23 H (7.0-18.0) mg/dL Creatinine 1.3 (0.8-1.3) mg/dL Est Cr Clr Drug Dosing 60.34 mL/min Estimated GFR (MDRD) 55.4 ml/min Glucose 391 H (74-106) mg/dL POC Glucose 386 H (70-99) mg/dL Calcium 9.0 (8.5-10.1) mg/dL Total Bilirubin 0.7 (0.2-1.0) mg/dL AST 52 H (15-37) IU/L ALT 43 (14-63) IU/L Alkaline Phosphatase 64 (46-116) U/L Total Protein 7.4 (6.4-8.2) g/dL Albumin 2.8 L (3.4-5.0) g/dL Globulin 4.6 H (2.6-4.0) g/dL Albumin/Globulin Ratio 0.6 L (0.9-1.6) Med Orders - Current: Current Medications Hydrocodone Bitart/Acetaminophen (Acetaminophen/Hydrocodone 325-5 Mg Tab) 1 tab PO Q4H PRN PRN Reason: Pain (moderate 4-6) Albuterol/Ipratropium (Albuterol/Ipratropium 3.0-0.5 Mg/3 Ml Neb Soln) 3 ml NEB Q2H PRN PRN Reason: Dyspepsia Albuterol/Ipratropium (Albuterol/Ipratropium 3.0-0.5 Mg/3 Ml Neb Soln) 3 ml NEB Q4HRRT [facility] Last Admin: 08/17/21 13:55 Dose: 3 ml Documented by: Baricitinib (Baricitinib 2 Mg Tab) 4 mg PO DAILY [facility] Stop: 08/30/21 09:01 Last Admin: 08/17/21 08:13 Dose: 4 mg Documented by: Dexamethasone (Dexamethasone 4 Mg Tab) 6 mg PO DAILY [facility] Last Admin: 08/17/21 08:13 Dose: 6 mg Documented by: Dextrose/Water (50% Dextrose In Water 50 Ml Syringe) 50 ml IVPUSH ASDIRECTED PRN PRN Reason: Hypoglycemia Enoxaparin Sodium (Enoxaparin 40 Mg/0.4 Ml Syringe) 40 mg SUBCUT Q12HR [facility] Last Admin: 08/17/21 08:13 Dose: 40 mg Documented by: Glucagon (Glucagon,Human Recombinant 1 Mg Vial) 1 mg IM ASDIRECTED PRN PRN Reason: Hypoglycemia Remdesivir 100 mg/ Sodium (Chloride) 100 mls @ 100 mls/hr IV Q24H [facility] Stop: 08/19/21 21:59 Last Admin: 08/16/21 20:50 Dose: 100 mls/hr Documented by: Potassium Chloride/Sodium Chloride (Normal Saline With 20 Meq Kcl) 500 mls @ 75 mls/hr IV ASDIRECTED AWA Insulin Aspart (Insulin Aspart 100 Units/Ml 3 Ml Pen) 0 unit SUBCUT TIDAC [facility]; Protocol Last Admin: 08/17/21 11:56 Dose: 10 units Documented by: Melatonin (Melatonin 3 Mg Tab) 6 mg PO BEDTIME PRN PRN Reason: Insomnia Last Admin: 08/17/21 13:40 Dose: 6 mg Documented by: Ondansetron HCl (Ondansetron 4 Mg Tab.Dis) 4 mg PO Q6H PRN PRN Reason: nausea, able to take PO Last Admin: 08/17/21 13:41 Dose: 4 mg Documented by: Potassium Chloride (Potassium Chloride 20 Meq Tab.Er) 20 meq PO TID AWA Stop: 08/19/21 14:01 Last Admin: 08/17/21 13:40 Dose: 20 meq Documented by: Discontinued Medications Dexamethasone (Dexamethasone Solution 0.5 Mg/5 Ml) 6 mg PO DAILY [facility] Last Admin: 08/16/21 17:40 Dose: Not Given Documented by: Enoxaparin Sodium (Enoxaparin 40 Mg/0.4 Ml Syringe) 40 mg SUBCUT Q24H [facility] Last Admin: 08/16/21 17:40 Dose: Not Given Documented by: Remdesivir 200 mg/ Sodium (Chloride) 250 mls @ 250 mls/hr IV ONETIME ONE Stop: 08/15/21 19:52 Last Admin: 08/15/21 20:47 Dose: 250 mls/hr Documented by: Sodium Chloride (Normal Saline) 1,000 mls @ 150 mls/hr IV STAT ONE Stop: 08/16/21 03:36 Last Admin: 08/15/21 23:01 Dose: 150 mls/hr Documented by: Insulin Aspart (Insulin Aspart 100 Units/Ml 3 Ml Pen) 0 unit SUBCUT ACBREAKFASTANDBED [facility]; Protocol Last Admin: 08/17/21 08:16 Dose: 5 units Documented by: Iopamidol (Iopamidol 755 Mg/Ml 100 Ml Bottle) 100 ml IVPUSH ONETIME ONE Stop: 08/15/21 21:00 Last Admin: 08/15/21 21:37 Dose: 100 ml Documented by: - Exam Quality Assessment: Supplemental Oxygen General: Alert Lungs: Clear to Auscultation, Normal Respiratory Effort Cardiovascular: Regular Rate, Regular Rhythm GI/Abdominal Exam: Soft, Non-Tender Extremities: No Pedal Edema Psy/Mental Status: Alert - Patient Data Lab Results Last 24 hrs: Laboratory Results - last 24 hr 08/16/21 08/17/21 08/17/21 Range/Units 20:47 06:20 07:03 WBC 9.49 (4.0-11.0) K/uL RBC 4.72 (4.50-5.90) M/uL Hgb 15.1 (13.0-17.0) g/dL Hct 41.4 (38.0-50.0) % MCV 87.7 (80.0-98.0) fL MCH 32.0 (27.0-32.0) pg MCHC 36.5 (31.0-37.0) g/dL RDW Std Deviation 40.5 (28.0-62.0) fl RDW Coeff of [place] 13 (11.0-15.0) % Plt Count 315 (150-400) K/uL MPV 11.10 (7.40-12.00) fL Neut % (Auto) 85.8 H (48.0-80.0) % Lymph % (Auto) 11.7 L (16.0-40.0) % [place] % (Auto) 2.4 (0.0-15.0) % Eos % (Auto) 0.0 (0.0-7.0) % Baso % (Auto) 0.1 (0.0-1.5) % Neut # (Auto) 8.1 H (1.4-5.7) K/uL Lymph # (Auto) 1.1 (0.6-2.4) K/uL [place] # (Auto) 0.2 (0.0-0.8) K/uL Eos # (Auto) 0.0 (0.0-0.7) K/uL Baso # (Auto) 0.0 (0.0-0.1) K/uL Nucleated RBC % 0.0 /100WBC Nucleated RBCs # 0 K/uL Sodium (136-148) mmol/L Potassium (3.5-5.1) mmol/L Chloride (98-107) mmol/L Carbon Dioxide (21.0-32.0) mmol/L BUN (7.0-18.0) mg/dL Creatinine (0.8-1.3) mg/dL Est Cr Clr Drug Dosing mL/min Estimated GFR (MDRD) ml/min Glucose (74-106) mg/dL POC Glucose 382 H 393 H (70-99) mg/dL Calcium (8.5-10.1) mg/dL Total Bilirubin (0.2-1.0) mg/dL AST (15-37) IU/L ALT (14-63) IU/L Alkaline Phosphatase (46-116) U/L Total Protein (6.4-8.2) g/dL Albumin (3.4-5.0) g/dL Globulin (2.6-4.0) g/dL Albumin/Globulin Ratio (0.9-1.6) 08/17/21 08/17/21 Range/Units 07:03 11:53 WBC (4.0-11.0) K/uL RBC (4.50-5.90) M/uL Hgb (13.0-17.0) g/dL Hct (38.0-50.0) % MCV (80.0-98.0) fL MCH (27.0-32.0) pg MCHC (31.0-37.0) g/dL RDW Std Deviation (28.0-62.0) fl RDW Coeff of [place] (11.0-15.0) % Plt Count (150-400) K/uL MPV (7.40-12.00) fL Neut % (Auto) (48.0-80.0) % Lymph % (Auto) (16.0-40.0) % [place] % (Auto) (0.0-15.0) % Eos % (Auto) (0.0-7.0) % Baso % (Auto) (0.0-1.5) % Neut # (Auto) (1.4-5.7) K/uL Lymph # (Auto) (0.6-2.4) K/uL [place] # (Auto) (0.0-0.8) K/uL Eos # (Auto) (0.0-0.7) K/uL Baso # (Auto) (0.0-0.1) K/uL Nucleated RBC % /100WBC Nucleated RBCs # K/uL Sodium 137 (136-148) mmol/L Potassium 3.2 L (3.5-5.1) mmol/L Chloride 98 (98-107) mmol/L Carbon Dioxide 26.5 (21.0-32.0) mmol/L BUN 23 H (7.0-18.0) mg/dL Creatinine 1.3 (0.8-1.3) mg/dL Est Cr Clr Drug Dosing 60.34 mL/min Estimated GFR (MDRD) 55.4 ml/min Glucose 391 H (74-106) mg/dL POC Glucose 386 H (70-99) mg/dL Calcium 9.0 (8.5-10.1) mg/dL Total Bilirubin 0.7 (0.2-1.0) mg/dL AST 52 H (15-37) IU/L ALT 43 (14-63) IU/L Alkaline Phosphatase 64 (46-116) U/L Total Protein 7.4 (6.4-8.2) g/dL Albumin 2.8 L (3.4-5.0) g/dL Globulin 4.6 H (2.6-4.0) g/dL Albumin/Globulin Ratio 0.6 L (0.9-1.6) Result Diagrams: 08/17/21 07:03 08/17/21 07:03 Sepsis Event Note - Evaluation Sepsis Screening Result: No Definite Risk - Focused Exam Vital Signs: Vital Signs Temp Pulse Resp BP Pulse Ox 08/17/21 12:00 97.5 F 79 20 126/64 92 L 08/17/21 08:18 97 F 79 119/72 90 L 08/17/21 06:30 91 L 08/17/21 06:00 97.0 F 83 L - Problem List & Annotations (1) Acute respiratory disease due to COVID-19 virus SNOMED Code(s): 875507846, 006564246 Code(s): U07.1 - COVID-19; J06.9 - ACUTE UPPER RESPIRATORY INFECTION, UNSPECIFIED Status: Acute Current Visit: Yes (2) Obesity (BMI 30-39.9) SNOMED Code(s): 624461953, 936316582 Code(s): E66.9 - OBESITY, UNSPECIFIED Status: Acute Current Visit: Yes (3) Pneumonia due to COVID-19 virus SNOMED Code(s): 887278835003383032 Code(s): U07.1 - COVID-19; J12.82 - PNEUMONIA DUE TO CORONAVIRUS DISEASE 2019 Status: Acute Current Visit: Yes (4) T2DM (type 2 diabetes mellitus) SNOMED Code(s): 71430146 Code(s): E11.9 - TYPE 2 DIABETES MELLITUS WITHOUT COMPLICATIONS Status: Acute Current Visit: Yes - Problem List Review Problem List Initiated/Reviewed/Updated: Yes - My Orders Last 24 Hours: My Active Orders 08/17/21 07:03 VITAMIN D,25-HYDROXY [CHEM] Routine 08/17/21 Dinner [employer] Diet [DIET] 08/18/21 05:11 MAGNESIUM [CHEM] AM - Plan Plan:: Acute respiratory failure secondary to COVID-19 pneumonia dexamethasone 6 mg daily remdesivir 100 mg per IV duo nebulizer treatments, prone positioning, encourage I/S baricitinib 4 mg daily, CRP 22.4 at admission supplemental oxygen as needed, currently on 10L N/C High flow Melatonin 6mg PRN bedtime Diabetes mellitus type 2 SSI High, Diabetic Diet, Accuchecks Assessment and Plan discussed with Dr. Chun <Bryan Chun - Last Filed: 08/19/21 22:56> - Patient Data Vitals - Most Recent: Last Vital Signs Temp 97.5 F 08/19/21 19:32 Pulse 82 08/19/21 19:32 Resp 24 H 08/19/21 19:32 BP 131/89 08/19/21 19:32 Pulse Ox 89 L 08/19/21 19:32 I&O - Last 24 Hours: Intake & Output 08/19/21 08/19/21 08/19/21 06:59 14:59 22:59 Intake Total 1700 760 Output Total 1400 820 Balance 300 -60 Lab Results Last 24 Hours: Laboratory Results - last 24 hr 08/19/21 08/19/21 08/19/21 Range/Units 06:21 06:25 06:25 WBC 14.51 H (4.0-11.0) K/uL RBC 4.02 L (4.50-5.90) M/uL Hgb 12.7 L (13.0-17.0) g/dL Hct 35.4 L (38.0-50.0) % MCV 88.1 (80.0-98.0) fL MCH 31.6 (27.0-32.0) pg MCHC 35.9 (31.0-37.0) g/dL RDW Std Deviation 40.4 (28.0-62.0) fl RDW Coeff of [place] 13 (11.0-15.0) % Plt Count 296 (150-400) K/uL MPV 10.90 (7.40-12.00) fL Neut % (Auto) 88.8 H (48.0-80.0) % Lymph % (Auto) 9.0 L (16.0-40.0) % [place] % (Auto) 2.1 (0.0-15.0) % Eos % (Auto) 0.0 (0.0-7.0) % Baso % (Auto) 0.1 (0.0-1.5) % Neut # (Auto) 12.9 H (1.4-5.7) K/uL Lymph # (Auto) 1.3 (0.6-2.4) K/uL [place] # (Auto) 0.3 (0.0-0.8) K/uL Eos # (Auto) 0.0 (0.0-0.7) K/uL Baso # (Auto) 0.0 (0.0-0.1) K/uL Nucleated RBC % 0.0 /100WBC Nucleated RBCs # 0 K/uL D-Dimer, Quantitative (0.0-0.50) mg/L FEU Sodium 138 (136-148) mmol/L Potassium 3.0 L (3.5-5.1) mmol/L Chloride 102 (98-107) mmol/L Carbon Dioxide 24.7 (21.0-32.0) mmol/L BUN 19 H (7.0-18.0) mg/dL Creatinine 1.1 (0.8-1.3) mg/dL Est Cr Clr Drug Dosing 71.31 mL/min Estimated GFR (MDRD) > 60.0 ml/min Glucose 262 H (74-106) mg/dL POC Glucose 239 H (70-99) mg/dL Calcium 8.3 L (8.5-10.1) mg/dL Total Bilirubin 0.6 (0.2-1.0) mg/dL AST 42 H (15-37) IU/L ALT 34 (14-63) IU/L Alkaline Phosphatase 67 (46-116) U/L Total Protein 6.0 L (6.4-8.2) g/dL Albumin 2.4 L (3.4-5.0) g/dL Globulin 3.6 (2.6-4.0) g/dL Albumin/Globulin Ratio 0.7 L (0.9-1.6) 08/19/21 08/19/21 08/19/21 Range/Units 11:45 15:34 17:06 WBC (4.0-11.0) K/uL RBC (4.50-5.90) M/uL Hgb (13.0-17.0) g/dL Hct (38.0-50.0) % MCV (80.0-98.0) fL MCH (27.0-32.0) pg MCHC (31.0-37.0) g/dL RDW Std Deviation (28.0-62.0) fl RDW Coeff of [place] (11.0-15.0) % Plt Count (150-400) K/uL MPV (7.40-12.00) fL Neut % (Auto) (48.0-80.0) % Lymph % (Auto) (16.0-40.0) % [place] % (Auto) (0.0-15.0) % Eos % (Auto) (0.0-7.0) % Baso % (Auto) (0.0-1.5) % Neut # (Auto) (1.4-5.7) K/uL Lymph # (Auto) (0.6-2.4) K/uL [place] # (Auto) (0.0-0.8) K/uL Eos # (Auto) (0.0-0.7) K/uL Baso # (Auto) (0.0-0.1) K/uL Nucleated RBC % /100WBC Nucleated RBCs # K/uL D-Dimer, Quantitative > 35.20 H (0.0-0.50) mg/L FEU Sodium (136-148) mmol/L Potassium (3.5-5.1) mmol/L Chloride (98-107) mmol/L Carbon Dioxide (21.0-32.0) mmol/L BUN (7.0-18.0) mg/dL Creatinine (0.8-1.3) mg/dL Est Cr Clr Drug Dosing mL/min Estimated GFR (MDRD) ml/min Glucose (74-106) mg/dL POC Glucose 113 H 195 H (70-99) mg/dL Calcium (8.5-10.1) mg/dL Total Bilirubin (0.2-1.0) mg/dL AST (15-37) IU/L ALT (14-63) IU/L Alkaline Phosphatase (46-116) U/L Total Protein (6.4-8.2) g/dL Albumin (3.4-5.0) g/dL Globulin (2.6-4.0) g/dL Albumin/Globulin Ratio (0.9-1.6) 08/19/21 Range/Units 21:38 WBC (4.0-11.0) K/uL RBC (4.50-5.90) M/uL Hgb (13.0-17.0) g/dL Hct (38.0-50.0) % MCV (80.0-98.0) fL MCH (27.0-32.0) pg MCHC (31.0-37.0) g/dL RDW Std Deviation (28.0-62.0) fl RDW Coeff of [place] (11.0-15.0) % Plt Count (150-400) K/uL MPV (7.40-12.00) fL Neut % (Auto) (48.0-80.0) % Lymph % (Auto) (16.0-40.0) % [place] % (Auto) (0.0-15.0) % Eos % (Auto) (0.0-7.0) % Baso % (Auto) (0.0-1.5) % Neut # (Auto) (1.4-5.7) K/uL Lymph # (Auto) (0.6-2.4) K/uL [place] # (Auto) (0.0-0.8) K/uL Eos # (Auto) (0.0-0.7) K/uL Baso # (Auto) (0.0-0.1) K/uL Nucleated RBC % /100WBC Nucleated RBCs # K/uL D-Dimer, Quantitative (0.0-0.50) mg/L FEU Sodium (136-148) mmol/L Potassium (3.5-5.1) mmol/L Chloride (98-107) mmol/L Carbon Dioxide (21.0-32.0) mmol/L BUN (7.0-18.0) mg/dL Creatinine (0.8-1.3) mg/dL Est Cr Clr Drug Dosing mL/min Estimated GFR (MDRD) ml/min Glucose (74-106) mg/dL POC Glucose 174 H (70-99) mg/dL Calcium (8.5-10.1) mg/dL Total Bilirubin (0.2-1.0) mg/dL AST (15-37) IU/L ALT (14-63) IU/L Alkaline Phosphatase (46-116) U/L Total Protein (6.4-8.2) g/dL Albumin (3.4-5.0) g/dL Globulin (2.6-4.0) g/dL Albumin/Globulin Ratio (0.9-1.6) Med Orders - Current: Current Medications Hydrocodone Bitart/Acetaminophen (Acetaminophen/Hydrocodone 325-5 Mg Tab) 1 tab PO Q4H PRN PRN Reason: Pain (moderate 4-6) Last Admin: 08/19/21 02:36 Dose: 1 tab Documented by: Albuterol/Ipratropium (Albuterol/Ipratropium 3.0-0.5 Mg/3 Ml Neb Soln) 3 ml NEB Q2H PRN PRN Reason: Dyspepsia Albuterol/Ipratropium (Albuterol/Ipratropium 3.0-0.5 Mg/3 Ml Neb Soln) 3 ml NEB Q4HRRT [facility] Last Admin: 08/19/21 22:04 Dose: 3 ml Documented by: Apixaban (Apixaban 5 Mg Tab) 10 mg PO Q12H [facility] Stop: 08/26/21 06:01 Last Admin: 08/19/21 17:34 Dose: 10 mg Documented by: Baricitinib (Baricitinib 2 Mg Tab) 4 mg PO DAILY [facility] Stop: 08/30/21 09:01 Last Admin: 08/19/21 09:24 Dose: 4 mg Documented by: Dexamethasone (Dexamethasone 4 Mg Tab) 6 mg PO DAILY [facility] Last Admin: 08/19/21 09:24 Dose: 6 mg Documented by: Dextrose/Water (50% Dextrose In Water 50 Ml Syringe) 50 ml IVPUSH ASDIRECTED PRN PRN Reason: Hypoglycemia Dextrose/Water (50% Dextrose In Water 50 Ml Syringe) 50 ml IVPUSH ASDIRECTED P RN PRN Reason: Hypoglycemia Enoxaparin Sodium (Enoxaparin 40 Mg/0.4 Ml Syringe) 40 mg SUBCUT Q24H [facility] Glucagon (Glucagon,Human Recombinant 1 Mg Vial) 1 mg IM ASDIRECTED PRN PRN Reason: Hypoglycemia Glucagon (Glucagon,Human Recombinant 1 Mg Vial) 1 mg IM ASDIRECTED PRN PRN Reason: Hypoglycemia Guaifenesin/Dextromethorphan (Guaifenesin/Dextromethorphan 100-10 Mg/5 Ml Soln 10 Ml Cup) 10 ml PO Q6H PRN PRN Reason: Cough Last Admin: 08/19/21 02:32 Dose: 10 ml Documented by: Insulin Aspart (Insulin Aspart 100 Units/Ml 3 Ml Pen) 0 unit SUBCUT TIDAC [facility]; Protocol Last Admin: 08/19/21 17:39 Dose: 3 units Documented by: Insulin Glargine (Insulin Glargine,Human Rec. Analog 100 Units/Ml 3 Ml Pen) 20 units SUBCUT BEDTIME [facility] Last Admin: 08/19/21 22:03 Dose: 20 units Documented by: Melatonin (Melatonin 3 Mg Tab) 6 mg PO BEDTIME PRN PRN Reason: Insomnia Last Admin: 08/18/21 21:45 Dose: 6 mg Documented by: Ondansetron HCl (Ondansetron 4 Mg Tab.Dis) 4 mg PO Q6H PRN PRN Reason: nausea, able to take PO Last Admin: 08/17/21 13:41 Dose: 4 mg Documented by: Ondansetron HCl (Ondansetron 4 Mg/2 Ml Sdv) 4 mg IVPUSH Q6H PRN PRN Reason: Nausea/Vomiting Last Admin: 08/19/21 16:07 Dose: 4 mg Documented by: Discontinued Medications Dexamethasone (Dexamethasone Solution 0.5 Mg/5 Ml) 6 mg PO DAILY [facility] Last Admin: 08/16/21 17:40 Dose: Not Given Documented by: Enoxaparin Sodium (Enoxaparin 40 Mg/0.4 Ml Syringe) 40 mg SUBCUT Q24H [facility] Last Admin: 08/16/21 17:40 Dose: Not Given Documented by: Enoxaparin Sodium (Enoxaparin 40 Mg/0.4 Ml Syringe) 40 mg SUBCUT Q12HR [facility] Last Admin: 08/19/21 09:25 Dose: 40 mg Documented by: Remdesivir 200 mg/ Sodium (Chloride) 250 mls @ 250 mls/hr IV ONETIME ONE Stop: 08/15/21 19:52 Last Admin: 08/15/21 20:47 Dose: 250 mls/hr Documented by: Sodium Chloride (Normal Saline) 1,000 mls @ 150 mls/hr IV STAT ONE Stop: 08/16/21 03:36 Last Admin: 08/15/21 23:01 Dose: 150 mls/hr Documented by: Remdesivir 100 mg/ Sodium (Chloride) 100 mls @ 100 mls/hr IV Q24H AWA Stop: 08/19/21 21:59 Last Admin: 08/19/21 21:57 Dose: 100 mls/hr Documented by: Potassium Chloride/Sodium Chloride (Normal Saline With 20 Meq Kcl) 500 mls @ 75 mls/hr IV ASDIRECTED [facility] Insulin Aspart (Insulin Aspart 100 Units/Ml 3 Ml Pen) 0 unit SUBCUT ACBREAKFASTANDBED [facility]; Protocol Last Admin: 08/17/21 08:16 Dose: 5 units Documented by: Insulin Aspart (Insulin Aspart 100 Units/Ml 3 Ml Pen) 0 unit SUBCUT BEDTIME [facility]; Protocol Last Admin: 08/18/21 21:58 Dose: Not Given Documented by: Insulin Aspart (Insulin Aspart 100 Units/Ml 3 Ml Pen) 6 unit SUBCUT ONETIME ONE Stop: 08/18/21 21:53 Last Admin: 08/18/21 21:56 Dose: 6 units Documented by: Iopamidol (Iopamidol 755 Mg/Ml 100 Ml Bottle) 100 ml IVPUSH ONETIME ONE Stop: 08/15/21 21:00 Last Admin: 08/15/21 21:37 Dose: 100 ml Documented by: Iopamidol (Iopamidol 755 Mg/Ml 500 Ml Multipack Bottle) 100 ml IVPUSH ONETIME STA Stop: 08/19/21 21:36 Last Admin: 08/19/21 21:36 Dose: 100 ml Documented by: Potassium Chloride (Potassium Chloride 20 Meq Tab.Er) 20 meq PO TID AWA Stop: 08/19/21 14:01 Last Admin: 08/19/21 13:49 Dose: 20 meq Documented by: Potassium Chloride (Potassium Chloride 20 Meq Tab.Er) 40 meq PO ONETIME ONE Stop: 08/19/21 08:55 Last Admin: 08/19/21 09:24 Dose: 40 meq Documented by: Potassium Chloride (Potassium Chloride 20 Meq Tab.Er) 40 meq PO ONETIME ONE Stop: 08/19/21 14:53 Last Admin: 08/19/21 15:14 Dose: 40 meq Documented by: - Patient Data Lab Results Last 24 hrs: Laboratory Results - last 24 hr 08/19/21 08/19/21 08/19/21 Range/Units 06:21 06:25 06:25 WBC 14.51 H (4.0-11.0) K/uL RBC 4.02 L (4.50-5.90) M/uL Hgb 12.7 L (13.0-17.0) g/dL Hct 35.4 L (38.0-50.0) % MCV 88.1 (80.0-98.0) fL MCH 31.6 (27.0-32.0) pg MCHC 35.9 (31.0-37.0) g/dL RDW Std Deviation 40.4 (28.0-62.0) fl RDW Coeff of [place] 13 (11.0-15.0) % Plt Count 296 (150-400) K/uL MPV 10.90 (7.40-12.00) fL Neut % (Auto) 88.8 H (48.0-80.0) % Lymph % (Auto) 9.0 L (16.0-40.0) % [place] % (Auto) 2.1 (0.0-15.0) % Eos % (Auto) 0.0 (0.0-7.0) % Baso % (Auto) 0.1 (0.0-1.5) % Neut # (Auto) 12.9 H (1.4-5.7) K/uL Lymph # (Auto) 1.3 (0.6-2.4) K/uL [place] # (Auto) 0.3 (0.0-0.8) K/uL Eos # (Auto) 0.0 (0.0-0.7) K/uL Baso # (Auto) 0.0 (0.0-0.1) K/uL Nucleated RBC % 0.0 /100WBC Nucleated RBCs # 0 K/uL D-Dimer, Quantitative (0.0-0.50) mg/L FEU Sodium 138 (136-148) mmol/L Potassium 3.0 L (3.5-5.1) mmol/L Chloride 102 (98-107) mmol/L Carbon Dioxide 24.7 (21.0-32.0) mmol/L BUN 19 H (7.0-18.0) mg/dL Creatinine 1.1 (0.8-1.3) mg/dL Est Cr Clr Drug Dosing 71.31 mL/min Estimated GFR (MDRD) > 60.0 ml/min Glucose 262 H (74-106) mg/dL POC Glucose 239 H (70-99) mg/dL Calcium 8.3 L (8.5-10.1) mg/dL Total Bilirubin 0.6 (0.2-1.0) mg/dL AST 42 H (15-37) IU/L ALT 34 (14-63) IU/L Alkaline Phosphatase 67 (46-116) U/L Total Protein 6.0 L (6.4-8.2) g/dL Albumin 2.4 L (3.4-5.0) g/dL Globulin 3.6 (2.6-4.0) g/dL Albumin/Globulin Ratio 0.7 L (0.9-1.6) 08/19/21 08/19/21 08/19/21 Range/Units 11:45 15:34 17:06 WBC (4.0-11.0) K/uL RBC (4.50-5.90) M/uL Hgb (13.0-17.0) g/dL Hct (38.0-50.0) % MCV (80.0-98.0) fL MCH (27.0-32.0) pg MCHC (31.0-37.0) g/dL RDW Std Deviation (28.0-62.0) fl RDW Coeff of [place] (11.0-15.0) % Plt Count (150-400) K/uL MPV (7.40-12.00) fL Neut % (Auto) (48.0-80.0) % Lymph % (Auto) (16.0-40.0) % [place] % (Auto) (0.0-15.0) % Eos % (Auto) (0.0-7.0) % Baso % (Auto) (0.0-1.5) % Neut # (Auto) (1.4-5.7) K/uL Lymph # (Auto) (0.6-2.4) K/uL [place] # (Auto) (0.0-0.8) K/uL Eos # (Auto) (0.0-0.7) K/uL Baso # (Auto) (0.0-0.1) K/uL Nucleated RBC % /100WBC Nucleated RBCs # K/uL D-Dimer, Quantitative > 35.20 H (0.0-0.50) mg/L FEU Sodium (136-148) mmol/L Potassium (3.5-5.1) mmol/L Chloride (98-107) mmol/L Carbon Dioxide (21.0-32.0) mmol/L BUN (7.0-18.0) mg/dL Creatinine (0.8-1.3) mg/dL Est Cr Clr Drug Dosing mL/min Estimated GFR (MDRD) ml/min Glucose (74-106) mg/dL POC Glucose 113 H 195 H (70-99) mg/dL Calcium (8.5-10.1) mg/dL Total Bilirubin (0.2-1.0) mg/dL AST (15-37) IU/L ALT (14-63) IU/L Alkaline Phosphatase (46-116) U/L Total Protein (6.4-8.2) g/dL Albumin (3.4-5.0) g/dL Globulin (2.6-4.0) g/dL Albumin/Globulin Ratio (0.9-1.6) 08/19/21 Range/Units 21:38 WBC (4.0-11.0) K/uL RBC (4.50-5.90) M/uL Hgb (13.0-17.0) g/dL Hct (38.0-50.0) % MCV (80.0-98.0) fL MCH (27.0-32.0) pg MCHC (31.0-37.0) g/dL RDW Std Deviation (28.0-62.0) fl RDW Coeff of [place] (11.0-15.0) % Plt Count (150-400) K/uL MPV (7.40-12.00) fL Neut % (Auto) (48.0-80.0) % Lymph % (Auto) (16.0-40.0) % [place] % (Auto) (0.0-15.0) % Eos % (Auto) (0.0-7.0) % Baso % (Auto) (0.0-1.5) % Neut # (Auto) (1.4-5.7) K/uL Lymph # (Auto) (0.6-2.4) K/uL [place] # (Auto) (0.0-0.8) K/uL Eos # (Auto) (0.0-0.7) K/uL Baso # (Auto) (0.0-0.1) K/uL Nucleated RBC % /100WBC Nucleated RBCs # K/uL D-Dimer, Quantitative (0.0-0.50) mg/L FEU Sodium (136-148) mmol/L Potassium (3.5-5.1) mmol/L Chloride (98-107) mmol/L Carbon Dioxide (21.0-32.0) mmol/L BUN (7.0-18.0) mg/dL Creatinine (0.8-1.3) mg/dL Est Cr Clr Drug Dosing mL/min Estimated GFR (MDRD) ml/min Glucose (74-106) mg/dL POC Glucose 174 H (70-99) mg/dL Calcium (8.5-10.1) mg/dL Total Bilirubin (0.2-1.0) mg/dL AST (15-37) IU/L ALT (14-63) IU/L Alkaline Phosphatase (46-116) U/L Total Protein (6.4-8.2) g/dL Albumin (3.4-5.0) g/dL Globulin (2.6-4.0) g/dL Albumin/Globulin Ratio (0.9-1.6) Result Diagrams: 08/19/21 06:25 08/19/21 06:25 Sepsis Event Note - Focused Exam Vital Signs: Vital Signs Temp Pulse Resp BP Pulse Ox Pulse Ox 08/19/21 19:32 97.5 F 82 24 H 131/89 89 L 08/19/21 16:00 92 L 08/19/21 15:00 98.5 F 89 22 H 137/72 08/19/21 11:16 97.5 F 87 20 159/83 H 93 L Objective:: Discussed the patient's findings and plan and confirmed them with Dr. [facility] Transferred patient care by direct report to Dr. Ty Blake 20:00, 08/17/2021.
[2021-08-17] MEDS ORDERED: Glucagon,Human Recombinant 1 MG Vial IM PRN (21:16)
[2021-08-17] MEDS ORDERED: 50% Dextrose in Water 50 ML Syringe IVPUSH PRN (21:16)
[2021-08-17] MEDS: REMDESIVIR 100 MG in Sodium Chloride 0.9% 100 ML IV SCH (22:09)
[2021-08-18] MEDS: Albuterol/Ipratropium 3.0-0.5 MG/3 ML Neb Soln NEB SCH ×6 (02:14→21:57)
[2021-08-18] MEDS: Potassium Chloride 20 MEQ Tab.ER PO SCH ×3 (05:52→21:44)
[2021-08-18 07:54] LABS: BLOOD UREA NITROGEN,BUN 22 mg/dL (7.0-18.0); CARBON DIOXIDE,CO2 22.8 mmol/L (21.0-32.0); CHLORIDE,CL 102 mmol/L (98-107); GLUCOSE RANDOM 328 mg/dL (74-106); POTASSIUM,K 3.3 mmol/L (3.5-5.1); SODIUM,NA 141 mmol/L (136-148)
[2021-08-18] MEDS: Insulin Aspart 100 Units/ML 3 ML Pen SUBCUT SCH ×4 (08:00→21:58)
[2021-08-18] MEDS: Dexamethasone 4 MG Tab PO SCH (08:01)
[2021-08-18] MEDS: Enoxaparin 40 MG/0.4 ML Syringe SUBCUT SCH ×2 (08:01→21:45)
--- NOTE | 2021-08-18 14:10 | PCM.PN ---
- General Info Date of Service: 08/18/21 Admission Dx/Problem (Free Text): Admission Diagnosis/Problem Admission Diagnosis/Problem Hypoxia/covid/dm Subjective Update: 08/18/21 day 3 for covid pneumonia with protocol treatment stable and doing well . still not much appetite but can catch breathe today and talk a little easier. lungs congested and mild wheezes. cor rrr 90s. ext min. edema. no swelling calves. labs stable assess: covid day 3-4 protocol treatments and minimal o2 requirements. symptoms / day count unknown. maybe improved slightly dm 2 bs very high and added lantus 20 units daily , barely eating. plan: cont current treatments and cont p.e. prophylaxis. boh Functional Status: Reports: Pain Controlled - Review of Systems General: Reports: No Symptoms, Weakness, Fatigue, Malaise HEENT: Reports: No Symptoms Pulmonary: Reports: No Symptoms, Shortness of Breath, Cough, Wheezing Cardiovascular: Reports: No Symptoms Gastrointestinal: Reports: No Symptoms Genitourinary: Reports: No Symptoms Musculoskeletal: Reports: No Symptoms Skin: Reports: No Symptoms Neurological: Reports: No Symptoms Psychiatric: Reports: No Symptoms - Patient Data Vitals - Most Recent: Last Vital Signs Temp 36.6 C 08/18/21 11:00 Pulse 71 08/18/21 11:00 Resp 20 08/18/21 11:00 BP 140/65 08/18/21 11:00 Pulse Ox 95 08/18/21 11:00 Weight - Most Recent: 110.223 kg I&O - Last 24 Hours: Intake & Output 08/17/21 08/18/21 08/18/21 23:59 07:59 15:59 Intake Total 1100 660 Output Total 600 900 Balance 500 -240 Lab Results Last 24 Hours: Laboratory Results - last 24 hr 08/17/21 08/17/21 08/18/21 Range/Units 17:49 21:20 06:16 WBC (4.0-11.0) K/uL RBC (4.50-5.90) M/uL Hgb (13.0-17.0) g/dL Hct (38.0-50.0) % MCV (80.0-98.0) fL MCH (27.0-32.0) pg MCHC (31.0-37.0) g/dL RDW Std Deviation (28.0-62.0) fl RDW Coeff of [place] (11.0-15.0) % Plt Count (150-400) K/uL MPV (7.40-12.00) fL Neut % (Auto) (48.0-80.0) % Lymph % (Auto) (16.0-40.0) % [place] % (Auto) (0.0-15.0) % Eos % (Auto) (0.0-7.0) % Baso % (Auto) (0.0-1.5) % Neut # (Auto) (1.4-5.7) K/uL Lymph # (Auto) (0.6-2.4) K/uL [place] # (Auto) (0.0-0.8) K/uL Eos # (Auto) (0.0-0.7) K/uL Baso # (Auto) (0.0-0.1) K/uL Nucleated RBC % /100WBC Nucleated RBCs # K/uL Sodium (136-148) mmol/L Potassium (3.5-5.1) mmol/L Chloride (98-107) mmol/L Carbon Dioxide (21.0-32.0) mmol/L BUN (7.0-18.0) mg/dL Creatinine (0.8-1.3) mg/dL Est Cr Clr Drug Dosing mL/min Estimated GFR (MDRD) ml/min Glucose (74-106) mg/dL POC Glucose 425 H* 381 H 308 H (70-99) mg/dL Calcium (8.5-10.1) mg/dL Magnesium (1.8-2.4) mg/dL Total Bilirubin (0.2-1.0) mg/dL AST (15-37) IU/L ALT (14-63) IU/L Alkaline Phosphatase (46-116) U/L Total Protein (6.4-8.2) g/dL Albumin (3.4-5.0) g/dL Globulin (2.6-4.0) g/dL Albumin/Globulin Ratio (0.9-1.6) 08/18/21 08/18/21 08/18/21 Range/Units 06:50 06:50 11:47 WBC 12.50 H (4.0-11.0) K/uL RBC 4.20 L (4.50-5.90) M/uL Hgb 13.2 (13.0-17.0) g/dL Hct 36.6 L (38.0-50.0) % MCV 87.1 (80.0-98.0) fL MCH 31.4 (27.0-32.0) pg MCHC 36.1 (31.0-37.0) g/dL RDW Std Deviation 40.4 (28.0-62.0) fl RDW Coeff of [place] 13 (11.0-15.0) % Plt Count 306 (150-400) K/uL MPV 10.80 (7.40-12.00) fL Neut % (Auto) 88.8 H (48.0-80.0) % Lymph % (Auto) 7.8 L (16.0-40.0) % [place] % (Auto) 3.4 (0.0-15.0) % Eos % (Auto) 0.0 (0.0-7.0) % Baso % (Auto) 0.0 (0.0-1.5) % Neut # (Auto) 11.1 H (1.4-5.7) K/uL Lymph # (Auto) 1.0 (0.6-2.4) K/uL [place] # (Auto) 0.4 (0.0-0.8) K/uL Eos # (Auto) 0.0 (0.0-0.7) K/uL Baso # (Auto) 0.0 (0.0-0.1) K/uL Nucleated RBC % 0.0 /100WBC Nucleated RBCs # 0 K/uL Sodium 141 (136-148) mmol/L Potassium 3.3 L (3.5-5.1) mmol/L Chloride 102 (98-107) mmol/L Carbon Dioxide 22.8 (21.0-32.0) mmol/L BUN 22 H (7.0-18.0) mg/dL Creatinine 1.0 (0.8-1.3) mg/dL Est Cr Clr Drug Dosing 78.44 mL/min Estimated GFR (MDRD) > 60.0 ml/min Glucose 328 H (74-106) mg/dL POC Glucose 375 H (70-99) mg/dL Calcium 9.1 (8.5-10.1) mg/dL Magnesium 2.1 (1.8-2.4) mg/dL Total Bilirubin 0.6 (0.2-1.0) mg/dL AST 37 (15-37) IU/L ALT 32 (14-63) IU/L Alkaline Phosphatase 63 (46-116) U/L Total Protein 5.9 L (6.4-8.2) g/dL Albumin 2.6 L (3.4-5.0) g/dL Globulin 3.3 (2.6-4.0) g/dL Albumin/Globulin Ratio 0.8 L (0.9-1.6) Med Orders - Current: Current Medications Hydrocodone Bitart/Acetaminophen (Acetaminophen/Hydrocodone 325-5 Mg Tab) 1 tab PO Q4H PRN PRN Reason: Pain (moderate 4-6) Albuterol/Ipratropium (Albuterol/Ipratropium 3.0-0.5 Mg/3 Ml Neb Soln) 3 ml NEB Q2H PRN PRN Reason: Dyspepsia Albuterol/Ipratropium (Albuterol/Ipratropium 3.0-0.5 Mg/3 Ml Neb Soln) 3 ml NEB Q4HRRT [facility] Last Admin: 08/18/21 09:06 Dose: 3 ml Documented by: Baricitinib (Baricitinib 2 Mg Tab) 4 mg PO DAILY [facility] Stop: 08/30/21 09:01 Last Admin: 08/18/21 08:01 Dose: 4 mg Documented by: Dexamethasone (Dexamethasone 4 Mg Tab) 6 mg PO DAILY [facility] Last Admin: 08/18/21 08:01 Dose: 6 mg Documented by: Dextrose/Water (50% Dextrose In Water 50 Ml Syringe) 50 ml IVPUSH ASDIRECTED PRN PRN Reason: Hypoglycemia Dextrose/Water (50% Dextrose In Water 50 Ml Syringe) 50 ml IVPUSH ASDIRECTED PRN PRN Reason: Hypoglycemia Enoxaparin Sodium (Enoxaparin 40 Mg/0.4 Ml Syringe) 40 mg SUBCUT Q12HR [facility] Last Admin: 08/18/21 08:01 Dose: 40 mg Documented by: Glucagon (Glucagon,Human Recombinant 1 Mg Vial) 1 mg IM ASDIRECTED PRN PRN Reason: Hypoglycemia Glucagon (Glucagon,Human Recombinant 1 Mg Vial) 1 mg IM ASDIRECTED PRN PRN Reason: Hypoglycemia Remdesivir 100 mg/ Sodium (Chloride) 100 mls @ 100 mls/hr IV Q24H [facility] Stop: 08/19/21 21:59 Last Admin: 08/17/21 22:09 Dose: 100 mls/hr Documented by: Potassium Chloride/Sodium Chloride (Normal Saline With 20 Meq Kcl) 500 mls @ 75 mls/hr IV ASDIRECTED AWA Insulin Aspart (Insulin Aspart 100 Units/Ml 3 Ml Pen) 0 unit SUBCUT TIDAC AWA; Protocol Last Admin: 08/18/21 11:48 Dose: 15 units Documented by: Insulin Aspart (Insulin Aspart 100 Units/Ml 3 Ml Pen) 0 unit SUBCUT BEDTIME AWA; Protocol Last Admin: 08/17/21 22:17 Dose: 15 units Documented by: Insulin Glargine (Insulin Glargine,Human Rec. Analog 100 Units/Ml 3 Ml Pen) 20 units SUBCUT BEDTIME AWA Melatonin (Melatonin 3 Mg Tab) 6 mg PO BEDTIME PRN PRN Reason: Insomnia Last Admin: 08/17/21 22:16 Dose: 6 mg Documented by: Ondansetron HCl (Ondansetron 4 Mg Tab.Dis) 4 mg PO Q6H PRN PRN Reason: nausea, able to take PO Last Admin: 08/17/21 13:41 Dose: 4 mg Documented by: Potassium Chloride (Potassium Chloride 20 Meq Tab.Er) 20 meq PO TID [facility] Stop: 08/19/21 14:01 Last Admin: 08/18/21 13:52 Dose: 20 meq Documented by: Discontinued Medications Dexamethasone (Dexamethasone Solution 0.5 Mg/5 Ml) 6 mg PO DAILY [facility] Last Admin: 08/16/21 17:40 Dose: Not Given Documented by: Enoxaparin Sodium (Enoxaparin 40 Mg/0.4 Ml Syringe) 40 mg SUBCUT Q24H [facility] Last Admin: 08/16/21 17:40 Dose: Not Given Documented by: Remdesivir 200 mg/ Sodium (Chloride) 250 mls @ 250 mls/hr IV ONETIME ONE Stop: 08/15/21 19:52 Last Admin: 08/15/21 20:47 Dose: 250 mls/hr Documented by: Sodium Chloride (Normal Saline) 1,000 mls @ 150 mls/hr IV STAT ONE Stop: 08/16/21 03:36 Last Admin: 08/15/21 23:01 Dose: 150 mls/hr Documented by: Insulin Aspart (Insulin Aspart 100 Units/Ml 3 Ml Pen) 0 unit SUBCUT ACBREAKFASTANDBED AWA; Protocol Last Admin: 08/17/21 08:16 Dose: 5 units Documented by: Iopamidol (Iopamidol 755 Mg/Ml 100 Ml Bottle) 100 ml IVPUSH ONETIME ONE Stop: 08/15/21 21:00 Last Admin: 08/15/21 21:37 Dose: 100 ml Documented by: Comments:: i/o okay // no po intake and little water. - Exam Quality Assessment: Supplemental Oxygen, DVT Prophylaxis General: Alert, Oriented HEENT: Pupils Equal, Pupils Reactive, EOMI, Mucous Membr. Moist/[place] Neck: Supple Lungs: Clear to Auscultation, Normal Respiratory Effort, Decreased Breath Sounds, Wheezing Cardiovascular: Regular Rate, Regular Rhythm GI/Abdominal Exam: Normal Bowel Sounds, Soft, Non-Tender, No Organomegaly, No Distention, No Abnormal Bruit, No Mass, Pelvis Stable (Male) Exam: No Hernia, Normal Inspection, Normal Prostate, Circumcised Back Exam: Normal Inspection, Full Range of Motion Extremities: Normal Inspection, Normal Range of Motion, Non-Tender, No Pedal Edema, Normal Capillary Refill Skin: Warm, Dry, Intact Wound/Incisions: Healing Well Neurological: No New Focal Deficit Psy/Mental Status: Alert, Normal Affect, Normal Mood - Patient Data Lab Results Last 24 hrs: Laboratory Results - last 24 hr 08/17/21 08/17/21 08/18/21 Range/Units 17:49 21:20 06:16 WBC (4.0-11.0) K/uL RBC (4.50-5.90) M/uL Hgb (13.0-17.0) g/dL Hct (38.0-50.0) % MCV (80.0-98.0) fL MCH (27.0-32.0) pg MCHC (31.0-37.0) g/dL RDW Std Deviation (28.0-62.0) fl RDW Coeff of [place] (11.0-15.0) % Plt Count (150-400) K/uL MPV (7.40-12.00) fL Neut % (Auto) (48.0-80.0) % Lymph % (Auto) (16.0-40.0) % [place] % (Auto) (0.0-15.0) % Eos % (Auto) (0.0-7.0) % Baso % (Auto) (0.0-1.5) % Neut # (Auto) (1.4-5.7) K/uL Lymph # (Auto) (0.6-2.4) K/uL [place] # (Auto) (0.0-0.8) K/uL Eos # (Auto) (0.0-0.7) K/uL Baso # (Auto) (0.0-0.1) K/uL Nucleated RBC % /100WBC Nucleated RBCs # K/uL Sodium (136-148) mmol/L Potassium (3.5-5.1) mmol/L Chloride (98-107) mmol/L Carbon Dioxide (21.0-32.0) mmol/L BUN (7.0-18.0) mg/dL Creatinine (0.8-1.3) mg/dL Est Cr Clr Drug Dosing mL/min Estimated GFR (MDRD) ml/min Glucose (74-106) mg/dL POC Glucose 425 H* 381 H 308 H (70-99) mg/dL Calcium (8.5-10.1) mg/dL Magnesium (1.8-2.4) mg/dL Total Bilirubin (0.2-1.0) mg/dL AST (15-37) IU/L ALT (14-63) IU/L Alkaline Phosphatase (46-116) U/L Total Protein (6.4-8.2) g/dL Albumin (3.4-5.0) g/dL Globulin (2.6-4.0) g/dL Albumin/Globulin Ratio (0.9-1.6) 08/18/21 08/18/21 08/18/21 Range/Units 06:50 06:50 11:47 WBC 12.50 H (4.0-11.0) K/uL RBC 4.20 L (4.50-5.90) M/uL Hgb 13.2 (13.0-17.0) g/dL Hct 36.6 L (38.0-50.0) % MCV 87.1 (80.0-98.0) fL MCH 31.4 (27.0-32.0) pg MCHC 36.1 (31.0-37.0) g/dL RDW Std Deviation 40.4 (28.0-62.0) fl RDW Coeff of [place] 13 (11.0-15.0) % Plt Count 306 (150-400) K/uL MPV 10.80 (7.40-12.00) fL Neut % (Auto) 88.8 H (48.0-80.0) % Lymph % (Auto) 7.8 L (16.0-40.0) % [place] % (Auto) 3.4 (0.0-15.0) % Eos % (Auto) 0.0 (0.0-7.0) % Baso % (Auto) 0.0 (0.0-1.5) % Neut # (Auto) 11.1 H (1.4-5.7) K/uL Lymph # (Auto) 1.0 (0.6-2.4) K/uL [place] # (Auto) 0.4 (0.0-0.8) K/uL Eos # (Auto) 0.0 (0.0-0.7) K/uL Baso # (Auto) 0.0 (0.0-0.1) K/uL Nucleated RBC % 0.0 /100WBC Nucleated RBCs # 0 K/uL Sodium 141 (136-148) mmol/L Potassium 3.3 L (3.5-5.1) mmol/L Chloride 102 (98-107) mmol/L Carbon Dioxide 22.8 (21.0-32.0) mmol/L BUN 22 H (7.0-18.0) mg/dL Creatinine 1.0 (0.8-1.3) mg/dL Est Cr Clr Drug Dosing 78.44 mL/min Estimated GFR (MDRD) > 60.0 ml/min Glucose 328 H (74-106) mg/dL POC Glucose 375 H (70-99) mg/dL Calcium 9.1 (8.5-10.1) mg/dL Magnesium 2.1 (1.8-2.4) mg/dL Total Bilirubin 0.6 (0.2-1.0) mg/dL AST 37 (15-37) IU/L ALT 32 (14-63) IU/L Alkaline Phosphatase 63 (46-116) U/L Total Protein 5.9 L (6.4-8.2) g/dL Albumin 2.6 L (3.4-5.0) g/dL Globulin 3.3 (2.6-4.0) g/dL Albumin/Globulin Ratio 0.8 L (0.9-1.6) Result Diagrams: 08/18/21 06:50 08/18/21 06:50 Sepsis Event Note - Evaluation Sepsis Screening Result: No Definite Risk - Focused Exam Vital Signs: Vital Signs Temp Pulse Resp BP Pulse Ox 08/18/21 11:00 36.6 C 71 20 140/65 95 08/18/21 07:00 36.2 C 65 22 H 128/60 93 L 08/18/21 03:29 36.4 C 60 17 116/63 95 - Problem List & Annotations (1) Obesity (BMI 30-39.9) SNOMED Code(s): 343492664, 326412942 Code(s): E66.9 - OBESITY, UNSPECIFIED Status: Acute Priority: Medium Current Visit: Yes (2) Pneumonia due to COVID-19 virus SNOMED Code(s): 894855877686765432 Code(s): U07.1 - COVID-19; J12.82 - PNEUMONIA DUE TO CORONAVIRUS DISEASE 2019 Status: Acute Priority: High Current Visit: Yes Onset Date: ~08/17/21 Annotation/Comment:: 10 litlers nebs and prone positioning. 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 - Problem List Review Problem List Initiated/Reviewed/Updated: Yes - My Orders Last 24 Hours: My Active Orders 08/17/21 21:00 Insulin Aspart [NovoLOG] See Protocol SUBCUT BEDTIME 08/17/21 21:16 Dextrose 50% in Water 50 ml IVPUSH ASDIRECTED PRN Glucagon,Human Recombinant [GlucaGen] 1 mg IM ASDIRECTED PRN 08/18/21 21:00 Insulin Glarg,Human.Rec.Analog [LantUS Solostar] 20 units SUBCUT BEDTIME - Assessment Assessment:: Acute respiratory failure secondary to COVID-19 pneumonia dexamethasone 6 mg daily remdesivir 100 mg per IV duo nebulizer treatments, prone positioning, encourage I/S baricitinib 4 mg daily, CRP 22.4 supplemental oxygen as needed, currently on 10L N/C High flow Melatonin 6mg PRN bedtime Diabetes mellitus type 2 SSI High, Diabetic Diet, Accuchecks - Plan Plan:: Acute respiratory failure secondary to COVID-19 pneumonia dexamethasone 6 mg daily remdesivir 100 mg per IV duo nebulizer treatments, prone positioning, encourage I/S baricitinib 4 mg daily, CRP 22.4 at admission supplemental oxygen as needed, currently on 10L N/C High flow Melatonin 6mg PRN bedtime Diabetes mellitus type 2 SSI High, Diabetic Diet, Accuchecks Assessment and Plan discussed with Dr. Chun
[2021-08-18] MEDS: Acetaminophen/HYDROcodone 325-5 MG Tab PO PRN (17:58)
[2021-08-18] MEDS: REMDESIVIR 100 MG in Sodium Chloride 0.9% 100 ML IV SCH (21:42)
[2021-08-18] MEDS: Melatonin 3 MG Tab PO PRN (21:45)
[2021-08-18] MEDS: Insulin Glargine,Human Rec. Analog 100 Units/ML 3 ML Pen SUBCUT SCH (21:46)
[2021-08-18] MEDS ORDERED: Insulin Aspart 100 Units/ML 3 ML Pen SUBCUT ONE (21:52)
[2021-08-19] MEDS: guaiFENesin/Dextromethorphan 100-10 MG/5 ML Soln 10 ML Cup PO PRN (02:32)
[2021-08-19] MEDS: Acetaminophen/HYDROcodone 325-5 MG Tab PO PRN (02:36)
[2021-08-19] MEDS: Albuterol/Ipratropium 3.0-0.5 MG/3 ML Neb Soln NEB SCH ×6 (02:38→22:04)
[2021-08-19] MEDS: Potassium Chloride 20 MEQ Tab.ER PO SCH ×2 (05:57→13:49)
[2021-08-19 07:51] LABS: BLOOD UREA NITROGEN,BUN 19 mg/dL (7.0-18.0); CARBON DIOXIDE,CO2 24.7 mmol/L (21.0-32.0); CHLORIDE,CL 102 mmol/L (98-107); GLUCOSE RANDOM 262 mg/dL (74-106); SODIUM,NA 138 mmol/L (136-148)
[2021-08-19] MEDS ORDERED: Potassium Chloride 20 MEQ Tab.ER PO ONE ×2 (08:54→14:52)
[2021-08-19] MEDS: Insulin Aspart 100 Units/ML 3 ML Pen SUBCUT SCH ×3 (09:21→17:39)
[2021-08-19] MEDS: Dexamethasone 4 MG Tab PO SCH (09:24)
[2021-08-19] MEDS: Enoxaparin 40 MG/0.4 ML Syringe SUBCUT SCH (09:25)
--- NOTE | 2021-08-19 14:25 | PCM.PN ---
- General Info Date of Service: 08/19/21 Subjective Update: The patient is a 66-year-old male, on day 5 of service, who has a significant past medical history of obesity and diabetes mellitus type 2, who was admitted to the medical floor due to acute respiratory failure secondary to COVID-19 pneumonia. Upon interview with the patient today, he continues to be extremely short of breath and could not answer questions without going into coughing spells. Respiratory therapy had to work with this patient throughout the morning in order to find an oxygen level which would effectively saturate the patient's tissues. He was eventually stabilized on heated high flow, and was saturating over 90%. The patient was hypokalemic this morning and was given 40 mEq of potassium chloride. He will be given an additional dose in order to have his levels above 3.5. The patient is not eating or drinking. No other he alth concerns could be addressed at this time due to the patient being a poor historian. We will continue to treat him with different COVID-19 protocol medications and oxygen. - Review of Systems General: Reports: Other (The patient is a poor historian and it was difficult to obtain answers from him due to him going into a coughing spells when trying to speak) - Patient Data Vitals - Most Recent: Last Vital Signs Temp 97.5 F 08/19/21 11:16 Pulse 87 08/19/21 11:16 Resp 20 08/19/21 11:16 BP 159/83 H 08/19/21 11:16 Pulse Ox 93 L 08/19/21 11:16 Weight - Most Recent: 243 lb I&O - Last 24 Hours: Intake & Output 08/18/21 08/19/21 08/19/21 22:59 06:59 14:59 Intake Total 590 1700 Output Total 220 1400 Balance 370 300 Lab Results Last 24 Hours: Laboratory Results - last 24 hr 08/17/21 08/18/21 08/18/21 Range/Units 07:03 17:46 21:11 WBC (4.0-11.0) K/uL RBC (4.50-5.90) M/uL Hgb (13.0-17.0) g/dL Hct (38.0-50.0) % MCV (80.0-98.0) fL MCH (27.0-32.0) pg MCHC (31.0-37.0) g/dL RDW Std Deviation (28.0-62.0) fl RDW Coeff of [place] (11.0-15.0) % Plt Count (150-400) K/uL MPV (7.40-12.00) fL Neut % (Auto) (48.0-80.0) % Lymph % (Auto) (16.0-40.0) % [place] % (Auto) (0.0-15.0) % Eos % (Auto) (0.0-7.0) % Baso % (Auto) (0.0-1.5) % Neut # (Auto) (1.4-5.7) K/uL Lymph # (Auto) (0.6-2.4) K/uL [place] # (Auto) (0.0-0.8) K/uL Eos # (Auto) (0.0-0.7) K/uL Baso # (Auto) (0.0-0.1) K/uL Nucleated RBC % /100WBC Nucleated RBCs # K/uL Sodium (136-148) mmol/L Potassium (3.5-5.1) mmol/L Chloride (98-107) mmol/L Carbon Dioxide (21.0-32.0) mmol/L BUN (7.0-18.0) mg/dL Creatinine (0.8-1.3) mg/dL Est Cr Clr Drug Dosing mL/min Estimated GFR (MDRD) ml/min Glucose (74-106) mg/dL POC Glucose 412 H* 347 H (70-99) mg/dL Calcium (8.5-10.1) mg/dL Total Bilirubin (0.2-1.0) mg/dL AST (15-37) IU/L ALT (14-63) IU/L Alkaline Phosphatase (46-116) U/L Total Protein (6.4-8.2) g/dL Albumin (3.4-5.0) g/dL Globulin (2.6-4.0) g/dL Albumin/Globulin Ratio (0.9-1.6) Vitamin D 25-Hydroxy 34.1 (30.0-100.0) ng/mL 08/19/21 08/19/21 08/19/21 Range/Units 06:21 06:25 06:25 WBC 14.51 H (4.0-11.0) K/uL RBC 4.02 L (4.50-5.90) M/uL Hgb 12.7 L (13.0-17.0) g/dL Hct 35.4 L (38.0-50.0) % MCV 88.1 (80.0-98.0) fL MCH 31.6 (27.0-32.0) pg MCHC 35.9 (31.0-37.0) g/dL RDW Std Deviation 40.4 (28.0-62.0) fl RDW Coeff of [place] 13 (11.0-15.0) % Plt Count 296 (150-400) K/uL MPV 10.90 (7.40-12.00) fL Neut % (Auto) 88.8 H (48.0-80.0) % Lymph % (Auto) 9.0 L (16.0-40.0) % [place] % (Auto) 2.1 (0.0-15.0) % Eos % (Auto) 0.0 (0.0-7.0) % Baso % (Auto) 0.1 (0.0-1.5) % Neut # (Auto) 12.9 H (1.4-5.7) K/uL Lymph # (Auto) 1.3 (0.6-2.4) K/uL [place] # (Auto) 0.3 (0.0-0.8) K/uL Eos # (Auto) 0.0 (0.0-0.7) K/uL Baso # (Auto) 0.0 (0.0-0.1) K/uL Nucleated RBC % 0.0 /100WBC Nucleated RBCs # 0 K/uL Sodium 138 (136-148) mmol/L Potassium 3.0 L (3.5-5.1) mmol/L Chloride 102 (98-107) mmol/L Carbon Dioxide 24.7 (21.0-32.0) mmol/L BUN 19 H (7.0-18.0) mg/dL Creatinine 1.1 (0.8-1.3) mg/dL Est Cr Clr Drug Dosing 71.31 mL/min Estimated GFR (MDRD) > 60.0 ml/min Glucose 262 H (74-106) mg/dL POC Glucose 239 H (70-99) mg/dL Calcium 8.3 L (8.5-10.1) mg/dL Total Bilirubin 0.6 (0.2-1.0) mg/dL AST 42 H (15-37) IU/L ALT 34 (14-63) IU/L Alkaline Phosphatase 67 (46-116) U/L Total Protein 6.0 L (6.4-8.2) g/dL Albumin 2.4 L (3.4-5.0) g/dL Globulin 3.6 (2.6-4.0) g/dL Albumin/Globulin Ratio 0.7 L (0.9-1.6) Vitamin D 25-Hydroxy (30.0-100.0) ng/mL 08/19/21 Range/Units 11:45 WBC (4.0-11.0) K/uL RBC (4.50-5.90) M/uL Hgb (13.0-17.0) g/dL Hct (38.0-50.0) % MCV (80.0-98.0) fL MCH (27.0-32.0) pg MCHC (31.0-37.0) g/dL RDW Std Deviation (28.0-62.0) fl RDW Coeff of [place] (11.0-15.0) % Plt Count (150-400) K/uL MPV (7.40-12.00) fL Neut % (Auto) (48.0-80.0) % Lymph % (Auto) (16.0-40.0) % [place] % (Auto) (0.0-15.0) % Eos % (Auto) (0.0-7.0) % Baso % (Auto) (0.0-1.5) % Neut # (Auto) (1.4-5.7) K/uL Lymph # (Auto) (0.6-2.4) K/uL [place] # (Auto) (0.0-0.8) K/uL Eos # (Auto) (0.0-0.7) K/uL Baso # (Auto) (0.0-0.1) K/uL Nucleated RBC % /100WBC Nucleated RBCs # K/uL Sodium (136-148) mmol/L Potassium (3.5-5.1) mmol/L Chloride (98-107) mmol/L Carbon Dioxide (21.0-32.0) mmol/L BUN (7.0-18.0) mg/dL Creatinine (0.8-1.3) mg/dL Est Cr Clr Drug Dosing mL/min Estimated GFR (MDRD) ml/min Glucose (74-106) mg/dL POC Glucose 113 H (70-99) mg/dL Calcium (8.5-10.1) mg/dL Total Bilirubin (0.2-1.0) mg/dL AST (15-37) IU/L ALT (14-63) IU/L Alkaline Phosphatase (46-116) U/L Total Protein (6.4-8.2) g/dL Albumin (3.4-5.0) g/dL Globulin (2.6-4.0) g/dL Albumin/Globulin Ratio (0.9-1.6) Vitamin D 25-Hydroxy (30.0-100.0) ng/mL Med Orders - Current: Current Medications Hydrocodone Bitart/Acetaminophen (Acetaminophen/Hydrocodone 325-5 Mg Tab) 1 tab PO Q4H PRN PRN Reason: Pain (moderate 4-6) Last Admin: 08/19/21 02:36 Dose: 1 tab Documented by: Albuterol/Ipratropium (Albuterol/Ipratropium 3.0-0.5 Mg/3 Ml Neb Soln) 3 ml NEB Q2H PRN PRN Reason: Dyspepsia Albuterol/Ipratropium (Albuterol/Ipratropium 3.0-0.5 Mg/3 Ml Neb Soln) 3 ml NEB Q4HRRT [facility] Last Admin: 08/19/21 13:32 Dose: 3 ml Documented by: Baricitinib (Baricitinib 2 Mg Tab) 4 mg PO DAILY [facility] Stop: 08/30/21 09:01 Last Admin: 08/19/21 09:24 Dose: 4 mg Documented by: Dexamethasone (Dexamethasone 4 Mg Tab) 6 mg PO DAILY [facility] Last Admin: 08/19/21 09:24 Dose: 6 mg Documented by: Dextrose/Water (50% Dextrose In Water 50 Ml Syringe) 50 ml IVPUSH ASDIRECTED PRN PRN Reason: Hypoglycemia Dextrose/Water (50% Dextrose In Water 50 Ml Syringe) 50 ml IVPUSH ASDIRECTED PRN PRN Reason: Hypoglycemia Enoxaparin Sodium (Enoxaparin 40 Mg/0.4 Ml Syringe) 40 mg SUBCUT Q12HR [facility] Last Admin: 08/19/21 09:25 Dose: 40 mg Documented by: Glucagon (Glucagon,Human Recombinant 1 Mg Vial) 1 mg IM ASDIRECTED PRN PRN Reason: Hypoglycemia Glucagon (Glucagon,Human Recombinant 1 Mg Vial) 1 mg IM ASDIRECTED PRN PRN Reason: Hypoglycemia Guaifenesin/Dextromethorphan (Guaifenesin/Dextromethorphan 100-10 Mg/5 Ml Soln 10 Ml Cup) 10 ml PO Q6H PRN PRN Reason: Cough Last Admin: 08/19/21 02:32 Dose: 10 ml Documented by: Remdesivir 100 mg/ Sodium (Chloride) 100 mls @ 100 mls/hr IV Q24H [facility] Stop: 08/19/21 21:59 Last Admin: 08/18/21 21:42 Dose: 100 mls/hr Documented by: Insulin Aspart (Insulin Aspart 100 Units/Ml 3 Ml Pen) 0 unit SUBCUT TIDAC [facility]; Protocol Last Admin: 08/19/21 13:00 Dose: Not Given Documented by: Insulin Glargine (Insulin Glargine,Human Rec. Analog 100 Units/Ml 3 Ml Pen) 20 units SUBCUT BEDTIME [facility] Last Admin: 08/18/21 21:46 Dose: 20 units Documented by: Melatonin (Melatonin 3 Mg Tab) 6 mg PO BEDTIME PRN PRN Reason: Insomnia Last Admin: 08/18/21 21:45 Dose: 6 mg Documented by: Ondansetron HCl (Ondansetron 4 Mg Tab.Dis) 4 mg PO Q6H PRN PRN Reason: nausea, able to take PO Last Admin: 08/17/21 13:41 Dose: 4 mg Documented by: Discontinued Medications Dexamethasone (Dexamethasone Solution 0.5 Mg/5 Ml) 6 mg PO DAILY [facility] Last Admin: 08/16/21 17:40 Dose: Not Given Documented by: Enoxaparin Sodium (Enoxaparin 40 Mg/0.4 Ml Syringe) 40 mg SUBCUT Q24H [facility] Last Admin: 08/16/21 17:40 Dose: Not Given Documented by: Remdesivir 200 mg/ Sodium (Chloride) 250 mls @ 250 mls/hr IV ONETIME ONE Stop: 08/15/21 19:52 Last Admin: 08/15/21 20:47 Dose: 250 mls/hr Documented by: Sodium Chloride (Normal Saline) 1,000 mls @ 150 mls/hr IV STAT ONE Stop: 08/16/21 03:36 Last Admin: 08/15/21 23:01 Dose: 150 mls/hr Documented by: Potassium Chloride/Sodium Chloride (Normal Saline With 20 Meq Kcl) 500 mls @ 75 mls/hr IV ASDIRECTED [facility] Insulin Aspart (Insulin Aspart 100 Units/Ml 3 Ml Pen) 0 unit SUBCUT ACBREAKFASTANDBED AWA; Protocol Last Admin: 08/17/21 08:16 Dose: 5 units Documented by: Insulin Aspart (Insulin Aspart 100 Units/Ml 3 Ml Pen) 0 unit SUBCUT BEDTIME AWA; Protocol Last Admin: 08/18/21 21:58 Dose: Not Given Documented by: Insulin Aspart (Insulin Aspart 100 Units/Ml 3 Ml Pen) 6 unit SUBCUT ONETIME ONE Stop: 08/18/21 21:53 Last Admin: 08/18/21 21:56 Dose: 6 units Documented by: Iopamidol (Iopamidol 755 Mg/Ml 100 Ml Bottle) 100 ml IVPUSH ONETIME ONE Stop: 08/15/21 21:00 Last Admin: 08/15/21 21:37 Dose: 100 ml Documented by: Potassium Chloride (Potassium Chloride 20 Meq Tab.Er) 20 meq PO TID AWA Stop: 08/19/21 14:01 Last Admin: 08/19/21 13:49 Dose: 20 meq Documented by: Potassium Chloride (Potassium Chloride 20 Meq Tab.Er) 40 meq PO ONETIME ONE Stop: 08/19/21 08:55 Last Admin: 08/19/21 09:24 Dose: 40 meq Documented by: - Exam General: Moderate Distress, Lethargic HEENT: No: Mucous Membr. Moist/[place]: Trachea Midline. No: Lymphadenopathy Lungs: Wheezing Cardiovascular: Regular Rate, Regular Rhythm GI/Abdominal Exam: Normal Bowel Sounds, Soft, Non-Tender - Patient Data Lab Results Last 24 hrs: Laboratory Results - last 24 hr 08/17/21 08/18/21 08/18/21 Range/Units 07:03 17:46 21:11 WBC (4.0-11.0) K/uL RBC (4.50-5.90) M/uL Hgb (13.0-17.0) g/dL Hct (38.0-50.0) % MCV (80.0-98.0) fL MCH (27.0-32.0) pg MCHC (31.0-37.0) g/dL RDW Std Deviation (28.0-62.0) fl RDW Coeff of [place] (11.0-15.0) % Plt Count (150-400) K/uL MPV (7.40-12.00) fL Neut % (Auto) (48.0-80.0) % Lymph % (Auto) (16.0-40.0) % [place] % (Auto) (0.0-15.0) % Eos % (Auto) (0.0-7.0) % Baso % (Auto) (0.0-1.5) % Neut # (Auto) (1.4-5.7) K/uL Lymph # (Auto) (0.6-2.4) K/uL [place] # (Auto) (0.0-0.8) K/uL Eos # (Auto) (0.0-0.7) K/uL Baso # (Auto) (0.0-0.1) K/uL Nucleated RBC % /100WBC Nucleated RBCs # K/uL Sodium (136-148) mmol/L Potassium (3.5-5.1) mmol/L Chloride (98-107) mmol/L Carbon Dioxide (21.0-32.0) mmol/L BUN (7.0-18.0) mg/dL Creatinine (0.8-1.3) mg/dL Est Cr Clr Drug Dosing mL/min Estimated GFR (MDRD) ml/min Glucose (74-106) mg/dL POC Glucose 412 H* 347 H (70-99) mg/dL Calcium (8.5-10.1) mg/dL Total Bilirubin (0.2-1.0) mg/dL AST (15-37) IU/L ALT (14-63) IU/L Alkaline Phosphatase (46-116) U/L Total Protein (6.4-8.2) g/dL Albumin (3.4-5.0) g/dL Globulin (2.6-4.0) g/dL Albumin/Globulin Ratio (0.9-1.6) Vitamin D 25-Hydroxy 34.1 (30.0-100.0) ng/mL 08/19/21 08/19/21 08/19/21 Range/Units 06:21 06:25 06:25 WBC 14.51 H (4.0-11.0) K/uL RBC 4.02 L (4.50-5.90) M/uL Hgb 12.7 L (13.0-17.0) g/dL Hct 35.4 L (38.0-50.0) % MCV 88.1 (80.0-98.0) fL MCH 31.6 (27.0-32.0) pg MCHC 35.9 (31.0-37.0) g/dL RDW Std Deviation 40.4 (28.0-62.0) fl RDW Coeff of [place] 13 (11.0-15.0) % Plt Count 296 (150-400) K/uL MPV 10.90 (7.40-12.00) fL Neut % (Auto) 88.8 H (48.0-80.0) % Lymph % (Auto) 9.0 L (16.0-40.0) % [place] % (Auto) 2.1 (0.0-15.0) % Eos % (Auto) 0.0 (0.0-7.0) % Baso % (Auto) 0.1 (0.0-1.5) % Neut # (Auto) 12.9 H (1.4-5.7) K/uL Lymph # (Auto) 1.3 (0.6-2.4) K/uL [place] # (Auto) 0.3 (0.0-0.8) K/uL Eos # (Auto) 0.0 (0.0-0.7) K/uL Baso # (Auto) 0.0 (0.0-0.1) K/uL Nucleated RBC % 0.0 /100WBC Nucleated RBCs # 0 K/uL Sodium 138 (136-148) mmol/L Potassium 3.0 L (3.5-5.1) mmol/L Chloride 102 (98-107) mmol/L Carbon Dioxide 24.7 (21.0-32.0) mmol/L BUN 19 H (7.0-18.0) mg/dL Creatinine 1.1 (0.8-1.3) mg/dL Est Cr Clr Drug Dosing 71.31 mL/min Estimated GFR (MDRD) > 60.0 ml/min Glucose 262 H (74-106) mg/dL POC Glucose 239 H (70-99) mg/dL Calcium 8.3 L (8.5-10.1) mg/dL Total Bilirubin 0.6 (0.2-1.0) mg/dL AST 42 H (15-37) IU/L ALT 34 (14-63) IU/L Alkaline Phosphatase 67 (46-116) U/L Total Protein 6.0 L (6.4-8.2) g/dL Albumin 2.4 L (3.4-5.0) g/dL Globulin 3.6 (2.6-4.0) g/dL Albumin/Globulin Ratio 0.7 L (0.9-1.6) Vitamin D 25-Hydroxy (30.0-100.0) ng/mL 08/19/21 Range/Units 11:45 WBC (4.0-11.0) K/uL RBC (4.50-5.90) M/uL Hgb (13.0-17.0) g/dL Hct (38.0-50.0) % MCV (80.0-98.0) fL MCH (27.0-32.0) pg MCHC (31.0-37.0) g/dL RDW Std Deviation (28.0-62.0) fl RDW Coeff of [place] (11.0-15.0) % Plt Count (150-400) K/uL MPV (7.40-12.00) fL Neut % (Auto) (48.0-80.0) % Lymph % (Auto) (16.0-40.0) % [place] % (Auto) (0.0-15.0) % Eos % (Auto) (0.0-7.0) % Baso % (Auto) (0.0-1.5) % Neut # (Auto) (1.4-5.7) K/uL Lymph # (Auto) (0.6-2.4) K/uL [place] # (Auto) (0.0-0.8) K/uL Eos # (Auto) (0.0-0.7) K/uL Baso # (Auto) (0.0-0.1) K/uL Nucleated RBC % /100WBC Nucleated RBCs # K/uL Sodium (136-148) mmol/L Potassium (3.5-5.1) mmol/L Chloride (98-107) mmol/L Carbon Dioxide (21.0-32.0) mmol/L BUN (7.0-18.0) mg/dL Creatinine (0.8-1.3) mg/dL Est Cr Clr Drug Dosing mL/min Estimated GFR (MDRD) ml/min Glucose (74-106) mg/dL POC Glucose 113 H (70-99) mg/dL Calcium (8.5-10.1) mg/dL Total Bilirubin (0.2-1.0) mg/dL AST (15-37) IU/L ALT (14-63) IU/L Alkaline Phosphatase (46-116) U/L Total Protein (6.4-8.2) g/dL Albumin (3.4-5.0) g/dL Globulin (2.6-4.0) g/dL Albumin/Globulin Ratio (0.9-1.6) Vitamin D 25-Hydroxy (30.0-100.0) ng/mL Result Diagrams: 08/19/21 06:25 08/19/21 06:25 Sepsis Event Note - Evaluation Sepsis Screening Result: Sepsis Risk - Focused Exam Vital Signs: Vital Signs Temp Pulse Resp BP Pulse Ox 08/19/21 11:16 97.5 F 87 20 159/83 H 93 L 08/19/21 08:45 96.4 F L 82 20 137/80 90 L 08/19/21 03:45 96.7 F L 59 L 18 131/63 93 L - Problem List & Annotations (1) Acute respiratory disease due to COVID-19 virus SNOMED Code(s): 775164501, 969453872 Code(s): U07.1 - COVID-19; J06.9 - ACUTE UPPER RESPIRATORY INFECTION, UNSPECIFIED Status: Acute Current Visit: Yes (2) Obesity (BMI 30-39.9) SNOMED Code(s): 525817219, 079829296 Code(s): E66.9 - OBESITY, UNSPECIFIED Status: Acute Priority: Medium Current Visit: Yes (3) T2DM (type 2 diabetes mellitus) SNOMED Code(s): 00624304 Code(s): E11.9 - TYPE 2 DIABETES MELLITUS WITHOUT COMPLICATIONS Status: Acute Priority: High Current Visit: Yes Onset Date: ~08/17/21 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 Acute respiratory failure secondary to COVID-19 pneumonia -continue dexamethasone 6 mg per oral route once a day -continue remdesivir 100 mg per IV route once a day -for shortness of breath continue duo nebulizer treatments -continue baricitinib 4 mg per oral route daily -encourage incentive spirometry in the prone position -supply oxygen as needed 2. Diabetes mellitus type 2 -continue with Accu-Cheks twice daily/insulin sliding scale/NovoLog 3. Hypokalemia -Patient given 40 mEq of potassium chloride in the morning, will be given another dose now, will monitor levels with daily CMP
[2021-08-19] MEDS: Ondansetron 4 MG/2 ML SDV IVPUSH PRN (16:07)
[2021-08-19] MEDS: Apixaban 5 MG Tab PO SCH (17:34)
[2021-08-19] MEDS ORDERED: Insulin Aspart 100 Units/ML 3 ML Pen SUBCUT ONE (21:33)
[2021-08-19] MEDS ORDERED: Iopamidol 755 MG/ML 500 ML Multipack Bottle IVPUSH STA (21:35)
[2021-08-19] MEDS: REMDESIVIR 100 MG in Sodium Chloride 0.9% 100 ML IV SCH (21:57)
--- NOTE | 2021-08-19 22:01 | CT ---
INDICATION: Elevated D-dimer. TECHNIQUE: CT chest PE was acquired with 100 cc Isovue 370 IV contrast. COMPARISON: 08/15/2021. FINDINGS: Heart and vasculature: Small pulmonary embolism suspected in the medial right lower lobe. Heart size is normal. Thoracic aorta and pulmonary artery are normal in caliber.There is evidence of right heart strain. Lungs and pleural: Diffuse bilateral severe ground-glass infiltrates have worsened. No pleural effusions, pleural thickening, or pneumothorax. Lymph nodes/mediastinum: Stable mild mediastinal lymphadenopathy. Chest wall: No masses. Upper abdomen: No acute or significant findings. Bones: Unremarkable for age. IMPRESSION: 1. Acute small pulmonary embolism in the medial right lower lobe with evidence of right heart strain. 2. Very severe COVID pneumonitis has worsened. Please note that all CT scans at this facility use dose modulation, iterative reconstruction, and/or weight-based dosing when appropriate to reduce radiation dose to as low as reasonably achievable. Dictated by Jordan Graham MD @ 08/19/2021 9:59:47 PM (Electronically Signed)
[2021-08-19] MEDS: Insulin Glargine,Human Rec. Analog 100 Units/ML 3 ML Pen SUBCUT SCH (22:03)
[2021-08-20] MEDS: Albuterol/Ipratropium 3.0-0.5 MG/3 ML Neb Soln NEB SCH ×6 (02:18→21:56)
[2021-08-20] MEDS: Apixaban 5 MG Tab PO SCH ×2 (07:31→18:21)
[2021-08-20 08:08] LABS: BLOOD UREA NITROGEN,BUN 15 mg/dL (7.0-18.0); CARBON DIOXIDE,CO2 25.2 mmol/L (21.0-32.0); CHLORIDE,CL 103 mmol/L (98-107); GLUCOSE RANDOM 177 mg/dL (74-106); POTASSIUM,K 3.7 mmol/L (3.5-5.1); SODIUM,NA 138 mmol/L (136-148)
[2021-08-20] MEDS: Dexamethasone 4 MG Tab PO SCH (08:35)
[2021-08-20] MEDS: Ondansetron 4 MG/2 ML SDV IVPUSH PRN (08:57)
[2021-08-20] MEDS ORDERED: Enoxaparin 40 MG/0.4 ML Syringe SUBCUT SCH (09:00)
[2021-08-20] MEDS: Insulin Aspart 100 Units/ML 3 ML Pen SUBCUT SCH ×3 (09:11→18:20)
--- NOTE | 2021-08-20 09:58 | PCM.PN ---
- General Info Date of Service: 08/20/21 Subjective Update: The patient is a 66-year-old male, on day 6 of service, who has a significant past medical history of obesity and diabetes mellitus type 2, who was admitted to the medical floor due to acute respiratory failure secondary to COVID-19 pneumonia. Yesterday the patient was found to have an elevated D-dimer of 35.20. As a result we performed an additional CT angiogram of the chest and found that the patient had a small pulmonary emboli in the right lower lobe with evidence of right heart strain. To treat this, we stopped the patient's Lovenox and start giving him a therapeutic dose of Eliquis, more specifically 10 mg twice a day. Upon interview with the patient today, he continues to be a poor historian and is in moderate amount of distress. He was found lying on his side and is currently on Vapotherm saturating at 92%, with O2 flow rate of 60, and FiO2 of 89. We will continue to treat this patient for his COVID-19 and pulmonary emboli and make adjustments as necessary. - Review of Systems General: Reports: Other (The patient is a poor historian due to respiratory difficulty) - Patient Data Vitals - Most Recent: Last Vital Signs Temp 98.1 F 08/20/21 08:00 Pulse 82 08/20/21 08:00 Resp 18 08/20/21 08:00 BP 154/71 H 08/20/21 08:00 Pulse Ox 90 L 08/20/21 08:00 Weight - Most Recent: 243 lb I&O - Last 24 Hours: Intake & Output 08/19/21 08/20/21 08/20/21 22:59 06:59 14:59 Intake Total 760 1050 Output Total 820 500 Balance -60 550 Lab Results Last 24 Hours: Laboratory Results - last 24 hr 08/19/21 08/19/21 08/19/21 Range/Units 11:45 15:34 17:06 WBC (4.0-11.0) K/uL RBC (4.50-5.90) M/uL Hgb (13.0-17.0) g/dL Hct (38.0-50.0) % MCV (80.0-98.0) fL MCH (27.0-32.0) pg MCHC (31.0-37.0) g/dL RDW Std Deviation (28.0-62.0) fl RDW Coeff of Nilton (11.0-15.0) % Plt Count (150-400) K/uL MPV (7.40-12.00) fL Neut % (Auto) (48.0-80.0) % Lymph % (Auto) (16.0-40.0) % Lyman % (Auto) (0.0-15.0) % Eos % (Auto) (0.0-7.0) % Baso % (Auto) (0.0-1.5) % Neut # (Auto) (1.4-5.7) K/uL Lymph # (Auto) (0.6-2.4) K/uL Lyman # (Auto) (0.0-0.8) K/uL Eos # (Auto) (0.0-0.7) K/uL Baso # (Auto) (0.0-0.1) K/uL Nucleated RBC % /100WBC Nucleated RBCs # K/uL D-Dimer, Quantitative > 35.20 H (0.0-0.50) mg/L FEU Sodium (136-148) mmol/L Potassium (3.5-5.1) mmol/L Chloride (98-107) mmol/L Carbon Dioxide (21.0-32.0) mmol/L BUN (7.0-18.0) mg/dL Creatinine (0.8-1.3) mg/dL Est Cr Clr Drug Dosing mL/min Estimated GFR (MDRD) ml/min Glucose (74-106) mg/dL POC Glucose 113 H 195 H (70-99) mg/dL Calcium (8.5-10.1) mg/dL Total Bilirubin (0.2-1.0) mg/dL AST (15-37) IU/L ALT (14-63) IU/L Alkaline Phosphatase (46-116) U/L Total Protein (6.4-8.2) g/dL Albumin (3.4-5.0) g/dL Globulin (2.6-4.0) g/dL Albumin/Globulin Ratio (0.9-1.6) 08/19/21 08/20/21 08/20/21 Range/Units 21:38 06:21 06:28 WBC 11.98 H (4.0-11.0) K/uL RBC 4.25 L (4.50-5.90) M/uL Hgb 13.4 (13.0-17.0) g/dL Hct 37.4 L (38.0-50.0) % MCV 88.0 (80.0-98.0) fL MCH 31.5 (27.0-32.0) pg MCHC 35.8 (31.0-37.0) g/dL RDW Std Deviation 40.5 (28.0-62.0) fl RDW Coeff of [place] 13 (11.0-15.0) % Plt Count 166 (150-400) K/uL MPV 11.00 (7.40-12.00) fL Neut % (Auto) 88.7 H (48.0-80.0) % Lymph % (Auto) 9.8 L (16.0-40.0) % Lyman % (Auto) 1.3 (0.0-15.0) % Eos % (Auto) 0.1 (0.0-7.0) % Baso % (Auto) 0.1 (0.0-1.5) % Neut # (Auto) 10.6 H (1.4-5.7) K/uL Lymph # (Auto) 1.2 (0.6-2.4) K/uL Lyman # (Auto) 0.2 (0.0-0.8) K/uL Eos # (Auto) 0.0 (0.0-0.7) K/uL Baso # (Auto) 0.0 (0.0-0.1) K/uL Nucleated RBC % 0.0 /100WBC Nucleated RBCs # 0 K/uL D-Dimer, Quantitative (0.0-0.50) mg/L FEU Sodium (136-148) mmol/L Potassium (3.5-5.1) mmol/L Chloride (98-107) mmol/L Carbon Dioxide (21.0-32.0) mmol/L BUN (7.0-18.0) mg/dL Creatinine (0.8-1.3) mg/dL Est Cr Clr Drug Dosing mL/min Estimated GFR (MDRD) ml/min Glucose (74-106) mg/dL POC Glucose 174 H 171 H (70-99) mg/dL Calcium (8.5-10.1) mg/dL Total Bilirubin (0.2-1.0) mg/dL AST (15-37) IU/L ALT (14-63) IU/L Alkaline Phosphatase (46-116) U/L Total Protein (6.4-8.2) g/dL Albumin (3.4-5.0) g/dL Globulin (2.6-4.0) g/dL Albumin/Globulin Ratio (0.9-1.6) 08/20/ Range/Units 06:28 WBC (4.0-11.0) K/uL RBC (4.50-5.90) M/uL Hgb (13.0-17.0) g/dL Hct (38.0-50.0) % MCV (80.0-98.0) fL MCH (27.0-32.0) pg MCHC (31.0-37.0) g/dL RDW Std Deviation (28.0-62.0) fl RDW Coeff of [place] (11.0-15.0) % Plt Count (150-400) K/uL MPV (7.40-12.00) fL Neut % (Auto) (48.0-80.0) % Lymph % (Auto) (16.0-40.0) % Lyman % (Auto) (0.0-15.0) % Eos % (Auto) (0.0-7.0) % Baso % (Auto) (0.0-1.5) % Neut # (Auto) (1.4-5.7) K/uL Lymph # (Auto) (0.6-2.4) K/uL Lyman # (Auto) (0.0-0.8) K/uL Eos # (Auto) (0.0-0.7) K/uL Baso # (Auto) (0.0-0.1) K/uL Nucleated RBC % /100WBC Nucleated RBCs # K/uL D-Dimer, Quantitative (0.0-0.50) mg/L FEU Sodium 138 (136-148) mmol/L Potassium 3.7 (3.5-5.1) mmol/L Chloride 103 (98-107) mmol/L Carbon Dioxide 25.2 (21.0-32.0) mmol/L BUN 15 (7.0-18.0) mg/dL Creatinine 0.9 (0.8-1.3) mg/dL Est Cr Clr Drug Dosing 87.15 mL/min Estimated GFR (MDRD) > 60.0 ml/min Glucose 177 H (74-106) mg/dL POC Glucose (70-99) mg/dL Calcium 8.5 (8.5-10.1) mg/dL Total Bilirubin 1.2 H (0.2-1.0) mg/dL AST 91 H (15-37) IU/L ALT 33 (14-63) IU/L Alkaline Phosphatase 76 (46-116) U/L Total Protein 5.8 L (6.4-8.2) g/dL Albumin 2.2 L (3.4-5.0) g/dL Globulin 3.6 (2.6-4.0) g/dL Albumin/Globulin Ratio 0.6 L (0.9-1.6) Med Orders - Current: Current Medications Hydrocodone Bitart/Acetaminophen (Acetaminophen/Hydrocodone 325-5 Mg Tab) 1 tab PO Q4H PRN PRN Reason: Pain (moderate 4-6) Last Admin: 08/19/21 02:36 Dose: 1 tab Documented by: Albuterol/Ipratropium (Albuterol/Ipratropium 3.0-0.5 Mg/3 Ml Neb Soln) 3 ml NEB Q2H PRN PRN Reason: Dyspepsia Albuterol/Ipratropium (Albuterol/Ipratropium 3.0-0.5 Mg/3 Ml Neb Soln) 3 ml NEB Q4HRRT [facility] Last Admin: 08/20/21 09:52 Dose: 3 ml Documented by: Apixaban (Apixaban 5 Mg Tab) 10 mg PO Q12H [facility] Stop: 08/26/21 06:01 Last Admin: 08/20/21 07:31 Dose: 10 mg Documented by: Baricitinib (Baricitinib 2 Mg Tab) 4 mg PO DAILY [facility] Stop: 08/30/21 09:01 Last Admin: 08/20/21 08:35 Dose: 4 mg Documented by: Dexamethasone (Dexamethasone 4 Mg Tab) 6 mg PO DAILY [facility] Last Admin: 08/20/21 08:35 Dose: 6 mg Documented by: Dextrose/Water (50% Dextrose In Water 50 Ml Syringe) 50 ml IVPUSH ASDIRECTED PRN PRN Reason: Hypoglycemia Dextrose/Water (50% Dextrose In Water 50 Ml Syringe) 50 ml IVPUSH ASDIRECTED P RN PRN Reason: Hypoglycemia Glucagon (Glucagon,Human Recombinant 1 Mg Vial) 1 mg IM ASDIRECTED PRN PRN Reason: Hypoglycemia Glucagon (Glucagon,Human Recombinant 1 Mg Vial) 1 mg IM ASDIRECTED PRN PRN Reason: Hypoglycemia Guaifenesin/Dextromethorphan (Guaifenesin/Dextromethorphan 100-10 Mg/5 Ml Soln 10 Ml Cup) 10 ml PO Q6H PRN PRN Reason: Cough Last Admin: 08/19/21 02:32 Dose: 10 ml Documented by: Insulin Aspart (Insulin Aspart 100 Units/Ml 3 Ml Pen) 0 unit SUBCUT TIDAC AWA; Protocol Last Admin: 08/20/21 09:11 Dose: 3 units Documented by: Insulin Glargine (Insulin Glargine,Human Rec. Analog 100 Units/Ml 3 Ml Pen) 20 units SUBCUT BEDTIME AWA Last Admin: 08/19/21 22:03 Dose: 20 units Documented by: Melatonin (Melatonin 3 Mg Tab) 6 mg PO BEDTIME PRN PRN Reason: Insomnia Last Admin: 08/18/21 21:45 Dose: 6 mg Documented by: Ondansetron HCl (Ondansetron 4 Mg Tab.Dis) 4 mg PO Q6H PRN PRN Reason: nausea, able to take PO Last Admin: 08/17/21 13:41 Dose: 4 mg Documented by: Ondansetron HCl (Ondansetron 4 Mg/2 Ml Sdv) 4 mg IVPUSH Q6H PRN PRN Reason: Nausea/Vomiting Last Admin: 08/20/21 08:57 Dose: 4 mg Documented by: Discontinued Medications Dexamethasone (Dexamethasone Solution 0.5 Mg/5 Ml) 6 mg PO DAILY [facility] Last Admin: 08/16/21 17:40 Dose: Not Given Documented by: Enoxaparin Sodium (Enoxaparin 40 Mg/0.4 Ml Syringe) 40 mg SUBCUT Q24H AWA Last Admin: 08/16/21 17:40 Dose: Not Given Documented by: Enoxaparin Sodium (Enoxaparin 40 Mg/0.4 Ml Syringe) 40 mg SUBCUT Q12HR AWA Last Admin: 08/19/21 09:25 Dose: 40 mg Documented by: Enoxaparin Sodium (Enoxaparin 40 Mg/0.4 Ml Syringe) 40 mg SUBCUT Q24H AWA Remdesivir 200 mg/ Sodium (Chloride) 250 mls @ 250 mls/hr IV ONETIME ONE Stop: 08/15/21 19:52 Last Admin: 08/15/21 20:47 Dose: 250 mls/hr Documented by: Sodium Chloride (Normal Saline) 1,000 mls @ 150 mls/hr IV STAT ONE Stop: 08/16/21 03:36 Last Admin: 08/15/21 23:01 Dose: 150 mls/hr Documented by: Remdesivir 100 mg/ Sodium (Chloride) 100 mls @ 100 mls/hr IV Q24H AWA Stop: 08/19/21 21:59 Last Admin: 08/19/21 21:57 Dose: 100 mls/hr Documented by: Potassium Chloride/Sodium Chloride (Normal Saline With 20 Meq Kcl) 500 mls @ 75 mls/hr IV ASDIRECTED [facility] Insulin Aspart (Insulin Aspart 100 Units/Ml 3 Ml Pen) 0 unit SUBCUT ACBREAKFASTANDBED [facility]; Protocol Last Admin: 08/17/21 08:16 Dose: 5 units Documented by: Insulin Aspart (Insulin Aspart 100 Units/Ml 3 Ml Pen) 0 unit SUBCUT BEDTIME [facility]; Protocol Last Admin: 08/18/21 21:58 Dose: Not Given Documented by: Insulin Aspart (Insulin Aspart 100 Units/Ml 3 Ml Pen) 6 unit SUBCUT ONETIME ONE Stop: 08/18/21 21:53 Last Admin: 08/18/21 21:56 Dose: 6 units Documented by: Iopamidol (Iopamidol 755 Mg/Ml 100 Ml Bottle) 100 ml IVPUSH ONETIME ONE Stop: 08/15/21 21:00 Last Admin: 08/15/21 21:37 Dose: 100 ml Documented by: Iopamidol (Iopamidol 755 Mg/Ml 500 Ml Multipack Bottle) 100 ml IVPUSH ONETIME STA Stop: 08/19/21 21:36 Last Admin: 08/19/21 21:36 Dose: 100 ml Documented by: Potassium Chloride (Potassium Chloride 20 Meq Tab.Er) 20 meq PO TID AWA Stop: 08/19/21 14:01 Last Admin: 08/19/21 13:49 Dose: 20 meq Documented by: Potassium Chloride (Potassium Chloride 20 Meq Tab.Er) 40 meq PO ONETIME ONE Stop: 08/19/21 08:55 Last Admin: 08/19/21 09:24 Dose: 40 meq Documented by: Potassium Chloride (Potassium Chloride 20 Meq Tab.Er) 40 meq PO ONETIME ONE Stop: 08/19/21 14:53 Last Admin: 08/19/21 15:14 Dose: 40 meq Documented by: - Exam General: Moderate Distress HEENT: No: Mucous Membr. Moist/[place]: Trachea Midline Lungs: Rhonchi Cardiovascular: Regular Rate, Regular Rhythm GI/Abdominal Exam: Normal Bowel Sounds, Soft Extremities: No Pedal Edema - Patient Data Lab Results Last 24 hrs: Laboratory Results - last 24 hr 08/19/21 08/19/21 08/19/21 Range/Units 11:45 15:34 17:06 WBC (4.0-11.0) K/uL RBC (4.50-5.90) M/uL Hgb (13.0-17.0) g/dL Hct (38.0-50.0) % MCV (80.0-98.0) fL MCH (27.0-32.0) pg MCHC (31.0-37.0) g/dL RDW Std Deviation (28.0-62.0) fl RDW Coeff of [place] (11.0-15.0) % Plt Count (150-400) K/uL MPV (7.40-12.00) fL Neut % (Auto) (48.0-80.0) % Lymph % (Auto) (16.0-40.0) % Lyman % (Auto) (0.0-15.0) % Eos % (Auto) (0.0-7.0) % Baso % (Auto) (0.0-1.5) % Neut # (Auto) (1.4-5.7) K/uL Lymph # (Auto) (0.6-2.4) K/uL Lyman # (Auto) (0.0-0.8) K/uL Eos # (Auto) (0.0-0.7) K/uL Baso # (Auto) (0.0-0.1) K/uL Nucleated RBC % /100WBC Nucleated RBCs # K/uL D-Dimer, Quantitative > 35.20 H (0.0-0.50) mg/L FEU Sodium (136-148) mmol/L Potassium (3.5-5.1) mmol/L Chloride (98-107) mmol/L Carbon Dioxide (21.0-32.0) mmol/L BUN (7.0-18.0) mg/dL Creatinine (0.8-1.3) mg/dL Est Cr Clr Drug Dosing mL/min Estimated GFR (MDRD) ml/min Glucose (74-106) mg/dL POC Glucose 113 H 195 H (70-99) mg/dL Calcium (8.5-10.1) mg/dL Total Bilirubin (0.2-1.0) mg/dL AST (15-37) IU/L ALT (14-63) IU/L Alkaline Phosphatase (46-116) U/L Total Protein (6.4-8.2) g/dL Albumin (3.4-5.0) g/dL Globulin (2.6-4.0) g/dL Albumin/Globulin Ratio (0.9-1.6) 08/19/21 08/20/21 08/20/21 Range/Units 21:38 06:21 06:28 WBC 11.98 H (4.0-11.0) K/uL RBC 4.25 L (4.50-5.90) M/uL Hgb 13.4 (13.0-17.0) g/dL Hct 37.4 L (38.0-50.0) % MCV 88.0 (80.0-98.0) fL MCH 31.5 (27.0-32.0) pg MCHC 35.8 (31.0-37.0) g/dL RDW Std Deviation 40.5 (28.0-62.0) fl RDW Coeff of [place] 13 (11.0-15.0) % Plt Count 166 (150-400) K/uL MPV 11.00 (7.40-12.00) fL Neut % (Auto) 88.7 H (48.0-80.0) % Lymph % (Auto) 9.8 L (16.0-40.0) % Lyman % (Auto) 1.3 (0.0-15.0) % Eos % (Auto) 0.1 (0.0-7.0) % Baso % (Auto) 0.1 (0.0-1.5) % Neut # (Auto) 10.6 H (1.4-5.7) K/uL Lymph # (Auto) 1.2 (0.6-2.4) K/uL Lyman # (Auto) 0.2 (0.0-0.8) K/uL Eos # (Auto) 0.0 (0.0-0.7) K/uL Baso # (Auto) 0.0 (0.0-0.1) K/uL Nucleated RBC % 0.0 /100WBC Nucleated RBCs # 0 K/uL D-Dimer, Quantitative (0.0-0.50) mg/L FEU Sodium (136-148) mmol/L Potassium (3.5-5.1) mmol/L Chloride (98-107) mmol/L Carbon Dioxide (21.0-32.0) mmol/L BUN (7.0-18.0) mg/dL Creatinine (0.8-1.3) mg/dL Est Cr Clr Drug Dosing mL/min Estimated GFR (MDRD) ml/min Glucose (74-106) mg/dL POC Glucose 174 H 171 H (70-99) mg/dL Calcium (8.5-10.1) mg/dL Total Bilirubin (0.2-1.0) mg/dL AST (15-37) IU/L ALT (14-63) IU/L Alkaline Phosphatase (46-116) U/L Total Protein (6.4-8.2) g/dL Albumin (3.4-5.0) g/dL Globulin (2.6-4.0) g/dL Albumin/Globulin Ratio (0.9-1.6) 08/20/ Range/Units 06:28 WBC (4.0-11.0) K/uL RBC (4.50-5.90) M/uL Hgb (13.0-17.0) g/dL Hct (38.0-50.0) % MCV (80.0-98.0) fL MCH (27.0-32.0) pg MCHC (31.0-37.0) g/dL RDW Std Deviation (28.0-62.0) fl RDW Coeff of [place] (11.0-15.0) % Plt Count (150-400) K/uL MPV (7.40-12.00) fL Neut % (Auto) (48.0-80.0) % Lymph % (Auto) (16.0-40.0) % Lyman % (Auto) (0.0-15.0) % Eos % (Auto) (0.0-7.0) % Baso % (Auto) (0.0-1.5) % Neut # (Auto) (1.4-5.7) K/uL Lymph # (Auto) (0.6-2.4) K/uL Lyman # (Auto) (0.0-0.8) K/uL Eos # (Auto) (0.0-0.7) K/uL Baso # (Auto) (0.0-0.1) K/uL Nucleated RBC % /100WBC Nucleated RBCs # K/uL D-Dimer, Quantitative (0.0-0.50) mg/L FEU Sodium 138 (136-148) mmol/L Potassium 3.7 (3.5-5.1) mmol/L Chloride 103 (98-107) mmol/L Carbon Dioxide 25.2 (21.0-32.0) mmol/L BUN 15 (7.0-18.0) mg/dL Creatinine 0.9 (0.8-1.3) mg/dL Est Cr Clr Drug Dosing 87.15 mL/min Estimated GFR (MDRD) > 60.0 ml/min Glucose 177 H (74-106) mg/dL POC Glucose (70-99) mg/dL Calcium 8.5 (8.5-10.1) mg/dL Total Bilirubin 1.2 H (0.2-1.0) mg/dL AST 91 H (15-37) IU/L ALT 33 (14-63) IU/L Alkaline Phosphatase 76 (46-116) U/L Total Protein 5.8 L (6.4-8.2) g/dL Albumin 2.2 L (3.4-5.0) g/dL Globulin 3.6 (2.6-4.0) g/dL Albumin/Globulin Ratio 0.6 L (0.9-1.6) Result Diagrams: 08/20/21 06:28 08/20/21 06:28 Sepsis Event Note - Evaluation Sepsis Screening Result: Sepsis Risk - Focused Exam Vital Signs: Vital Signs Temp Pulse Resp BP Pulse Ox 08/20/21 08:00 98.1 F 82 18 154/71 H 90 L 08/20/21 04:08 96.8 F L 64 23 H 142/89 H 92 L 08/20/21 00:03 97.1 F 68 18 153/82 H 95 - Problem List & Annotations (1) Acute respiratory disease due to COVID-19 virus SNOMED Code(s): 564474807, 395959308 Code(s): U07.1 - COVID-19; J06.9 - ACUTE UPPER RESPIRATORY INFECTION, UNSPECIFIED Status: Acute Current Visit: Yes (2) Obesity (BMI 30-39.9) SNOMED Code(s): 632429372, 087979504 Code(s): E66.9 - OBESITY, UNSPECIFIED Status: Acute Priority: Medium Current Visit: Yes (3) T2DM (type 2 diabetes mellitus) SNOMED Code(s): 85824405 Code(s): E11.9 - TYPE 2 DIABETES MELLITUS WITHOUT COMPLICATIONS Status: Acute Priority: High Current Visit: Yes Onset Date: ~08/17/21 Qualifiers: Diabetes mellitus associate professor of psychology insulin use: with associate professor of psychology use - Problem List Review Problem List Initiated/Reviewed/Updated: Yes - My Orders Last 24 Hours: My Active Orders 08/21/21 05:11 CBC WITH AUTO DIFF [HEME] AM CMP [COMPREHENSIVE METABOLIC PN,CMP] [CHEM] AM - Assessment Assessment:: 1. Acute respiratory failure secondary to COVID-19 pneumonia -continue dexamethasone 6 mg per oral route once a day -for shortness of breath continue duo nebulizer treatments -For cough, Robitussin is on board -continue baricitinib 4 mg per oral route daily -supply oxygen as needed, patient is currently on Vapotherm saturating at 92%, O2 flow rate of 60, FiO2 of 89 2. Diabetes mellitus type 2 -continue with Accu-Cheks/insulin sliding scale/NovoLog
[2021-08-20] MEDS: Insulin Glargine,Human Rec. Analog 100 Units/ML 3 ML Pen SUBCUT SCH (21:46)
[2021-08-20] MEDS: guaiFENesin/Dextromethorphan 100-10 MG/5 ML Soln 10 ML Cup PO PRN (21:56)
[2021-08-21] MEDS: Albuterol/Ipratropium 3.0-0.5 MG/3 ML Neb Soln NEB SCH ×6 (02:29→21:42)
[2021-08-21] MEDS: Apixaban 5 MG Tab PO SCH ×2 (06:34→17:15)
[2021-08-21] MEDS: Acetaminophen/HYDROcodone 325-5 MG Tab PO PRN ×2 (07:00→18:31)
[2021-08-21 07:59] LABS: BLOOD UREA NITROGEN,BUN 16 mg/dL (7.0-18.0); CARBON DIOXIDE,CO2 26.5 mmol/L (21.0-32.0); CHLORIDE,CL 101 mmol/L (98-107); GLUCOSE RANDOM 107 mg/dL (74-106); POTASSIUM,K 3.2 mmol/L (3.5-5.1); SODIUM,NA 137 mmol/L (136-148)
[2021-08-21] MEDS: Dexamethasone 4 MG Tab PO SCH (08:36)
[2021-08-21] MEDS: Insulin Aspart 100 Units/ML 3 ML Pen SUBCUT SCH ×3 (08:38→18:00)
--- NOTE | 2021-08-21 11:48 | PN ---
[facility] Physician - Brief Progress WlryYEOARDLAU17/29/2021 11:29[facility] Lauren Giang, ND - YESICAN (RACHEAL) - EDUAR JOEL LEGGETTDate of Service 08/21/2021 11:29HPI/Events of Note eICU admission [id number] male currently admitted to the ICU for acute hypoxic respiratory failure secondary to COVID-19. Patient presented to hospital on 08/15/2021 and was found to be posit justin for COVID-19 at which time he was initiated on appropriate therapy with Decadron as well as remde sevir and baricitinib. Patient also was found to have PE and was initiated on Eliquis at that time. Patient continues to have progressively worsening hypoxemia and was transferred to the ICU for close r monitoring.Patient seen on camera, laying in bed, currently on heated high flow, does not appear to be in acute distress at this time but is tachypneicVital signs reviewedLabs/EMR reviewedAcute hypoxi c respiratory failureCOVID-19 pneumoniaPERecommendations-Agree with COVID-19 specific therapy with De cadron to complete course. As patient does have PE recommend discussing risk benefits with patient i n regards to baricitinib or can consider stopping altogether.-Will defer anticoagulation selection to bedside team for PE. Agree with obtaining 2D Echo.-Given worsening leukocytosis, recommend low thres hold to start HAP coverage if any s/s of sepsis occur. If Abx do get started recommen obtaining MRSA nares and procalcitonin at that time. -Agree with [facility]. If patient has worsening work of breathing, can consider starting CPAP at that time as well as obtaining ABG to ensure there is no hypercapnia. - Continue with GI prophylaxis -Recommend encouraging prone positioning if possible-Recommend keeping p atient euvolemicThank you for allowing us to participate in the care of this patient. Please do not h esitate to contact eICU for any questions, clarification or assistance with implementation of above.I nterventions Major-Hypoxemia - evaluation and management, Infection - evaluation and management, Resp iratory failure - evaluation and management
[2021-08-21] MEDS: guaiFENesin/Dextromethorphan 100-10 MG/5 ML Soln 10 ML Cup PO PRN (13:33)
--- NOTE | 2021-08-21 15:53 | PCM.PN ---
- General Info Date of Service: 08/21/21 Subjective Update: The patient is a 66-year-old male, on day 7 of service, who has a significant past medical history of obesity and diabetes mellitus type 2, who was admitted to the medical floor due to acute respiratory failure secondary to COVID-19 pneumonia. Recently the patient was found to have elevated D-dimer of 35.[address] angiogram of the chest found small pulmonary emboli in the right lower lobe. As a result he was started on Eliquis, more specifically 10 mg twice a day. Today the patient had worsening oxygenation and is currently on heated high flow. He had to be transitioned from the medical floor to the intensive care unit for more close monitoring. Upon interview with the patient today he admits to worsening shortness of breath and cough productive of clear sputum. The patient was lying down in bed and finds it extremely difficult to a mbulate around his room. We will continue to monitor this patient in regards to oxygen supplementation and clinical status. - Review of Systems General: Reports: Fatigue Pulmonary: Reports: Shortness of Breath, Cough Cardiovascular: Denies: Chest Pain, Palpitations Gastrointestinal: Denies: Abdominal Pain Genitourinary: Denies: Dysuria - Patient Data Vitals - Most Recent: Last Vital Signs Temp 97.6 F 08/21/21 11:10 Pulse 85 08/21/21 08:24 Resp 28 H 08/21/21 15:00 BP 145/79 H 08/21/21 15:00 Pulse Ox 94 L 08/21/21 15:00 Weight - Most Recent: 243 lb I&O - Last 24 Hours: Intake & Output 08/21/21 08/21/21 08/21/21 06:59 14:59 22:59 Intake Total 1100 Output Total 800 Balance 300 Lab Results Last 24 Hours: Laboratory Results - last 24 hr 08/20/21 08/20/21 08/21/21 Range/Units 17:15 21:26 06:15 WBC 17.69 H (4.0-11.0) K/uL RBC 4.21 L (4.50-5.90) M/uL Hgb 13.3 (13.0-17.0) g/dL Hct 37.0 L (38.0-50.0) % MCV 87.9 (80.0-98.0) fL MCH 31.6 (27.0-32.0) pg MCHC 35.9 (31.0-37.0) g/dL RDW Std Deviation 39.8 (28.0-62.0) fl RDW Coeff of [place]ilton 12 (11.0-15.0) % Plt Count 160 (150-400) K/uL MPV 11.40 (7.40-12.00) fL Neut % (Auto) 92.0 H (48.0-80.0) % Lymph % (Auto) 6.4 L (16.0-40.0) % Emery % (Auto) 1.4 (0.0-15.0) % Eos % (Auto) 0.1 (0.0-7.0) % Baso % (Auto) 0.1 (0.0-1.5) % Neut # (Auto) 16.3 H (1.4-5.7) K/uL Lymph # (Auto) 1.1 (0.6-2.4) K/uL Emery # (Auto) 0.3 (0.0-0.8) K/uL Eos # (Auto) 0.0 (0.0-0.7) K/uL Baso # (Auto) 0.0 (0.0-0.1) K/uL Nucleated RBC % 0.0 /100WBC Nucleated RBCs # 0 K/uL Sodium (136-148) mmol/L Potassium (3.5-5.1) mmol/L Chloride (98-107) mmol/L Carbon Dioxide (21.0-32.0) mmol/L BUN (7.0-18.0) mg/dL Creatinine (0.8-1.3) mg/dL Est Cr Clr Drug Dosing mL/min Estimated GFR (MDRD) ml/min Glucose (74-106) mg/dL POC Glucose 202 H 157 H (70-99) mg/dL Calcium (8.5-10.1) mg/dL Total Bilirubin (0.2-1.0) mg/dL AST (15-37) IU/L ALT (14-63) IU/L Alkaline Phosphatase (46-116) U/L Total Protein (6.4-8.2) g/dL Albumin (3.4-5.0) g/dL Globulin (2.6-4.0) g/dL Albumin/Globulin Ratio (0.9-1.6) 08/21/21 08/21/21 08/21/21 Range/Units 06:15 06:30 12:05 WBC (4.0-11.0) K/uL RBC (4.50-5.90) M/uL Hgb (13.0-17.0) g/dL Hct (38.0-50.0) % MCV (80.0-98.0) fL MCH (27.0-32.0) pg MCHC (31.0-37.0) g/dL RDW Std Deviation (28.0-62.0) fl RDW Coeff of [place] (11.0-15.0) % Plt Count (150-400) K/uL MPV (7.40-12.00) fL Neut % (Auto) (48.0-80.0) % Lymph % (Auto) (16.0-40.0) % Emery % (Auto) (0.0-15.0) % Eos % (Auto) (0.0-7.0) % Baso % (Auto) (0.0-1.5) % Neut # (Auto) (1.4-5.7) K/uL Lymph # (Auto) (0.6-2.4) K/uL Emery # (Auto) (0.0-0.8) K/uL Eos # (Auto) (0.0-0.7) K/uL Baso # (Auto) (0.0-0.1) K/uL Nucleated RBC % /100WBC Nucleated RBCs # K/uL Sodium 137 (136-148) mmol/L Potassium 3.2 L (3.5-5.1) mmol/L Chloride 101 (98-107) mmol/L Carbon Dioxide 26.5 (21.0-32.0) mmol/L BUN 16 (7.0-18.0) mg/dL Creatinine 0.9 (0.8-1.3) mg/dL Est Cr Clr Drug Dosing 87.15 mL/min Estimated GFR (MDRD) > 60.0 ml/min Glucose 107 H (74-106) mg/dL POC Glucose 103 H 173 H (70-99) mg/dL Calcium 8.1 L (8.5-10.1) mg/dL Total Bilirubin 1.1 H (0.2-1.0) mg/dL AST 71 H (15-37) IU/L ALT 38 (14-63) IU/L Alkaline Phosphatase 83 (46-116) U/L Total Protein 5.9 L (6.4-8.2) g/dL Albumin 2.1 L (3.4-5.0) g/dL Globulin 3.8 (2.6-4.0) g/dL Albumin/Globulin Ratio 0.6 L (0.9-1.6) Med Orders - Current: Current Medications Hydrocodone Bitart/Acetaminophen (Acetaminophen/Hydrocodone 325-5 Mg Tab) 1 tab PO Q4H PRN PRN Reason: Pain (moderate 4-6) Last Admin: 08/21/21 07:00 Dose: 1 tab Documented by: Albuterol/Ipratropium (Albuterol/Ipratropium 3.0-0.5 Mg/3 Ml Neb Soln) 3 ml NEB Q2H PRN PRN Reason: Dyspepsia Albuterol/Ipratropium (Albuterol/Ipratropium 3.0-0.5 Mg/3 Ml Neb Soln) 3 ml NEB Q4HRRT [facility] Last Admin: 08/21/21 13:33 Dose: 3 ml Documented by: Apixaban (Apixaban 5 Mg Tab) 10 mg PO Q12H [facility] Stop: 08/26/21 06:01 Last Admin: 08/21/21 06:34 Dose: 10 mg Documented by: Baricitinib (Baricitinib 2 Mg Tab) 4 mg PO DAILY [facility] Stop: 08/30/21 09:01 Last Admin: 08/21/21 08:37 Dose: 4 mg Documented by: Dexamethasone (Dexamethasone 4 Mg Tab) 6 mg PO DAILY [facility] Last Admin: 08/21/21 08:36 Dose: 6 mg Documented by: Dextrose/Water (50% Dextrose In Water 50 Ml Syringe) 50 ml IVPUSH ASDIRECTED PRN PRN Reason: Hypoglycemia Dextrose/Water (50% Dextrose In Water 50 Ml Syringe) 50 ml IVPUSH ASDIRECTED PRN PRN Reason: Hypoglycemia Glucagon (Glucagon,Human Recombinant 1 Mg Vial) 1 mg IM ASDIRECTED PRN PRN Reason: Hypoglycemia Glucagon (Glucagon,Human Recombinant 1 Mg Vial) 1 mg IM ASDIRECTED PRN PRN Reason: Hypoglycemia Guaifenesin/Dextromethorphan (Guaifenesin/Dextromethorphan 100-10 Mg/5 Ml Soln 10 Ml Cup) 10 ml PO Q6H PRN PRN Reason: Cough Last Admin: 08/21/21 13:33 Dose: 10 ml Documented by: Insulin Aspart (Insulin Aspart 100 Units/Ml 3 Ml Pen) 0 unit SUBCUT TIDAC [facility]; Protocol Last Admin: 08/21/21 12:15 Dose: 3 units Documented by: Insulin Glargine (Insulin Glargine,Human Rec. Analog 100 Units/Ml 3 Ml Pen) 20 units SUBCUT BEDTIME [facility] Last Admin: 08/20/21 21:46 Dose: 20 units Documented by: Melatonin (Melatonin 3 Mg Tab) 6 mg PO BEDTIME PRN PRN Reason: Insomnia Last Admin: 08/18/21 21:45 Dose: 6 mg Documented by: Ondansetron HCl (Ondansetron 4 Mg Tab.Dis) 4 mg PO Q6H PRN PRN Reason: nausea, able to take PO Last Admin: 08/17/21 13:41 Dose: 4 mg Documented by: Ondansetron HCl (Ondansetron 4 Mg/2 Ml Sdv) 4 mg IVPUSH Q6H PRN PRN Reason: Nausea/Vomiting Last Admin: 08/20/21 08:57 Dose: 4 mg Documented by: Discontinued Medications Dexamethasone (Dexamethasone Solution 0.5 Mg/5 Ml) 6 mg PO DAILY [facility] Last Admin: 08/16/21 17:40 Dose: Not Given Documented by: Enoxaparin Sodium (Enoxaparin 40 Mg/0.4 Ml Syringe) 40 mg SUBCUT Q24H [facility] Last Admin: 08/16/21 17:40 Dose: Not Given Documented by: Enoxaparin Sodium (Enoxaparin 40 Mg/0.4 Ml Syringe) 40 mg SUBCUT Q12HR [facility] Last Admin: 08/19/21 09:25 Dose: 40 mg Documented by: Enoxaparin Sodium (Enoxaparin 40 Mg/0.4 Ml Syringe) 40 mg SUBCUT Q24H [facility] Remdesivir 200 mg/ Sodium (Chloride) 250 mls @ 250 mls/hr IV ONETIME ONE Stop: 08/15/21 19:52 Last Admin: 08/15/21 20:47 Dose: 250 mls/hr Documented by: Sodium Chloride (Normal Saline) 1,000 mls @ 150 mls/hr IV STAT ONE Stop: 08/16/21 03:36 Last Admin: 08/15/21 23:01 Dose: 150 mls/hr Documented by: Remdesivir 100 mg/ Sodium (Chloride) 100 mls @ 100 mls/hr IV Q24H AWA Stop: 08/19/21 21:59 Last Admin: 08/19/21 21:57 Dose: 100 mls/hr Documented by: Potassium Chloride/Sodium Chloride (Normal Saline With 20 Meq Kcl) 500 mls @ 75 mls/hr IV ASDIRECTED [facility] Insulin Aspart (Insulin Aspart 100 Units/Ml 3 Ml Pen) 0 unit SUBCUT ACBREAKFASTANDBED AWA; Protocol Last Admin: 08/17/21 08:16 Dose: 5 units Documented by: Insulin Aspart (Insulin Aspart 100 Units/Ml 3 Ml Pen) 0 unit SUBCUT BEDTIME SC H; Protocol Last Admin: 08/18/21 21:58 Dose: Not Given Documented by: Insulin Aspart (Insulin Aspart 100 Units/Ml 3 Ml Pen) 6 unit SUBCUT ONETIME ONE Stop: 08/18/21 21:53 Last Admin: 08/18/21 21:56 Dose: 6 units Documented by: Iopamidol (Iopamidol 755 Mg/Ml 100 Ml Bottle) 100 ml IVPUSH ONETIME ONE Stop: 08/15/21 21:00 Last Admin: 08/15/21 21:37 Dose: 100 ml Documented by: Iopamidol (Iopamidol 755 Mg/Ml 500 Ml Multipack Bottle) 100 ml IVPUSH ONETIME STA Stop: 08/19/21 21:36 Last Admin: 08/19/21 21:36 Dose: 100 ml Documented by: Potassium Chloride (Potassium Chloride 20 Meq Tab.Er) 20 meq PO TID AWA Stop: 08/19/21 14:01 Last Admin: 08/19/21 13:49 Dose: 20 meq Documented by: Potassium Chloride (Potassium Chloride 20 Meq Tab.Er) 40 meq PO ONETIME ONE Stop: 08/19/21 08:55 Last Admin: 08/19/21 09:24 Dose: 40 meq Documented by: Potassium Chloride (Potassium Chloride 20 Meq Tab.Er) 40 meq PO ONETIME ONE Stop: 08/19/21 14:53 Last Admin: 08/19/21 15:14 Dose: 40 meq Documented by: - Exam General: Moderate Distress HEENT: No: Mucous Membr. Moist/Alpine Neck: Trachea Midline Lungs: Rhonchi Cardiovascular: Regular Rate, Regular Rhythm GI/Abdominal Exam: Normal Bowel Sounds, Soft, Non-Tender - Patient Data Lab Results Last 24 hrs: Laboratory Results - last 24 hr 08/20/21 08/20/21 08/21/21 Range/Units 17:15 21:26 06:15 WBC 17.69 H (4.0-11.0) K/uL RBC 4.21 L (4.50-5.90) M/uL Hgb 13.3 (13.0-17.0) g/dL Hct 37.0 L (38.0-50.0) % MCV 87.9 (80.0-98.0) fL MCH 31.6 (27.0-32.0) pg MCHC 35.9 (31.0-37.0) g/dL RDW Std Deviation 39.8 (28.0-62.0) fl RDW Coeff of [place] 12 (11.0-15.0) % Plt Count 160 (150-400) K/uL MPV 11.40 (7.40-12.00) fL Neut % (Auto) 92.0 H (48.0-80.0) % Lymph % (Auto) 6.4 L (16.0-40.0) % Emery % (Auto) 1.4 (0.0-15.0) % Eos % (Auto) 0.1 (0.0-7.0) % Baso % (Auto) 0.1 (0.0-1.5) % Neut # (Auto) 16.3 H (1.4-5.7) K/uL Lymph # (Auto) 1.1 (0.6-2.4) K/uL Emery # (Auto) 0.3 (0.0-0.8) K/uL Eos # (Auto) 0.0 (0.0-0.7) K/uL Baso # (Auto) 0.0 (0.0-0.1) K/uL Nucleated RBC % 0.0 /100WBC Nucleated RBCs # 0 K/uL Sodium (136-148) mmol/L Potassium (3.5-5.1) mmol/L Chloride (98-107) mmol/L Carbon Dioxide (21.0-32.0) mmol/L BUN (7.0-18.0) mg/dL Creatinine (0.8-1.3) mg/dL Est Cr Clr Drug Dosing mL/min Estimated GFR (MDRD) ml/min Glucose (74-106) mg/dL POC Glucose 202 H 157 H (70-99) mg/dL Calcium (8.5-10.1) mg/dL Total Bilirubin (0.2-1.0) mg/dL AST (15-37) IU/L ALT (14-63) IU/L Alkaline Phosphatase (46-116) U/L Total Protein (6.4-8.2) g/dL Albumin (3.4-5.0) g/dL Globulin (2.6-4.0) g/dL Albumin/Globulin Ratio (0.9-1.6) 08/21/21 08/21/21 08/21/21 Range/Units 06:15 06:30 12:05 WBC (4.0-11.0) K/uL RBC (4.50-5.90) M/uL Hgb (13.0-17.0) g/dL Hct (38.0-50.0) % MCV (80.0-98.0) fL MCH (27.0-32.0) pg MCHC (31.0-37.0) g/dL RDW Std Deviation (28.0-62.0) fl RDW Coeff of [place] (11.0-15.0) % Plt Count (150-400) K/uL MPV (7.40-12.00) fL Neut % (Auto) (48.0-80.0) % Lymph % (Auto) (16.0-40.0) % Emery % (Auto) (0.0-15.0) % Eos % (Auto) (0.0-7.0) % Baso % (Auto) (0.0-1.5) % Neut # (Auto) (1.4-5.7) K/uL Lymph # (Auto) (0.6-2.4) K/uL Emery # (Auto) (0.0-0.8) K/uL Eos # (Auto) (0.0-0.7) K/uL Baso # (Auto) (0.0-0.1) K/uL Nucleated RBC % /100WBC Nucleated RBCs # K/uL Sodium 137 (136-148) mmol/L Potassium 3.2 L (3.5-5.1) mmol/L Chloride 101 (98-107) mmol/L Carbon Dioxide 26.5 (21.0-32.0) mmol/L BUN 16 (7.0-18.0) mg/dL Creatinine 0.9 (0.8-1.3) mg/dL Est Cr Clr Drug Dosing 87.15 mL/min Estimated GFR (MDRD) > 60.0 ml/min Glucose 107 H (74-106) mg/dL POC Glucose 103 H 173 H (70-99) mg/dL Calcium 8.1 L (8.5-10.1) mg/dL Total Bilirubin 1.1 H (0.2-1.0) mg/dL AST 71 H (15-37) IU/L ALT 38 (14-63) IU/L Alkaline Phosphatase 83 (46-116) U/L Total Protein 5.9 L (6.4-8.2) g/dL Albumin 2.1 L (3.4-5.0) g/dL Globulin 3.8 (2.6-4.0) g/dL Albumin/Globulin Ratio 0.6 L (0.9-1.6) Result Diagrams: 08/21/21 06:15 08/21/21 06:15 Sepsis Event Note - Evaluation Sepsis Screening Result: Sepsis Risk - Focused Exam Vital Signs: Vital Signs Temp Pulse Resp BP Pulse Ox Pulse Ox 08/21/21 15:00 28 H 145/79 H 94 L 08/21/21 14:00 25 H 121/85 88 L 90 L 08/21/21 13:00 22 H 129/79 93 L 08/21/21 12:00 23 H 126/71 93 L 08/21/21 11:10 97.6 F 24 H 136/64 90 L 08/21/21 08:24 99 F 85 28 H 125/72 85 L 08/21/21 03:51 97.3 F 76 23 H 108/60 92 L - Problem List & Annotations (1) Acute respiratory disease due to COVID-19 virus SNOMED Code(s): 361529763, 161502007 Code(s): U07.1 - COVID-19; J06.9 - ACUTE UPPER RESPIRATORY INFECTION, UNSPECIFIED Status: Acute Current Visit: Yes (2) Obesity (BMI 30-39.9) SNOMED Code(s): 903623216, 499075280 Code(s): E66.9 - OBESITY, UNSPECIFIED Status: Acute Priority: Medium Current Visit: Yes (3) T2DM (type 2 diabetes mellitus) SNOMED Code(s): 13467299 Code(s): E11.9 - TYPE 2 DIABETES MELLITUS WITHOUT COMPLICATIONS Status: Acute Priority: High Current Visit: Yes Onset Date: ~08/17/21 Qualifiers: Diabetes mellitus usp insulin use: with medical terminologist use - Problem List Review Problem List Initiated/Reviewed/Updated: Yes - My Orders Last 24 Hours: My Active Orders 08/22/21 05:11 CBC WITH AUTO DIFF [HEME] AM CMP [COMPREHENSIVE METABOLIC PN,CMP] [CHEM] AM 08/23/21 05:11 CBC WITH AUTO DIFF [HEME] AM CMP [COMPREHENSIVE METABOLIC PN,CMP] [CHEM] AM 08/24/21 05:11 CBC WITH AUTO DIFF [HEME] AM CMP [COMPREHENSIVE METABOLIC PN,CMP] [CHEM] AM 08/25/21 05:11 CBC WITH AUTO DIFF [HEME] AM CMP [COMPREHENSIVE METABOLIC PN,CMP] [CHEM] AM - Assessment Assessment:: 1. Acute respiratory failure secondary to COVID-19 pneumonia -continue dexamethasone 6 mg per oral route once a day -for shortness of breath/cough continue duo nebulizer treatments and Robitussin is on board -continue baricitinib 4 mg per oral route daily -supply oxygen as needed, patient is currently on Vapotherm and has been transitioned over to the intensive care unit for more close monitoring 2. Diabetes mellitus type 2 -continue with Accu-Cheks/insulin sliding scale/NovoLog
[2021-08-21] MEDS: Insulin Glargine,Human Rec. Analog 100 Units/ML 3 ML Pen SUBCUT SCH (21:41)
[2021-08-22] MEDS: Acetaminophen/HYDROcodone 325-5 MG Tab PO PRN ×6 (00:20→22:02)
[2021-08-22] MEDS: guaiFENesin/Dextromethorphan 100-10 MG/5 ML Soln 10 ML Cup PO PRN ×4 (00:46→21:36)
[2021-08-22] MEDS: Albuterol/Ipratropium 3.0-0.5 MG/3 ML Neb Soln NEB SCH ×6 (02:01→21:36)
[2021-08-22 06:17] LABS: BLOOD UREA NITROGEN,BUN 15 mg/dL (7.0-18.0); CARBON DIOXIDE,CO2 28.8 mmol/L (21.0-32.0); CHLORIDE,CL 99 mmol/L (98-107); GLUCOSE RANDOM 184 mg/dL (74-106); POTASSIUM,K 3.8 mmol/L (3.5-5.1); SODIUM,NA 136 mmol/L (136-148)
[2021-08-22] MEDS: Apixaban 5 MG Tab PO SCH ×2 (06:18→17:13)
[2021-08-22] MEDS: Dexamethasone 4 MG Tab PO SCH (08:27)
[2021-08-22] MEDS: Insulin Aspart 100 Units/ML 3 ML Pen SUBCUT SCH ×3 (09:01→17:48)
--- NOTE | 2021-08-22 11:03 | PCM.PN ---
- General Info Date of Service: 08/22/21 Subjective Update: The patient is a 66-year-old male, on day 8 of service, who has a significant past medical history of obesity and diabetes mellitus type 2, who was admitted to the medical floor due to acute respiratory failure secondary to COVID-19 pneumonia. Upon interview with the patient today he continues to have shortness of breath upon rest and even slight exertion. He is currently on CPAP, with a PEEP of 7, and FiO2 of 60%, and is saturating between 94 to 95%. He admits that he feels better today than he did yesterday and he feels that he is improving. He has no issues with urination and/or defecation, and denies fever, chills, nausea, vomiting, chest pain, palpitations. In regards to his oxygen supplementation, he has been fluctuating between CPAP and heated high flow. He has no other health concerns at this time. - Review of Systems General: Reports: Fatigue. Denies: Fever HEENT: Denies: Headaches, Sore Throat Pulmonary: Reports: Shortness of Breath, Cough Cardiovascular: Denies: Chest Pain Gastrointestinal: Denies: Abdominal Pain Genitourinary: Denies: Dysuria - Patient Data Vitals - Most Recent: Last Vital Signs Temp 97.8 F 08/22/21 04:00 Pulse 85 08/21/21 08:24 Resp 11 L 08/22/21 07:00 BP 126/78 08/22/21 07:00 Pulse Ox 93 L 08/22/21 07:00 Weight - Most Recent: 230 lb 2.601 oz I&O - Last 24 Hours: Intake & Output 08/21/21 08/22/21 08/22/21 22:59 06:59 14:59 Intake Total 600 700 Output Total 700 500 Balance -100 200 Lab Results Last 24 Hours: Laboratory Results - last 24 hr 08/21/21 08/21/21 08/21/21 Range/Units 12:05 17:19 21:29 WBC (4.0-11.0) K/uL RBC (4.50-5.90) M/uL Hgb (13.0-17.0) g/dL Hct (38.0-50.0) % MCV (80.0-98.0) fL MCH (27.0-32.0) pg MCHC (31.0-37.0) g/dL RDW Std Deviation (28.0-62.0) fl RDW Coeff of [place] (11.0-15.0) % Plt Count (150-400) K/uL MPV (7.40-12.00) fL Neut % (Auto) (48.0-80.0) % Lymph % (Auto) (16.0-40.0) % [place] % (Auto) (0.0-15.0) % Eos % (Auto) (0.0-7.0) % Baso % (Auto) (0.0-1.5) % Neut # (Auto) (1.4-5.7) K/uL Lymph # (Auto) (0.6-2.4) K/uL [place] # (Auto) (0.0-0.8) K/uL Eos # (Auto) (0.0-0.7) K/uL Baso # (Auto) (0.0-0.1) K/uL Nucleated RBC % /100WBC Nucleated RBCs # K/uL Sodium (136-148) mmol/L Potassium (3.5-5.1) mmol/L Chloride (98-107) mmol/L Carbon Dioxide (21.0-32.0) mmol/L BUN (7.0-18.0) mg/dL Creatinine (0.8-1.3) mg/dL Est Cr Clr Drug Dosing mL/min Estimated GFR (MDRD) ml/min Glucose (74-106) mg/dL POC Glucose 173 H 225 H 174 H (70-99) mg/dL Calcium (8.5-10.1) mg/dL Magnesium (1.8-2.4) mg/dL Total Bilirubin (0.2-1.0) mg/dL AST (15-37) IU/L ALT (14-63) IU/L Alkaline Phosphatase (46-116) U/L Total Protein (6.4-8.2) g/dL Albumin (3.4-5.0) g/dL Globulin (2.6-4.0) g/dL Albumin/Globulin Ratio (0.9-1.6) 08/22/21 08/22/21 08/22/21 Range/Units 05:49 05:49 05:49 WBC 21.82 H (4.0-11.0) K/uL RBC 4.22 L (4.50-5.90) M/uL Hgb 13.3 (13.0-17.0) g/dL Hct 37.2 L (38.0-50.0) % MCV 88.2 (80.0-98.0) fL MCH 31.5 (27.0-32.0) pg MCHC 35.8 (31.0-37.0) g/dL RDW Std Deviation 40.2 (28.0-62.0) fl RDW Coeff of [place] 13 (11.0-15.0) % Plt Count 156 (150-400) K/uL MPV 10.90 (7.40-12.00) fL Neut % (Auto) 93.7 H (48.0-80.0) % Lymph % (Auto) 4.1 L (16.0-40.0) % [place] % (Auto) 2.1 (0.0-15.0) % Eos % (Auto) 0.0 (0.0-7.0) % Baso % (Auto) 0.1 (0.0-1.5) % Neut # (Auto) 20.4 H (1.4-5.7) K/uL Lymph # (Auto) 0.9 (0.6-2.4) K/uL [place] # (Auto) 0.5 (0.0-0.8) K/uL Eos # (Auto) 0.0 (0.0-0.7) K/uL Baso # (Auto) 0.0 (0.0-0.1) K/uL Nucleated RBC % 0.0 /100WBC Nucleated RBCs # 0 K/uL Sodium 136 (136-148) mmol/L Potassium 3.8 (3.5-5.1) mmol/L Chloride 99 (98-107) mmol/L Carbon Dioxide 28.8 (21.0-32.0) mmol/L BUN 15 (7.0-18.0) mg/dL Creatinine 0.8 (0.8-1.3) mg/dL Est Cr Clr Drug Dosing 98.05 mL/min Estimated GFR (MDRD) > 60.0 ml/min Glucose 184 H (74-106) mg/dL POC Glucose (70-99) mg/dL Calcium 8.1 L (8.5-10.1) mg/dL Magnesium 2.1 (1.8-2.4) mg/dL Total Bilirubin 1.0 (0.2-1.0) mg/dL AST 42 H (15-37) IU/L ALT 40 (14-63) IU/L Alkaline Phosphatase 92 (46-116) U/L Total Protein 5.9 L (6.4-8.2) g/dL Albumin 2.0 L (3.4-5.0) g/dL Globulin 3.9 (2.6-4.0) g/dL Albumin/Globulin Ratio 0.5 L (0.9-1.6) 08/22/21 Range/Units 08:44 WBC (4.0-11.0) K/uL RBC (4.50-5.90) M/uL Hgb (13.0-17.0) g/dL Hct (38.0-50.0) % MCV (80.0-98.0) fL MCH (27.0-32.0) pg MCHC (31.0-37.0) g/dL RDW Std Deviation (28.0-62.0) fl RDW Coeff of [place] (11.0-15.0) % Plt Count (150-400) K/uL MPV (7.40-12.00) fL Neut % (Auto) (48.0-80.0) % Lymph % (Auto) (16.0-40.0) % [place] % (Auto) (0.0-15.0) % Eos % (Auto) (0.0-7.0) % Baso % (Auto) (0.0-1.5) % Neut # (Auto) (1.4-5.7) K/uL Lymph # (Auto) (0.6-2.4) K/uL [place] # (Auto) (0.0-0.8) K/uL Eos # (Auto) (0.0-0.7) K/uL Baso # (Auto) (0.0-0.1) K/uL Nucleated RBC % /100WBC Nucleated RBCs # K/uL Sodium (136-148) mmol/L Potassium (3.5-5.1) mmol/L Chloride (98-107) mmol/L Carbon Dioxide (21.0-32.0) mmol/L BUN (7.0-18.0) mg/dL Creatinine (0.8-1.3) mg/dL Est Cr Clr Drug Dosing mL/min Estimated GFR (MDRD) ml/min Glucose (74-106) mg/dL POC Glucose 152 H (70-99) mg/dL Calcium (8.5-10.1) mg/dL Magnesium (1.8-2.4) mg/dL Total Bilirubin (0.2-1.0) mg/dL AST (15-37) IU/L ALT (14-63) IU/L Alkaline Phosphatase (46-116) U/L Total Protein (6.4-8.2) g/dL Albumin (3.4-5.0) g/dL Globulin (2.6-4.0) g/dL Albumin/Globulin Ratio (0.9-1.6) Med Orders - Current: Current Medications Hydrocodone Bitart/Acetaminophen (Acetaminophen/Hydrocodone 325-5 Mg Tab) 1 tab PO Q4H PRN PRN Reason: Pain (moderate 4-6) Last Admin: 08/22/21 08:30 Dose: 1 tab Documented by: Albuterol/Ipratropium (Albuterol/Ipratropium 3.0-0.5 Mg/3 Ml Neb Soln) 3 ml NEB Q2H PRN PRN Reason: Dyspepsia Albuterol/Ipratropium (Albuterol/Ipratropium 3.0-0.5 Mg/3 Ml Neb Soln) 3 ml NEB Q4HRRT [facility] Last Admin: 08/22/21 10:08 Dose: 3 ml Documented by: Apixaban (Apixaban 5 Mg Tab) 10 mg PO Q12H [facility] Stop: 08/26/21 06:01 Last Admin: 08/22/21 06:18 Dose: 10 mg Documented by: Baricitinib (Baricitinib 2 Mg Tab) 4 mg PO DAILY [facility] Stop: 08/30/21 09:01 Last Admin: 08/22/21 08:27 Dose: 4 mg Documented by: Dexamethasone (Dexamethasone 4 Mg Tab) 6 mg PO DAILY [facility] Last Admin: 08/22/21 08:27 Dose: 6 mg Documented by: Dextrose/Water (50% Dextrose In Water 50 Ml Syringe) 50 ml IVPUSH ASDIRECTED PRN PRN Reason: Hypoglycemia Dextrose/Water (50% Dextrose In Water 50 Ml Syringe) 50 ml IVPUSH ASDIRECTED PRN PRN Reason: Hypoglycemia Glucagon (Glucagon,Human Recombinant 1 Mg Vial) 1 mg IM ASDIRECTED PRN PRN Reason: Hypoglycemia Glucagon (Glucagon,Human Recombinant 1 Mg Vial) 1 mg IM ASDIRECTED PRN PRN Reason: Hypoglycemia Guaifenesin/Dextromethorphan (Guaifenesin/Dextromethorphan 100-10 Mg/5 Ml Soln 10 Ml Cup) 10 ml PO Q6H PRN PRN Reason: Cough Last Admin: 08/22/21 08:27 Dose: 10 ml Documented by: Insulin Aspart (Insulin Aspart 100 Units/Ml 3 Ml Pen) 0 unit SUBCUT TIDAC [facility]; Protocol Last Admin: 08/22/21 09:01 Dose: 3 units Documented by: Insulin Glargine (Insulin Glargine,Human Rec. Analog 100 Units/Ml 3 Ml Pen) 20 units SUBCUT BEDTIME [facility] Last Admin: 08/21/21 21:41 Dose: 20 units Documented by: Melatonin (Melatonin 3 Mg Tab) 6 mg PO BEDTIME PRN PRN Reason: Insomnia Last Admin: 08/18/21 21:45 Dose: 6 mg Documented by: Ondansetron HCl (Ondansetron 4 Mg Tab.Dis) 4 mg PO Q6H PRN PRN Reason: nausea, able to take PO Last Admin: 08/17/21 13:41 Dose: 4 mg Documented by: Ondansetron HCl (Ondansetron 4 Mg/2 Ml Sdv) 4 mg IVPUSH Q6H PRN PRN Reason: Nausea/Vomiting Last Admin: 08/20/21 08:57 Dose: 4 mg Documented by: Discontinued Medications Dexamethasone (Dexamethasone Solution 0.5 Mg/5 Ml) 6 mg PO DAILY [facility] Last Admin: 08/16/21 17:40 Dose: Not Given Documented by: Enoxaparin Sodium (Enoxaparin 40 Mg/0.4 Ml Syringe) 40 mg SUBCUT Q24H [facility] Last Admin: 08/16/21 17:40 Dose: Not Given Documented by: Enoxaparin Sodium (Enoxaparin 40 Mg/0.4 Ml Syringe) 40 mg SUBCUT Q12HR [facility] Last Admin: 08/19/21 09:25 Dose: 40 mg Documented by: Enoxaparin Sodium (Enoxaparin 40 Mg/0.4 Ml Syringe) 40 mg SUBCUT Q24H AWA Remdesivir 200 mg/ Sodium (Chloride) 250 mls @ 250 mls/hr IV ONETIME ONE Stop: 08/15/21 19:52 Last Admin: 08/15/21 20:47 Dose: 250 mls/hr Documented by: Sodium Chloride (Normal Saline) 1,000 mls @ 150 mls/hr IV STAT ONE Stop: 08/16/21 03:36 Last Admin: 08/15/21 23:01 Dose: 150 mls/hr Documented by: Remdesivir 100 mg/ Sodium (Chloride) 100 mls @ 100 mls/hr IV Q24H [facility] Stop: 08/19/21 21:59 Last Admin: 08/19/21 21:57 Dose: 100 mls/hr Documented by: Potassium Chloride/Sodium Chloride (Normal Saline With 20 Meq Kcl) 500 mls @ 75 mls/hr IV ASDIRECTED [facility] Insulin Aspart (Insulin Aspart 100 Units/Ml 3 Ml Pen) 0 unit SUBCUT ACBREAKFASTANDBED [facility]; Protocol Last Admin: 08/17/21 08:16 Dose: 5 units Documented by: Insulin Aspart (Insulin Aspart 100 Units/Ml 3 Ml Pen) 0 unit SUBCUT BEDTIME [facility]; Protocol Last Admin: 08/18/21 21:58 Dose: Not Given Documented by: Insulin Aspart (Insulin Aspart 100 Units/Ml 3 Ml Pen) 6 unit SUBCUT ONETIME ONE Stop: 08/18/21 21:53 Last Admin: 08/18/21 21:56 Dose: 6 units Documented by: Iopamidol (Iopamidol 755 Mg/Ml 100 Ml Bottle) 100 ml IVPUSH ONETIME ONE Stop: 08/15/21 21:00 Last Admin: 08/15/21 21:37 Dose: 100 ml Documented by: Iopamidol (Iopamidol 755 Mg/Ml 500 Ml Multipack Bottle) 100 ml IVPUSH ONETIME STA Stop: 08/19/21 21:36 Last Admin: 08/19/21 21:36 Dose: 100 ml Documented by: Potassium Chloride (Potassium Chloride 20 Meq Tab.Er) 20 meq PO TID AWA Stop: 08/19/21 14:01 Last Admin: 08/19/21 13:49 Dose: 20 meq Documented by: Potassium Chloride (Potassium Chloride 20 Meq Tab.Er) 40 meq PO ONETIME ONE Stop: 08/19/21 08:55 Last Admin: 08/19/21 09:24 Dose: 40 meq Documented by: Potassium Chloride (Potassium Chloride 20 Meq Tab.Er) 40 meq PO ONETIME ONE Stop: 08/19/21 14:53 Last Admin: 08/19/21 15:14 Dose: 40 meq Documented by: - Exam General: Alert, Cooperative, No Acute Distress HEENT: No: Mucous Membr. Moist/[place] Neck: Trachea Midline Lungs: Rhonchi Cardiovascular: Regular Rate, Regular Rhythm, No Murmurs GI/Abdominal Exam: Normal Bowel Sounds, Soft, Non-Tender - Patient Data Lab Results Last 24 hrs: Laboratory Results - last 24 hr 08/21/21 08/21/21 08/21/21 Range/Units 12:05 17:19 21:29 WBC (4.0-11.0) K/uL RBC (4.50-5.90) M/uL Hgb (13.0-17.0) g/dL Hct (38.0-50.0) % MCV (80.0-98.0) fL MCH (27.0-32.0) pg MCHC (31.0-37.0) g/dL RDW Std Deviation (28.0-62.0) fl RDW Coeff of [place] (11.0-15.0) % Plt Count (150-400) K/uL MPV (7.40-12.00) fL Neut % (Auto) (48.0-80.0) % Lymph % (Auto) (16.0-40.0) % [place] % (Auto) (0.0-15.0) % Eos % (Auto) (0.0-7.0) % Baso % (Auto) (0.0-1.5) % Neut # (Auto) (1.4-5.7) K/uL Lymph # (Auto) (0.6-2.4) K/uL [place] # (Auto) (0.0-0.8) K/uL Eos # (Auto) (0.0-0.7) K/uL Baso # (Auto) (0.0-0.1) K/uL Nucleated RBC % /100WBC Nucleated RBCs # K/uL Sodium (136-148) mmol/L Potassium (3.5-5.1) mmol/L Chloride (98-107) mmol/L Carbon Dioxide (21.0-32.0) mmol/L BUN (7.0-18.0) mg/dL Creatinine (0.8-1.3) mg/dL Est Cr Clr Drug Dosing mL/min Estimated GFR (MDRD) ml/min Glucose (74-106) mg/dL POC Glucose 173 H 225 H 174 H (70-99) mg/dL Calcium (8.5-10.1) mg/dL Magnesium (1.8-2.4) mg/dL Total Bilirubin (0.2-1.0) mg/dL AST (15-37) IU/L ALT (14-63) IU/L Alkaline Phosphatase (46-116) U/L Total Protein (6.4-8.2) g/dL Albumin (3.4-5.0) g/dL Globulin (2.6-4.0) g/dL Albumin/Globulin Ratio (0.9-1.6) 08/22/21 08/22/21 08/22/21 Range/Units 05:49 05:49 05:49 WBC 21.82 H (4.0-11.0) K/uL RBC 4.22 L (4.50-5.90) M/uL Hgb 13.3 (13.0-17.0) g/dL Hct 37.2 L (38.0-50.0) % MCV 88.2 (80.0-98.0) fL MCH 31.5 (27.0-32.0) pg MCHC 35.8 (31.0-37.0) g/dL RDW Std Deviation 40.2 (28.0-62.0) fl RDW Coeff of [place] 13 (11.0-15.0) % Plt Count 156 (150-400) K/uL MPV 10.90 (7.40-12.00) fL Neut % (Auto) 93.7 H (48.0-80.0) % Lymph % (Auto) 4.1 L (16.0-40.0) % [place] % (Auto) 2.1 (0.0-15.0) % Eos % (Auto) 0.0 (0.0-7.0) % Baso % (Auto) 0.1 (0.0-1.5) % Neut # (Auto) 20.4 H (1.4-5.7) K/uL Lymph # (Auto) 0.9 (0.6-2.4) K/uL [place] # (Auto) 0.5 (0.0-0.8) K/uL Eos # (Auto) 0.0 (0.0-0.7) K/uL Baso # (Auto) 0.0 (0.0-0.1) K/uL Nucleated RBC % 0.0 /100WBC Nucleated RBCs # 0 K/uL Sodium 136 (136-148) mmol/L Potassium 3.8 (3.5-5.1) mmol/L Chloride 99 (98-107) mmol/L Carbon Dioxide 28.8 (21.0-32.0) mmol/L BUN 15 (7.0-18.0) mg/dL Creatinine 0.8 (0.8-1.3) mg/dL Est Cr Clr Drug Dosing 98.05 mL/min Estimated GFR (MDRD) > 60.0 ml/min Glucose 184 H (74-106) mg/dL POC Glucose (70-99) mg/dL Calcium 8.1 L (8.5-10.1) mg/dL Magnesium 2.1 (1.8-2.4) mg/dL Total Bilirubin 1.0 (0.2-1.0) mg/dL AST 42 H (15-37) IU/L ALT 40 (14-63) IU/L Alkaline Phosphatase 92 (46-116) U/L Total Protein 5.9 L (6.4-8.2) g/dL Albumin 2.0 L (3.4-5.0) g/dL Globulin 3.9 (2.6-4.0) g/dL Albumin/Globulin Ratio 0.5 L (0.9-1.6) 08/22/ Range/Units 08:44 WBC (4.0-11.0) K/uL RBC (4.50-5.90) M/uL Hgb (13.0-17.0) g/dL Hct (38.0-50.0) % MCV (80.0-98.0) fL MCH (27.0-32.0) pg MCHC (31.0-37.0) g/dL RDW Std Deviation (28.0-62.0) fl RDW Coeff of [place] (11.0-15.0) % Plt Count (150-400) K/uL MPV (7.40-12.00) fL Neut % (Auto) (48.0-80.0) % Lymph % (Auto) (16.0-40.0) % [place] % (Auto) (0.0-15.0) % Eos % (Auto) (0.0-7.0) % Baso % (Auto) (0.0-1.5) % Neut # (Auto) (1.4-5.7) K/uL Lymph # (Auto) (0.6-2.4) K/uL [place] # (Auto) (0.0-0.8) K/uL Eos # (Auto) (0.0-0.7) K/uL Baso # (Auto) (0.0-0.1) K/uL Nucleated RBC % /100WBC Nucleated RBCs # K/uL Sodium (136-148) mmol/L Potassium (3.5-5.1) mmol/L Chloride (98-107) mmol/L Carbon Dioxide (21.0-32.0) mmol/L BUN (7.0-18.0) mg/dL Creatinine (0.8-1.3) mg/dL Est Cr Clr Drug Dosing mL/min Estimated GFR (MDRD) ml/min Glucose (74-106) mg/dL POC Glucose 152 H (70-99) mg/dL Calcium (8.5-10.1) mg/dL Magnesium (1.8-2.4) mg/dL Total Bilirubin (0.2-1.0) mg/dL AST (15-37) IU/L ALT (14-63) IU/L Alkaline Phosphatase (46-116) U/L Total Protein (6.4-8.2) g/dL Albumin (3.4-5.0) g/dL Globulin (2.6-4.0) g/dL Albumin/Globulin Ratio (0.9-1.6) Result Diagrams: 12/30/21 05:49 08/22/21 05:49 Sepsis Event Note - Evaluation Sepsis Screening Result: No Definite Risk - Focused Exam Vital Signs: Vital Signs Temp Resp BP Pulse Ox 08/22/21 07:00 11 L 126/78 93 L 08/22/21 06:00 23 H 94/45 L 91 L 08/22/21 05:00 18 137/78 94 L 08/22/21 04:00 97.8 F 20 149/95 H 94 L 08/22/21 03:00 18 133/95 H 93 L 08/22/21 02:00 18 142/89 H 94 L 08/22/21 01:00 19 132/85 93 L 08/22/21 00:00 26 H 139/90 70 L 08/21/21 23:00 96.8 F L 21 H 109/68 91 L - Problem List & Annotations (1) Acute respiratory disease due to COVID-19 virus SNOMED Code(s): 288049863, 857954008 Code(s): U07.1 - COVID-19; J06.9 - ACUTE UPPER RESPIRATORY INFECTION, UNSPECIFIED Status: Acute Current Visit: Yes (2) Obesity (BMI 30-39.9) SNOMED Code(s): 787350777, 838331445 Code(s): E66.9 - OBESITY, UNSPECIFIED Status: Acute Priority: Medium Current Visit: Yes (3) T2DM (type 2 diabetes mellitus) SNOMED Code(s): 49092717 Code(s): E11.9 - TYPE 2 DIABETES MELLITUS WITHOUT COMPLICATIONS Status: Ac kaushik Priority: High Current Visit: Yes Onset Date: ~08/17/21 Qualifiers: Diabetes mellitus custodial insulin use: with terminal gauger use - Problem List Review Problem List Initiated/Reviewed/Updated: Yes - My Orders Last 24 Hours: My Active Orders 08/23/21 05:11 CBC WITH AUTO DIFF [HEME] AM CMP [COMPREHENSIVE METABOLIC PN,CMP] [CHEM] AM 08/24/21 05:11 CBC WITH AUTO DIFF [HEME] AM CMP [COMPREHENSIVE METABOLIC PN,CMP] [CHEM] AM 08/25/21 05:11 CBC WITH AUTO DIFF [HEME] AM CMP [COMPREHENSIVE METABOLIC PN,CMP] [CHEM] AM - Assessment Assessment:: 1. Acute respiratory failure secondary to COVID-19 pneumonia -continue dexamethasone 6 mg per oral route once a day -for shortness of breath/cough continue duo nebulizer treatments and Robitussin is on board -continue baricitinib 4 mg per oral route daily -supply oxygen as needed, patient is currently on CPAP with a PEEP of 7, FiO2 of 60, saturating 94 to 95% -Zofran 4 mg for vomiting is on board every 6 hours 2. Diabetes mellitus type 2 -continue with Accu-Cheks/insulin sliding scale/NovoLog
[2021-08-22] MEDS: Insulin Glargine,Human Rec. Analog 100 Units/ML 3 ML Pen SUBCUT SCH (21:38)
[2021-08-23] MEDS: Acetaminophen/HYDROcodone 325-5 MG Tab PO PRN ×5 (02:22→22:01)
[2021-08-23] MEDS: Albuterol/Ipratropium 3.0-0.5 MG/3 ML Neb Soln NEB SCH ×6 (02:23→22:01)
[2021-08-23] MEDS: guaiFENesin/Dextromethorphan 100-10 MG/5 ML Soln 10 ML Cup PO PRN ×3 (05:56→20:06)
[2021-08-23] MEDS: Apixaban 5 MG Tab PO SCH ×2 (05:56→17:01)
--- NOTE | 2021-08-23 06:10 | PN ---
[facility] Physician - Brief Progress [id number]/31/2021 06:06[facility] Tesfaye hongLauren, SONJA - EDUAR ([facility] SYSTEMJaime) - JOEL WANGDate of Service 08/23/2021 06:06HPI/Events of Note Discussed with RN: pt continues to cough and has intermittent desat.Plan: add [place] [place] N.Interventions Minor-Communication with other healthcare providers and/or familyElectronically Elysia d by: AMELIA GARCIA () on 08/23/2021 06:09
[2021-08-23 07:16] LABS: BLOOD UREA NITROGEN,BUN 21 mg/dL (7.0-18.0); CARBON DIOXIDE,CO2 25.1 mmol/L (21.0-32.0); CHLORIDE,CL 100 mmol/L (98-107); GLUCOSE RANDOM 226 mg/dL (74-106); POTASSIUM,K 3.3 mmol/L (3.5-5.1); SODIUM,NA 137 mmol/L (136-148)
[2021-08-23] MEDS: Dexamethasone 4 MG Tab PO SCH (08:06)
[2021-08-23] MEDS: Benzonatate 100 MG Cap PO PRN ×2 (08:06→17:01)
[2021-08-23] MEDS: Insulin Aspart 100 Units/ML 3 ML Pen SUBCUT SCH ×3 (08:32→18:43)
[2021-08-23] MEDS ORDERED: Potassium Chloride 20 MEQ Tab.ER PO ONE (08:38)
[2021-08-23] MEDS: Sodium Chloride 0.65% Nasal Spray 45 ML Bottle NAS PRN (13:06)
--- NOTE | 2021-08-23 16:04 | PCM.PN ---
- General Info Date of Service: 08/23/21 Subjective Update: The patient is a 66-year-old male, on day 9 of service, who has a significant past medical history of obesity and diabetes mellitus type 2, who was admitted to the medical floor due to acute respiratory failure secondary to COVID-19 pneumonia. Upon interview with the patient today he admits that his cough is still bothering him despite symptomatic treatment and as result eICU physicians have added Tessalon Perles to his medication regimen. He admits that his shortness of breath is slightly improved but is still there. He is using heated high flow during the day with a O2 flow rate of 60, FiO2 of 93%, and saturating over 90%. At night he uses CPAP with a PEEP of 7, FiO2 of 60%, and is saturating from 94 to 95%. The patient was also hypokalemic from labs this morning and was given 40 mEq of potassium chloride and we will continue to felipe tor his levels and replenish as needed. He denies chest pain, palpitations, nausea, vomiting, or any issues with urination and/or defecation. He continues to have a poor appetite but is consuming Jello regularly. He has no other health concerns at this time. - Review of Systems General: Reports: Fever. Denies: Fatigue HEENT: Denies: Headaches Pulmonary: Reports: Shortness of Breath, Cough Cardiovascular: Denies: Chest Pain, Palpitations Gastrointestinal: Denies: Abdominal Pain Genitourinary: Denies: Dysuria - Patient Data Vitals - Most Recent: Last Vital Signs Temp 97.9 F 08/23/21 08:00 Pulse 85 08/21/21 08:24 Resp 28 H 08/23/21 11:00 BP 133/82 08/23/21 11:00 Pulse Ox 91 L 08/23/21 14:00 Weight - Most Recent: 230 lb 2.601 oz I&O - Last 24 Hours: Intake & Output 08/23/21 08/23/21 08/23/21 06:59 14:59 22:59 Intake Total 650 Output Total 400 Balance 250 Lab Results Last 24 Hours: Laboratory Results - last 24 hr 08/22/21 08/22/21 08/23/21 Range/Units 17:36 21:42 06:31 WBC (4.0-11.0) K/uL RBC (4.50-5.90) M/uL Hgb (13.0-17.0) g/dL Hct (38.0-50.0) % MCV (80.0-98.0) fL MCH (27.0-32.0) pg MCHC (31.0-37.0) g/dL RDW Std Deviation (28.0-62.0) fl RDW Coeff of [place] (11.0-15.0) % Plt Count (150-400) K/uL MPV (7.40-12.00) fL Neut % (Auto) (48.0-80.0) % Lymph % (Auto) (16.0-40.0) % Baker % (Auto) (0.0-15.0) % Eos % (Auto) (0.0-7.0) % Baso % (Auto) (0.0-1.5) % Neut # (Auto) (1.4-5.7) K/uL Lymph # (Auto) (0.6-2.4) K/uL Baker # (Auto) (0.0-0.8) K/uL Eos # (Auto) (0.0-0.7) K/uL Baso # (Auto) (0.0-0.1) K/uL Nucleated RBC % /100WBC Nucleated RBCs # K/uL Sodium (136-148) mmol/L Potassium (3.5-5.1) mmol/L Chloride (98-107) mmol/L Carbon Dioxide (21.0-32.0) mmol/L BUN (7.0-18.0) mg/dL Creatinine (0.8-1.3) mg/dL Est Cr Clr Drug Dosing mL/min Estimated GFR (MDRD) ml/min Glucose (74-106) mg/dL POC Glucose 211 H 192 H 215 H (70-99) mg/dL Calcium (8.5-10.1) mg/dL Total Bilirubin (0.2-1.0) mg/dL AST (15-37) IU/L ALT (14-63) IU/L Alkaline Phosphatase (46-116) U/L Total Protein (6.4-8.2) g/dL Albumin (3.4-5.0) g/dL Globulin (2.6-4.0) g/dL Albumin/Globulin Ratio (0.9-1.6) 08/23/21 08/23/21 08/23/21 Range/Units 06:33 06:33 08:21 WBC 23.49 H (4.0-11.0) K/uL RBC 4.40 L (4.50-5.90) M/uL Hgb 14.0 (13.0-17.0) g/dL Hct 39.2 (38.0-50.0) % MCV 89.1 (80.0-98.0) fL MCH 31.8 (27.0-32.0) pg MCHC 35.7 (31.0-37.0) g/dL RDW Std Deviation 40.1 (28.0-62.0) fl RDW Coeff of [place] 13 (11.0-15.0) % Plt Count 180 (150-400) K/uL MPV 11.30 (7.40-12.00) fL Neut % (Auto) 93.6 H (48.0-80.0) % Lymph % (Auto) 3.4 L (16.0-40.0) % Baker % (Auto) 2.9 (0.0-15.0) % Eos % (Auto) 0.0 (0.0-7.0) % Baso % (Auto) 0.1 (0.0-1.5) % Neut # (Auto) 22.0 H (1.4-5.7) K/uL Lymph # (Auto) 0.8 (0.6-2.4) K/uL Baker # (Auto) 0.7 (0.0-0.8) K/uL Eos # (Auto) 0.0 (0.0-0.7) K/uL Baso # (Auto) 0.0 (0.0-0.1) K/uL Nucleated RBC % 0.1 /100WBC Nucleated RBCs # 0 K/uL Sodium 137 (136-148) mmol/L Potassium 3.3 L (3.5-5.1) mmol/L Chloride 100 (98-107) mmol/L Carbon Dioxide 25.1 (21.0-32.0) mmol/L BUN 21 H (7.0-18.0) mg/dL Creatinine 0.9 (0.8-1.3) mg/dL Est Cr Clr Drug Dosing 87.15 mL/min Estimated GFR (MDRD) > 60.0 ml/min Glucose 226 H (74-106) mg/dL POC Glucose 231 H (70-99) mg/dL Calcium 8.2 L (8.5-10.1) mg/dL Total Bilirubin 0.9 (0.2-1.0) mg/dL AST 26 (15-37) IU/L ALT 35 (14-63) IU/L Alkaline Phosphatase 99 (46-116) U/L Total Protein 6.4 (6.4-8.2) g/dL Albumin 2.1 L (3.4-5.0) g/dL Globulin 4.3 H (2.6-4.0) g/dL Albumin/Globulin Ratio 0.5 L (0.9-1.6) 08/23/21 Range/Units 13:12 WBC (4.0-11.0) K/uL RBC (4.50-5.90) M/uL Hgb (13.0-17.0) g/dL Hct (38.0-50.0) % MCV (80.0-98.0) fL MCH (27.0-32.0) pg MCHC (31.0-37.0) g/dL RDW Std Deviation (28.0-62.0) fl RDW Coeff of [place] (11.0-15.0) % Plt Count (150-400) K/uL MPV (7.40-12.00) fL Neut % (Auto) (48.0-80.0) % Lymph % (Auto) (16.0-40.0) % Baker % (Auto) (0.0-15.0) % Eos % (Auto) (0.0-7.0) % Baso % (Auto) (0.0-1.5) % Neut # (Auto) (1.4-5.7) K/uL Lymph # (Auto) (0.6-2.4) K/uL Baker # (Auto) (0.0-0.8) K/uL Eos # (Auto) (0.0-0.7) K/uL Baso # (Auto) (0.0-0.1) K/uL Nucleated RBC % /100WBC Nucleated RBCs # K/uL Sodium (136-148) mmol/L Potassium (3.5-5.1) mmol/L Chloride (98-107) mmol/L Carbon Dioxide (21.0-32.0) mmol/L BUN (7.0-18.0) mg/dL Creatinine (0.8-1.3) mg/dL Est Cr Clr Drug Dosing mL/min Estimated GFR (MDRD) ml/min Glucose (74-106) mg/dL POC Glucose 207 H (70-99) mg/dL Calcium (8.5-10.1) mg/dL Total Bilirubin (0.2-1.0) mg/dL AST (15-37) IU/L ALT (14-63) IU/L Alkaline Phosphatase (46-116) U/L Total Protein (6.4-8.2) g/dL Albumin (3.4-5.0) g/dL Globulin (2.6-4.0) g/dL Albumin/Globulin Ratio (0.9-1.6) Med Orders - Current: Current Medications Hydrocodone Bitart/Acetaminophen (Acetaminophen/Hydrocodone 325-5 Mg Tab) 1 tab PO Q4H PRN PRN Reason: Pain (moderate 4-6) Last Admin: 08/23/21 10:06 Dose: 1 tab Documented by: Albuterol/Ipratropium (Albuterol/Ipratropium 3.0-0.5 Mg/3 Ml Neb Soln) 3 ml NEB Q2H PRN PRN Reason: Dyspepsia Albuterol/Ipratropium (Albuterol/Ipratropium 3.0-0.5 Mg/3 Ml Neb Soln) 3 ml NEB Q4HRRT [facility] Last Admin: 08/23/21 13:07 Dose: 3 ml Documented by: Apixaban (Apixaban 5 Mg Tab) 10 mg PO Q12H [facility] Stop: 08/26/21 06:01 Last Admin: 08/23/21 05:56 Dose: 10 mg Documented by: Baricitinib (Baricitinib 2 Mg Tab) 4 mg PO DAILY [facility] Stop: 08/30/21 09:01 Last Admin: 08/23/21 08:06 Dose: 4 mg Documented by: Benzonatate (Benzonatate 100 Mg Cap) 100 mg PO Q8H PRN PRN Reason: Cough Last Admin: 08/23/21 08:06 Dose: 100 mg Documented by: Dexamethasone (Dexamethasone 4 Mg Tab) 6 mg PO DAILY [facility] Last Admin: 08/23/21 08:06 Dose: 6 mg Documented by: Dextrose/Water (50% Dextrose In Water 50 Ml Syringe) 50 ml IVPUSH ASDIRECTED PRN PRN Reason: Hypoglycemia Glucagon (Glucagon,Human Recombinant 1 Mg Vial) 1 mg IM ASDIRECTED PRN PRN Reason: Hypoglycemia Guaifenesin/Dextromethorphan (Guaifenesin/Dextromethorphan 100-10 Mg/5 Ml Soln 10 Ml Cup) 10 ml PO Q6H PRN PRN Reason: Cough Last Admin: 08/23/21 12:53 Dose: 10 ml Documented by: Insulin Aspart (Insulin Aspart 100 Units/Ml 3 Ml Pen) 0 unit SUBCUT TIDAC [facility]; Protocol Last Admin: 08/23/21 13:23 Dose: 6 units Documented by: Insulin Glargine (Insulin Glargine,Human Rec. Analog 100 Units/Ml 3 Ml Pen) 20 units SUBCUT BEDTIME [facility] Last Admin: 08/22/21 21:38 Dose: 20 units Documented by: Melatonin (Melatonin 3 Mg Tab) 6 mg PO BEDTIME PRN PRN Reason: Insomnia Last Admin: 08/18/21 21:45 Dose: 6 mg Documented by: Ondansetron HCl (Ondansetron 4 Mg Tab.Dis) 4 mg PO Q6H PRN PRN Reason: nausea, able to take PO Last Admin: 08/17/21 13:41 Dose: 4 mg Documented by: Ondansetron HCl (Ondansetron 4 Mg/2 Ml Sdv) 4 mg IVPUSH Q6H PRN PRN Reason: Nausea/Vomiting Last Admin: 08/20/21 08:57 Dose: 4 mg Documented by: Sodium Chloride (Sodium Chloride 0.65% Nasal [place] 45 Ml Bottle) 0 ml CRISTY Q2H PRN PRN Reason: Other Last Admin: 08/23/21 13:06 Dose: 1 spray Documented by: Discontinued Medications Dexamethasone (Dexamethasone Solution 0.5 Mg/5 Ml) 6 mg PO DAILY [facility] Last Admin: 08/16/21 17:40 Dose: Not Given Documented by: Dextrose/Water (50% Dextrose In Water 50 Ml Syringe) 50 ml IVPUSH ASDIRECTED PRN PRN Reason: Hypoglycemia Enoxaparin Sodium (Enoxaparin 40 Mg/0.4 Ml Syringe) 40 mg SUBCUT Q24H [facility] Last Admin: 08/16/21 17:40 Dose: Not Given Documented by: Enoxaparin Sodium (Enoxaparin 40 Mg/0.4 Ml Syringe) 40 mg SUBCUT Q12HR [facility] Last Admin: 08/19/21 09:25 Dose: 40 mg Documented by: Enoxaparin Sodium (Enoxaparin 40 Mg/0.4 Ml Syringe) 40 mg SUBCUT Q24H AWA Glucagon (Glucagon,Human Recombinant 1 Mg Vial) 1 mg IM ASDIRECTED PRN PRN Reason: Hypoglycemia Remdesivir 200 mg/ Sodium (Chloride) 250 mls @ 250 mls/hr IV ONETIME ONE Stop: 08/15/21 19:52 Last Admin: 08/15/21 20:47 Dose: 250 mls/hr Documented by: Sodium Chloride (Normal Saline) 1,000 mls @ 150 mls/hr IV STAT ONE Stop: 08/16/21 03:36 Last Admin: 08/15/21 23:01 Dose: 150 mls/hr Documented by: Remdesivir 100 mg/ Sodium (Chloride) 100 mls @ 100 mls/hr IV Q24H [facility] Stop: 08/19/21 21:59 Last Admin: 08/19/21 21:57 Dose: 100 mls/hr Documented by: Potassium Chloride/Sodium Chloride (Normal Saline With 20 Meq Kcl) 500 mls @ 75 mls/hr IV ASDIRECTED [facility]WA Insulin Aspart (Insulin Aspart 100 Units/Ml 3 Ml Pen) 0 unit SUBCUT ACBREAKFASTANDBED [facility]; Protocol Last Admin: 08/17/21 08:16 Dose: 5 units Documented by: Insulin Aspart (Insulin Aspart 100 Units/Ml 3 Ml Pen) 0 unit SUBCUT BEDTIME [facility]; Protocol Last Admin: 08/18/21 21:58 Dose: Not Given Documented by: Insulin Aspart (Insulin Aspart 100 Units/Ml 3 Ml Pen) 6 unit SUBCUT ONETIME ONE Stop: 08/18/21 21:53 Last Admin: 08/18/21 21:56 Dose: 6 units Documented by: Iopamidol (Iopamidol 755 Mg/Ml 100 Ml Bottle) 100 ml IVPUSH ONETIME ONE Stop: 08/15/21 21:00 Last Admin: 08/15/21 21:37 Dose: 100 ml Documented by: Iopamidol (Iopamidol 755 Mg/Ml 500 Ml Multipack Bottle) 100 ml IVPUSH ONETIME STA Stop: 08/19/21 21:36 Last Admin: 08/19/21 21:36 Dose: 100 ml Documented by: Potassium Chloride (Potassium Chloride 20 Meq Tab.Er) 20 meq PO TID AWA Stop: 08/19/21 14:01 Last Admin: 08/19/21 13:49 Dose: 20 meq Documented by: Potassium Chloride (Potassium Chloride 20 Meq Tab.Er) 40 meq PO ONETIME ONE Stop: 08/19/21 08:55 Last Admin: 08/19/21 09:24 Dose: 40 meq Documented by: Potassium Chloride (Potassium Chloride 20 Meq Tab.Er) 40 meq PO ONETIME ONE Stop: 08/19/21 14:53 Last Admin: 08/19/21 15:14 Dose: 40 meq Documented by: Potassium Chloride (Potassium Chloride 20 Meq Tab.Er) 40 meq PO ONETIME ONE Stop: 08/23/21 08:39 Last Admin: 08/23/21 08:57 Dose: 40 meq Documented by: - Exam General: Cooperative, Mild Distress HEENT: No: Mucous Membr. Moist/[place] Neck: Trachea Midline Lungs: Wheezing Cardiovascular: Regular Rate, Regular Rhythm GI/Abdominal Exam: Normal Bowel Sounds, Soft, Non-Tender Extremities: No Pedal Edema - Patient Data Lab Results Last 24 hrs: Laboratory Results - last 24 hr 08/22/21 08/22/21 08/23/21 Range/Units 17:36 21:42 06:31 WBC (4.0-11.0) K/uL RBC (4.50-5.90) M/uL Hgb (13.0-17.0) g/dL Hct (38.0-50.0) % MCV (80.0-98.0) fL MCH (27.0-32.0) pg MCHC (31.0-37.0) g/dL RDW Std Deviation (28.0-62.0) fl RDW Coeff of [place] (11.0-15.0) % Plt Count (150-400) K/uL MPV (7.40-12.00) fL Neut % (Auto) (48.0-80.0) % Lymph % (Auto) (16.0-40.0) % Baker % (Auto) (0.0-15.0) % Eos % (Auto) (0.0-7.0) % Baso % (Auto) (0.0-1.5) % Neut # (Auto) (1.4-5.7) K/uL Lymph # (Auto) (0.6-2.4) K/uL Baker # (Auto) (0.0-0.8) K/uL Eos # (Auto) (0.0-0.7) K/uL Baso # (Auto) (0.0-0.1) K/uL Nucleated RBC % /100WBC Nucleated RBCs # K/uL Sodium (136-148) mmol/L Potassium (3.5-5.1) mmol/L Chloride (98-107) mmol/L Carbon Dioxide (21.0-32.0) mmol/L BUN (7.0-18.0) mg/dL Creatinine (0.8-1.3) mg/dL Est Cr Clr Drug Dosing mL/min Estimated GFR (MDRD) ml/min Glucose (74-106) mg/dL POC Glucose 211 H 192 H 215 H (70-99) mg/dL Calcium (8.5-10.1) mg/dL Total Bilirubin (0.2-1.0) mg/dL AST (15-37) IU/L ALT (14-63) IU/L Alkaline Phosphatase (46-116) U/L Total Protein (6.4-8.2) g/dL Albumin (3.4-5.0) g/dL Globulin (2.6-4.0) g/dL Albumin/Globulin Ratio (0.9-1.6) 08/23/21 08/23/21 08/23/21 Range/Units 06:33 06:33 08:21 WBC 23.49 H (4.0-11.0) K/uL RBC 4.40 L (4.50-5.90) M/uL Hgb 14.0 (13.0-17.0) g/dL Hct 39.2 (38.0-50.0) % MCV 89.1 (80.0-98.0) fL MCH 31.8 (27.0-32.0) pg MCHC 35.7 (31.0-37.0) g/dL RDW Std Deviation 40.1 (28.0-62.0) fl RDW Coeff of [place] 13 (11.0-15.0) % Plt Count 180 (150-400) K/uL MPV 11.30 (7.40-12.00) fL Neut % (Auto) 93.6 H (48.0-80.0) % Lymph % (Auto) 3.4 L (16.0-40.0) % Baker % (Auto) 2.9 (0.0-15.0) % Eos % (Auto) 0.0 (0.0-7.0) % Baso % (Auto) 0.1 (0.0-1.5) % Neut # (Auto) 22.0 H (1.4-5.7) K/uL Lymph # (Auto) 0.8 (0.6-2.4) K/uL Baker # (Auto) 0.7 (0.0-0.8) K/uL Eos # (Auto) 0.0 (0.0-0.7) K/uL Baso # (Auto) 0.0 (0.0-0.1) K/uL Nucleated RBC % 0.1 /100WBC Nucleated RBCs # 0 K/uL Sodium 137 (136-148) mmol/L Potassium 3.3 L (3.5-5.1) mmol/L Chloride 100 (98-107) mmol/L Carbon Dioxide 25.1 (21.0-32.0) mmol/L BUN 21 H (7.0-18.0) mg/dL Creatinine 0.9 (0.8-1.3) mg/dL Est Cr Clr Drug Dosing 87.15 mL/min Estimated GFR (MDRD) > 60.0 ml/min Glucose 226 H (74-106) mg/dL POC Glucose 231 H (70-99) mg/dL Calcium 8.2 L (8.5-10.1) mg/dL Total Bilirubin 0.9 (0.2-1.0) mg/dL AST 26 (15-37) IU/L ALT 35 (14-63) IU/L Alkaline Phosphatase 99 (46-116) U/L Total Protein 6.4 (6.4-8.2) g/dL Albumin 2.1 L (3.4-5.0) g/dL Globulin 4.3 H (2.6-4.0) g/dL Albumin/Globulin Ratio 0.5 L (0.9-1.6) 08/23/21 Range/Units 13:12 WBC (4.0-11.0) K/uL RBC (4.50-5.90) M/uL Hgb (13.0-17.0) g/dL Hct (38.0-50.0) % MCV (80.0-98.0) fL MCH (27.0-32.0) pg MCHC (31.0-37.0) g/dL RDW Std Deviation (28.0-62.0) fl RDW Coeff of [place] (11.0-15.0) % Plt Count (150-400) K/uL MPV (7.40-12.00) fL Neut % (Auto) (48.0-80.0) % Lymph % (Auto) (16.0-40.0) % Baker % (Auto) (0.0-15.0) % Eos % (Auto) (0.0-7.0) % Baso % (Auto) (0.0-1.5) % Neut # (Auto) (1.4-5.7) K/uL Lymph # (Auto) (0.6-2.4) K/uL Baker # (Auto) (0.0-0.8) K/uL Eos # (Auto) (0.0-0.7) K/uL Baso # (Auto) (0.0-0.1) K/uL Nucleated RBC % /100WBC Nucleated RBCs # K/uL Sodium (136-148) mmol/L Potassium (3.5-5.1) mmol/L Chloride (98-107) mmol/L Carbon Dioxide (21.0-32.0) mmol/L BUN (7.0-18.0) mg/dL Creatinine (0.8-1.3) mg/dL Est Cr Clr Drug Dosing mL/min Estimated GFR (MDRD) ml/min Glucose (74-106) mg/dL POC Glucose 207 H (70-99) mg/dL Calcium (8.5-10.1) mg/dL Total Bilirubin (0.2-1.0) mg/dL AST (15-37) IU/L ALT (14-63) IU/L Alkaline Phosphatase (46-116) U/L Total Protein (6.4-8.2) g/dL Albumin (3.4-5.0) g/dL Globulin (2.6-4.0) g/dL Albumin/Globulin Ratio (0.9-1.6) Result Diagrams: 08/23/21 06:33 08/23/21 06:33 Sepsis Event Note - Evaluation Sepsis Screening Result: Possible Sepsis Risk - Focused Exam Vital Signs: Vital Signs Temp Resp BP Pulse Ox Pulse Ox 08/23/21 14:00 91 L 08/23/21 11:00 28 H 133/82 93 L 08/23/21 10:00 26 H 133/97 H 91 L 08/23/21 09:00 26 H 139/92 H 89 L 08/23/21 08:00 97.9 F 29 H 136/92 H 86 L 08/23/21 07:00 19 122/74 96 08/23/21 06:00 97.4 F 27 H 143/84 H 90 L 08/23/21 05:00 23 H 152/104 H 89 L 08/23/21 04:00 23 H 132/96 H 90 L - Problem List & Annotations (1) Acute respiratory disease due to COVID-19 virus SNOMED Code(s): 668502349, 005685852 Code(s): U07.1 - COVID-19; J06.9 - ACUTE UPPER RESPIRATORY INFECTION, UNSPECIFIED Status: Acute Current Visit: Yes (2) Obesity (BMI 30-39.9) SNOMED Code(s): 122115950, 306072479 Code(s): E66.9 - OBESITY, UNSPECIFIED Status: Acute Priority: Medium Current Visit: Yes (3) T2DM (type 2 diabetes mellitus) SNOMED Code(s): 05815629 Code(s): E11.9 - TYPE 2 DIABETES MELLITUS WITHOUT COMPLICATIONS Status: Acute Priority: High Current Visit: Yes Onset Date: ~08/17/21 Qualifiers: Diabetes mellitus group home insulin use: with group home use - Problem List Review Problem List Initiated/Reviewed/Updated: Yes - My Orders Last 24 Hours: My Active Orders 08/23/21 13:00 Sodium Chloride 0.65% [[place] Nasal [place]] See Dose Instructions CRISTY Q2H PRN 08/24/21 05:11 CBC WITH AUTO DIFF [HEME] AM CMP [COMPREHENSIVE METABOLIC PN,CMP] [CHEM] AM 08/25/21 05:11 CBC WITH AUTO DIFF [HEME] AM CMP [COMPREHENSIVE METABOLIC PN,CMP] [CHEM] AM - Assessment Assessment:: 1. Acute respiratory failure secondary to COVID-19 pneumonia -continue dexamethasone 6 mg per oral route and baricitinib 4 mg per oral route, both once daily -for shortness of breath/cough continue duo nebulizer treatments and Robitussin is on board -Mickie Crum also added, Zofran 4 mg for vomiting every 6 hours -supply oxygen as needed, patient currently on Vapotherm during the day with O2 flow rate of 60, FiO2 of 93%, and saturating over 90% -Patient does have desaturating episodes and as a result he is in the intensive care unit being monitored closely by eICU physicians and ICU nurses 2. Diabetes mellitus type 2 -continue with Accu-Cheks/insulin sliding scale/NovoLog
[2021-08-23] MEDS: Insulin Glargine,Human Rec. Analog 100 Units/ML 3 ML Pen SUBCUT SCH (20:08)
[2021-08-23] MEDS: Melatonin 3 MG Tab PO PRN (22:03)
[2021-08-24] MEDS: Albuterol/Ipratropium 3.0-0.5 MG/3 ML Neb Soln NEB SCH ×6 (02:30→22:03)
[2021-08-24] MEDS: Benzonatate 100 MG Cap PO PRN ×3 (03:32→20:27)
[2021-08-24] MEDS: Apixaban 5 MG Tab PO SCH ×2 (05:37→17:36)
[2021-08-24] MEDS: Acetaminophen/HYDROcodone 325-5 MG Tab PO PRN ×2 (05:37→18:55)
[2021-08-24 06:13] LABS: BLOOD UREA NITROGEN,BUN 25 mg/dL (7.0-18.0); CARBON DIOXIDE,CO2 27.8 mmol/L (21.0-32.0); CHLORIDE,CL 104 mmol/L (98-107); GLUCOSE RANDOM 171 mg/dL (74-106); POTASSIUM,K 3.8 mmol/L (3.5-5.1); SODIUM,NA 140 mmol/L (136-148)
[2021-08-24] MEDS: guaiFENesin/Dextromethorphan 100-10 MG/5 ML Soln 10 ML Cup PO PRN ×3 (08:47→22:03)
[2021-08-24] MEDS: Dexamethasone 4 MG Tab PO SCH (08:48)
[2021-08-24] MEDS: Insulin Aspart 100 Units/ML 3 ML Pen SUBCUT SCH ×3 (09:44→17:42)
--- NOTE | 2021-08-24 11:24 | PCM.PN ---
- General Info Date of Service: 08/24/21 - Review of Systems Systems Review Comment:: reports worsening productive cough - Patient Data Vitals - Most Recent: Last Vital Signs Temp 37.2 C 08/24/21 08:00 Pulse 85 08/21/21 08:24 Resp 28 H 08/24/21 09:00 BP 158/97 H 08/24/21 09:00 Pulse Ox 87 L 08/24/21 09:00 Weight - Most Recent: 101.9 kg I&O - Last 24 Hours: Intake & Output 08/23/21 08/24/21 08/24/21 22:59 06:59 14:59 Intake Total 320 800 Output Total 320 375 Balance 0 425 Lab Results Last 24 Hours: Laboratory Results - last 24 hr 08/23/21 08/23/21 08/23/21 Range/Units 13:12 18:35 20:05 WBC (4.0-11.0) K/uL RBC (4.50-5.90) M/uL Hgb (13.0-17.0) g/dL Hct (38.0-50.0) % MCV (80.0-98.0) fL MCH (27.0-32.0) pg MCHC (31.0-37.0) g/dL RDW Std Deviation (28.0-62.0) fl RDW Coeff of [place] (11.0-15.0) % Plt Count (150-400) K/uL MPV (7.40-12.00) fL Neut % (Auto) (48.0-80.0) % Lymph % (Auto) (16.0-40.0) % [place] % (Auto) (0.0-15.0) % Eos % (Auto) (0.0-7.0) % Baso % (Auto) (0.0-1.5) % Neut # (Auto) (1.4-5.7) K/uL Lymph # (Auto) (0.6-2.4) K/uL [place] # (Auto) (0.0-0.8) K/uL Eos # (Auto) (0.0-0.7) K/uL Baso # (Auto) (0.0-0.1) K/uL Nucleated RBC % /100WBC Nucleated RBCs # K/uL Sodium (136-148) mmol/L Potassium (3.5-5.1) mmol/L Chloride (98-107) mmol/L Carbon Dioxide (21.0-32.0) mmol/L BUN (7.0-18.0) mg/dL Creatinine (0.8-1.3) mg/dL Est Cr Clr Drug Dosing mL/min Estimated GFR (MDRD) ml/min Glucose (74-106) mg/dL POC Glucose 207 H 219 H 186 H (70-99) mg/dL Calcium (8.5-10.1) mg/dL Total Bilirubin (0.2-1.0) mg/dL AST (15-37) IU/L ALT (14-63) IU/L Alkaline Phosphatase (46-116) U/L Total Protein (6.4-8.2) g/dL Albumin (3.4-5.0) g/dL Globulin (2.6-4.0) g/dL Albumin/Globulin Ratio (0.9-1.6) 08/24/21 08/24/21 08/24/21 Range/Units 05:30 05:30 06:53 WBC 27.53 H (4.0-11.0) K/uL RBC 4.43 L (4.50-5.90) M/uL Hgb 14.0 (13.0-17.0) g/dL Hct 39.6 (38.0-50.0) % MCV 89.4 (80.0-98.0) fL MCH 31.6 (27.0-32.0) pg MCHC 35.4 (31.0-37.0) g/dL RDW Std Deviation 40.1 (28.0-62.0) fl RDW Coeff of [place] 13 (11.0-15.0) % Plt Count 216 (150-400) K/uL MPV 11.60 (7.40-12.00) fL Neut % (Auto) 92.8 H (48.0-80.0) % Lymph % (Auto) 4.0 L (16.0-40.0) % [place] % (Auto) 3.1 (0.0-15.0) % Eos % (Auto) 0.0 (0.0-7.0) % Baso % (Auto) 0.1 (0.0-1.5) % Neut # (Auto) 25.6 H (1.4-5.7) K/uL Lymph # (Auto) 1.1 (0.6-2.4) K/uL [place] # (Auto) 0.8 (0.0-0.8) K/uL Eos # (Auto) 0.0 (0.0-0.7) K/uL Baso # (Auto) 0.0 (0.0-0.1) K/uL Nucleated RBC % 0.0 /100WBC Nucleated RBCs # 0 K/uL Sodium 140 (136-148) mmol/L Potassium 3.8 (3.5-5.1) mmol/L Chloride 104 (98-107) mmol/L Carbon Dioxide 27.8 (21.0-32.0) mmol/L BUN 25 H (7.0-18.0) mg/dL Creatinine 1.0 (0.8-1.3) mg/dL Est Cr Clr Drug Dosing 78.44 mL/min Estimated GFR (MDRD) > 60.0 ml/min Glucose 171 H (74-106) mg/dL POC Glucose 162 H (70-99) mg/dL Calcium 8.8 (8.5-10.1) mg/dL Total Bilirubin 0.8 (0.2-1.0) mg/dL AST 30 (15-37) IU/L ALT 32 (14-63) IU/L Alkaline Phosphatase 100 (46-116) U/L Total Protein 6.3 L (6.4-8.2) g/dL Albumin 2.0 L (3.4-5.0) g/dL Globulin 4.3 H (2.6-4.0) g/dL Albumin/Globulin Ratio 0.5 L (0.9-1.6) Med Orders - Current: Current Medications Hydrocodone Bitart/Acetaminophen (Acetaminophen/Hydrocodone 325-5 Mg Tab) 1 tab PO Q4H PRN PRN Reason: Pain (moderate 4-6) Last Admin: 08/24/21 05:37 Dose: 1 tab Documented by: Albuterol/Ipratropium (Albuterol/Ipratropium 3.0-0.5 Mg/3 Ml Neb Soln) 3 ml NEB Q2H PRN PRN Reason: Dyspepsia Albuterol/Ipratropium (Albuterol/Ipratropium 3.0-0.5 Mg/3 Ml Neb Soln) 3 ml NEB Q4HRRT [facility] Last Admin: 08/24/21 09:44 Dose: 3 ml Documented by: Apixaban (Apixaban 5 Mg Tab) 10 mg PO Q12H [facility] Stop: 08/26/21 06:01 Last Admin: 08/24/21 05:37 Dose: 10 mg Documented by: Azithromycin (Azithromycin 500 Mg Vial) 500 mg IV Q24H [facility] Baricitinib (Baricitinib 2 Mg Tab) 4 mg PO DAILY [facility] Stop: 08/30/21 09:01 Last Admin: 08/24/21 08:48 Dose: 4 mg Documented by: Benzonatate (Benzonatate 100 Mg Cap) 100 mg PO Q8H PRN PRN Reason: Cough Last Admin: 08/24/21 03:32 Dose: 100 mg Documented by: Dexamethasone (Dexamethasone 4 Mg Tab) 6 mg PO DAILY [facility] Last Admin: 08/24/21 08:48 Dose: 6 mg Documented by: Dextrose/Water (50% Dextrose In Water 50 Ml Syringe) 50 ml IVPUSH ASDIRECTED PRN PRN Reason: Hypoglycemia Glucagon (Glucagon,Human Recombinant 1 Mg Vial) 1 mg IM ASDIRECTED PRN PRN Reason: Hypoglycemia Guaifenesin/Dextromethorphan (Guaifenesin/Dextromethorphan 100-10 Mg/5 Ml Soln 10 Ml Cup) 10 ml PO Q6H PRN PRN Reason: Cough Last Admin: 08/24/21 08:47 Dose: 10 ml Documented by: Ceftriaxone Sodium/Dextrose 1 (gm/ Premix) 50 mls @ 100 mls/hr IV Q12H [facility] Insulin Aspart (Insulin Aspart 100 Units/Ml 3 Ml Pen) 0 unit SUBCUT TIDAC [facility]; Protocol Last Admin: 08/24/21 09:44 Dose: 3 units Documented by: Insulin Glargine (Insulin Glargine,Human Rec. Analog 100 Units/Ml 3 Ml Pen) 20 units SUBCUT BEDTIME [facility] Last Admin: 08/23/21 20:08 Dose: 20 units Documented by: Melatonin (Melatonin 3 Mg Tab) 6 mg PO BEDTIME PRN PRN Reason: Insomnia Last Admin: 08/23/21 22:03 Dose: 6 mg Documented by: Ondansetron HCl (Ondansetron 4 Mg Tab.Dis) 4 mg PO Q6H PRN PRN Reason: nausea, able to take PO Last Admin: 08/17/21 13:41 Dose: 4 mg Documented by: Ondansetron HCl (Ondansetron 4 Mg/2 Ml Sdv) 4 mg IVPUSH Q6H PRN PRN Reason: Nausea/Vomiting Last Admin: 08/20/21 08:57 Dose: 4 mg Documented by: Pantoprazole Sodium (Pantoprazole 40 Mg Tab.Cr) 40 mg PO DAILY [facility] Sodium Chloride (Sodium Chloride 0.65% Nasal [place] 45 Ml Bottle) 0 ml CRISTY Q2H PRN PRN Reason: Other Last Admin: 08/23/21 13:06 Dose: 1 spray Documented by: Discontinued Medications Dexamethasone (Dexamethasone Solution 0.5 Mg/5 Ml) 6 mg PO DAILY [facility] Last Admin: 08/16/21 17:40 Dose: Not Given Documented by: Dextrose/Water (50% Dextrose In Water 50 Ml Syringe) 50 ml IVPUSH ASDIRECTED PRN PRN Reason: Hypoglycemia Enoxaparin Sodium (Enoxaparin 40 Mg/0.4 Ml Syringe) 40 mg SUBCUT Q24H [facility] Last Admin: 08/16/21 17:40 Dose: Not Given Documented by: Enoxaparin Sodium (Enoxaparin 40 Mg/0.4 Ml Syringe) 40 mg SUBCUT Q12HR [facility] Last Admin: 08/19/21 09:25 Dose: 40 mg Documented by: Enoxaparin Sodium (Enoxaparin 40 Mg/0.4 Ml Syringe) 40 mg SUBCUT Q24H [facility] Glucagon (Glucagon,Human Recombinant 1 Mg Vial) 1 mg IM ASDIRECTED PRN PRN Reason: Hypoglycemia Remdesivir 200 mg/ Sodium (Chloride) 250 mls @ 250 mls/hr IV ONETIME ONE Stop: 08/15/21 19:52 Last Admin: 08/15/21 20:47 Dose: 250 mls/hr Documented by: Sodium Chloride (Normal Saline) 1,000 mls @ 150 mls/hr IV STAT ONE Stop: 08/16/21 03:36 Last Admin: 08/15/21 23:01 Dose: 150 mls/hr Documented by: Remdesivir 100 mg/ Sodium (Chloride) 100 mls @ 100 mls/hr IV Q24H [facility] Stop: 08/19/21 21:59 Last Admin: 08/19/21 21:57 Dose: 100 mls/hr Documented by: Potassium Chloride/Sodium Chloride (Normal Saline With 20 Meq Kcl) 500 mls @ 75 mls/hr IV ASDIRECTED [facility] Insulin Aspart (Insulin Aspart 100 Units/Ml 3 Ml Pen) 0 unit SUBCUT ACBREAKFASTANDBED [facility]; Protocol Last Admin: 08/17/21 08:16 Dose: 5 units Documented by: Insulin Aspart (Insulin Aspart 100 Units/Ml 3 Ml Pen) 0 unit SUBCUT BEDTIME [facility]; Protocol Last Admin: 08/18/21 21:58 Dose: Not Given Documented by: Insulin Aspart (Insulin Aspart 100 Units/Ml 3 Ml Pen) 6 unit SUBCUT ONETIME ONE Stop: 08/18/21 21:53 Last Admin: 08/18/21 21:56 Dose: 6 units Documented by: Iopamidol (Iopamidol 755 Mg/Ml 100 Ml Bottle) 100 ml IVPUSH ONETIME ONE Stop: 08/15/21 21:00 Last Admin: 08/15/21 21:37 Dose: 100 ml Documented by: Iopamidol (Iopamidol 755 Mg/Ml 500 Ml Multipack Bottle) 100 ml IVPUSH ONETIME STA Stop: 08/19/21 21:36 Last Admin: 08/19/21 21:36 Dose: 100 ml Documented by: Potassium Chloride (Potassium Chloride 20 Meq Tab.Er) 20 meq PO TID [facility] Stop: 08/19/21 14:01 Last Admin: 08/19/21 13:49 Dose: 20 meq Documented by: Potassium Chloride (Potassium Chloride 20 Meq Tab.Er) 40 meq PO ONETIME ONE Stop: 08/19/21 08:55 Last Admin: 08/19/21 09:24 Dose: 40 meq Documented by: Potassium Chloride (Potassium Chloride 20 Meq Tab.Er) 40 meq PO ONETIME ONE Stop: 08/19/21 14:53 Last Admin: 08/19/21 15:14 Dose: 40 meq Documented by: Potassium Chloride (Potassium Chloride 20 Meq Tab.Er) 40 meq PO ONETIME ONE Stop: 08/23/21 08:39 Last Admin: 08/23/21 08:57 Dose: 40 meq Documented by: - Exam General: Alert, Oriented Lungs: Clear to Auscultation, Normal Respiratory Effort Cardiovascular: Regular Rate, Regular Rhythm GI/Abdominal Exam: Normal Bowel Sounds, Soft, Non-Tender Extremities: Non-Tender, No Pedal Edema Skin: Warm, Dry, Intact Neurological: No New Focal Deficit - Patient Data Lab Results Last 24 hrs: Laboratory Results - last 24 hr 08/23/21 08/23/21 08/23/21 Range/Units 13:12 18:35 20:05 WBC (4.0-11.0) K/uL RBC (4.50-5.90) M/uL Hgb (13.0-17.0) g/dL Hct (38.0-50.0) % MCV (80.0-98.0) fL MCH (27.0-32.0) pg MCHC (31.0-37.0) g/dL RDW Std Deviation (28.0-62.0) fl RDW Coeff of [place] (11.0-15.0) % Plt Count (150-400) K/uL MPV (7.40-12.00) fL Neut % (Auto) (48.0-80.0) % Lymph % (Auto) (16.0-40.0) % [place] % (Auto) (0.0-15.0) % Eos % (Auto) (0.0-7.0) % Baso % (Auto) (0.0-1.5) % Neut # (Auto) (1.4-5.7) K/uL Lymph # (Auto) (0.6-2.4) K/uL [place] # (Auto) (0.0-0.8) K/uL Eos # (Auto) (0.0-0.7) K/uL Baso # (Auto) (0.0-0.1) K/uL Nucleated RBC % /100WBC Nucleated RBCs # K/uL Sodium (136-148) mmol/L Potassium (3.5-5.1) mmol/L Chloride (98-107) mmol/L Carbon Dioxide (21.0-32.0) mmol/L BUN (7.0-18.0) mg/dL Creatinine (0.8-1.3) mg/dL Est Cr Clr Drug Dosing mL/min Estimated GFR (MDRD) ml/min Glucose (74-106) mg/dL POC Glucose 207 H 219 H 186 H (70-99) mg/dL Calcium (8.5-10.1) mg/dL Total Bilirubin (0.2-1.0) mg/dL AST (15-37) IU/L ALT (14-63) IU/L Alkaline Phosphatase (46-116) U/L Total Protein (6.4-8.2) g/dL Albumin (3.4-5.0) g/dL Globulin (2.6-4.0) g/dL Albumin/Globulin Ratio (0.9-1.6) 08/24/21 08/24/21 08/24/21 Range/Units 05:30 05:30 06:53 WBC 27.53 H (4.0-11.0) K/uL RBC 4.43 L (4.50-5.90) M/uL Hgb 14.0 (13.0-17.0) g/dL Hct 39.6 (38.0-50.0) % MCV 89.4 (80.0-98.0) fL MCH 31.6 (27.0-32.0) pg MCHC 35.4 (31.0-37.0) g/dL RDW Std Deviation 40.1 (28.0-62.0) fl RDW Coeff of [place] 13 (11.0-15.0) % Plt Count 216 (150-400) K/uL MPV 11.60 (7.40-12.00) fL Neut % (Auto) 92.8 H (48.0-80.0) % Lymph % (Auto) 4.0 L (16.0-40.0) % [place] % (Auto) 3.1 (0.0-15.0) % Eos % (Auto) 0.0 (0.0-7.0) % Baso % (Auto) 0.1 (0.0-1.5) % Neut # (Auto) 25.6 H (1.4-5.7) K/uL Lymph # (Auto) 1.1 (0.6-2.4) K/uL [place] # (Auto) 0.8 (0.0-0.8) K/uL Eos # (Auto) 0.0 (0.0-0.7) K/uL Baso # (Auto) 0.0 (0.0-0.1) K/uL Nucleated RBC % 0.0 /100WBC Nucleated RBCs # 0 K/uL Sodium 140 (136-148) mmol/L Potassium 3.8 (3.5-5.1) mmol/L Chloride 104 (98-107) mmol/L Carbon Dioxide 27.8 (21.0-32.0) mmol/L BUN 25 H (7.0-18.0) mg/dL Creatinine 1.0 (0.8-1.3) mg/dL Est Cr Clr Drug Dosing 78.44 mL/min Estimated GFR (MDRD) > 60.0 ml/min Glucose 171 H (74-106) mg/dL POC Glucose 162 H (70-99) mg/dL Calcium 8.8 (8.5-10.1) mg/dL Total Bilirubin 0.8 (0.2-1.0) mg/dL AST 30 (15-37) IU/L ALT 32 (14-63) IU/L Alkaline Phosphatase 100 (46-116) U/L Total Protein 6.3 L (6.4-8.2) g/dL Albumin 2.0 L (3.4-5.0) g/dL Globulin 4.3 H (2.6-4.0) g/dL Albumin/Globulin Ratio 0.5 L (0.9-1.6) Result Diagrams: 08/24/21 05:30 08/24/21 05:30 Sepsis Event Note - Evaluation Sepsis Screening Result: Possible Sepsis Risk - Focused Exam Vital Signs: Vital Signs Temp Resp BP Pulse Ox 08/24/21 09:00 28 H 158/97 H 87 L 08/24/21 08:00 37.2 C 25 H 151/97 H 92 L 08/24/21 07:00 23 H 137/89 91 L 08/24/21 06:00 21 H 128/85 93 L 08/24/21 05:00 20 147/76 H 92 L 08/24/21 04:00 36.6 C 22 H 134/82 91 L 08/24/21 03:00 19 123/69 92 L 08/24/21 02:00 16 129/72 92 L 08/24/21 01:00 17 122/57 L 92 L 08/24/21 00:00 25 H 144/67 H 92 L - Problem List & Annotations (1) Acute respiratory disease due to COVID-19 virus SNOMED Code(s): 819777700, 700956845 Code(s): U07.1 - COVID-19; J06.9 - ACUTE UPPER RESPIRATORY INFECTION, UNSPECIFIED Status: Acute Current Visit: Yes (2) COVID-19 SNOMED Code(s): 387263607 Code(s): U07.1 - COVID-19 Status: Acute Current Visit: Yes (3) T2DM (type 2 diabetes mellitus) SNOMED Code(s): 75345998 Code(s): E11.9 - TYPE 2 DIABETES MELLITUS WITHOUT COMPLICATIONS Status: Acute Priority: Medium Current Visit: Yes Onset Date: ~08/17/21 Qualifiers: Diabetes mellitus group home insulin use: with [employer] party use - Problem List Review Problem List Initiated/Reviewed/Updated: Yes - My Orders Last 24 Hours: My Active Orders 08/24/21 11:30 Azithromycin [Zithromax] 500 mg IV Q24H Pantoprazole [ProTONIX] 40 mg PO DAILY cefTRIAXone [Rocephin in Dextrose,Iso-Osm 1 GM/50 ML] 1 gm Premix Bag 1 bag IV Q12H - Assessment Assessment:: 1. Acute respiratory failure secondary to COVID-19 pneumonia -continue dexamethasone and baricitinib -due to worsening leukocytosis and cough will start antibiotics -continue O2 supplementation via [facility] 2. PE, patient restarted on Eliquis 2. Diabetes mellitus type 2 -continue with Accu-Cheks/insulin sliding scale/NovoLog
[2021-08-24] MEDS ORDERED: Azithromycin 500 MG Vial IV SCH (11:30)
[2021-08-24] MEDS: Azithromycin 500 MG in Sodium Chloride 0.9% 250 ML IV SCH (11:39)
[2021-08-24] MEDS: Pantoprazole 40 MG Tab.CR PO SCH (11:40)
[2021-08-24] MEDS: cefTRIAXone 1 GM in Premix Bag 1 BAG IV SCH (13:45)
[2021-08-24] MEDS: Insulin Glargine,Human Rec. Analog 100 Units/ML 3 ML Pen SUBCUT SCH (20:28)
[2021-08-24] MEDS: Melatonin 3 MG Tab PO PRN (22:03)
[2021-08-25] MEDS: Acetaminophen/HYDROcodone 325-5 MG Tab PO PRN ×4 (01:28→20:32)
[2021-08-25] MEDS: Albuterol/Ipratropium 3.0-0.5 MG/3 ML Neb Soln NEB SCH ×6 (01:29→21:00)
[2021-08-25] MEDS: guaiFENesin/Dextromethorphan 100-10 MG/5 ML Soln 10 ML Cup PO PRN ×3 (05:32→20:31)
[2021-08-25] MEDS: Apixaban 5 MG Tab PO SCH ×2 (05:33→17:21)
[2021-08-25 06:41] LABS: BLOOD UREA NITROGEN,BUN 20 mg/dL (7.0-18.0); CARBON DIOXIDE,CO2 26.2 mmol/L (21.0-32.0); CHLORIDE,CL 103 mmol/L (98-107); GLUCOSE RANDOM 182 mg/dL (74-106); POTASSIUM,K 3.7 mmol/L (3.5-5.1); SODIUM,NA 138 mmol/L (136-148)
[2021-08-25] MEDS: Insulin Aspart 100 Units/ML 3 ML Pen SUBCUT SCH ×3 (08:30→18:02)
[2021-08-25] MEDS: Docusate Sodium 100 MG Cap PO PRN (08:31)
[2021-08-25] MEDS: Dexamethasone 4 MG Tab PO SCH (08:31)
[2021-08-25] MEDS: Pantoprazole 40 MG Tab.CR PO SCH (08:32)
[2021-08-25] MEDS: Benzonatate 100 MG Cap PO PRN ×2 (08:32→17:20)
[2021-08-25] MEDS: Azithromycin 500 MG in Sodium Chloride 0.9% 250 ML IV SCH (11:17)
[2021-08-25] MEDS: cefTRIAXone 1 GM in Premix Bag 1 BAG IV SCH (13:16)
--- NOTE | 2021-08-25 13:25 | PN ---
[facility] Physician - Brief Progress [id number]/02/2022 13:21[facility] Lauren Giang, SONJA - EDUAR (RACHEAL) - EDUAR COOPERJOEL SOUSADavinDate of Service 08/25/2021 13:21HPI/Events of Note eICU Daily progress note:66-year-old male admitted with COVID-19 pneumonia requiring heated high flow. Maintained on dexamethasone and baricitinib. Ceftriaxone and azithromycin started yesterday du e to concern for overlying bacterial pneumonia. Discussed patient with bedside nurse, was able to wea n down heated high flow earlier this morning. Patient is unable to prone completely but able to lie i n the recumbent position.Video examination performed. Patient sitting up in chair at bedside in no ac [place] distress, breathing comfortably. Vital signs reviewed on monitor. Recommendations:-Continue oxyge n support, wean as tolerated-Continue dexamethasone and baricitinib per hospital protocol-Antibiotics per primary team-Continue Lovenox for VTE prophylaxis-Continue to encourage self proning as tolerate dThank you for allowing us to participate in the care of this patient.Interventions Major-Hypoxemia - evaluation and management, Infection - evaluation and management, Respiratory failure - evaluation a nd management
--- NOTE | 2021-08-25 15:54 | PCM.PN ---
- General Info Date of Service: 08/25/21 Subjective Update: The patient is a 66-year-old male, on day 11 of service, who has a significant past medical history of obesity and diabetes mellitus type 2, who was admitted to the medical floor due to acute respiratory failure secondary to COVID-19 pneumonia. The patient had a leukocytosis yesterday most likely secondary to bacterial pneumonia and as a result was started him on azithromycin and Rocephin via IV route. Upon interview with the patient today he admits that his cough is slightly improved but is productive of white to orange sputum. It was explained to him that he is being treated for pulmonary embolism and the possibility of bloody sputum is there. He seems to be doing much better than he was on previously on admission due to the fact that now he is sitting up during the day and having meals where earlier he would not get out of bed and was a very difficult historian. In regards to his oxygen supplementation, he is on heated high flow with a O2 flow rate of 55 and FiO2 of 85%, and saturating over 90%. When he sleeps he is on CPAP with a PEEP of 7, FiO2 of 50, and saturating over 90%. He was constipated and is on Colace. He has no other health concerns at this time. - Review of Systems General: Reports: Fatigue HEENT: Denies: Headaches, Sore Throat Pulmonary: Reports: Shortness of Breath, Cough Cardiovascular: Denies: Chest Pain, Palpitations Gastrointestinal: Reports: Constipation. Denies: Abdominal Pain Genitourinary: Denies: Dysuria, Frequency - Patient Data Vitals - Most Recent: Last Vital Signs Temp 97.3 F 08/25/21 12:00 Pulse 85 08/21/21 08:24 Resp 16 08/25/21 15:00 BP 123/67 08/25/21 15:00 Pulse Ox 93 L 08/25/21 15:00 Weight - Most Recent: 224 lb 13.944 oz I&O - Last 24 Hours: Intake & Output 08/25/21 08/25/21 08/25/21 06:59 14:59 22:59 Intake Total 450 300 Output Total 350 Balance 100 300 Lab Results Last 24 Hours: Laboratory Results - last 24 hr 08/24/21 08/24/21 08/25/21 Range/Units 17:41 20:21 05:55 WBC 24.40 H (4.0-11.0) K/uL RBC 4.30 L (4.50-5.90) M/uL Hgb 13.5 (13.0-17.0) g/dL Hct 38.9 (38.0-50.0) % MCV 90.5 (80.0-98.0) fL MCH 31.4 (27.0-32.0) pg MCHC 34.7 (31.0-37.0) g/dL RDW Std Deviation 41.2 (28.0-62.0) fl RDW Coeff of [place] 13 (11.0-15.0) % Plt Count 214 (150-400) K/uL MPV 10.90 (7.40-12.00) fL Neut % (Auto) 93.0 H (48.0-80.0) % Lymph % (Auto) 4.2 L (16.0-40.0) % [place] % (Auto) 2.7 (0.0-15.0) % Eos % (Auto) 0.0 (0.0-7.0) % Baso % (Auto) 0.1 (0.0-1.5) % Neut # (Auto) 22.7 H (1.4-5.7) K/uL Lymph # (Auto) 1.0 (0.6-2.4) K/uL [place] # (Auto) 0.7 (0.0-0.8) K/uL Eos # (Auto) 0.0 (0.0-0.7) K/uL Baso # (Auto) 0.0 (0.0-0.1) K/uL Nucleated RBC % 0.0 /100WBC Nucleated RBCs # 0 K/uL Sodium (136-148) mmol/L Potassium (3.5-5.1) mmol/L Chloride (98-107) mmol/L Carbon Dioxide (21.0-32.0) mmol/L BUN (7.0-18.0) mg/dL Creatinine (0.8-1.3) mg/dL Est Cr Clr Drug Dosing mL/min Estimated GFR (MDRD) ml/min Glucose (74-106) mg/dL POC Glucose 188 H 178 H (70-99) mg/dL Calcium (8.5-10.1) mg/dL Total Bilirubin (0.2-1.0) mg/dL AST (15-37) IU/L ALT (14-63) IU/L Alkaline Phosphatase (46-116) U/L Total Protein (6.4-8.2) g/dL Albumin (3.4-5.0) g/dL Globulin (2.6-4.0) g/dL Albumin/Globulin Ratio (0.9-1.6) 08/25/21 08/25/21 08/25/21 Range/Units 05:55 06:53 11:39 WBC (4.0-11.0) K/uL RBC (4.50-5.90) M/uL Hgb (13.0-17.0) g/dL Hct (38.0-50.0) % MCV (80.0-98.0) fL MCH (27.0-32.0) pg MCHC (31.0-37.0) g/dL RDW Std Deviation (28.0-62.0) fl RDW Coeff of [place] (11.0-15.0) % Plt Count (150-400) K/uL MPV (7.40-12.00) fL Neut % (Auto) (48.0-80.0) % Lymph % (Auto) (16.0-40.0) % [place] % (Auto) (0.0-15.0) % Eos % (Auto) (0.0-7.0) % Baso % (Auto) (0.0-1.5) % Neut # (Auto) (1.4-5.7) K/uL Lymph # (Auto) (0.6-2.4) K/uL [place] # (Auto) (0.0-0.8) K/uL Eos # (Auto) (0.0-0.7) K/uL Baso # (Auto) (0.0-0.1) K/uL Nucleated RBC % /100WBC Nucleated RBCs # K/uL Sodium 138 (136-148) mmol/L Potassium 3.7 (3.5-5.1) mmol/L Chloride 103 (98-107) mmol/L Carbon Dioxide 26.2 (21.0-32.0) mmol/L BUN 20 H (7.0-18.0) mg/dL Creatinine 0.8 (0.8-1.3) mg/dL Est Cr Clr Drug Dosing 98.05 mL/min Estimated GFR (MDRD) > 60.0 ml/min Glucose 182 H (74-106) mg/dL POC Glucose 168 H 213 H (70-99) mg/dL Calcium 8.4 L (8.5-10.1) mg/dL Total Bilirubin 1.0 (0.2-1.0) mg/dL AST 28 (15-37) IU/L ALT 36 (14-63) IU/L Alkaline Phosphatase 120 H (46-116) U/L Total Protein 6.3 L (6.4-8.2) g/dL Albumin 2.0 L (3.4-5.0) g/dL Globulin 4.3 H (2.6-4.0) g/dL Albumin/Globulin Ratio 0.5 L (0.9-1.6) Med Orders - Current: Current Medications Hydrocodone Bitart/Acetaminophen (Acetaminophen/Hydrocodone 325-5 Mg Tab) 1 tab PO Q4H PRN PRN Reason: Pain (moderate 4-6) Last Admin: 08/25/21 13:42 Dose: 1 tab Documented by: Albuterol/Ipratropium (Albuterol/Ipratropium 3.0-0.5 Mg/3 Ml Neb Soln) 3 ml NEB Q2H PRN PRN Reason: Dyspepsia Albuterol/Ipratropium (Albuterol/Ipratropium 3.0-0.5 Mg/3 Ml Neb Soln) 3 ml NEB Q4HRRT [facility] Last Admin: 08/25/21 13:40 Dose: 3 ml Documented by: Apixaban (Apixaban 5 Mg Tab) 10 mg PO Q12H [facility] Stop: 08/26/21 06:01 Last Admin: 08/25/21 05:33 Dose: 10 mg Documented by: Baricitinib (Baricitinib 2 Mg Tab) 4 mg PO DAILY [facility] Stop: 08/30/21 09:01 Last Admin: 08/25/21 08:32 Dose: 4 mg Documented by: Benzonatate (Benzonatate 100 Mg Cap) 100 mg PO Q8H PRN PRN Reason: Cough Last Admin: 08/25/21 08:32 Dose: 100 mg Documented by: Dexamethasone (Dexamethasone 4 Mg Tab) 6 mg PO DAILY [facility] Last Admin: 08/25/21 08:31 Dose: 6 mg Documented by: Dextrose/Water (50% Dextrose In Water 50 Ml Syringe) 50 ml IVPUSH ASDIRECTED PRN PRN Reason: Hypoglycemia Docusate Sodium (Docusate Sodium 100 Mg Cap) 100 mg PO Q12H PRN PRN Reason: Constipation Last Admin: 08/25/21 08:31 Dose: 100 mg Documented by: Glucagon (Glucagon,Human Recombinant 1 Mg Vial) 1 mg IM ASDIRECTED PRN PRN Reason: Hypoglycemia Guaifenesin/Dextromethorphan (Guaifenesin/Dextromethorphan 100-10 Mg/5 Ml Soln 10 Ml Cup) 10 ml PO Q6H PRN PRN Reason: Cough Last Admin: 08/25/21 11:49 Dose: 10 ml Documented by: Ceftriaxone Sodium/Dextrose 1 (gm/ Premix) 50 mls @ 100 mls/hr IV Q24H [facility] Last Admin: 08/25/21 13:16 Dose: 100 mls/hr Documented by: Azithromycin 500 mg/ Sodium (Chloride) 250 mls @ 250 mls/hr IV Q24H [facility] Last Admin: 08/25/21 11:17 Dose: 250 mls/hr Documented by: Insulin Aspart (Insulin Aspart 100 Units/Ml 3 Ml Pen) 0 unit SUBCUT TIDAC [facility]; Protocol Last Admin: 08/25/21 12:01 Dose: 6 units Documented by: Insulin Glargine (Insulin Glargine,Human Rec. Analog 100 Units/Ml 3 Ml Pen) 20 units SUBCUT BEDTIME [facility] Last Admin: 08/24/21 20:28 Dose: 20 units Documented by: Melatonin (Melatonin 3 Mg Tab) 6 mg PO BEDTIME PRN PRN Reason: Insomnia Last Admin: 08/24/21 22:03 Dose: 6 mg Documented by: Ondansetron HCl (Ondansetron 4 Mg Tab.Dis) 4 mg PO Q6H PRN PRN Reason: nausea, able to take PO Last Admin: 08/17/21 13:41 Dose: 4 mg Documented by: Ondansetron HCl (Ondansetron 4 Mg/2 Ml Sdv) 4 mg IVPUSH Q6H PRN PRN Reason: Nausea/Vomiting Last Admin: 08/20/21 08:57 Dose: 4 mg Documented by: Pantoprazole Sodium (Pantoprazole 40 Mg Tab.Cr) 40 mg PO DAILY [facility] Last Admin: 08/25/21 08:32 Dose: 40 mg Documented by: Sodium Chloride (Sodium Chloride 0.65% Nasal [place] 45 Ml Bottle) 0 ml CRISTY Q2H PRN PRN Reason: Other Last Admin: 08/23/21 13:06 Dose: 1 spray Documented by: Discontinued Medications Dexamethasone (Dexamethasone Solution 0.5 Mg/5 Ml) 6 mg PO DAILY [facility] Last Admin: 08/16/21 17:40 Dose: Not Given Documented by: Dextrose/Water (50% Dextrose In Water 50 Ml Syringe) 50 ml IVPUSH ASDIRECTED PRN PRN Reason: Hypoglycemia Enoxaparin Sodium (Enoxaparin 40 Mg/0.4 Ml Syringe) 40 mg SUBCUT Q24H [facility] Last Admin: 08/16/21 17:40 Dose: Not Given Documented by: Enoxaparin Sodium (Enoxaparin 40 Mg/0.4 Ml Syringe) 40 mg SUBCUT Q12HR [facility] Last Admin: 08/19/21 09:25 Dose: 40 mg Documented by: Enoxaparin Sodium (Enoxaparin 40 Mg/0.4 Ml Syringe) 40 mg SUBCUT Q24H AWA Glucagon (Glucagon,Human Recombinant 1 Mg Vial) 1 mg IM ASDIRECTED PRN PRN Reason: Hypoglycemia Remdesivir 200 mg/ Sodium (Chloride) 250 mls @ 250 mls/hr IV ONETIME ONE Stop: 08/15/21 19:52 Last Admin: 08/15/21 20:47 Dose: 250 mls/hr Documented by: Sodium Chloride (Normal Saline) 1,000 mls @ 150 mls/hr IV STAT ONE Stop: 08/16/21 03:36 Last Admin: 08/15/21 23:01 Dose: 150 mls/hr Documented by: Remdesivir 100 mg/ Sodium (Chloride) 100 mls @ 100 mls/hr IV Q24H [facility] Stop: 08/19/21 21:59 Last Admin: 08/19/21 21:57 Dose: 100 mls/hr Documented by: Potassium Chloride/Sodium Chloride (Normal Saline With 20 Meq Kcl) 500 mls @ 75 mls/hr IV ASDIRECTED AWA Insulin Aspart (Insulin Aspart 100 Units/Ml 3 Ml Pen) 0 unit SUBCUT ACBREAKFAS TANDBED [facility]; Protocol Last Admin: 08/17/21 08:16 Dose: 5 units Documented by: Insulin Aspart (Insulin Aspart 100 Units/Ml 3 Ml Pen) 0 unit SUBCUT BEDTIME [facility]; Protocol Last Admin: 08/18/21 21:58 Dose: Not Given Documented by: Insulin Aspart (Insulin Aspart 100 Units/Ml 3 Ml Pen) 6 unit SUBCUT ONETIME ONE Stop: 08/18/21 21:53 Last Admin: 08/18/21 21:56 Dose: 6 units Documented by: Iopamidol (Iopamidol 755 Mg/Ml 100 Ml Bottle) 100 ml IVPUSH ONETIME ONE Stop: 08/15/21 21:00 Last Admin: 08/15/21 21:37 Dose: 100 ml Documented by: Iopamidol (Iopamidol 755 Mg/Ml 500 Ml Multipack Bottle) 100 ml IVPUSH ONETIME STA Stop: 08/19/21 21:36 Last Admin: 08/19/21 21:36 Dose: 100 ml Documented by: Potassium Chloride (Potassium Chloride 20 Meq Tab.Er) 20 meq PO TID AWA Stop: 08/19/21 14:01 Last Admin: 08/19/21 13:49 Dose: 20 meq Documented by: Potassium Chloride (Potassium Chloride 20 Meq Tab.Er) 40 meq PO ONETIME ONE Stop: 08/19/21 08:55 Last Admin: 08/19/21 09:24 Dose: 40 meq Documented by: Potassium Chloride (Potassium Chloride 20 Meq Tab.Er) 40 meq PO ONETIME ONE Stop: 08/19/21 14:53 Last Admin: 08/19/21 15:14 Dose: 40 meq Documented by: Potassium Chloride (Potassium Chloride 20 Meq Tab.Er) 40 meq PO ONETIME ONE Stop: 08/23/21 08:39 Last Admin: 08/23/21 08:57 Dose: 40 meq Documented by: - Exam General: Alert, Oriented HEENT: Mucous Membr. Moist/Counce Neck: Trachea Midline Lungs: Rhonchi Cardiovascular: Regular Rate, Regular Rhythm GI/Abdominal Exam: Normal Bowel Sounds, Soft, Non-Tender - Patient Data Lab Results Last 24 hrs: Laboratory Results - last 24 hr 08/24/21 08/24/21 08/25/21 Range/Units 17:41 20:21 05:55 WBC 24.40 H (4.0-11.0) K/uL RBC 4.30 L (4.50-5.90) M/uL Hgb 13.5 (13.0-17.0) g/dL Hct 38.9 (38.0-50.0) % MCV 90.5 (80.0-98.0) fL MCH 31.4 (27.0-32.0) pg MCHC 34.7 (31.0-37.0) g/dL RDW Std Deviation 41.2 (28.0-62.0) fl RDW Coeff of [place] 13 (11.0-15.0) % Plt Count 214 (150-400) K/uL MPV 10.90 (7.40-12.00) fL Neut % (Auto) 93.0 H (48.0-80.0) % Lymph % (Auto) 4.2 L (16.0-40.0) % [place] % (Auto) 2.7 (0.0-15.0) % Eos % (Auto) 0.0 (0.0-7.0) % Baso % (Auto) 0.1 (0.0-1.5) % Neut # (Auto) 22.7 H (1.4-5.7) K/uL Lymph # (Auto) 1.0 (0.6-2.4) K/uL [place] # (Auto) 0.7 (0.0-0.8) K/uL Eos # (Auto) 0.0 (0.0-0.7) K/uL Baso # (Auto) 0.0 (0.0-0.1) K/uL Nucleated RBC % 0.0 /100WBC Nucleated RBCs # 0 K/uL Sodium (136-148) mmol/L Potassium (3.5-5.1) mmol/L Chloride (98-107) mmol/L Carbon Dioxide (21.0-32.0) mmol/L BUN (7.0-18.0) mg/dL Creatinine (0.8-1.3) mg/dL Est Cr Clr Drug Dosing mL/min Estimated GFR (MDRD) ml/min Glucose (74-106) mg/dL POC Glucose 188 H 178 H (70-99) mg/dL Calcium (8.5-10.1) mg/dL Total Bilirubin (0.2-1.0) mg/dL AST (15-37) IU/L ALT (14-63) IU/L Alkaline Phosphatase (46-116) U/L Total Protein (6.4-8.2) g/dL Albumin (3.4-5.0) g/dL Globulin (2.6-4.0) g/dL Albumin/Globulin Ratio (0.9-1.6) 08/25/21 08/25/21 08/25/21 Range/Units 05:55 06:53 11:39 WBC (4.0-11.0) K/uL RBC (4.50-5.90) M/uL Hgb (13.0-17.0) g/dL Hct (38.0-50.0) % MCV (80.0-98.0) fL MCH (27.0-32.0) pg MCHC (31.0-37.0) g/dL RDW Std Deviation (28.0-62.0) fl RDW Coeff of [place] (11.0-15.0) % Plt Count (150-400) K/uL MPV (7.40-12.00) fL Neut % (Auto) (48.0-80.0) % Lymph % (Auto) (16.0-40.0) % [place] % (Auto) (0.0-15.0) % Eos % (Auto) (0.0-7.0) % Baso % (Auto) (0.0-1.5) % Neut # (Auto) (1.4-5.7) K/uL Lymph # (Auto) (0.6-2.4) K/uL [place] # (Auto) (0.0-0.8) K/uL Eos # (Auto) (0.0-0.7) K/uL Baso # (Auto) (0.0-0.1) K/uL Nucleated RBC % /100WBC Nucleated RBCs # K/uL Sodium 138 (136-148) mmol/L Potassium 3.7 (3.5-5.1) mmol/L Chloride 103 (98-107) mmol/L Carbon Dioxide 26.2 (21.0-32.0) mmol/L BUN 20 H (7.0-18.0) mg/dL Creatinine 0.8 (0.8-1.3) mg/dL Est Cr Clr Drug Dosing 98.05 mL/min Estimated GFR (MDRD) > 60.0 ml/min Glucose 182 H (74-106) mg/dL POC Glucose 168 H 213 H (70-99) mg/dL Calcium 8.4 L (8.5-10.1) mg/dL Total Bilirubin 1.0 (0.2-1.0) mg/dL AST 28 (15-37) IU/L ALT 36 (14-63) IU/L Alkaline Phosphatase 120 H (46-116) U/L Total Protein 6.3 L (6.4-8.2) g/dL Albumin 2.0 L (3.4-5.0) g/dL Globulin 4.3 H (2.6-4.0) g/dL Albumin/Globulin Ratio 0.5 L (0.9-1.6) Result Diagrams: 08/25/21 05:55 08/25/21 05:55 Sepsis Event Note - Evaluation Sepsis Screening Result: Possible Sepsis Risk - Focused Exam Vital Signs: Vital Signs Temp Resp BP Pulse Ox 08/25/21 15:00 16 123/67 93 L 08/25/21 14:00 25 H 114/59 L 91 L 08/25/21 13:00 16 131/77 88 L 08/25/21 12:00 97.3 F 28 H 124/65 90 L 08/25/21 11:00 21 H 131/55 L 90 L 08/25/21 10:00 20 129/64 92 L 08/25/21 09:00 97.8 F 25 H 150/94 H 88 L 08/25/21 08:00 20 142/82 H 90 L 08/25/21 07:00 23 H 128/60 91 L 08/25/21 06:00 20 143/83 H 90 L 08/25/21 05:00 32 H 134/80 92 L 08/25/21 04:00 98.0 F 22 H 136/86 92 L - Problem List & Annotations (1) Acute respiratory disease due to COVID-19 virus SNOMED Code(s): 382830869, 842408325 Code(s): U07.1 - COVID-19; J06.9 - ACUTE UPPER RESPIRATORY INFECTION, UNSPECIFIED Status: Acute Current Visit: Yes (2) Obesity (BMI 30-39.9) SNOMED Code(s): 489411751, 425435347 Code(s): E66.9 - OBESITY, UNSPECIFIED Status: Acute Priority: Medium Current Visit: Yes (3) T2DM (type 2 diabetes mellitus) SNOMED Code(s): 79138001 Code(s): E11.9 - TYPE 2 DIABETES MELLITUS WITHOUT COMPLICATIONS Status: Acute Priority: Medium Current Visit: Yes Onset Date: ~08/17/21 Qualifiers: Diabetes mellitus local [employer] insulin use: with care home use (4) Leukocytosis SNOMED Code(s): 167477702, 911977239 Code(s): D72.829 - ELEVATED WHITE BLOOD CELL COUNT, UNSPECIFIED Status: Acute Current Visit: Yes (5) Pneumonia SNOMED Code(s): 547164898 Code(s): J18.9 - PNEUMONIA, UNSPECIFIED ORGANISM Status: Acute Current Visit: Yes - Problem List Review Problem List Initiated/Reviewed/Updated: Yes - My Orders Last 24 Hours: My Active Orders 08/25/21 08:14 PT Evaluation and Treatment [CONS] Routine 08/25/21 08:30 Docusate Sodium [Colace] 100 mg PO Q12H PRN - Assessment Assessment:: 1. Acute respiratory failure secondary to COVID-19 pneumonia -Continue dexamethasone and baricitinib -Continue symptomatic treatment with duo nebulizers, Robitussin, Tessalon Perles, Zofran -Continue O2 supplementation via HHF, currently saturating at over 90% while on a flow rate of 55, and FiO2 of 85 2. Pulmonary embolism -Continue Eliquis 3. Diabetes mellitus type 2 -continue with Accu-Cheks/insulin sliding scale/NovoLog 4 leukocytosis secondary to bacterial pneumonia. -Continue azithromycin 500 mg every 24 hours per IV route and Rocephin 1 g every 24 hours per IV route
[2021-08-25] MEDS: Sodium Chloride 0.65% Nasal Spray 45 ML Bottle NAS PRN (19:00)
[2021-08-25] MEDS: Melatonin 3 MG Tab PO PRN (20:31)
[2021-08-25] MEDS: Insulin Glargine,Human Rec. Analog 100 Units/ML 3 ML Pen SUBCUT SCH (20:40)
[2021-08-26] MEDS: Benzonatate 100 MG Cap PO PRN ×3 (02:28→19:26)
[2021-08-26] MEDS: Acetaminophen/HYDROcodone 325-5 MG Tab PO PRN ×5 (02:28→20:49)
[2021-08-26] MEDS: Albuterol/Ipratropium 3.0-0.5 MG/3 ML Neb Soln NEB SCH ×6 (02:28→21:10)
[2021-08-26] MEDS: guaiFENesin/Dextromethorphan 100-10 MG/5 ML Soln 10 ML Cup PO PRN ×3 (04:26→16:31)
[2021-08-26] MEDS: Apixaban 5 MG Tab PO SCH ×2 (06:26→16:59)
[2021-08-26 06:28] LABS: BLOOD UREA NITROGEN,BUN 18 mg/dL (7.0-18.0); CARBON DIOXIDE,CO2 27.9 mmol/L (21.0-32.0); CHLORIDE,CL 102 mmol/L (98-107); GLUCOSE RANDOM 190 mg/dL (74-106); POTASSIUM,K 3.9 mmol/L (3.5-5.1); SODIUM,NA 137 mmol/L (136-148)
[2021-08-26] MEDS: Pantoprazole 40 MG Tab.CR PO SCH (09:41)
[2021-08-26] MEDS: Dexamethasone 4 MG Tab PO SCH (09:42)
[2021-08-26] MEDS: Docusate Sodium 100 MG Cap PO PRN ×2 (09:42→20:49)
[2021-08-26] MEDS: Azithromycin 500 MG in Sodium Chloride 0.9% 250 ML IV SCH (10:30)
[2021-08-26] MEDS: Insulin Aspart 100 Units/ML 3 ML Pen SUBCUT SCH ×3 (10:40→18:34)
[2021-08-26] MEDS: cefTRIAXone 1 GM in Premix Bag 1 BAG IV SCH (13:10)
--- NOTE | 2021-08-26 16:45 | PCM.PN ---
- General Info Date of Service: 08/26/21 Subjective Update: The patient is a 66-year-old male, on day 12 of service, who has a significant past medical history of obesity and diabetes mellitus type 2, who was admitted to the medical floor due to acute respiratory failure secondary to COVID-19 pneumonia. Upon interview with the patient today, he continues to have shortness of breath and discomfort on the right side of his chest which he feels is attributed to his oxygen apparatus in place. He is currently on heated high flow with an oxygen flow rate of 45% and FiO2 of 65%. He is saturating over 90%. He continues to have cough which is productive of occasional blood-tinged sputum. He was on Eliquis 10 mg twice a day yesterday which has been changed to 5 mg twice a day. He continues to transition from bed to chair where he sits up and eats his meals. He denies nausea, vomiting, fever, chills, abdominal pain, loss of taste or smell, or any issues with urination. He continues to have constipation and is on Colace. He has no other health concerns at this time. - Review of Systems General: Reports: Fatigue. Denies: Fever, Weakness HEENT: Denies: Headaches, Sore Throat Pulmonary: Reports: Shortness of Breath, Cough, Sputum Cardiovascular: Reports: Other (Right-sided chest discomfort from oxygen apparatus) Gastrointestinal: Denies: Abdominal Pain Genitourinary: Denies: Dysuria - Patient Data Vitals - Most Recent: Last Vital Signs Temp 98.7 F 08/26/21 12:00 Pulse 85 08/21/21 08:24 Resp 34 H 08/26/21 16:00 BP 148/96 H 08/26/21 16:00 Pulse Ox 90 L 08/26/21 16:00 Weight - Most Recent: 222 lb 0.088 oz I&O - Last 24 Hours: Intake & Output 08/26/21 08/26/21 08/26/21 06:59 14:59 22:59 Intake Total 550 Output Total 350 Balance 200 Lab Results Last 24 Hours: Laboratory Results - last 24 hr 08/24/21 08/25/21 08/25/21 Range/Units 05:30 17:25 20:38 WBC (4.0-11.0) K/uL RBC (4.50-5.90) M/uL Hgb (13.0-17.0) g/dL Hct (38.0-50.0) % MCV (80.0-98.0) fL MCH (27.0-32.0) pg MCHC (31.0-37.0) g/dL RDW Std Deviation (28.0-62.0) fl RDW Coeff of [place] (11.0-15.0) % Plt Count (150-400) K/uL MPV (7.40-12.00) fL Neut % (Auto) (48.0-80.0) % Lymph % (Auto) (16.0-40.0) % [place] % (Auto) (0.0-15.0) % Eos % (Auto) (0.0-7.0) % Baso % (Auto) (0.0-1.5) % Neut # (Auto) (1.4-5.7) K/uL Lymph # (Auto) (0.6-2.4) K/uL [place] # (Auto) (0.0-0.8) K/uL Eos # (Auto) (0.0-0.7) K/uL Baso # (Auto) (0.0-0.1) K/uL Nucleated RBC % /100WBC Nucleated RBCs # K/uL Sodium (136-148) mmol/L Potassium (3.5-5.1) mmol/L Chloride (98-107) mmol/L Carbon Dioxide (21.0-32.0) mmol/L BUN (7.0-18.0) mg/dL Creatinine (0.8-1.3) mg/dL Est Cr Clr Drug Dosing mL/min Estimated GFR (MDRD) ml/min Glucose (74-106) mg/dL POC Glucose 264 H 268 H (70-99) mg/dL Calcium (8.5-10.1) mg/dL Magnesium (1.8-2.4) mg/dL Total Bilirubin (0.2-1.0) mg/dL AST (15-37) IU/L ALT (14-63) IU/L Alkaline Phosphatase (46-116) U/L Total Protein (6.4-8.2) g/dL Albumin (3.4-5.0) g/dL Globulin (2.6-4.0) g/dL Albumin/Globulin Ratio (0.9-1.6) Procalcitonin 0.41 H ng/mL 08/26/21 08/26/21 08/26/21 Range/Units 05:27 05:27 05:27 WBC 23.07 H (4.0-11.0) K/uL RBC 4.15 L (4.50-5.90) M/uL Hgb 13.0 (13.0-17.0) g/dL Hct 37.3 L (38.0-50.0) % MCV 89.9 (80.0-98.0) fL MCH 31.3 (27.0-32.0) pg MCHC 34.9 (31.0-37.0) g/dL RDW Std Deviation 40.4 (28.0-62.0) fl RDW Coeff of [place] 13 (11.0-15.0) % Plt Count 236 (150-400) K/uL MPV 11.20 (7.40-12.00) fL Neut % (Auto) 92.2 H (48.0-80.0) % Lymph % (Auto) 4.9 L (16.0-40.0) % [place] % (Auto) 2.8 (0.0-15.0) % Eos % (Auto) 0.0 (0.0-7.0) % Baso % (Auto) 0.1 (0.0-1.5) % Neut # (Auto) 21.3 H (1.4-5.7) K/uL Lymph # (Auto) 1.1 (0.6-2.4) K/uL [place] # (Auto) 0.7 (0.0-0.8) K/uL Eos # (Auto) 0.0 (0.0-0.7) K/uL Baso # (Auto) 0.0 (0.0-0.1) K/uL Nucleated RBC % 0.0 /100WBC Nucleated RBCs # 0 K/uL Sodium 137 (136-148) mmol/L Potassium 3.9 (3.5-5.1) mmol/L Chloride 102 (98-107) mmol/L Carbon Dioxide 27.9 (21.0-32.0) mmol/L BUN 18 (7.0-18.0) mg/dL Creatinine 0.8 (0.8-1.3) mg/dL Est Cr Clr Drug Dosing 98.05 mL/min Estimated GFR (MDRD) > 60.0 ml/min Glucose 190 H (74-106) mg/dL POC Glucose (70-99) mg/dL Calcium 8.2 L (8.5-10.1) mg/dL Magnesium 2.0 (1.8-2.4) mg/dL Total Bilirubin 0.8 (0.2-1.0) mg/dL AST 32 (15-37) IU/L ALT 50 (14-63) IU/L Alkaline Phosphatase 117 H (46-116) U/L Total Protein 6.3 L (6.4-8.2) g/dL Albumin 1.8 L (3.4-5.0) g/dL Globulin 4.5 H (2.6-4.0) g/dL Albumin/Globulin Ratio 0.4 L (0.9-1.6) Procalcitonin ng/mL 08/26/21 Range/Units 10:47 WBC (4.0-11.0) K/uL RBC (4.50-5.90) M/uL Hgb (13.0-17.0) g/dL Hct (38.0-50.0) % MCV (80.0-98.0) fL MCH (27.0-32.0) pg MCHC (31.0-37.0) g/dL RDW Std Deviation (28.0-62.0) fl RDW Coeff of [place] (11.0-15.0) % Plt Count (150-400) K/uL MPV (7.40-12.00) fL Neut % (Auto) (48.0-80.0) % Lymph % (Auto) (16.0-40.0) % [place] % (Auto) (0.0-15.0) % Eos % (Auto) (0.0-7.0) % Baso % (Auto) (0.0-1.5) % Neut # (Auto) (1.4-5.7) K/uL Lymph # (Auto) (0.6-2.4) K/uL [place] # (Auto) (0.0-0.8) K/uL Eos # (Auto) (0.0-0.7) K/uL Baso # (Auto) (0.0-0.1) K/uL Nucleated RBC % /100WBC Nucleated RBCs # K/uL Sodium (136-148) mmol/L Potassium (3.5-5.1) mmol/L Chloride (98-107) mmol/L Carbon Dioxide (21.0-32.0) mmol/L BUN (7.0-18.0) mg/dL Creatinine (0.8-1.3) mg/dL Est Cr Clr Drug Dosing mL/min Estimated GFR (MDRD) ml/min Glucose (74-106) mg/dL POC Glucose 134 H (70-99) mg/dL Calcium (8.5-10.1) mg/dL Magnesium (1.8-2.4) mg/dL Total Bilirubin (0.2-1.0) mg/dL AST (15-37) IU/L ALT (14-63) IU/L Alkaline Phosphatase (46-116) U/L Total Protein (6.4-8.2) g/dL Albumin (3.4-5.0) g/dL Globulin (2.6-4.0) g/dL Albumin/Globulin Ratio (0.9-1.6) Procalcitonin ng/mL Med Orders - Current: Current Medications Hydrocodone Bitart/Acetaminophen (Acetaminophen/Hydrocodone 325-5 Mg Tab) 1 tab PO Q4H PRN PRN Reason: Pain (moderate 4-6) Last Admin: 08/26/21 16:23 Dose: 1 tab Documented by: Albuterol/Ipratropium (Albuterol/Ipratropium 3.0-0.5 Mg/3 Ml Neb Soln) 3 ml NEB Q2H PRN PRN Reason: Dyspepsia Albuterol/Ipratropium (Albuterol/Ipratropium 3.0-0.5 Mg/3 Ml Neb Soln) 3 ml NEB Q4HRRT [facility] Last Admin: 08/26/21 13:08 Dose: 3 ml Documented by: Apixaban (Apixaban 5 Mg Tab) 5 mg PO Q12H AWA Baricitinib (Baricitinib 2 Mg Tab) 4 mg PO DAILY [facility] Stop: 08/30/21 09:01 Last Admin: 08/26/21 09:42 Dose: 4 mg Documented by: Benzonatate (Benzonatate 100 Mg Cap) 100 mg PO Q8H PRN PRN Reason: Cough Last Admin: 08/26/21 10:29 Dose: 100 mg Documented by: Dexamethasone (Dexamethasone 4 Mg Tab) 6 mg PO DAILY [facility] Last Admin: 08/26/21 09:42 Dose: 6 mg Documented by: Dextrose/Water (50% Dextrose In Water 50 Ml Syringe) 50 ml IVPUSH ASDIRECTED PRN PRN Reason: Hypoglycemia Docusate Sodium (Docusate Sodium 100 Mg Cap) 100 mg PO Q12H PRN PRN Reason: Constipation Last Admin: 08/26/21 09:42 Dose: 100 mg Documented by: Glucagon (Glucagon,Human Recombinant 1 Mg Vial) 1 mg IM ASDIRECTED PRN PRN Reason: Hypoglycemia Guaifenesin/Dextromethorphan (Guaifenesin/Dextromethorphan 100-10 Mg/5 Ml Soln 1 0 Ml Cup) 10 ml PO Q6H PRN PRN Reason: Cough Last Admin: 08/26/21 16:31 Dose: 10 ml Documented by: Ceftriaxone Sodium/Dextrose 1 (gm/ Premix) 50 mls @ 100 mls/hr IV Q24H [facility] Last Admin: 08/26/21 13:10 Dose: 100 mls/hr Documented by: Azithromycin 500 mg/ Sodium (Chloride) 250 mls @ 250 mls/hr IV Q24H [facility] Last Admin: 08/26/21 10:30 Dose: 250 mls/hr Documented by: Insulin Aspart (Insulin Aspart 100 Units/Ml 3 Ml Pen) 0 unit SUBCUT TIDAC [facility]; Protocol Last Admin: 08/26/21 14:21 Dose: Not Given Documented by: Insulin Glargine (Insulin Glargine,Human Rec. Analog 100 Units/Ml 3 Ml Pen) 20 units SUBCUT BEDTIME [facility] Last Admin: 08/25/21 20:40 Dose: 20 units Documented by: Melatonin (Melatonin 3 Mg Tab) 6 mg PO BEDTIME PRN PRN Reason: Insomnia Last Admin: 08/25/21 20:31 Dose: 6 mg Documented by: Ondansetron HCl (Ondansetron 4 Mg Tab.Dis) 4 mg PO Q6H PRN PRN Reason: nausea, able to take PO Last Admin: 12/25/21 13:41 Dose: 4 mg Documented by: Ondansetron HCl (Ondansetron 4 Mg/2 Ml Sdv) 4 mg IVPUSH Q6H PRN PRN Reason: Nausea/Vomiting Last Admin: 08/20/21 08:57 Dose: 4 mg Documented by: Pantoprazole Sodium (Pantoprazole 40 Mg Tab.Cr) 40 mg PO DAILY [facility] Last Admin: 08/26/21 09:41 Dose: 40 mg Documented by: Sodium Chloride (Sodium Chloride 0.65% Nasal [place] 45 Ml Bottle) 0 ml CRISTY Q2H PRN PRN Reason: Other Last Admin: 08/25/21 19:00 Dose: 1 spray Documented by: Discontinued Medications Apixaban (Apixaban 5 Mg Tab) 10 mg PO Q12H AWA Stop: 08/26/21 06:01 Last Admin: 08/26/21 06:26 Dose: 10 mg Documented by: Dexamethasone (Dexamethasone Solution 0.5 Mg/5 Ml) 6 mg PO DAILY [facility] Last Admin: 08/16/21 17:40 Dose: Not Given Documented by: Dextrose/Water (50% Dextrose In Water 50 Ml Syringe) 50 ml IVPUSH ASDIRECTED PRN PRN Reason: Hypoglycemia Enoxaparin Sodium (Enoxaparin 40 Mg/0.4 Ml Syringe) 40 mg SUBCUT Q24H [facility] Last Admin: 08/16/21 17:40 Dose: Not Given Documented by: Enoxaparin Sodium (Enoxaparin 40 Mg/0.4 Ml Syringe) 40 mg SUBCUT Q12HR [facility] Last Admin: 08/19/21 09:25 Dose: 40 mg Documented by: Enoxaparin Sodium (Enoxaparin 40 Mg/0.4 Ml Syringe) 40 mg SUBCUT Q24H [facility] Glucagon (Glucagon,Human Recombinant 1 Mg Vial) 1 mg IM ASDIRECTED PRN PRN Reason: Hypoglycemia Remdesivir 200 mg/ Sodium (Chloride) 250 mls @ 250 mls/hr IV ONETIME ONE Stop: 08/15/21 19:52 Last Admin: 08/15/21 20:47 Dose: 250 mls/hr Documented by: Sodium Chloride (Normal Saline) 1,000 mls @ 150 mls/hr IV STAT ONE Stop: 08/16/21 03:36 Last Admin: 08/15/21 23:01 Dose: 150 mls/hr Documented by: Remdesivir 100 mg/ Sodium (Chloride) 100 mls @ 100 mls/hr IV Q24H AWA Stop: 08/19/21 21:59 Last Admin: 08/19/21 21:57 Dose: 100 mls/hr Documented by: Potassium Chloride/Sodium Chloride (Normal Saline With 20 Meq Kcl) 500 mls @ 75 mls/hr IV ASDIRECTED [facility] Insulin Aspart (Insulin Aspart 100 Units/Ml 3 Ml Pen) 0 unit SUBCUT ACBREAKFASTANDBED [facility]; Protocol Last Admin: 08/17/21 08:16 Dose: 5 units Documented by: Insulin Aspart (Insulin Aspart 100 Units/Ml 3 Ml Pen) 0 unit SUBCUT BEDTIME [facility]; Protocol Last Admin: 08/18/21 21:58 Dose: Not Given Documented by: Insulin Aspart (Insulin Aspart 100 Units/Ml 3 Ml Pen) 6 unit SUBCUT ONETIME ONE Stop: 08/18/21 21:53 Last Admin: 08/18/21 21:56 Dose: 6 units Documented by: Iopamidol (Iopamidol 755 Mg/Ml 100 Ml Bottle) 100 ml IVPUSH ONETIME ONE Stop: 08/15/21 21:00 Last Admin: 08/15/21 21:37 Dose: 100 ml Documented by: Iopamidol (Iopamidol 755 Mg/Ml 500 Ml Multipack Bottle) 100 ml IVPUSH ONETIME STA Stop: 08/19/21 21:36 Last Admin: 08/19/21 21:36 Dose: 100 ml Documented by: Potassium Chloride (Potassium Chloride 20 Meq Tab.Er) 20 meq PO TID AWA Stop: 08/19/21 14:01 Last Admin: 08/19/21 13:49 Dose: 20 meq Documented by: Potassium Chloride (Potassium Chloride 20 Meq Tab.Er) 40 meq PO ONETIME ONE Stop: 08/19/21 08:55 Last Admin: 08/19/21 09:24 Dose: 40 meq Documented by: Potassium Chloride (Potassium Chloride 20 Meq Tab.Er) 40 meq PO ONETIME ONE Stop: 08/19/21 14:53 Last Admin: 08/19/21 15:14 Dose: 40 meq Documented by: Potassium Chloride (Potassium Chloride 20 Meq Tab.Er) 40 meq PO ONETIME ONE Stop: 08/23/21 08:39 Last Admin: 08/23/21 08:57 Dose: 40 meq Documented by: - Exam General: Alert, Oriented, Cooperative HEENT: No: Mucous Membr. Moist/[place] Neck: Trachea Midline Lungs: Rhonchi Cardiovascular: No: Regular Rate, Regular Rhythm GI/Abdominal Exam: No: Normal Bowel Sounds, Soft, Non-Tender Extremities: No Pedal Edema - Patient Data Lab Results Last 24 hrs: Laboratory Results - last 24 hr 08/24/21 08/25/21 08/25/21 Range/Units 05:30 17:25 20:38 WBC (4.0-11.0) K/uL RBC (4.50-5.90) M/uL Hgb (13.0-17.0) g/dL Hct (38.0-50.0) % MCV (80.0-98.0) fL MCH (27.0-32.0) pg MCHC (31.0-37.0) g/dL RDW Std Deviation (28.0-62.0) fl RDW Coeff of [place] (11.0-15.0) % Plt Count (150-400) K/uL MPV (7.40-12.00) fL Neut % (Auto) (48.0-80.0) % Lymph % (Auto) (16.0-40.0) % [place] % (Auto) (0.0-15.0) % Eos % (Auto) (0.0-7.0) % Baso % (Auto) (0.0-1.5) % Neut # (Auto) (1.4-5.7) K/uL Lymph # (Auto) (0.6-2.4) K/uL [place] # (Auto) (0.0-0.8) K/uL Eos # (Auto) (0.0-0.7) K/uL Baso # (Auto) (0.0-0.1) K/uL Nucleated RBC % /100WBC Nucleated RBCs # K/uL Sodium (136-148) mmol/L Potassium (3.5-5.1) mmol/L Chloride (98-107) mmol/L Carbon Dioxide (21.0-32.0) mmol/L BUN (7.0-18.0) mg/dL Creatinine (0.8-1.3) mg/dL Est Cr Clr Drug Dosing mL/min Estimated GFR (MDRD) ml/min Glucose (74-106) mg/dL POC Glucose 264 H 268 H (70-99) mg/dL Calcium (8.5-10.1) mg/dL Magnesium (1.8-2.4) mg/dL Total Bilirubin (0.2-1.0) mg/dL AST (15-37) IU/L ALT (14-63) IU/L Alkaline Phosphatase (46-116) U/L Total Protein (6.4-8.2) g/dL Albumin (3.4-5.0) g/dL Globulin (2.6-4.0) g/dL Albumin/Globulin Ratio (0.9-1.6) Procalcitonin 0.41 H ng/mL 08/26/21 08/26/21 08/26/21 Range/Units 05:27 05:27 05:27 WBC 23.07 H (4.0-11.0) K/uL RBC 4.15 L (4.50-5.90) M/uL Hgb 13.0 (13.0-17.0) g/dL Hct 37.3 L (38.0-50.0) % MCV 89.9 (80.0-98.0) fL MCH 31.3 (27.0-32.0) pg MCHC 34.9 (31.0-37.0) g/dL RDW Std Deviation 40.4 (28.0-62.0) fl RDW Coeff of [place] 13 (11.0-15.0) % Plt Count 236 (150-400) K/uL MPV 11.20 (7.40-12.00) fL Neut % (Auto) 92.2 H (48.0-80.0) % Lymph % (Auto) 4.9 L (16.0-40.0) % [place] % (Auto) 2.8 (0.0-15.0) % Eos % (Auto) 0.0 (0.0-7.0) % Baso % (Auto) 0.1 (0.0-1.5) % Neut # (Auto) 21.3 H (1.4-5.7) K/uL Lymph # (Auto) 1.1 (0.6-2.4) K/uL [place] # (Auto) 0.7 (0.0-0.8) K/uL Eos # (Auto) 0.0 (0.0-0.7) K/uL Baso # (Auto) 0.0 (0.0-0.1) K/uL Nucleated RBC % 0.0 /100WBC Nucleated RBCs # 0 K/uL Sodium 137 (136-148) mmol/L Potassium 3.9 (3.5-5.1) mmol/L Chloride 102 (98-107) mmol/L Carbon Dioxide 27.9 (21.0-32.0) mmol/L BUN 18 (7.0-18.0) mg/dL Creatinine 0.8 (0.8-1.3) mg/dL Est Cr Clr Drug Dosing 98.05 mL/min Estimated GFR (MDRD) > 60.0 ml/min Glucose 190 H (74-106) mg/dL POC Glucose (70-99) mg/dL Calcium 8.2 L (8.5-10.1) mg/dL Magnesium 2.0 (1.8-2.4) mg/dL Total Bilirubin 0.8 (0.2-1.0) mg/dL AST 32 (15-37) IU/L ALT 50 (14-63) IU/L Alkaline Phosphatase 117 H (46-116) U/L Total Protein 6.3 L (6.4-8.2) g/dL Albumin 1.8 L (3.4-5.0) g/dL Globulin 4.5 H (2.6-4.0) g/dL Albumin/Globulin Ratio 0.4 L (0.9-1.6) Procalcitonin ng/mL 08/26/21 Range/Units 10:47 WBC (4.0-11.0) K/uL RBC (4.50-5.90) M/uL Hgb (13.0-17.0) g/dL Hct (38.0-50.0) % MCV (80.0-98.0) fL MCH (27.0-32.0) pg MCHC (31.0-37.0) g/dL RDW Std Deviation (28.0-62.0) fl RDW Coeff of [place] (11.0-15.0) % Plt Count (150-400) K/uL MPV (7.40-12.00) fL Neut % (Auto) (48.0-80.0) % Lymph % (Auto) (16.0-40.0) % [place] % (Auto) (0.0-15.0) % Eos % (Auto) (0.0-7.0) % Baso % (Auto) (0.0-1.5) % Neut # (Auto) (1.4-5.7) K/uL Lymph # (Auto) (0.6-2.4) K/uL [place] # (Auto) (0.0-0.8) K/uL Eos # (Auto) (0.0-0.7) K/uL Baso # (Auto) (0.0-0.1) K/uL Nucleated RBC % /100WBC Nucleated RBCs # K/uL Sodium (136-148) mmol/L Potassium (3.5-5.1) mmol/L Chloride (98-107) mmol/L Carbon Dioxide (21.0-32.0) mmol/L BUN (7.0-18.0) mg/dL Creatinine (0.8-1.3) mg/dL Est Cr Clr Drug Dosing mL/min Estimated GFR (MDRD) ml/min Glucose (74-106) mg/dL POC Glucose 134 H (70-99) mg/dL Calcium (8.5-10.1) mg/dL Magnesium (1.8-2.4) mg/dL Total Bilirubin (0.2-1.0) mg/dL AST (15-37) IU/L ALT (14-63) IU/L Alkaline Phosphatase (46-116) U/L Total Protein (6.4-8.2) g/dL Albumin (3.4-5.0) g/dL Globulin (2.6-4.0) g/dL Albumin/Globulin Ratio (0.9-1.6) Procalcitonin ng/mL Result Diagrams: 08/26/21 05:27 08/26/21 05:27 Sepsis Event Note - Evaluation Sepsis Screening Result: Possible Sepsis Risk - Focused Exam Vital Signs: Vital Signs Temp Resp BP Pulse Ox 08/26/21 16:00 34 H 148/96 H 90 L 08/26/21 15:00 38 H 138/95 H 89 L 08/26/21 14:00 24 H 146/99 H 89 L 08/26/21 13:00 34 H 135/104 H 90 L 08/26/21 12:00 98.7 F 26 H 91/27 L 92 L 08/26/21 11:00 27 H 129/82 88 L 08/26/21 10:00 25 H 134/76 84 L 08/26/21 09:00 19 138/70 86 L 08/26/21 08:00 98.8 F 37 H 138/83 88 L 08/26/21 07:00 22 H 126/68 90 L 08/26/21 06:00 24 H 149/89 H 93 L 08/26/21 05:00 17 106/76 94 L - Problem List & Annotations (1) Acute respiratory disease due to COVID-19 virus SNOMED Code(s): 534535035, 113745168 Code(s): U07.1 - COVID-19; J06.9 - ACUTE UPPER RESPIRATORY INFECTION, UNSPECIFIED Status: Acute Current Visit: Yes (2) Obesity (BMI 30-39.9) SNOMED Code(s): 458259812, 763148077 Code(s): E66.9 - OBESITY, UNSPECIFIED Status: Acute Priority: Medium Current Visit: Yes (3) T2DM (type 2 diabetes mellitus) SNOMED Code(s): 70495942 Code(s): E11.9 - TYPE 2 DIABETES MELLITUS WITHOUT COMPLICATIONS Status: Acute Priority: Medium Current Visit: Yes Onset Date: ~08/17/21 Qualifiers: Diabetes mellitus senior maintenance mechanic insulin use: with senior maintenance mechanic use (4) Leukocytosis SNOMED Code(s): 157216769, 606651975 Code(s): D72.829 - ELEVATED WHITE BLOOD CELL COUNT, UNSPECIFIED Status: Acute Current Visit: Yes (5) Pneumonia SNOMED Code(s): 059869203 Code(s): J18.9 - PNEUMONIA, UNSPECIFIED ORGANISM Status: Acute Current Visit: Yes (6) Constipation SNOMED Code(s): 14933065 Code(s): K59.00 - CONSTIPATION, UNSPECIFIED Status: Acute Current Visit: Yes - Problem List Review Problem List Initiated/Reviewed/Updated: Yes - My Orders Last 24 Hours: My Active Orders 08/27/21 05:11 CBC WITH AUTO DIFF [HEME] AM CMP [COMPREHENSIVE METABOLIC PN,CMP] [CHEM] AM 08/28/21 05:11 CBC WITH AUTO DIFF [HEME] AM CMP [COMPREHENSIVE METABOLIC PN,CMP] [CHEM] AM - Assessment Assessment:: 1. Acute respiratory failure secondary to COVID-19 pneumonia -Continue dexamethasone and baricitinib -Continue symptomatic treatment with duo nebulizers, Robitussin, Tessalon Perles, Zofran -Continue O2 supplementation via HHF, currently saturating at over 90% while on a flow rate of 45, and FiO2 of 65 -Weakness associated with COVID-19 infection, PT in place 2. Pulmonary embolism -Continue Eliquis 5 mg twice daily 3. Diabetes mellitus type 2 -continue with Accu-Cheks/insulin sliding scale/NovoLog 4 leukocytosis secondary to bacterial pneumonia. -Continue azithromycin 500 mg every 24 hours per IV route and Rocephin 1 g every 24 hours per IV route 5. Constipation. -Colace on board
[2021-08-26] MEDS: Melatonin 3 MG Tab PO PRN (20:50)
[2021-08-26] MEDS: Insulin Glargine,Human Rec. Analog 100 Units/ML 3 ML Pen SUBCUT SCH (20:58)
[2021-08-27] MEDS: guaiFENesin/Dextromethorphan 100-10 MG/5 ML Soln 10 ML Cup PO PRN ×2 (02:11→08:16)
[2021-08-27] MEDS: Albuterol/Ipratropium 3.0-0.5 MG/3 ML Neb Soln NEB SCH ×6 (02:11→21:29)
[2021-08-27] MEDS: Acetaminophen/HYDROcodone 325-5 MG Tab PO PRN ×3 (02:11→11:15)
[2021-08-27] MEDS ORDERED: fentaNYL 50 MCG/ML SDV IVPUSH PRN (03:45)
--- NOTE | 2021-08-27 03:46 | PN ---
THC Physician - Brief Progress [id number]/04/2022 03:44[facility] hong Delia, SONJA - EDUAR (RACHEAL) - JOEL WANG COVID +Date of Service 08/27/2021 03:44HPI/E vents of Note Discussed with RN: Pt with c/o pain over R back not controlled by norco.Plan: trial of fentanyl PRN.Interventions Minor-Communication with other healthcare providers and/or familyElectroni fady Signed by: AMELIA GARCIA () on 08/27/2021 03:45
[2021-08-27] MEDS: fentaNYL 100 MCG/2 ML SDV IVPUSH PRN ×2 (03:58→05:05)
[2021-08-27] MEDS: Benzonatate 100 MG Cap PO PRN (06:02)
[2021-08-27] MEDS: Apixaban 5 MG Tab PO SCH ×2 (06:03→20:00)
[2021-08-27] MEDS: Dexamethasone 4 MG Tab PO SCH (08:14)
[2021-08-27] MEDS: Pantoprazole 40 MG Tab.CR PO SCH (08:14)
[2021-08-27 08:37] LABS: BLOOD UREA NITROGEN,BUN 22 mg/dL (7.0-18.0); CARBON DIOXIDE,CO2 25.9 mmol/L (21.0-32.0); CHLORIDE,CL 101 mmol/L (98-107); GLUCOSE RANDOM 168 mg/dL (74-106); SODIUM,NA 138 mmol/L (136-148)
[2021-08-27] MEDS: Insulin Aspart 100 Units/ML 3 ML Pen SUBCUT SCH ×3 (08:51→19:30)
--- NOTE | 2021-08-27 08:51 | CR ---
INDICATION: Increased oxygen demand COMPARISON: August 11, 2021 TECHNIQUE: Single-view chest radiograph August 27, 2021 at 8:28 a.m. FINDINGS: TUBES AND LINES: None. HEART AND MEDIASTINUM: The heart size is normal. The mediastinal contour appears normal for patient age. LUNGS AND PLEURAL SPACES: Severe diffuse multifocal airspace disease. This has significantly worsened since the prior examination.No definite pleural effusion or pneumothorax OSSEOUS STRUCTURES: Age-appropriate appearance. No acute focal finding. IMPRESSION: Severe diffuse multifocal airspace disease globally worsened. No pleural effusion or pneumothorax para, Dictated by Martinez James MD @ 08/27/2021 8:50:28 AM (Electronically Signed)
[2021-08-27] MEDS ORDERED: diphenhydrAMINE 50 MG/ML SDV IVPUSH PRN (10:40)
[2021-08-27] MEDS ORDERED: SODIUM CHLORIDE 0.9% IV PRN (10:44)
[2021-08-27] MEDS ORDERED: HALOPERIDOL LACTATE IV PRN (10:44)
--- NOTE | 2021-08-27 11:16 | ECHO ---
EXAM DATE: 08/15/21 PATIENT'S AGE: 66 The ECHO report has been scanned into [employer] and can be seen in this patient's EMR (Electronic Medical Record) under the REPORTS section. The report has also been scanned into PACS. [facility]
--- NOTE | 2021-08-27 11:16 | PCM.PN ---
- General Info Date of Service: 08/27/21 Subjective Update: The patient is a 66-year-old male, on day 13 of service, who has a significant past medical history of obesity and diabetes mellitus type 2, who was admitted to the medical floor due to acute respiratory failure secondary to COVID-19 pneumonia. The patient had a chest x-ray done today which shows that he has worsening COVID-19 pneumonitis. His oxygen demand has also increased and he is currently on heated high flow with a flow rate of 60 and FiO2 of 94. He is also agitated and anxious. The eICU was contacted in regards to this patient and they recommended a two-step approach, 1 for behavioral 1 for breathing. For behavioral they suggested starting Haldol, and using Benadryl as an adjunct. If these 2 medications do not work then to progress to Precedex. For breathing, if the patient starts to desat under 80 to switch to BiPAP, with an FiO2 of 100%, IPAP of 13, EPAP of 8, and tidal volume in the 400s. We will continue to monitor this patient. The patient's also spoke to Dr. Umana and she was updated on her 's clinical status. - Review of Systems General: Reports: Other (The patient is a poor historian and could not answer questions due to his current clinical status) - Patient Data Vitals - Most Recent: Last Vital Signs Temp 97.9 F 08/27/21 08:00 Pulse 85 08/21/21 08:24 Resp 20 08/27/21 10:45 BP 139/89 08/27/21 10:00 Pulse Ox 87 L 08/27/21 10:45 Weight - Most Recent: 220 lb 3.869 oz I&O - Last 24 Hours: Intake & Output 08/26/21 08/27/21 08/27/21 22:59 06:59 14:59 Intake Total 420 650 Output Total 650 475 Balance -230 175 Lab Results Last 24 Hours: Laboratory Results - last 24 hr 08/26/21 08/26/21 08/26/21 Range/Units 10:47 18:16 20:56 WBC (4.0-11.0) K/uL RBC (4.50-5.90) M/uL Hgb (13.0-17.0) g/dL Hct (38.0-50.0) % MCV (80.0-98.0) fL MCH (27.0-32.0) pg MCHC (31.0-37.0) g/dL RDW Std Deviation (28.0-62.0) fl RDW Coeff of [place] (11.0-15.0) % Plt Count (150-400) K/uL MPV (7.40-12.00) fL Neut % (Auto) (48.0-80.0) % Lymph % (Auto) (16.0-40.0) % [place] % (Auto) (0.0-15.0) % Eos % (Auto) (0.0-7.0) % Baso % (Auto) (0.0-1.5) % Neut # (Auto) (1.4-5.7) K/uL Lymph # (Auto) (0.6-2.4) K/uL [place] # (Auto) (0.0-0.8) K/uL Eos # (Auto) (0.0-0.7) K/uL Baso # (Auto) (0.0-0.1) K/uL Nucleated RBC % /100WBC Nucleated RBCs # K/uL ABG pH (7.35-7.45) ABG pCO2 (35-45) mmHG ABG pO2 (80-105) mmHG ABG HCO3 (22-26) mEq/L ABG Total CO2 (23-27) mmol/L ABG Base Excess (-2.0-3.0) Sodium (136-148) mmol/L Potassium (3.5-5.1) mmol/L Chloride (98-107) mmol/L Carbon Dioxide (21.0-32.0) mmol/L BUN (7.0-18.0) mg/dL Creatinine (0.8-1.3) mg/dL Est Cr Clr Drug Dosing mL/min Estimated GFR (MDRD) ml/min Glucose (74-106) mg/dL POC Glucose 134 H 286 H 228 H (70-99) mg/dL Calcium (8.5-10.1) mg/dL Total Bilirubin (0.2-1.0) mg/dL AST (15-37) IU/L ALT (14-63) IU/L Alkaline Phosphatase (46-116) U/L Total Protein (6.4-8.2) g/dL Albumin (3.4-5.0) g/dL Globulin (2.6-4.0) g/dL Albumin/Globulin Ratio (0.9-1.6) 08/27/21 08/27/21 08/27/21 Range/Units 07:57 07:57 08:34 WBC 28.17 H (4.0-11.0) K/uL RBC 4.38 L (4.50-5.90) M/uL Hgb 13.9 (13.0-17.0) g/dL Hct 39.6 (38.0-50.0) % MCV 90.4 (80.0-98.0) fL MCH 31.7 (27.0-32.0) pg MCHC 35.1 (31.0-37.0) g/dL RDW Std Deviation 41.0 (28.0-62.0) fl RDW Coeff of [place] 12 (11.0-15.0) % Plt Count 272 (150-400) K/uL MPV 11.20 (7.40-12.00) fL Neut % (Auto) 93.3 H (48.0-80.0) % Lymph % (Auto) 3.2 L (16.0-40.0) % [place] % (Auto) 3.5 (0.0-15.0) % Eos % (Auto) 0.0 (0.0-7.0) % Baso % (Auto) 0.0 (0.0-1.5) % Neut # (Auto) 26.3 H (1.4-5.7) K/uL Lymph # (Auto) 0.9 (0.6-2.4) K/uL [place] # (Auto) 1.0 H (0.0-0.8) K/uL Eos # (Auto) 0.0 (0.0-0.7) K/uL Baso # (Auto) 0.0 (0.0-0.1) K/uL Nucleated RBC % 0.0 /100WBC Nucleated RBCs # 0 K/uL ABG pH (7.35-7.45) ABG pCO2 (35-45) mmHG ABG pO2 (80-105) mmHG ABG HCO3 (22-26) mEq/L ABG Total CO2 (23-27) mmol/L ABG Base Excess (-2.0-3.0) Sodium 138 (136-148) mmol/L Potassium 4.0 (3.5-5.1) mmol/L Chloride 101 (98-107) mmol/L Carbon Dioxide 25.9 (21.0-32.0) mmol/L BUN 22 H (7.0-18.0) mg/dL Creatinine 0.8 (0.8-1.3) mg/dL Est Cr Clr Drug Dosing 98.05 mL/min Estimated GFR (MDRD) > 60.0 ml/min Glucose 168 H (74-106) mg/dL POC Glucose 156 H (70-99) mg/dL Calcium 8.3 L (8.5-10.1) mg/dL Total Bilirubin 1.6 H (0.2-1.0) mg/dL AST 20 (15-37) IU/L ALT 43 (14-63) IU/L Alkaline Phosphatase 121 H (46-116) U/L Total Protein 6.1 L (6.4-8.2) g/dL Albumin 2.0 L (3.4-5.0) g/dL Globulin 4.1 H (2.6-4.0) g/dL Albumin/Globulin Ratio 0.5 L (0.9-1.6) 08/27/21 Range/Units 09:47 WBC (4.0-11.0) K/uL RBC (4.50-5.90) M/uL Hgb (13.0-17.0) g/dL Hct (38.0-50.0) % MCV (80.0-98.0) fL MCH (27.0-32.0) pg MCHC (31.0-37.0) g/dL RDW Std Deviation (28.0-62.0) fl RDW Coeff of [place] (11.0-15.0) % Plt Count (150-400) K/uL MPV (7.40-12.00) fL Neut % (Auto) (48.0-80.0) % Lymph % (Auto) (16.0-40.0) % [place] % (Auto) (0.0-15.0) % Eos % (Auto) (0.0-7.0) % Baso % (Auto) (0.0-1.5) % Neut # (Auto) (1.4-5.7) K/uL Lymph # (Auto) (0.6-2.4) K/uL [place] # (Auto) (0.0-0.8) K/uL Eos # (Auto) (0.0-0.7) K/uL Baso # (Auto) (0.0-0.1) K/uL Nucleated RBC % /100WBC Nucleated RBCs # K/uL ABG pH 7.54 H (7.35-7.45) ABG pCO2 29 L (35-45) mmHG ABG pO2 58 L (80-105) mmHG ABG HCO3 24 (22-26) mEq/L ABG Total CO2 21.2 L (23-27) mmol/L ABG Base Excess 2.7 (-2.0-3.0) Sodium (136-148) mmol/L Potassium (3.5-5.1) mmol/L Chloride (98-107) mmol/L Carbon Dioxide (21.0-32.0) mmol/L BUN (7.0-18.0) mg/dL Creatinine (0.8-1.3) mg/dL Est Cr Clr Drug Dosing mL/min Estimated GFR (MDRD) ml/min Glucose (74-106) mg/dL POC Glucose (70-99) mg/dL Calcium (8.5-10.1) mg/dL Total Bilirubin (0.2-1.0) mg/dL AST (15-37) IU/L ALT (14-63) IU/L Alkaline Phosphatase (46-116) U/L Total Protein (6.4-8.2) g/dL Albumin (3.4-5.0) g/dL Globulin (2.6-4.0) g/dL Albumin/Globulin Ratio (0.9-1.6) Med Orders - Current: Current Medications Hydrocodone Bitart/Acetaminophen (Acetaminophen/Hydrocodone 325-5 Mg Tab) 1 tab PO Q4H PRN PRN Reason: Pain (moderate 4-6) Last Admin: 08/27/21 06:03 Dose: 1 tab Documented by: Albuterol/Ipratropium (Albuterol/Ipratropium 3.0-0.5 Mg/3 Ml Neb Soln) 3 ml NEB Q2H PRN PRN Reason: Dyspepsia Albuterol/Ipratropium (Albuterol/Ipratropium 3.0-0.5 Mg/3 Ml Neb Soln) 3 ml NEB Q4HRRT [facility] Last Admin: 08/27/21 10:46 Dose: 3 ml Documented by: Apixaban (Apixaban 5 Mg Tab) 5 mg PO Q12H [facility] Last Admin: 08/27/21 06:03 Dose: 5 mg Documented by: Baricitinib (Baricitinib 2 Mg Tab) 4 mg PO DAILY [facility] Stop: 08/30/21 09:01 Last Admin: 08/27/21 08:14 Dose: 4 mg Documented by: Benzonatate (Benzonatate 100 Mg Cap) 100 mg PO Q8H PRN PRN Reason: Cough Last Admin: 08/27/21 06:02 Dose: 100 mg Documented by: Dexamethasone (Dexamethasone 4 Mg Tab) 6 mg PO DAILY [facility] Last Admin: 08/27/21 08:14 Dose: 6 mg Documented by: Dextrose/Water (50% Dextrose In Water 50 Ml Syringe) 50 ml IVPUSH ASDIRECTED PRN PRN Reason: Hypoglycemia Diphenhydramine HCl (Diphenhydramine 50 Mg/Ml Sdv) 50 mg IVPUSH Q8H PRN PRN Reason: Agitation Docusate Sodium (Docusate Sodium 100 Mg Cap) 100 mg PO Q12H PRN PRN Reason: Constipation Last Admin: 08/26/21 20:49 Dose: 100 mg Documented by: Fentanyl (Fentanyl 100 Mcg/2 Ml Sdv) 25 mcg IVPUSH Q3H PRN PRN Reason: Pain Last Admin: 08/27/21 05:05 Dose: 25 mcg Documented by: Glucagon (Glucagon,Human Recombinant 1 Mg Vial) 1 mg IM ASDIRECTED PRN PRN Reason: Hypoglycemia Guaifenesin/Dextromethorphan (Guaifenesin/Dextromethorphan 100-10 Mg/5 Ml Soln 10 Ml Cup) 10 ml PO Q6H PRN PRN Reason: Cough Last Admin: 08/27/21 08:16 Dose: 10 ml Documented by: Azithromycin 500 mg/ Sodium (Chloride) 250 mls @ 250 mls/hr IV Q24H [facility] Last Admin: 08/26/21 10:30 Dose: 250 mls/hr Documented by: Ceftriaxone Sodium 1 gm/ (Sodium Chloride) 50 mls @ 100 mls/hr IV Q24H [facility] Propofol (Diprivan 100 Ml) 100 mls @ 2.997 mls/hr IV TITRATE [facility]; Protocol Fentanyl Citrate 2,500 mcg/ (Premix) 250 mls @ 2.5 mls/hr IV TITRATE PRN; Protocol PRN Reason: Other Norepinephrine Bitartrate (Norepinephr-0.9% Nacl 4 Mg/250) 4 mg in 250 mls @ 7.5 mls/hr IV TITRATE AWA; Protocol Haloperidol Lactate 5 mg/ (Sodium Chloride) 51 mls @ 102 mls/hr IV Q5H PRN PRN Reason: AGITATION Last Admin: 08/27/21 10:50 Dose: 102 mls/hr Documented by: Insulin Aspart (Insulin Aspart 100 Units/Ml 3 Ml Pen) 0 unit SUBCUT TIDAC [facility]; Protocol Last Admin: 08/27/21 08:51 Dose: 3 units Documented by: Insulin Glargine (Insulin Glargine,Human Rec. Analog 100 Units/Ml 3 Ml Pen) 20 units SUBCUT BEDTIME [facility] Last Admin: 08/26/21 20:58 Dose: 20 units Documented by: Melatonin (Melatonin 3 Mg Tab) 6 mg PO BEDTIME PRN PRN Reason: Insomnia Last Admin: 08/26/21 20:50 Dose: 6 mg Documented by: Ondansetron HCl (Ondansetron 4 Mg Tab.Dis) 4 mg PO Q6H PRN PRN Reason: nausea, able to take PO Last Admin: 08/17/21 13:41 Dose: 4 mg Documented by: Ondansetron HCl (Ondansetron 4 Mg/2 Ml Sdv) 4 mg IVPUSH Q6H PRN PRN Reason: Nausea/Vomiting Last Admin: 08/20/21 08:57 Dose: 4 mg Documented by: Pantoprazole Sodium (Pantoprazole 40 Mg Tab.Cr) 40 mg PO DAILY [facility] Last Admin: 08/27/21 08:14 Dose: 40 mg Documented by: Sodium Chloride (Sodium Chloride 0.65% Nasal [place] 45 Ml Bottle) 0 ml CRISTY Q2H PRN PRN Reason: Other Last Admin: 08/25/21 19:00 Dose: 1 spray Documented by: Discontinued Medications Apixaban (Apixaban 5 Mg Tab) 10 mg PO Q12H [facility] Stop: 08/26/21 06:01 Last Admin: 08/26/21 06:26 Dose: 10 mg Documented by: Dexamethasone (Dexamethasone Solution 0.5 Mg/5 Ml) 6 mg PO DAILY [facility] Last Admin: 08/16/21 17:40 Dose: Not Given Documented by: Dextrose/Water (50% Dextrose In Water 50 Ml Syringe) 50 ml IVPUSH ASDIRECTED PRN PRN Reason: Hypoglycemia Enoxaparin Sodium (Enoxaparin 40 Mg/0.4 Ml Syringe) 40 mg SUBCUT Q24H [facility] Last Admin: 08/16/21 17:40 Dose: Not Given Documented by: Enoxaparin Sodium (Enoxaparin 40 Mg/0.4 Ml Syringe) 40 mg SUBCUT Q12HR [facility] Last Admin: 08/19/21 09:25 Dose: 40 mg Documented by: Enoxaparin Sodium (Enoxaparin 40 Mg/0.4 Ml Syringe) 40 mg SUBCUT Q24H [facility] Fentanyl (Fentanyl 50 Mcg/Ml Sdv) 25 mcg IVPUSH Q3H PRN PRN Reason: Pain Glucagon (Glucagon,Human Recombinant 1 Mg Vial) 1 mg IM ASDIRECTED PRN PRN Reason: Hypoglycemia Remdesivir 200 mg/ Sodium (Chloride) 250 mls @ 250 mls/hr IV ONETIME ONE Stop: 08/15/21 19:52 Last Admin: 08/15/21 20:47 Dose: 250 mls/hr Documented by: Sodium Chloride (Normal Saline) 1,000 mls @ 150 mls/hr IV STAT ONE Stop: 08/16/21 03:36 Last Admin: 08/15/21 23:01 Dose: 150 mls/hr Documented by: Remdesivir 100 mg/ Sodium (Chloride) 100 mls @ 100 mls/hr IV Q24H [facility] Stop: 08/19/21 21:59 Last Admin: 08/19/21 21:57 Dose: 100 mls/hr Documented by: Potassium Chloride/Sodium Chloride (Normal Saline With 20 Meq Kcl) 500 mls @ 75 mls/hr IV ASDIRECTED [facility]WA Ceftriaxone Sodium/Dextrose 1 (gm/ Premix) 50 mls @ 100 mls/hr IV Q24H [facility] Last Admin: 08/26/21 13:10 Dose: 100 mls/hr Documented by: Insulin Aspart (Insulin Aspart 100 Units/Ml 3 Ml Pen) 0 unit SUBCUT ACBREAKFASTANDBED [facility]; Protocol Last Admin: 08/17/21 08:16 Dose: 5 units Documented by: Insulin Aspart (Insulin Aspart 100 Units/Ml 3 Ml Pen) 0 unit SUBCUT BEDTIME [facility]; Protocol Last Admin: 08/18/21 21:58 Dose: Not Given Documented by: Insulin Aspart (Insulin Aspart 100 Units/Ml 3 Ml Pen) 6 unit SUBCUT ONETIME ONE Stop: 08/18/21 21:53 Last Admin: 08/18/21 21:56 Dose: 6 units Documented by: Iopamidol (Iopamidol 755 Mg/Ml 100 Ml Bottle) 100 ml IVPUSH ONETIME ONE Stop: 08/15/21 21:00 Last Admin: 08/15/21 21:37 Dose: 100 ml Documented by: Iopamidol (Iopamidol 755 Mg/Ml 500 Ml Multipack Bottle) 100 ml IVPUSH ONETIME STA Stop: 08/19/21 21:36 Last Admin: 08/19/21 21:36 Dose: 100 ml Documented by: Potassium Chloride (Potassium Chloride 20 Meq Tab.Er) 20 meq PO TID AWA Stop: 08/19/21 14:01 Last Admin: 08/19/21 13:49 Dose: 20 meq Documented by: Potassium Chloride (Potassium Chloride 20 Meq Tab.Er) 40 meq PO ONETIME ONE Stop: 08/19/21 08:55 Last Admin: 08/19/21 09:24 Dose: 40 meq Documented by: Potassium Chloride (Potassium Chloride 20 Meq Tab.Er) 40 meq PO ONETIME ONE Stop: 08/19/21 14:53 Last Admin: 08/19/21 15:14 Dose: 40 meq Documented by: Potassium Chloride (Potassium Chloride 20 Meq Tab.Er) 40 meq PO ONETIME ONE Stop: 08/23/21 08:39 Last Admin: 08/23/21 08:57 Dose: 40 meq Documented by: - Exam General: Moderate Distress HEENT: No: Mucous Membr. Moist/[place] Neck: Trachea Midline Lungs: Rhonchi Cardiovascular: Regular Rate, Regular Rhythm, No Murmurs GI/Abdominal Exam: Normal Bowel Sounds, Soft, Non-Tender - Patient Data Lab Results Last 24 hrs: Laboratory Results - last 24 hr 0108/26/21 08/26/21 Range/Units 10:47 18:16 20:56 WBC (4.0-11.0) K/uL RBC (4.50-5.90) M/uL Hgb (13.0-17.0) g/dL Hct (38.0-50.0) % MCV (80.0-98.0) fL MCH (27.0-32.0) pg MCHC (31.0-37.0) g/dL RDW Std Deviation (28.0-62.0) fl RDW Coeff of [place] (11.0-15.0) % Plt Count (150-400) K/uL MPV (7.40-12.00) fL Neut % (Auto) (48.0-80.0) % Lymph % (Auto) (16.0-40.0) % [place] % (Auto) (0.0-15.0) % Eos % (Auto) (0.0-7.0) % Baso % (Auto) (0.0-1.5) % Neut # (Auto) (1.4-5.7) K/uL Lymph # (Auto) (0.6-2.4) K/uL [place] # (Auto) (0.0-0.8) K/uL Eos # (Auto) (0.0-0.7) K/uL Baso # (Auto) (0.0-0.1) K/uL Nucleated RBC % /100WBC Nucleated RBCs # K/uL ABG pH (7.35-7.45) ABG pCO2 (35-45) mmHG ABG pO2 (80-105) mmHG ABG HCO3 (22-26) mEq/L ABG Total CO2 (23-27) mmol/L ABG Base Excess (-2.0-3.0) Sodium (136-148) mmol/L Potassium (3.5-5.1) mmol/L Chloride (98-107) mmol/L Carbon Dioxide (21.0-32.0) mmol/L BUN (7.0-18.0) mg/dL Creatinine (0.8-1.3) mg/dL Est Cr Clr Drug Dosing mL/min Estimated GFR (MDRD) ml/min Glucose (74-106) mg/dL POC Glucose 134 H 286 H 228 H (70-99) mg/dL Calcium (8.5-10.1) mg/dL Total Bilirubin (0.2-1.0) mg/dL AST (15-37) IU/L ALT (14-63) IU/L Alkaline Phosphatase (46-116) U/L Total Protein (6.4-8.2) g/dL Albumin (3.4-5.0) g/dL Globulin (2.6-4.0) g/dL Albumin/Globulin Ratio (0.9-1.6) 08/27/21 08/27/21 08/27/21 Range/Units 07:57 07:57 08:34 WBC 28.17 H (4.0-11.0) K/uL RBC 4.38 L (4.50-5.90) M/uL Hgb 13.9 (13.0-17.0) g/dL Hct 39.6 (38.0-50.0) % MCV 90.4 (80.0-98.0) fL MCH 31.7 (27.0-32.0) pg MCHC 35.1 (31.0-37.0) g/dL RDW Std Deviation 41.0 (28.0-62.0) fl RDW Coeff of [place] 12 (11.0-15.0) % Plt Count 272 (150-400) K/uL MPV 11.20 (7.40-12.00) fL Neut % (Auto) 93.3 H (48.0-80.0) % Lymph % (Auto) 3.2 L (16.0-40.0) % [place] % (Auto) 3.5 (0.0-15.0) % Eos % (Auto) 0.0 (0.0-7.0) % Baso % (Auto) 0.0 (0.0-1.5) % Neut # (Auto) 26.3 H (1.4-5.7) K/uL Lymph # (Auto) 0.9 (0.6-2.4) K/uL [place] # (Auto) 1.0 H (0.0-0.8) K/uL Eos # (Auto) 0.0 (0.0-0.7) K/uL Baso # (Auto) 0.0 (0.0-0.1) K/uL Nucleated RBC % 0.0 /100WBC Nucleated RBCs # 0 K/uL ABG pH (7.35-7.45) ABG pCO2 (35-45) mmHG ABG pO2 (80-105) mmHG ABG HCO3 (22-26) mEq/L ABG Total CO2 (23-27) mmol/L ABG Base Excess (-2.0-3.0) Sodium 138 (136-148) mmol/L Potassium 4.0 (3.5-5.1) mmol/L Chloride 101 (98-107) mmol/L Carbon Dioxide 25.9 (21.0-32.0) mmol/L BUN 22 H (7.0-18.0) mg/dL Creatinine 0.8 (0.8-1.3) mg/dL Est Cr Clr Drug Dosing 98.05 mL/min Estimated GFR (MDRD) > 60.0 ml/min Glucose 168 H (74-106) mg/dL POC Glucose 156 H (70-99) mg/dL Calcium 8.3 L (8.5-10.1) mg/dL Total Bilirubin 1.6 H (0.2-1.0) mg/dL AST 20 (15-37) IU/L ALT 43 (14-63) IU/L Alkaline Phosphatase 121 H (46-116) U/L Total Protein 6.1 L (6.4-8.2) g/dL Albumin 2.0 L (3.4-5.0) g/dL Globulin 4.1 H (2.6-4.0) g/dL Albumin/Globulin Ratio 0.5 L (0.9-1.6) 08/27/21 Range/Units 09:47 WBC (4.0-11.0) K/uL RBC (4.50-5.90) M/uL Hgb (13.0-17.0) g/dL Hct (38.0-50.0) % MCV (80.0-98.0) fL MCH (27.0-32.0) pg MCHC (31.0-37.0) g/dL RDW Std Deviation (28.0-62.0) fl RDW Coeff of [place] (11.0-15.0) % Plt Count (150-400) K/uL MPV (7.40-12.00) fL Neut % (Auto) (48.0-80.0) % Lymph % (Auto) (16.0-40.0) % [place] % (Auto) (0.0-15.0) % Eos % (Auto) (0.0-7.0) % Baso % (Auto) (0.0-1.5) % Neut # (Auto) (1.4-5.7) K/uL Lymph # (Auto) (0.6-2.4) K/uL [place] # (Auto) (0.0-0.8) K/uL Eos # (Auto) (0.0-0.7) K/uL Baso # (Auto) (0.0-0.1) K/uL Nucleated RBC % /100WBC Nucleated RBCs # K/uL ABG pH 7.54 H (7.35-7.45) ABG pCO2 29 L (35-45) mmHG ABG pO2 58 L (80-105) mmHG ABG HCO3 24 (22-26) mEq/L ABG Total CO2 21.2 L (23-27) mmol/L ABG Base Excess 2.7 (-2.0-3.0) Sodium (136-148) mmol/L Potassium (3.5-5.1) mmol/L Chloride (98-107) mmol/L Carbon Dioxide (21.0-32.0) mmol/L BUN (7.0-18.0) mg/dL Creatinine (0.8-1.3) mg/dL Est Cr Clr Drug Dosing mL/min Estimated GFR (MDRD) ml/min Glucose (74-106) mg/dL POC Glucose (70-99) mg/dL Calcium (8.5-10.1) mg/dL Total Bilirubin (0.2-1.0) mg/dL AST (15-37) IU/L ALT (14-63) IU/L Alkaline Phosphatase (46-116) U/L Total Protein (6.4-8.2) g/dL Albumin (3.4-5.0) g/dL Globulin (2.6-4.0) g/dL Albumin/Globulin Ratio (0.9-1.6) Result Diagrams: 08/27/21 07:57 08/27/21 07:57 Sepsis Event Note - Evaluation Sepsis Screening Result: Severe Sepsis Risk - Focused Exam Vital Signs: Vital Signs Temp Resp BP Pulse Ox 08/27/21 10:45 20 87 L 08/27/21 10:00 37 H 139/89 91 L 08/27/21 09:43 46 H 88 L 08/27/21 09:16 41 H 88 L 08/27/21 09:00 43 H 147/90 H 88 L 08/27/21 08:15 37 H 87 L 08/27/21 08:00 97.9 F 31 H 136/84 89 L 08/27/21 07:00 34 H 171/94 H 91 L 08/27/21 06:00 38 H 158/74 H 88 L 08/27/21 05:00 37 H 151/61 H 96 08/27/21 04:00 97 F 39 H 152/104 H 91 L 08/27/21 03:00 41 H 157/120 H 88 L 08/27/21 02:00 19 143/89 H 92 L 08/27/21 01:00 97 F 27 H 170/109 H 93 L 08/27/21 00:00 19 149/85 H 93 L - Problem List & Annotations (1) Acute respiratory disease due to COVID-19 virus SNOMED Code(s): 655297497, 116047415 Code(s): U07.1 - COVID-19; J06.9 - ACUTE UPPER RESPIRATORY INFECTION, UNSPECIFIED Status: Acute Current Visit: Yes (2) Obesity (BMI 30-39.9) SNOMED Code(s): 960448392, 396300428 Code(s): E66.9 - OBESITY, UNSPECIFIED Status: Acute Priority: Medium Current Visit: Yes (3) T2DM (type 2 diabetes mellitus) SNOMED Code(s): 55155070 Code(s): E11.9 - TYPE 2 DIABETES MELLITUS WITHOUT COMPLICATIONS Status: Acute Priority: Medium Current Visit: Yes Onset Date: ~08/17/21 Qualifiers: Diabetes mellitus terminal manager insulin use: with correction use (4) Leukocytosis SNOMED Code(s): 300414476, 629466555 Code(s): D72.829 - ELEVATED WHITE BLOOD CELL COUNT, UNSPECIFIED Status: Acute Current Visit: Yes (5) Pneumonia SNOMED Code(s): 674284866 Code(s): J18.9 - PNEUMONIA, UNSPECIFIED ORGANISM Status: Acute Current Visit: Yes (6) Constipation SNOMED Code(s): 44785005 Code(s): K59.00 - CONSTIPATION, UNSPECIFIED Status: Acute Current Visit: Yes - Problem List Review Problem List Initiated/Reviewed/Updated: Yes - My Orders Last 24 Hours: My Active Orders 08/28/21 05:11 CBC WITH AUTO DIFF [HEME] AM CMP [COMPREHENSIVE METABOLIC PN,CMP] [CHEM] AM - Assessment Assessment:: 1. Acute respiratory failure secondary to COVID-19 pneumonia -For the patient's agitation associated with his increased oxygen demand, we will use Haldol and potentially Benadryl and Precedex if he does not improve -For his oxygenation he is currently on heated high flow with a flow rate of 60 and FiO2 of 94% and is saturating 88, if he desats under 80 we will switch to BiPAP -Continue dexamethasone/baricitinib/symptomatic treatment with duo nebulizers, Robitussin, Tessalon Perles, Zofran 2. Pulmonary embolism -Continue Eliquis 5 mg twice daily 3. Diabetes mellitus type 2 -continue with Accu-Cheks/insulin sliding scale/NovoLog 4 leukocytosis secondary to bacterial pneumonia. -Continue azithromycin 500 mg every 24 hours per IV route and Rocephin 1 g every 24 hours per IV route 5. Constipation. -Colace on board
[2021-08-27] MEDS ORDERED: Lidocaine 2% 5 ML SDV ONE (12:05)
[2021-08-27] MEDS ORDERED: Rocuronium Bromide 50 MG/5 ML Syringe ONE (12:05)
[2021-08-27] MEDS ORDERED: Propofol 200 MG/20 ML SDV ONE (12:06)
[2021-08-27] MEDS ORDERED: Midazolam 1 MG/ML 2 ML SDV ONE (12:06)
[2021-08-27] MEDS: fentaNYL/Normal Saline 2,500 MCG in Premix Bag 1 BAG IV PRN (12:34)
[2021-08-27] MEDS: propofoL 100 ML IV SCH ×3 (12:34→21:01)
--- NOTE | 2021-08-27 13:15 | PCM.PR.ETI ---
Endotracheal Intubation - Endotracheal Intubation Time of Intubation: 12:18 ET Intubation Indication: Respiratory Failure Preparation: Suction, Balloon Tested, BVM Set Up, Difficult Airway Equip Airway Assessment: Large Tongue Pre-Oxygenation: Assisted with BVM, 100% FiO2 Anesthesia Meds: Lidocaine, Midazolam, Propofol, Rocuronium Placement: Orotracheal, Cuffed, Uncomplicated Placement Cords Visualized: Yes, Grade 1 ETT Size In mm: 7.5 Number of Attempts: 1 Confirmed By: CO2 Indicator, Bilateral Breath Sounds Tube Secured By: By RT Endotracheal Intubation Comment: Tube secured at 21 cm at lip by RT.
--- NOTE | 2021-08-27 14:03 | CR ---
Indication: Central line placement and intubation. Technique: Chest 1 view. Comparison: 08/27/2021. Findings/Impression: Cardiovascular and mediastinum: Endotracheal tube is 5 cm above the olamide. Right IJ central line tip is in the low SVC. NG tube is in the proximal to mid stomach. Heart borders are obscured. Lungs and pleural space: Suspected large right-sided pleural effusion may have increased in size. Bilateral ill-defined pulmonary infiltrates are not significantly changed. No pneumothorax. Bones and soft tissues: No acute findings. Dictated by Jordan Graham MD @ 08/27/2021 2:01:42 PM (Electronically Signed)
--- NOTE | 2021-08-27 14:14 | PCM.PR.CLI ---
Central Line Insertion - Central Line Insertion Site: internal jugular (R) Prep: CDC/MBT Guidelines, Sterile Drapes, Chlorhexidine Lumen: triple Ultrasound guided: Yes Micropuncture kit used: No CL Complications: No Secured with suture: Yes Post placement confirmation: CXR, all ports aspirated, all ports flushed Dressing applied: by provider, chlorhexidine disc used Central line comment: Anesthesia start: 1253 Anesthesia stop: 1341
[2021-08-27] MEDS: Azithromycin 500 MG in Sodium Chloride 0.9% 250 ML IV SCH (14:16)
--- NOTE | 2021-08-27 14:16 | PCM.PR.ALI ---
Arterial Line Insertion - Arterial Line Insertion Arterial Line Indication: hemodynamic monitoring Site: radial (R) Allens test: negative Prep: CDC/MBT Guidelines, Sterile Drapes, Chlorhexidine Gauge: 20g Local Anesthesia - Lidocaine (Xylocaine): lidocaine 1 % Ultrasound guided: Yes Secured with suture: No Dressing applied: by provider Complications: No Arterial line comment: Anesthesia start:1342 Anesthesia stop: 1356
[2021-08-27] MEDS: cefTRIAXone 1 GM in Sodium Chloride 0.9% 50 ML IV SCH (14:17)
[2021-08-27] MEDS ORDERED: Enoxaparin 40 MG/0.4 ML Syringe SUBCUT SCH (18:15)
--- NOTE | 2021-08-27 18:28 | PCM.PN ---
- General Info Date of Service: 08/27/21 Subjective Update: The patient is a 66-year-old male, on day 13 of service, who has a significant past medical history of obesity and diabetes mellitus type 2, who was admitted to the medical floor due to acute respiratory failure secondary to COVID-19 pneumonia. The patient's oxygen demand significantly increased today and he was agitated and clinically deteriorating. We tried Haldol in order to decrease this agitation, however it did not work and the patient worsened. As a result the patient was intubated and has been placed on the current ventilator settings including a rate of 18, 70% oxygen, a PEEP of 9, and a SIMV. He is currently on a waiting list to be transferred to facility that can appropriately manage him. We do not have the capabilities here in [place]. We are awaiting contact from the [facility] in regards to placement. Additionally his oral medications of Eliquis, pantoprazole, and baricitinib have been discontinued. They will be replaced with IV pantoprazole, subcutaneous Lovenox, and we will continue the insulin sliding scale but discontinue Lantus. - Review of Systems HEENT: Reports: Other (The patient is intubated) - Patient Data Vitals - Most Recent: Last Vital Signs Temp 97.9 F 08/27/21 08:00 Pulse 85 08/21/21 08:24 Resp 20 08/27/21 10:45 BP 139/89 08/27/21 10:00 Pulse Ox 87 L 08/27/21 10:45 Weight - Most Recent: 220 lb 3.869 oz I&O - Last 24 Hours: Intake & Output 08/27/21 08/27/21 08/27/21 06:59 14:59 22:59 Intake Total 650 Output Total 475 Balance 175 Lab Results Last 24 Hours: Laboratory Results - last 24 hr 08/26/21 08/26/21 08/27/21 Range/Units 18:16 20:56 07:57 WBC 28.17 H (4.0-11.0) K/uL RBC 4.38 L (4.50-5.90) M/uL Hgb 13.9 (13.0-17.0) g/dL Hct 39.6 (38.0-50.0) % MCV 90.4 (80.0-98.0) fL MCH 31.7 (27.0-32.0) pg MCHC 35.1 (31.0-37.0) g/dL RDW Std Deviation 41.0 (28.0-62.0) fl RDW Coeff of [place] 12 (11.0-15.0) % Plt Count 272 (150-400) K/uL MPV 11.20 (7.40-12.00) fL Neut % (Auto) 93.3 H (48.0-80.0) % Lymph % (Auto) 3.2 L (16.0-40.0) % [place] % (Auto) 3.5 (0.0-15.0) % Eos % (Auto) 0.0 (0.0-7.0) % Baso % (Auto) 0.0 (0.0-1.5) % Neut # (Auto) 26.3 H (1.4-5.7) K/uL Lymph # (Auto) 0.9 (0.6-2.4) K/uL [place] # (Auto) 1.0 H (0.0-0.8) K/uL Eos # (Auto) 0.0 (0.0-0.7) K/uL Baso # (Auto) 0.0 (0.0-0.1) K/uL Nucleated RBC % 0.0 /100WBC Nucleated RBCs # 0 K/uL ABG pH (7.35-7.45) ABG pCO2 (35-45) mmHG ABG pO2 (80-105) mmHG ABG HCO3 (22-26) mEq/L ABG Total CO2 (23-27) mmol/L ABG Base Excess (-2.0-3.0) Sodium (136-148) mmol/L Potassium (3.5-5.1) mmol/L Chloride (98-107) mmol/L Carbon Dioxide (21.0-32.0) mmol/L BUN (7.0-18.0) mg/dL Creatinine (0.8-1.3) mg/dL Est Cr Clr Drug Dosing mL/min Estimated GFR (MDRD) ml/min Glucose (74-106) mg/dL POC Glucose 286 H 228 H (70-99) mg/dL Calcium (8.5-10.1) mg/dL Total Bilirubin (0.2-1.0) mg/dL AST (15-37) IU/L ALT (14-63) IU/L Alkaline Phosphatase (46-116) U/L Total Protein (6.4-8.2) g/dL Albumin (3.4-5.0) g/dL Globulin (2.6-4.0) g/dL Albumin/Globulin Ratio (0.9-1.6) Urine Color Urine Appearance Urine pH (5.0-8.0) Ur Specific [place] (1.001-1.035) Urine Protein (NEGATIVE) mg/dL Urine Glucose (UA) (NEGATIVE) mg/dL Urine Ketones (NEGATIVE) mg/dL Urine Occult Blood (NEGATIVE) Urine Nitrite (NEGATIVE) Urine Bilirubin (NEGATIVE) Urine Urobilinogen (<2.0) EU/dL Ur Leukocyte Esterase (NEGATIVE) 08/27/21 08/27/21 08/27/21 Range/Units 07:57 08:34 09:47 WBC (4.0-11.0) K/uL RBC (4.50-5.90) M/uL Hgb (13.0-17.0) g/dL Hct (38.0-50.0) % MCV (80.0-98.0) fL MCH (27.0-32.0) pg MCHC (31.0-37.0) g/dL RDW Std Deviation (28.0-62.0) fl RDW Coeff of [place] (11.0-15.0) % Plt Count (150-400) K/uL MPV (7.40-12.00) fL Neut % (Auto) (48.0-80.0) % Lymph % (Auto) (16.0-40.0) % [place] % (Auto) (0.0-15.0) % Eos % (Auto) (0.0-7.0) % Baso % (Auto) (0.0-1.5) % Neut # (Auto) (1.4-5.7) K/uL Lymph # (Auto) (0.6-2.4) K/uL [place] # (Auto) (0.0-0.8) K/uL Eos # (Auto) (0.0-0.7) K/uL Baso # (Auto) (0.0-0.1) K/uL Nucleated RBC % /100WBC Nucleated RBCs # K/uL ABG pH 7.54 H (7.35-7.45) ABG pCO2 29 L (35-45) mmHG ABG pO2 58 L (80-105) mmHG ABG HCO3 24 (22-26) mEq/L ABG Total CO2 21.2 L (23-27) mmol/L ABG Base Excess 2.7 (-2.0-3.0) Sodium 138 (136-148) mmol/L Potassium 4.0 (3.5-5.1) mmol/L Chloride 101 (98-107) mmol/L Carbon Dioxide 25.9 (21.0-32.0) mmol/L BUN 22 H (7.0-18.0) mg/dL Creatinine 0.8 (0.8-1.3) mg/dL Est Cr Clr Drug Dosing 98.05 mL/min Estimated GFR (MDRD) > 60.0 ml/min Glucose 168 H (74-106) mg/dL POC Glucose 156 H (70-99) mg/dL Calcium 8.3 L (8.5-10.1) mg/dL Total Bilirubin 1.6 H (0.2-1.0) mg/dL AST 20 (15-37) IU/L ALT 43 (14-63) IU/L Alkaline Phosphatase 121 H (46-116) U/L Total Protein 6.1 L (6.4-8.2) g/dL Albumin 2.0 L (3.4-5.0) g/dL Globulin 4.1 H (2.6-4.0) g/dL Albumin/Globulin Ratio 0.5 L (0.9-1.6) Urine Color Urine Appearance Urine pH (5.0-8.0) Ur Specific [place] (1.001-1.035) Urine Protein (NEGATIVE) mg/dL Urine Glucose (UA) (NEGATIVE) mg/dL Urine Ketones (NEGATIVE) mg/dL Urine Occult Blood (NEGATIVE) Urine Nitrite (NEGATIVE) Urine Bilirubin (NEGATIVE) Urine Urobilinogen (<2.0) EU/dL Ur Leukocyte Esterase (NEGATIVE) 08/27/21 08/27/21 Range/Units 13:26 16:20 WBC (4.0-11.0) K/uL RBC (4.50-5.90) M/uL Hgb (13.0-17.0) g/dL Hct (38.0-50.0) % MCV (80.0-98.0) fL MCH (27.0-32.0) pg MCHC (31.0-37.0) g/dL RDW Std Deviation (28.0-62.0) fl RDW Coeff of [place] (11.0-15.0) % Plt Count (150-400) K/uL MPV (7.40-12.00) fL Neut % (Auto) (48.0-80.0) % Lymph % (Auto) (16.0-40.0) % [place] % (Auto) (0.0-15.0) % Eos % (Auto) (0.0-7.0) % Baso % (Auto) (0.0-1.5) % Neut # (Auto) (1.4-5.7) K/uL Lymph # (Auto) (0.6-2.4) K/uL [place] # (Auto) (0.0-0.8) K/uL Eos # (Auto) (0.0-0.7) K/uL Baso # (Auto) (0.0-0.1) K/uL Nucleated RBC % /100WBC Nucleated RBCs # K/uL ABG pH 7.37 (7.35-7.45) ABG pCO2 47 H (35-45) mmHG ABG pO2 190 H (80-105) mmHG ABG HCO3 27 H (22-26) mEq/L ABG Total CO2 46.9 H (23-27) mmol/L ABG Base Excess 1.5 (-2.0-3.0) Sodium (136-148) mmol/L Potassium (3.5-5.1) mmol/L Chloride (98-107) mmol/L Carbon Dioxide (21.0-32.0) mmol/L BUN (7.0-18.0) mg/dL Creatinine (0.8-1.3) mg/dL Est Cr Clr Drug Dosing mL/min Estimated GFR (MDRD) ml/min Glucose (74-106) mg/dL POC Glucose (70-99) mg/dL Calcium (8.5-10.1) mg/dL Total Bilirubin (0.2-1.0) mg/dL AST (15-37) IU/L ALT (14-63) IU/L Alkaline Phosphatase (46-116) U/L Total Protein (6.4-8.2) g/dL Albumin (3.4-5.0) g/dL Globulin (2.6-4.0) g/dL Albumin/Globulin Ratio (0.9-1.6) Urine Color YELLOW Urine Appearance SLT CLOUDY Urine pH 5.5 (5.0-8.0) Ur Specific [place] >= 1.030 (1.001-1.035) Urine Protein 100 H (NEGATIVE) mg/dL Urine Glucose (UA) 100 H (NEGATIVE) mg/dL Urine Ketones 15 H (NEGATIVE) mg/dL Urine Occult Blood MODERATE H (NEGATIVE) Urine Nitrite NEGATIVE (NEGATIVE) Urine Bilirubin MODERATE H (NEGATIVE) Urine Urobilinogen >=8.0 H (<2.0) EU/dL Ur Leukocyte Esterase NEGATIVE (NEGATIVE) Med Orders - Current: Current Medications Hydrocodone Bitart/Acetaminophen (Acetaminophen/Hydrocodone 325-5 Mg Tab) 1 tab PO Q4H PRN PRN Reason: Pain (moderate 4-6) Last Admin: 08/27/21 11:15 Dose: 1 tab Documented by: Albuterol/Ipratropium (Albuterol/Ipratropium 3.0-0.5 Mg/3 Ml Neb Soln) 3 ml NEB Q2H PRN PRN Reason: Dyspepsia Albuterol/Ipratropium (Albuterol/Ipratropium 3.0-0.5 Mg/3 Ml Neb Soln) 3 ml NEB Q4HRRT [facility] Last Admin: 08/27/21 17:31 Dose: 3 ml Documented by: Baricitinib (Baricitinib 2 Mg Tab) 4 mg PO DAILY [facility] Stop: 08/30/21 09:01 Last Admin: 08/27/21 08:14 Dose: 4 mg Documented by: Benzonatate (Benzonatate 100 Mg Cap) 100 mg PO Q8H PRN PRN Reason: Cough Last Admin: 08/27/21 06:02 Dose: 100 mg Documented by: Dexamethasone (Dexamethasone 4 Mg Tab) 6 mg PO DAILY [facility] Last Admin: 08/27/21 08:14 Dose: 6 mg Documented by: Dextrose/Water (50% Dextrose In Water 50 Ml Syringe) 50 ml IVPUSH ASDIRECTED PRN PRN Reason: Hypoglycemia Diphenhydramine HCl (Diphenhydramine 50 Mg/Ml Sdv) 50 mg IVPUSH Q8H PRN PRN Reason: Agitation Last Admin: 08/27/21 11:30 Dose: 50 mg Documented by: Docusate Sodium (Docusate Sodium 100 Mg Cap) 100 mg PO Q12H PRN PRN Reason: Constipation Last Admin: 08/26/21 20:49 Dose: 100 mg Documented by: Enoxaparin Sodium (Enoxaparin 40 Mg/0.4 Ml Syringe) 40 mg SUBCUT Q24H AWA Fentanyl (Fentanyl 100 Mcg/2 Ml Sdv) 25 mcg IVPUSH Q3H PRN PRN Reason: Pain Last Admin: 08/27/21 05:05 Dose: 25 mcg Documented by: Glucagon (Glucagon,Human Recombinant 1 Mg Vial) 1 mg IM ASDIRECTED PRN PRN Reason: Hypoglycemia Guaifenesin/Dextromethorphan (Guaifenesin/Dextromethorphan 100-10 Mg/5 Ml Soln 10 Ml Cup) 10 ml PO Q6H PRN PRN Reason: Cough Last Admin: 08/27/21 08:16 Dose: 10 ml Documented by: Azithromycin 500 mg/ Sodium (Chloride) 250 mls @ 250 mls/hr IV Q24H AWA Last Admin: 08/27/21 14:16 Dose: 250 mls/hr Documented by: Ceftriaxone Sodium 1 gm/ (Sodium Chloride) 50 mls @ 100 mls/hr IV Q24H AWA Last Admin: 08/27/21 14:17 Dose: 100 mls/hr Documented by: Propofol (Diprivan 100 Ml) 100 mls @ 2.997 mls/hr IV TITRATE AWA; Protocol Last Titration: 08/27/21 14:50 Dose: 50 mcg/kg/min, 29.97 mls/hr Documented by: Fentanyl Citrate 2,500 mcg/ (Premix) 250 mls @ 2.5 mls/hr IV TITRATE PRN; Protocol PRN Reason: Other Last Titration: 08/27/21 15:00 Dose: 150 mcg/hr, 15 mls/hr Documented by: Norepinephrine Bitartrate (Norepinephr-0.9% Nacl 4 Mg/250) 4 mg in 250 mls @ 7.5 mls/hr IV TITRATE [facility]; Protocol Last Titration: 08/27/21 16:00 Dose: 0 mcg/min, 0 mls/hr Documented by: Insulin Aspart (Insulin Aspart 100 Units/Ml 3 Ml Pen) 0 unit SUBCUT TIDAC [facility]; Protocol Last Admin: 08/27/21 13:00 Dose: Not Given Documented by: Insulin Glargine (Insulin Glargine,Human Rec. Analog 100 Units/Ml 3 Ml Pen) 20 units SUBCUT BEDTIME [facility] Last Admin: 08/26/21 20:58 Dose: 20 units Documented by: Melatonin (Melatonin 3 Mg Tab) 6 mg PO BEDTIME PRN PRN Reason: Insomnia Last Admin: 08/26/21 20:50 Dose: 6 mg Documented by: Ondansetron HCl (Ondansetron 4 Mg Tab.Dis) 4 mg PO Q6H PRN PRN Reason: nausea, able to take PO Last Admin: 08/17/21 13:41 Dose: 4 mg Documented by: Ondansetron HCl (Ondansetron 4 Mg/2 Ml Sdv) 4 mg IVPUSH Q6H PRN PRN Reason: Nausea/Vomiting Last Admin: 08/20/21 08:57 Dose: 4 mg Documented by: Pantoprazole Sodium (Pantoprazole 40 Mg/10 Ml Syringe) 40 mg IVPUSH DAILY [facility] Sodium Chloride (Sodium Chloride 0.65% Nasal [place] 45 Ml Bottle) 0 ml CRISTY Q2H PRN PRN Reason: Other Last Admin: 08/25/21 19:00 Dose: 1 spray Documented by: Discontinued Medications Apixaban (Apixaban 5 Mg Tab) 10 mg PO Q12H [facility] Stop: 08/26/21 06:01 Last Admin: 08/26/21 06:26 Dose: 10 mg Documented by: Apixaban (Apixaban 5 Mg Tab) 5 mg PO Q12H [facility] Last Admin: 08/27/21 06:03 Dose: 5 mg Documented by: Dexamethasone (Dexamethasone Solution 0.5 Mg/5 Ml) 6 mg PO DAILY [facility] Last Admin: 08/16/21 17:40 Dose: Not Given Documented by: Dextrose/Water (50% Dextrose In Water 50 Ml Syringe) 50 ml IVPUSH ASDIRECTED PRN PRN Reason: Hypoglycemia Enoxaparin Sodium (Enoxaparin 40 Mg/0.4 Ml Syringe) 40 mg SUBCUT Q24H [facility] Last Admin: 08/16/21 17:40 Dose: Not Given Documented by: Enoxaparin Sodium (Enoxaparin 40 Mg/0.4 Ml Syringe) 40 mg SUBCUT Q12HR [facility] Last Admin: 08/19/21 09:25 Dose: 40 mg Documented by: Enoxaparin Sodium (Enoxaparin 40 Mg/0.4 Ml Syringe) 40 mg SUBCUT Q24H [facility] Fentanyl (Fentanyl 50 Mcg/Ml Sdv) 25 mcg IVPUSH Q3H PRN PRN Reason: Pain Glucagon (Glucagon,Human Recombinant 1 Mg Vial) 1 mg IM ASDIRECTED PRN PRN Reason: Hypoglycemia Remdesivir 200 mg/ Sodium (Chloride) 250 mls @ 250 mls/hr IV ONETIME ONE Stop: 08/15/21 19:52 Last Admin: 08/15/21 20:47 Dose: 250 mls/hr Documented by: Sodium Chloride (Normal Saline) 1,000 mls @ 150 mls/hr IV STAT ONE Stop: 08/16/21 03:36 Last Admin: 08/15/21 23:01 Dose: 150 mls/hr Documented by: Remdesivir 100 mg/ Sodium (Chloride) 100 mls @ 100 mls/hr IV Q24H [facility] Stop: 08/19/21 21:59 Last Admin: 08/19/21 21:57 Dose: 100 mls/hr Documented by: Potassium Chloride/Sodium Chloride (Normal Saline With 20 Meq Kcl) 500 mls @ 75 mls/hr IV ASDIRECTED [facility] Ceftriaxone Sodium/Dextrose 1 (gm/ Premix) 50 mls @ 100 mls/hr IV Q24H [facility] Last Admin: 08/26/21 13:10 Dose: 100 mls/hr Documented by: Haloperidol Lactate 5 mg/ (Sodium Chloride) 51 mls @ 102 mls/hr IV Q5H PRN PRN Reason: AGITATION Last Admin: 08/27/21 10:50 Dose: 102 mls/hr Documented by: Norepinephrine Bitartrate (Norepinephr-0.9% Nacl 4 Mg/250) Confirm Administered Dose 4 mg in 250 mls @ as directed .ROUTE .STK-MED ONE Stop: 08/27/21 13:38 Last Admin: 08/27/21 16:38 Dose: Not Given Documented by: Insulin Aspart (Insulin Aspart 100 Units/Ml 3 Ml Pen) 0 unit SUBCUT ACBREAKFASTANDBED [facility]; Protocol Last Admin: 08/17/21 08:16 Dose: 5 units Documented by: Insulin Aspart (Insulin Aspart 100 Units/Ml 3 Ml Pen) 0 unit SUBCUT BEDTIME [facility]; Protocol Last Admin: 08/18/21 21:58 Dose: Not Given Documented by: Insulin Aspart (Insulin Aspart 100 Units/Ml 3 Ml Pen) 6 unit SUBCUT ONETIME ONE Stop: 08/18/21 21:53 Last Admin: 08/18/21 21:56 Dose: 6 units Documented by: Iopamidol (Iopamidol 755 Mg/Ml 100 Ml Bottle) 100 ml IVPUSH ONETIME ONE Stop: 08/15/21 21:00 Last Admin: 08/15/21 21:37 Dose: 100 ml Documented by: Iopamidol (Iopamidol 755 Mg/Ml 500 Ml Multipack Bottle) 100 ml IVPUSH ONETIME STA Stop: 08/19/21 21:36 Last Admin: 08/19/21 21:36 Dose: 100 ml Documented by: Lidocaine (Lidocaine 2% 5 Ml Sdv) Confirm Administered Dose 5 ml .ROUTE .STK-MED ONE Stop: 08/27/21 12:06 Midazolam HCl (Midazolam 1 Mg/Ml 2 Ml Sdv) Confirm Administered Dose 2 mg .ROUTE .STK-MED ONE Stop: 08/27/21 12:07 Pantoprazole Sodium (Pantoprazole 40 Mg Tab.Cr) 40 mg PO DAILY [facility] Last Admin: 08/27/21 08:14 Dose: 40 mg Documented by: Potassium Chloride (Potassium Chloride 20 Meq Tab.Er) 20 meq PO TID AWA Stop: 08/19/21 14:01 Last Admin: 08/19/21 13:49 Dose: 20 meq Documented by: Potassium Chloride (Potassium Chloride 20 Meq Tab.Er) 40 meq PO ONETIME ONE Stop: 08/19/21 08:55 Last Admin: 08/19/21 09:24 Dose: 40 meq Documented by: Potassium Chloride (Potassium Chloride 20 Meq Tab.Er) 40 meq PO ONETIME ONE Stop: 08/19/21 14:53 Last Admin: 08/19/21 15:14 Dose: 40 meq Documented by: Potassium Chloride (Potassium Chloride 20 Meq Tab.Er) 40 meq PO ONETIME ONE Stop: 08/23/21 08:39 Last Admin: 08/23/21 08:57 Dose: 40 meq Documented by: Propofol (Propofol 200 Mg/20 Ml Sdv) Confirm Administered Dose 200 mg .ROUTE .STK-MED ONE Stop: 08/27/21 12:07 Rocuronium [place] (Rocuronium [place] 50 Mg/5 Ml Syringe) Confirm Administered Dose 50 mg .ROUTE .STK-MED ONE Stop: 08/27/21 12:06 - Exam Urinary Catheter Total Time: 0Days 2Hours General: Other (The patient is intubated) HEENT: Mucous Membr. Moist/[place] Neck: Trachea Midline Lungs: Other (The patient is intubated) Cardiovascular: Regular Rate GI/Abdominal Exam: Normal Bowel Sounds - Patient Data Lab Results Last 24 hrs: Laboratory Results - last 24 hr 08/26/21 08/26/21 08/27/21 Range/Units 18:16 20:56 07:57 WBC 28.17 H (4.0-11.0) K/uL RBC 4.38 L (4.50-5.90) M/uL Hgb 13.9 (13.0-17.0) g/dL Hct 39.6 (38.0-50.0) % MCV 90.4 (80.0-98.0) fL MCH 31.7 (27.0-32.0) pg MCHC 35.1 (31.0-37.0) g/dL RDW Std Deviation 41.0 (28.0-62.0) fl RDW Coeff of [place] 12 (11.0-15.0) % Plt Count 272 (150-400) K/uL MPV 11.20 (7.40-12.00) fL Neut % (Auto) 93.3 H (48.0-80.0) % Lymph % (Auto) 3.2 L (16.0-40.0) % [place] % (Auto) 3.5 (0.0-15.0) % Eos % (Auto) 0.0 (0.0-7.0) % Baso % (Auto) 0.0 (0.0-1.5) % Neut # (Auto) 26.3 H (1.4-5.7) K/uL Lymph # (Auto) 0.9 (0.6-2.4) K/uL [place] # (Auto) 1.0 H (0.0-0.8) K/uL Eos # (Auto) 0.0 (0.0-0.7) K/uL Baso # (Auto) 0.0 (0.0-0.1) K/uL Nucleated RBC % 0.0 /100WBC Nucleated RBCs # 0 K/uL ABG pH (7.35-7.45) ABG pCO2 (35-45) mmHG ABG pO2 (80-105) mmHG ABG HCO3 (22-26) mEq/L ABG Total CO2 (23-27) mmol/L ABG Base Excess (-2.0-3.0) Sodium (136-148) mmol/L Potassium (3.5-5.1) mmol/L Chloride (98-107) mmol/L Carbon Dioxide (21.0-32.0) mmol/L BUN (7.0-18.0) mg/dL Creatinine (0.8-1.3) mg/dL Est Cr Clr Drug Dosing mL/min Estimated GFR (MDRD) ml/min Glucose (74-106) mg/dL POC Glucose 286 H 228 H (70-99) mg/dL Calcium (8.5-10.1) mg/dL Total Bilirubin (0.2-1.0) mg/dL AST (15-37) IU/L ALT (14-63) IU/L Alkaline Phosphatase (46-116) U/L Total Protein (6.4-8.2) g/dL Albumin (3.4-5.0) g/dL Globulin (2.6-4.0) g/dL Albumin/Globulin Ratio (0.9-1.6) Urine Color Urine Appearance Urine pH (5.0-8.0) Ur Specific [place] (1.001-1.035) Urine Protein (NEGATIVE) mg/dL Urine Glucose (UA) (NEGATIVE) mg/dL Urine Ketones (NEGATIVE) mg/dL Urine Occult Blood (NEGATIVE) Urine Nitrite (NEGATIVE) Urine Bilirubin (NEGATIVE) Urine Urobilinogen (<2.0) EU/dL Ur Leukocyte Esterase (NEGATIVE) 08/27/21 08/27/21 08/27/21 Range/Units 07:57 08:34 09:47 WBC (4.0-11.0) K/uL RBC (4.50-5.90) M/uL Hgb (13.0-17.0) g/dL Hct (38.0-50.0) % MCV (80.0-98.0) fL MCH (27.0-32.0) pg MCHC (31.0-37.0) g/dL RDW Std Deviation (28.0-62.0) fl RDW Coeff of [place] (11.0-15.0) % Plt Count (150-400) K/uL MPV (7.40-12.00) fL Neut % (Auto) (48.0-80.0) % Lymph % (Auto) (16.0-40.0) % [place]ds % (Auto) (0.0-15.0) % Eos % (Auto) (0.0-7.0) % Baso % (Auto) (0.0-1.5) % Neut # (Auto) (1.4-5.7) K/uL Lymph # (Auto) (0.6-2.4) K/uL [place] # (Auto) (0.0-0.8) K/uL Eos # (Auto) (0.0-0.7) K/uL Baso # (Auto) (0.0-0.1) K/uL Nucleated RBC % /100WBC Nucleated RBCs # K/uL ABG pH 7.54 H (7.35-7.45) ABG pCO2 29 L (35-45) mmHG ABG pO2 58 L (80-105) mmHG ABG HCO3 24 (22-26) mEq/L ABG Total CO2 21.2 L (23-27) mmol/L ABG Base Excess 2.7 (-2.0-3.0) Sodium 138 (136-148) mmol/L Potassium 4.0 (3.5-5.1) mmol/L Chloride 101 (98-107) mmol/L Carbon Dioxide 25.9 (21.0-32.0) mmol/L BUN 22 H (7.0-18.0) mg/dL Creatinine 0.8 (0.8-1.3) mg/dL Est Cr Clr Drug Dosing 98.05 mL/min Estimated GFR (MDRD) > 60.0 ml/min Glucose 168 H (74-106) mg/dL POC Glucose 156 H (70-99) mg/dL Calcium 8.3 L (8.5-10.1) mg/dL Total Bilirubin 1.6 H (0.2-1.0) mg/dL AST 20 (15-37) IU/L ALT 43 (14-63) IU/L Alkaline Phosphatase 121 H (46-116) U/L Total Protein 6.1 L (6.4-8.2) g/dL Albumin 2.0 L (3.4-5.0) g/dL Globulin 4.1 H (2.6-4.0) g/dL Albumin/Globulin Ratio 0.5 L (0.9-1.6) Urine Color Urine Appearance Urine pH (5.0-8.0) Ur Specific [place] (1.001-1.035) Urine Protein (NEGATIVE) mg/dL Urine Glucose (UA) (NEGATIVE) mg/dL Urine Ketones (NEGATIVE) mg/dL Urine Occult Blood (NEGATIVE) Urine Nitrite (NEGATIVE) Urine Bilirubin (NEGATIVE) Urine Urobilinogen (<2.0) EU/dL Ur Leukocyte Esterase (NEGATIVE) 08/27/21 08/27/21 Range/Units 13:26 16:20 WBC (4.0-11.0) K/uL RBC (4.50-5.90) M/uL Hgb (13.0-17.0) g/dL Hct (38.0-50.0) % MCV (80.0-98.0) fL MCH (27.0-32.0) pg MCHC (31.0-37.0) g/dL RDW Std Deviation (28.0-62.0) fl RDW Coeff of [place] (11.0-15.0) % Plt Count (150-400) K/uL MPV (7.40-12.00) fL Neut % (Auto) (48.0-80.0) % Lymph % (Auto) (16.0-40.0) % Edmunds % (Auto) (0.0-15.0) % Eos % (Auto) (0.0-7.0) % Baso % (Auto) (0.0-1.5) % Neut # (Auto) (1.4-5.7) K/uL Lymph # (Auto) (0.6-2.4) K/uL Edmunds # (Auto) (0.0-0.8) K/uL Eos # (Auto) (0.0-0.7) K/uL Baso # (Auto) (0.0-0.1) K/uL Nucleated RBC % /100WBC Nucleated RBCs # K/uL ABG pH 7.37 (7.35-7.45) ABG pCO2 47 H (35-45) mmHG ABG pO2 190 H (80-105) mmHG ABG HCO3 27 H (22-26) mEq/L ABG Total CO2 46.9 H (23-27) mmol/L ABG Base Excess 1.5 (-2.0-3.0) Sodium (136-148) mmol/L Potassium (3.5-5.1) mmol/L Chloride (98-107) mmol/L Carbon Dioxide (21.0-32.0) mmol/L BUN (7.0-18.0) mg/dL Creatinine (0.8-1.3) mg/dL Est Cr Clr Drug Dosing mL/min Estimated GFR (MDRD) ml/min Glucose (74-106) mg/dL POC Glucose (70-99) mg/dL Calcium (8.5-10.1) mg/dL Total Bilirubin (0.2-1.0) mg/dL AST (15-37) IU/L ALT (14-63) IU/L Alkaline Phosphatase (46-116) U/L Total Protein (6.4-8.2) g/dL Albumin (3.4-5.0) g/dL Globulin (2.6-4.0) g/dL Albumin/Globulin Ratio (0.9-1.6) Urine Color YELLOW Urine Appearance SLT CLOUDY Urine pH 5.5 (5.0-8.0) Ur Specific [place] >= 1.030 (1.001-1.035) Urine Protein 100 H (NEGATIVE) mg/dL Urine Glucose (UA) 100 H (NEGATIVE) mg/dL Urine Ketones 15 H (NEGATIVE) mg/dL Urine Occult Blood MODERATE H (NEGATIVE) Urine Nitrite NEGATIVE (NEGATIVE) Urine Bilirubin MODERATE H (NEGATIVE) Urine Urobilinogen >=8.0 H (<2.0) EU/dL Ur Leukocyte Esterase NEGATIVE (NEGATIVE) Result Diagrams: 01/04/22 07:57 08/27/21 07:57 Sepsis Event Note - Evaluation Sepsis Screening Result: Severe Sepsis Risk - Focused Exam Vital Signs: Vital Signs Temp Resp BP Pulse Ox 08/27/21 10:45 20 87 L 08/27/21 10:00 37 H 139/89 91 L 08/27/21 09:43 46 H 88 L 08/27/21 09:16 41 H 88 L 08/27/21 09:00 43 H 147/90 H 88 L 08/27/21 08:15 37 H 87 L 08/27/21 08:00 97.9 F 31 H 136/84 89 L 08/27/21 07:00 34 H 171/94 H 91 L - Problem List & Annotations (1) Acute respiratory disease due to COVID-19 virus SNOMED Code(s): 063496357, 065732713 Code(s): U07.1 - COVID-19; J06.9 - ACUTE UPPER RESPIRATORY INFECTION, UNSPECIFIED Status: Acute Current Visit: Yes (2) Obesity (BMI 30-39.9) SNOMED Code(s): 721383750, 289179152 Code(s): E66.9 - OBESITY, UNSPECIFIED Status: Acute Priority: Medium Current Visit: Yes (3) T2DM (type 2 diabetes mellitus) SNOMED Code(s): 32405075 Code(s): E11.9 - TYPE 2 DIABETES MELLITUS WITHOUT COMPLICATIONS Status: Acute Priority: Medium Current Visit: Yes Onset Date: ~08/17/21 Qualifiers: Diabetes mellitus equipment operator intermodal yard insulin use: with equipment operator intermodal yard use (4) Leukocytosis SNOMED Code(s): 440661608, 505862293 Code(s): D72.829 - ELEVATED WHITE BLOOD CELL COUNT, UNSPECIFIED Status: Acute Current Visit: Yes (5) Pneumonia SNOMED Code(s): 351922199 Code(s): J18.9 - PNEUMONIA, UNSPECIFIED ORGANISM Status: Acute Current Visit: Yes (6) Constipation SNOMED Code(s): 35804655 Code(s): K59.00 - CONSTIPATION, UNSPECIFIED Status: Acute Current Visit: Yes - Problem List Review Problem List Initiated/Reviewed/Updated: Yes - My Orders Last 24 Hours: My Active Orders 08/27/21 18:15 Enoxaparin [Lovenox] 40 mg SUBCUT Q24H Pantoprazole [ProTONIX] 40 mg IVPUSH DAILY 08/28/21 05:11 CBC WITH AUTO DIFF [HEME] AM CMP [COMPREHENSIVE METABOLIC PN,CMP] [CHEM] AM - Assessment Assessment:: 1. Severe acute respiratory failure secondary to COVID-19 pneumonia leading to intubation -The patient has been intubated and the current ventilator settings are a rate of 18, 70% oxygen, PEEP of 9, on SIMV -We are awaiting transfer to a facility that can manage this patient effectively -[facility] has this patient on a waiting list -His oral medications have been discontinued, IV pantoprazole and subcutaneous Lovenox on board -Insulin sliding scale to be continued, Lantus discontinued
[2021-08-27] MEDS: Pantoprazole 40 MG/10 ML Syringe IVPUSH SCH (18:52)
[2021-08-27] MEDS: Enoxaparin 100 MG/1 ML Syringe SUBCUT SCH (18:52)
--- NOTE | 2021-08-27 22:56 | PN ---
[facility] Physician - Brief Progress [id number]/04/2022 22:54[facility] Lauren pitts, SONJA - EDUAR (RACHEAL) - JOEL WANG COVID +Date of Service 08/27/2021 22:54HPI/E vents of Note DIscussed with RN: Will switch SSI to q 6hr and wean FiO2 as tolerated to maintain Wilma 2 > 92%.Interventions Minor-Communication with other healthcare providers and/or family
[2021-08-28] MEDS: Insulin Aspart 100 Units/ML 3 ML Pen SUBCUT SCH ×4 (00:13→17:22)
[2021-08-28] MEDS: Albuterol/Ipratropium 3.0-0.5 MG/3 ML Neb Soln NEB SCH ×6 (02:36→22:01)
[2021-08-28] MEDS: propofoL 100 ML IV SCH ×8 (03:32→23:11)
[2021-08-28] MEDS: fentaNYL/Normal Saline 2,500 MCG in Premix Bag 1 BAG IV PRN ×2 (04:30→17:00)
[2021-08-28] MEDS: Enoxaparin 100 MG/1 ML Syringe SUBCUT SCH ×2 (05:21→17:04)
[2021-08-28 07:29] LABS: BLOOD UREA NITROGEN,BUN 22 mg/dL (7.0-18.0); CARBON DIOXIDE,CO2 27.1 mmol/L (21.0-32.0); CHLORIDE,CL 105 mmol/L (98-107); GLUCOSE RANDOM 172 mg/dL (74-106); POTASSIUM,K 4.3 mmol/L (3.5-5.1); SODIUM,NA 140 mmol/L (136-148)
[2021-08-28] MEDS: Pantoprazole 40 MG/10 ML Syringe IVPUSH SCH (08:00)
[2021-08-28] MEDS ORDERED: Dexamethasone 4 MG/ML SDV IVPUSH SCH (09:00)
[2021-08-28] MEDS: Azithromycin 500 MG in Sodium Chloride 0.9% 250 ML IV SCH (10:30)
[2021-08-28] MEDS: cefTRIAXone 1 GM in Sodium Chloride 0.9% 50 ML IV SCH (12:46)
--- NOTE | 2021-08-28 14:31 | PCM.PN ---
- General Info Date of Service: 08/28/21 Subjective Update: The patient is a 66-year-old male, on day 14 of service, who has a significant past medical history of obesity and diabetes mellitus type 2, who was admitted to the medical floor due to acute respiratory failure secondary to COVID-19 pneumonia. The patient's respiratory function deteriorated to the point where he was intubated yesterday, and he is currently on these vent settings, PEEP of 9, SIMV support of 5, oxygen of 50%, rate of 18, tidal volume in the 400s, saturating 94%. His blood gases look improved from yesterday. He is on duo nebs, azithromycin, ceftriaxone, Tessalon Perles, Benadryl, Decadron, Lovenox, Levophed, fentanyl drip, and propofol. We are currently awaiting bed placement in [facility] and will be contacted once one is available. - Review of Systems General: Reports: Other (The patient is intubated and cannot answer questions) - Patient Data Vitals - Most Recent: Last Vital Signs Temp 97.8 F 08/28/21 12:00 Pulse 85 08/21/21 08:24 Resp 15 08/28/21 13:00 BP 100/57 L 08/28/21 13:00 Pulse Ox 94 L 08/28/21 13:00 Weight - Most Recent: 214 lb 15.211 oz I&O - Last 24 Hours: Intake & Output 08/27/21 08/28/21 08/28/21 22:59 06:59 14:59 Intake Total 650 776 Output Total 420 375 Balance 230 401 Lab Results Last 24 Hours: Laboratory Results - last 24 hr 08/27/21 08/27/21 08/28/21 Range/Units 16:20 19:11 00:08 WBC (4.0-11.0) K/uL RBC (4.50-5.90) M/uL Hgb (13.0-17.0) g/dL Hct (38.0-50.0) % MCV (80.0-98.0) fL MCH (27.0-32.0) pg MCHC (31.0-37.0) g/dL RDW Std Deviation (28.0-62.0) fl RDW Coeff of [place] (11.0-15.0) % Plt Count (150-400) K/uL MPV (7.40-12.00) fL Neut % (Auto) (48.0-80.0) % Lymph % (Auto) (16.0-40.0) % [place] % (Auto) (0.0-15.0) % Eos % (Auto) (0.0-7.0) % Baso % (Auto) (0.0-1.5) % Neut # (Auto) (1.4-5.7) K/uL Lymph # (Auto) (0.6-2.4) K/uL [place] # (Auto) (0.0-0.8) K/uL Eos # (Auto) (0.0-0.7) K/uL Baso # (Auto) (0.0-0.1) K/uL Nucleated RBC % /100WBC Nucleated RBCs # K/uL ABG pH 7.37 (7.35-7.45) ABG pCO2 47 H (35-45) mmHG ABG pO2 190 H (80-105) mmHG ABG HCO3 27 H (22-26) mEq/L ABG Total CO2 46.9 H (23-27) mmol/L ABG Base Excess 1.5 (-2.0-3.0) Sodium (136-148) mmol/L Potassium (3.5-5.1) mmol/L Chloride (98-107) mmol/L Carbon Dioxide (21.0-32.0) mmol/L BUN (7.0-18.0) mg/dL Creatinine (0.8-1.3) mg/dL Est Cr Clr Drug Dosing mL/min Estimated GFR (MDRD) ml/min Glucose (74-106) mg/dL POC Glucose 266 H 221 H (70-99) mg/dL Calcium (8.5-10.1) mg/dL Total Bilirubin (0.2-1.0) mg/dL AST (15-37) IU/L ALT (14-63) IU/L Alkaline Phosphatase (46-116) U/L Total Protein (6.4-8.2) g/dL Albumin (3.4-5.0) g/dL Globulin (2.6-4.0) g/dL Albumin/Globulin Ratio (0.9-1.6) 08/28/21 08/28/21 08/28/21 Range/Units 05:24 05:24 06:31 WBC 26.67 H (4.0-11.0) K/uL RBC 3.88 L (4.50-5.90) M/uL Hgb 12.2 L (13.0-17.0) g/dL Hct 36.3 L (38.0-50.0) % MCV 93.6 (80.0-98.0) fL MCH 31.4 (27.0-32.0) pg MCHC 33.6 (31.0-37.0) g/dL RDW Std Deviation 43.2 (28.0-62.0) fl RDW Coeff of [place] 13 (11.0-15.0) % Plt Count 264 (150-400) K/uL MPV 11.80 (7.40-12.00) fL Neut % (Auto) 92.1 H (48.0-80.0) % Lymph % (Auto) 3.7 L (16.0-40.0) % [place] % (Auto) 4.1 (0.0-15.0) % Eos % (Auto) 0.0 (0.0-7.0) % Baso % (Auto) 0.1 (0.0-1.5) % Neut # (Auto) 24.6 H (1.4-5.7) K/uL Lymph # (Auto) 1.0 (0.6-2.4) K/uL [place] # (Auto) 1.1 H (0.0-0.8) K/uL Eos # (Auto) 0.0 (0.0-0.7) K/uL Baso # (Auto) 0.0 (0.0-0.1) K/uL Nucleated RBC % 0.0 /100WBC Nucleated RBCs # 0 K/uL ABG pH (7.35-7.45) ABG pCO2 (35-45) mmHG ABG pO2 (80-105) mmHG ABG HCO3 (22-26) mEq/L ABG Total CO2 (23-27) mmol/L ABG Base Excess (-2.0-3.0) Sodium 140 (136-148) mmol/L Potassium 4.3 (3.5-5.1) mmol/L Chloride 105 (98-107) mmol/L Carbon Dioxide 27.1 (21.0-32.0) mmol/L BUN 22 H (7.0-18.0) mg/dL Creatinine 0.9 (0.8-1.3) mg/dL Est Cr Clr Drug Dosing 87.15 mL/min Estimated GFR (MDRD) > 60.0 ml/min Glucose 172 H (74-106) mg/dL POC Glucose 171 H (70-99) mg/dL Calcium 8.5 (8.5-10.1) mg/dL Total Bilirubin 1.1 H (0.2-1.0) mg/dL AST 13 L (15-37) IU/L ALT 26 (14-63) IU/L Alkaline Phosphatase 100 (46-116) U/L Total Protein 6.0 L (6.4-8.2) g/dL Albumin 1.6 L (3.4-5.0) g/dL Globulin 4.4 H (2.6-4.0) g/dL Albumin/Globulin Ratio 0.4 L (0.9-1.6) 08/28/21 08/28/21 Range/Units 08:20 11:55 WBC (4.0-11.0) K/uL RBC (4.50-5.90) M/uL Hgb (13.0-17.0) g/dL Hct (38.0-50.0) % MCV (80.0-98.0) fL MCH (27.0-32.0) pg MCHC (31.0-37.0) g/dL RDW Std Deviation (28.0-62.0) fl RDW Coeff of [place] (11.0-15.0) % Plt Count (150-400) K/uL MPV (7.40-12.00) fL Neut % (Auto) (48.0-80.0) % Lymph % (Auto) (16.0-40.0) % [place] % (Auto) (0.0-15.0) % Eos % (Auto) (0.0-7.0) % Baso % (Auto) (0.0-1.5) % Neut # (Auto) (1.4-5.7) K/uL Lymph # (Auto) (0.6-2.4) K/uL [place] # (Auto) (0.0-0.8) K/uL Eos # (Auto) (0.0-0.7) K/uL Baso # (Auto) (0.0-0.1) K/uL Nucleated RBC % /100WBC Nucleated RBCs # K/uL ABG pH 7.42 (7.35-7.45) ABG pCO2 45 (35-45) mmHG ABG pO2 78 L (80-105) mmHG ABG HCO3 29 H (22-26) mEq/L ABG Total CO2 25.9 (23-27) mmol/L ABG Base Excess 3.4 H (-2.0-3.0) Sodium (136-148) mmol/L Potassium (3.5-5.1) mmol/L Chloride (98-107) mmol/L Carbon Dioxide (21.0-32.0) mmol/L BUN (7.0-18.0) mg/dL Creatinine (0.8-1.3) mg/dL Est Cr Clr Drug Dosing mL/min Estimated GFR (MDRD) ml/min Glucose (74-106) mg/dL POC Glucose 224 H (70-99) mg/dL Calcium (8.5-10.1) mg/dL Total Bilirubin (0.2-1.0) mg/dL AST (15-37) IU/L ALT (14-63) IU/L Alkaline Phosphatase (46-116) U/L Total Protein (6.4-8.2) g/dL Albumin (3.4-5.0) g/dL Globulin (2.6-4.0) g/dL Albumin/Globulin Ratio (0.9-1.6) Med Orders - Current: Current Medications Hydrocodone Bitart/Acetaminophen (Acetaminophen/Hydrocodone 325-5 Mg Tab) 1 tab PO Q4H PRN PRN Reason: Pain (moderate 4-6) Last Admin: 08/27/21 11:15 Dose: 1 tab Documented by: Albuterol/Ipratropium (Albuterol/Ipratropium 3.0-0.5 Mg/3 Ml Neb Soln) 3 ml NEB Q2H PRN PRN Reason: Dyspepsia Albuterol/Ipratropium (Albuterol/Ipratropium 3.0-0.5 Mg/3 Ml Neb Soln) 3 ml NEB Q4HRRT [facility] Last Admin: 08/28/21 13:32 Dose: 3 ml Documented by: Benzonatate (Benzonatate 100 Mg Cap) 100 mg PO Q8H PRN PRN Reason: Cough Last Admin: 08/27/21 06:02 Dose: 100 mg Documented by: Dexamethasone (Dexamethasone 4 Mg/Ml Sdv) 6 mg IVPUSH DAILY [facility] Last Admin: 08/28/21 08:00 Dose: 6 mg Documented by: Dextrose/Water (50% Dextrose In Water 50 Ml Syringe) 50 ml IVPUSH ASDIRECTED PRN PRN Reason: Hypoglycemia Diphenhydramine HCl (Diphenhydramine 50 Mg/Ml Sdv) 50 mg IVPUSH Q8H PRN PRN Reason: Agitation Last Admin: 08/27/21 11:30 Dose: 50 mg Documented by: Docusate Sodium (Docusate Sodium 100 Mg Cap) 100 mg PO Q12H PRN PRN Reason: Constipation Last Admin: 08/26/21 20:49 Dose: 100 mg Documented by: Enoxaparin Sodium (Enoxaparin 100 Mg/1 Ml Syringe) 100 mg SUBCUT Q12H [facility] Last Admin: 08/28/21 05:21 Dose: 100 mg Documented by: Fentanyl (Fentanyl 100 Mcg/2 Ml Sdv) 25 mcg IVPUSH Q3H PRN PRN Reason: Pain Last Admin: 08/27/21 05:05 Dose: 25 mcg Documented by: Glucagon (Glucagon,Human Recombinant 1 Mg Vial) 1 mg IM ASDIRECTED PRN PRN Reason: Hypoglycemia Guaifenesin/Dextromethorphan (Guaifenesin/Dextromethorphan 100-10 Mg/5 Ml Soln 10 Ml Cup) 10 ml PO Q6H PRN PRN Reason: Cough Last Admin: 08/27/21 08:16 Dose: 10 ml Documented by: Azithromycin 500 mg/ Sodium (Chloride) 250 mls @ 250 mls/hr IV Q24H [facility] Last Admin: 08/28/21 10:30 Dose: 250 mls/hr Documented by: Ceftriaxone Sodium 1 gm/ (Sodium Chloride) 50 mls @ 100 mls/hr IV Q24H [facility] Last Admin: 08/28/21 12:46 Dose: 100 mls/hr Documented by: Propofol (Diprivan 100 Ml) 100 mls @ 2.997 mls/hr IV TITRATE AWA; Protocol Last Admin: 08/28/21 13:26 Dose: 50 mcg/kg/min, 29.97 mls/hr Documented by: Fentanyl Citrate 2,500 mcg/ (Premix) 250 mls @ 2.5 mls/hr IV TITRATE PRN; Protocol PRN Reason: Other Last Admin: 08/28/21 04:30 Dose: 200 mcg/hr, 20 mls/hr Documented by: Norepinephrine Bitartrate (Norepinephr-0.9% Nacl 4 Mg/250) 4 mg in 250 mls @ 7.5 mls/hr IV TITRATE AWA; Protocol Last Titration: 08/28/21 10:24 Dose: 0 mcg/min, 0 mls/hr Documented by: Insulin Aspart (Insulin Aspart 100 Units/Ml 3 Ml Pen) 0 unit SUBCUT Q6H AWA; Protocol Last Admin: 08/28/21 12:18 Dose: 6 units Documented by: Melatonin (Melatonin 3 Mg Tab) 6 mg PO BEDTIME PRN PRN Reason: Insomnia Last Admin: 08/26/21 20:50 Dose: 6 mg Documented by: Ondansetron HCl (Ondansetron 4 Mg Tab.Dis) 4 mg PO Q6H PRN PRN Reason: nausea, able to take PO Last Admin: 08/17/21 13:41 Dose: 4 mg Documented by: Ondansetron HCl (Ondansetron 4 Mg/2 Ml Sdv) 4 mg IVPUSH Q6H PRN PRN Reason: Nausea/Vomiting Last Admin: 08/20/21 08:57 Dose: 4 mg Documented by: Pantoprazole Sodium (Pantoprazole 40 Mg/10 Ml Syringe) 40 mg IVPUSH DAILY [facility] Last Admin: 08/28/21 08:00 Dose: 40 mg Documented by: Sodium Chloride (Sodium Chloride 0.65% Nasal [place] 45 Ml Bottle) 0 ml CRISTY Q2H PRN PRN Reason: Other Last Admin: 08/25/21 19:00 Dose: 1 spray Documented by: Discontinued Medications Apixaban (Apixaban 5 Mg Tab) 10 mg PO Q12H [facility] Stop: 08/26/21 06:01 Last Admin: 08/26/21 06:26 Dose: 10 mg Documented by: Apixaban (Apixaban 5 Mg Tab) 5 mg PO Q12H [facility] Last Admin: 08/27/21 20:00 Dose: Not Given Documented by: Baricitinib (Baricitinib 2 Mg Tab) 4 mg PO DAILY [facility] Stop: 08/30/21 09:01 Last Admin: 08/27/21 08:14 Dose: 4 mg Documented by: Dexamethasone (Dexamethasone Solution 0.5 Mg/5 Ml) 6 mg PO DAILY [facility] Last Admin: 08/16/21 17:40 Dose: Not Given Documented by: Dexamethasone (Dexamethasone 4 Mg Tab) 6 mg PO DAILY [facility] Last Admin: 08/27/21 08:14 Dose: 6 mg Documented by: Dextrose/Water (50% Dextrose In Water 50 Ml Syringe) 50 ml IVPUSH ASDIRECTED PRN PRN Reason: Hypoglycemia Enoxaparin Sodium (Enoxaparin 40 Mg/0.4 Ml Syringe) 40 mg SUBCUT Q24H [facility] Last Admin: 08/16/21 17:40 Dose: Not Given Documented by: Enoxaparin Sodium (Enoxaparin 40 Mg/0.4 Ml Syringe) 40 mg SUBCUT Q12HR [facility] Last Admin: 08/19/21 09:25 Dose: 40 mg Documented by: Enoxaparin Sodium (Enoxaparin 40 Mg/0.4 Ml Syringe) 40 mg SUBCUT Q24H [facility] Enoxaparin Sodium (Enoxaparin 40 Mg/0.4 Ml Syringe) 40 mg SUBCUT Q24H [facility] Last Admin: 08/27/21 20:00 Dose: Not Given Documented by: Fentanyl (Fentanyl 50 Mcg/Ml Sdv) 25 mcg IVPUSH Q3H PRN PRN Reason: Pain Glucagon (Glucagon,Human Recombinant 1 Mg Vial) 1 mg IM ASDIRECTED PRN PRN Reason: Hypoglycemia Remdesivir 200 mg/ Sodium (Chloride) 250 mls @ 250 mls/hr IV ONETIME ONE Stop: 08/15/21 19:52 Last Admin: 08/15/21 20:47 Dose: 250 mls/hr Documented by: Sodium Chloride (Normal Saline) 1,000 mls @ 150 mls/hr IV STAT ONE Stop: 08/16/21 03:36 Last Admin: 08/15/21 23:01 Dose: 150 mls/hr Documented by: Remdesivir 100 mg/ Sodium (Chloride) 100 mls @ 100 mls/hr IV Q24H [facility] Stop: 08/19/21 21:59 Last Admin: 08/19/21 21:57 Dose: 100 mls/hr Documented by: Potassium Chloride/Sodium Chloride (Normal Saline With 20 Meq Kcl) 500 mls @ 75 mls/hr IV ASDIRECTED AWA Ceftriaxone Sodium/Dextrose 1 (gm/ Premix) 50 mls @ 100 mls/hr IV Q24H [facility] Last Admin: 08/26/21 13:10 Dose: 100 mls/hr Documented by: Haloperidol Lactate 5 mg/ (Sodium Chloride) 51 mls @ 102 mls/hr IV Q5H PRN PRN Reason: AGITATION Last Admin: 08/27/21 10:50 Dose: 102 mls/hr Documented by: Norepinephrine Bitartrate (Norepinephr-0.9% Nacl 4 Mg/250) Confirm Administered Dose 4 mg in 250 mls @ as directed .ROUTE .STK-MED ONE Stop: 08/27/21 13:38 Last Admin: 08/27/21 16:38 Dose: Not Given Documented by: Insulin Aspart (Insulin Aspart 100 Units/Ml 3 Ml Pen) 0 unit SUBCUT ACBREAKFASTANDBED [facility]; Protocol Last Admin: 08/17/21 08:16 Dose: 5 units Documented by: Insulin Aspart (Insulin Aspart 100 Units/Ml 3 Ml Pen) 0 unit SUBCUT TIDAC [facility]; Protocol Last Admin: 08/27/21 19:30 Dose: 9 units Documented by: Insulin Aspart (Insulin Aspart 100 Units/Ml 3 Ml Pen) 0 unit SUBCUT BEDTIME [facility]; Protocol Last Admin: 08/18/21 21:58 Dose: Not Given Documented by: Insulin Aspart (Insulin Aspart 100 Units/Ml 3 Ml Pen) 6 unit SUBCUT ONETIME ONE Stop: 08/18/21 21:53 Last Admin: 08/18/21 21:56 Dose: 6 units Documented by: Insulin Glargine (Insulin Glargine,Human Rec. Analog 100 Units/Ml 3 Ml Pen) 20 units SUBCUT BEDTIME AWA Last Admin: 08/26/21 20:58 Dose: 20 units Documented by: Iopamidol (Iopamidol 755 Mg/Ml 100 Ml Bottle) 100 ml IVPUSH ONETIME ONE Stop: 08/15/21 21:00 Last Admin: 08/15/21 21:37 Dose: 100 ml Documented by: Iopamidol (Iopamidol 755 Mg/Ml 500 Ml Multipack Bottle) 100 ml IVPUSH ONETIME STA Stop: 08/19/21 21:36 Last Admin: 08/19/21 21:36 Dose: 100 ml Documented by: Lidocaine (Lidocaine 2% 5 Ml Sdv) Confirm Administered Dose 5 ml .ROUTE .STK-MED ONE Stop: 08/27/21 12:06 Midazolam HCl (Midazolam 1 Mg/Ml 2 Ml Sdv) Confirm Administered Dose 2 mg .ROUTE .STK-MED ONE Stop: 08/27/21 12:07 Pantoprazole Sodium (Pantoprazole 40 Mg Tab.Cr) 40 mg PO DAILY [facility] Last Admin: 08/27/21 08:14 Dose: 40 mg Documented by: Potassium Chloride (Potassium Chloride 20 Meq Tab.Er) 20 meq PO TID AWA Stop: 08/19/21 14:01 Last Admin: 08/19/21 13:49 Dose: 20 meq Documented by: Potassium Chloride (Potassium Chloride 20 Meq Tab.Er) 40 meq PO ONETIME ONE Stop: 08/19/21 08:55 Last Admin: 08/19/21 09:24 Dose: 40 meq Documented by: Potassium Chloride (Potassium Chloride 20 Meq Tab.Er) 40 meq PO ONETIME ONE Stop: 08/19/21 14:53 Last Admin: 08/19/21 15:14 Dose: 40 meq Documented by: Potassium Chloride (Potassium Chloride 20 Meq Tab.Er) 40 meq PO ONETIME ONE Stop: 08/23/21 08:39 Last Admin: 08/23/21 08:57 Dose: 40 meq Documented by: Propofol (Propofol 200 Mg/20 Ml Sdv) Confirm Administered Dose 200 mg .ROUTE .STK-MED ONE Stop: 08/27/21 12:07 Rocuronium [place] (Rocuronium [place] 50 Mg/5 Ml Syringe) Confirm Administered Dose 50 mg .ROUTE .STK-MED ONE Stop: 08/27/21 12:06 - Exam Central Line Total Time: 0Days 23Hours Urinary Catheter Total Time: 0Days 23Hours General: Other (The patient is intubated) HEENT: Mucous Membr. Moist/Home Neck: Trachea Midline Lungs: Clear to Auscultation Cardiovascular: Regular Rate, Regular Rhythm GI/Abdominal Exam: Normal Bowel Sounds, Soft Extremities: No Pedal Edema - Patient Data Lab Results Last 24 hrs: Laboratory Results - last 24 hr 08/27/21 08/27/21 08/28/21 Range/Units 16:20 19:11 00:08 WBC (4.0-11.0) K/uL RBC (4.50-5.90) M/uL Hgb (13.0-17.0) g/dL Hct (38.0-50.0) % MCV (80.0-98.0) fL MCH (27.0-32.0) pg MCHC (31.0-37.0) g/dL RDW Std Deviation (28.0-62.0) fl RDW Coeff of [place] (11.0-15.0) % Plt Count (150-400) K/uL MPV (7.40-12.00) fL Neut % (Auto) (48.0-80.0) % Lymph % (Auto) (16.0-40.0) % [place] % (Auto) (0.0-15.0) % Eos % (Auto) (0.0-7.0) % Baso % (Auto) (0.0-1.5) % Neut # (Auto) (1.4-5.7) K/uL Lymph # (Auto) (0.6-2.4) K/uL [place] # (Auto) (0.0-0.8) K/uL Eos # (Auto) (0.0-0.7) K/uL Baso # (Auto) (0.0-0.1) K/uL Nucleated RBC % /100WBC Nucleated RBCs # K/uL ABG pH 7.37 (7.35-7.45) ABG pCO2 47 H (35-45) mmHG ABG pO2 190 H (80-105) mmHG ABG HCO3 27 H (22-26) mEq/L ABG Total CO2 46.9 H (23-27) mmol/L ABG Base Excess 1.5 (-2.0-3.0) Sodium (136-148) mmol/L Potassium (3.5-5.1) mmol/L Chloride (98-107) mmol/L Carbon Dioxide (21.0-32.0) mmol/L BUN (7.0-18.0) mg/dL Creatinine (0.8-1.3) mg/dL Est Cr Clr Drug Dosing mL/min Estimated GFR (MDRD) ml/min Glucose (74-106) mg/dL POC Glucose 266 H 221 H (70-99) mg/dL Calcium (8.5-10.1) mg/dL Total Bilirubin (0.2-1.0) mg/dL AST (15-37) IU/L ALT (14-63) IU/L Alkaline Phosphatase (46-116) U/L Total Protein (6.4-8.2) g/dL Albumin (3.4-5.0) g/dL Globulin (2.6-4.0) g/dL Albumin/Globulin Ratio (0.9-1.6) 08/28/21 08/28/21 08/28/21 Range/Units 05:24 05:24 06:31 WBC 26.67 H (4.0-11.0) K/uL RBC 3.88 L (4.50-5.90) M/uL Hgb 12.2 L (13.0-17.0) g/dL Hct 36.3 L (38.0-50.0) % MCV 93.6 (80.0-98.0) fL MCH 31.4 (27.0-32.0) pg MCHC 33.6 (31.0-37.0) g/dL RDW Std Deviation 43.2 (28.0-62.0) fl RDW Coeff of [place] 13 (11.0-15.0) % Plt Count 264 (150-400) K/uL MPV 11.80 (7.40-12.00) fL Neut % (Auto) 92.1 H (48.0-80.0) % Lymph % (Auto) 3.7 L (16.0-40.0) % [place] % (Auto) 4.1 (0.0-15.0) % Eos % (Auto) 0.0 (0.0-7.0) % Baso % (Auto) 0.1 (0.0-1.5) % Neut # (Auto) 24.6 H (1.4-5.7) K/uL Lymph # (Auto) 1.0 (0.6-2.4) K/uL [place] # (Auto) 1.1 H (0.0-0.8) K/uL Eos # (Auto) 0.0 (0.0-0.7) K/uL Baso # (Auto) 0.0 (0.0-0.1) K/uL Nucleated RBC % 0.0 /100WBC Nucleated RBCs # 0 K/uL ABG pH (7.35-7.45) ABG pCO2 (35-45) mmHG ABG pO2 (80-105) mmHG ABG HCO3 (22-26) mEq/L ABG Total CO2 (23-27) mmol/L ABG Base Excess (-2.0-3.0) Sodium 140 (136-148) mmol/L Potassium 4.3 (3.5-5.1) mmol/L Chloride 105 (98-107) mmol/L Carbon Dioxide 27.1 (21.0-32.0) mmol/L BUN 22 H (7.0-18.0) mg/dL Creatinine 0.9 (0.8-1.3) mg/dL Est Cr Clr Drug Dosing 87.15 mL/min Estimated GFR (MDRD) > 60.0 ml/min Glucose 172 H (74-106) mg/dL POC Glucose 171 H (70-99) mg/dL Calcium 8.5 (8.5-10.1) mg/dL Total Bilirubin 1.1 H (0.2-1.0) mg/dL AST 13 L (15-37) IU/L ALT 26 (14-63) IU/L Alkaline Phosphatase 100 (46-116) U/L Total Protein 6.0 L (6.4-8.2) g/dL Albumin 1.6 L (3.4-5.0) g/dL Globulin 4.4 H (2.6-4.0) g/dL Albumin/Globulin Ratio 0.4 L (0.9-1.6) 08/28/21 08/28/21 Range/Units 08:20 11:55 WBC (4.0-11.0) K/uL RBC (4.50-5.90) M/uL Hgb (13.0-17.0) g/dL Hct (38.0-50.0) % MCV (80.0-98.0) fL MCH (27.0-32.0) pg MCHC (31.0-37.0) g/dL RDW Std Deviation (28.0-62.0) fl RDW Coeff of [place] (11.0-15.0) % Plt Count (150-400) K/uL MPV (7.40-12.00) fL Neut % (Auto) (48.0-80.0) % Lymph % (Auto) (16.0-40.0) % [place] % (Auto) (0.0-15.0) % Eos % (Auto) (0.0-7.0) % Baso % (Auto) (0.0-1.5) % Neut # (Auto) (1.4-5.7) K/uL Lymph # (Auto) (0.6-2.4) K/uL [place] # (Auto) (0.0-0.8) K/uL Eos # (Auto) (0.0-0.7) K/uL Baso # (Auto) (0.0-0.1) K/uL Nucleated RBC % /100WBC Nucleated RBCs # K/uL ABG pH 7.42 (7.35-7.45) ABG pCO2 45 (35-45) mmHG ABG pO2 78 L (80-105) mmHG ABG HCO3 29 H (22-26) mEq/L ABG Total CO2 25.9 (23-27) mmol/L ABG Base Excess 3.4 H (-2.0-3.0) Sodium (136-148) mmol/L Potassium (3.5-5.1) mmol/L Chloride (98-107) mmol/L Carbon Dioxide (21.0-32.0) mmol/L BUN (7.0-18.0) mg/dL Creatinine (0.8-1.3) mg/dL Est Cr Clr Drug Dosing mL/min Estimated GFR (MDRD) ml/min Glucose (74-106) mg/dL POC Glucose 224 H (70-99) mg/dL Calcium (8.5-10.1) mg/dL Total Bilirubin (0.2-1.0) mg/dL AST (15-37) IU/L ALT (14-63) IU/L Alkaline Phosphatase (46-116) U/L Total Protein (6.4-8.2) g/dL Albumin (3.4-5.0) g/dL Globulin (2.6-4.0) g/dL Albumin/Globulin Ratio (0.9-1.6) Result Diagrams: 08/28/21 05:24 08/28/21 05:24 Sepsis Event Note - Evaluation Sepsis Screening Result: Possible Sepsis Risk - Focused Exam Vital Signs: Vital Signs Temp Resp BP BP Pulse Ox Pulse Ox 08/28/21 13:00 15 100/57 L 104/60 94 L 08/28/21 12:00 97.8 F 18 92/57 L 102/60 94 L 08/28/21 11:00 18 102/60 109/62 92 L 08/28/21 10:23 109/61 08/28/21 10:00 17 106/60 114/64 93 L 08/28/21 09:48 114/65 08/28/21 09:00 16 103/60 113/63 94 L 08/28/21 08:00 97.9 F 14 106/60 113/65 94 L 08/28/21 07:00 16 101/58 L 109/63 94 L 08/28/21 06:00 18 106/57 L 108/60 95 08/28/21 05:02 95 08/28/21 05:00 14 107/61 101/61 95 08/28/21 04:00 97.2 F 17 105/61 110/62 96 08/28/21 03:00 17 105/67 118/67 96 - Problem List & Annotations (1) Acute respiratory disease due to COVID-19 virus SNOMED Code(s): 595143557, 677142818 Code(s): U07.1 - COVID-19; J06.9 - ACUTE UPPER RESPIRATORY INFECTION, UNSPECI FIED Status: Acute Current Visit: Yes (2) Obesity (BMI 30-39.9) SNOMED Code(s): 324000650, 792133052 Code(s): E66.9 - OBESITY, UNSPECIFIED Status: Acute Priority: Medium Current Visit: Yes (3) T2DM (type 2 diabetes mellitus) SNOMED Code(s): 94510629 Code(s): E11.9 - TYPE 2 DIABETES MELLITUS WITHOUT COMPLICATIONS Status: Acute Priority: Medium Current Visit: Yes Onset Date: ~08/17/21 Qualifiers: Diabetes mellitus intermediate manager insulin use: with care home use (4) Leukocytosis SNOMED Code(s): 175569150, 320468885 Code(s): D72.829 - ELEVATED WHITE BLOOD CELL COUNT, UNSPECIFIED Status: Acute Current Visit: Yes (5) Pneumonia SNOMED Code(s): 181924561 Code(s): J18.9 - PNEUMONIA, UNSPECIFIED ORGANISM Status: Acute Current Visit: Yes (6) Constipation SNOMED Code(s): 25261211 Code(s): K59.00 - CONSTIPATION, UNSPECIFIED Status: Acute Current Visit: Yes - Problem List Review Problem List Initiated/Reviewed/Updated: Yes - My Orders Last 24 Hours: My Active Orders 08/27/21 18:00 Enoxaparin [Lovenox] 100 mg SUBCUT Q12H 08/27/21 18:15 Pantoprazole [ProTONIX] 40 mg IVPUSH DAILY 08/28/21 09:00 dexAMETHasone [Decadron] 6 mg IVPUSH DAILY - Assessment Assessment:: 1. Severe acute respiratory failure secondary to COVID-19 pneumonia leading to intubation -The patient has been intubated and the current ventilator settings are a rate of 18, 50% oxygen, PEEP of 9, on SIMV -We are awaiting transfer to a facility in [facility] -We will be contacted once a bed is available -In the meantime we will continue with IV formulations of medications
[2021-08-29] MEDS: Insulin Aspart 100 Units/ML 3 ML Pen SUBCUT SCH ×2 (00:29→06:15)
[2021-08-29] MEDS: propofoL 100 ML IV SCH ×3 (02:16→07:00)
[2021-08-29] MEDS: Albuterol/Ipratropium 3.0-0.5 MG/3 ML Neb Soln NEB SCH ×2 (02:24→05:19)
--- NOTE | 2021-08-29 02:50 | PN ---
[facility] Physician - Brief Progress [id number]/06/2022 02:48[facility] Lauren pitts, SONJA - EDUAR (RACHEAL) - JOEL WANG COVID +Date of Service 08/29/2021 02:48HPI/E vents of Note Nystatin for oral thrush noted by RN orderedInterventions Major-Infection - evaluation and management
[2021-08-29] MEDS ORDERED: Nystatin Susp 100,000 Unit/ML 5 ML UD Cup ONE (03:00)
[2021-08-29] MEDS: Enoxaparin 100 MG/1 ML Syringe SUBCUT SCH (05:19)
[2021-08-29] MEDS ORDERED: Nystatin Susp 100,000 Unit/ML 5 ML UD Cup PO SCH (06:00)
[2021-08-29] MEDS: fentaNYL/Normal Saline 2,500 MCG in Premix Bag 1 BAG IV PRN (06:17)
--- NOTE | 2021-08-29 06:40 | PCM.DCSUM1 ---
Discharge Summary - Discharge Data Discharge Date: 08/29/21 Discharge Disposition: DC/Tfer to Acute Hospital 02 Condition: Fair - Referral to Home Health Primary Care Physician: PCP None - Discharge Diagnosis/Problem(s) (1) Acute respiratory disease due to COVID-19 virus SNOMED Code(s): 344197858, 717309017 ICD Code: U07.1 - COVID-19; J06.9 - ACUTE UPPER RESPIRATORY INFECTION, UNSPECIFIED Status: Acute Current Visit: Yes (2) COVID-19 SNOMED Code(s): 126583676 ICD Code: U07.1 - COVID-19 Status: Acute Current Visit: Yes (3) T2DM (type 2 diabetes mellitus) SNOMED Code(s): 97568138 ICD Code: E11.9 - TYPE 2 DIABETES MELLITUS WITHOUT COMPLICATIONS Status: Acute Priority: Medium Current Visit: Yes Onset Date: ~08/17/21 Qualifiers: Diabetes mellitus long-term insulin use: with long-term use (4) Respiratory failure SNOMED Code(s): 180161966 ICD Code: J96.90 - RESPIRATORY FAILURE, UNSP, UNSP W HYPOXIA OR HYPERCAPNIA Status: Acute Current Visit: Yes (5) Pulmonary emboli SNOMED Code(s): 78072492 ICD Code: I26.99 - OTHER PULMONARY EMBOLISM WITHOUT ACUTE COR PULMONALE Status: Acute Current Visit: Yes Qualifiers: Chronicity: acute Acute cor pulmonale presence: without acute cor pulmonale - Patient Summary/Data Consults: Consultations 08/25/21 08:14 PT Evaluation and Treatment [CONS] Routine Hospital Course: 66 yo male with pmh of diabetes who was admitted for acute hypoxic respiratory failure from COVID pneumonia. He was admitted on 08/16/21 which was three weeks after he tested positive for COVID. He had symptoms of fatigue and shortness of breath. He was initially requiring 15 L high flow NC. He was treated with dexamethasone, remdesivir and barcitinib. Initially CT chest reported severe bilateral COVID pneumonia. Repeat CT of his chest was positive for a small right medial lobe PE. He was treated with Eliquis which was switched to Lovenox when he was intubate. Due to rising Leukocytotis Azithromycin and Rocephin was started on 08/24/21. He was intubated due to worsening hypoxia and agitation on 08/27/21. Central line and a-line were placed shortly after intubation. He is currently satting 92% on 50% FIO2, tidal volume 400ml and PEEP of 9. Due to the need of higher level of care patient will be transferred to [facility]. Dr. Villarreal has accepted the patient. Family has consented to transfer. - Discharge Plan Home Medications: Home Meds RX: metFORMIN HCl [Metformin HCl ER] 2,000 mg PO DAILY 12/31/20 [History] RX: Apixaban [Eliquis] 5 mg PO BID 04/11/21 [History] RX: Doxycycline [Vibra-Tabs] 100 mg PO Q12HR 10 Days #20 tab 04/14/21 [Rx] RX: Telmisartan 40 mg PO DAILY 7 Days #7 tab 04/14/21 [Rx] Ondansetron [Zofran ODT] 4 mg PO Q6H PRN #10 tab.dis 08/11/21 [Rx] Patient Handouts: Hypoxia, COVID-19 Frequently Asked Questions, COVID-19 Vaccine Information, Hyperglycemia, [id number], COVID-19: How to Protect Yourself and Others - [facility] Forms: ED Department Discharge Referrals: PCP,None [Primary Care Provider] - - Discharge Summary/Plan Comment DC Time >30 min.: Yes Total # of Minutes for Discharge Time: 40 - Patient Data Vitals - Most Recent: Last Vital Signs Temp 37.1 C 08/29/21 00:00 Pulse 85 08/21/21 08:24 Resp 18 08/29/21 03:00 BP 99/59 L 08/29/21 03:00 Pulse Ox 92 L 08/29/21 03:00 Weight - Most Recent: 97.5 kg I&O - Last 24 hours: Intake & Output 08/28/21 08/28/21 08/29/21 14:59 22:59 06:59 Intake Total 1058 Output Total 400 Balance 658 Lab Results - Last 24 hrs: Laboratory Results - last 24 hr 08/28/21 08/28/21 08/28/21 Range/Units 05:24 05:24 06:31 WBC 26.67 H (4.0-11.0) K/uL RBC 3.88 L (4.50-5.90) M/uL Hgb 12.2 L (13.0-17.0) g/dL Hct 36.3 L (38.0-50.0) % MCV 93.6 (80.0-98.0) fL MCH 31.4 (27.0-32.0) pg MCHC 33.6 (31.0-37.0) g/dL RDW Std Deviation 43.2 (28.0-62.0) fl RDW Coeff of [place] 13 (11.0-15.0) % Plt Count 264 (150-400) K/uL MPV 11.80 (7.40-12.00) fL Neut % (Auto) 92.1 H (48.0-80.0) % Lymph % (Auto) 3.7 L (16.0-40.0) % [place] % (Auto) 4.1 (0.0-15.0) % Eos % (Auto) 0.0 (0.0-7.0) % Baso % (Auto) 0.1 (0.0-1.5) % Neut # (Auto) 24.6 H (1.4-5.7) K/uL Lymph # (Auto) 1.0 (0.6-2.4) K/uL [place] # (Auto) 1.1 H (0.0-0.8) K/uL Eos # (Auto) 0.0 (0.0-0.7) K/uL Baso # (Auto) 0.0 (0.0-0.1) K/uL Nucleated RBC % 0.0 /100WBC Nucleated RBCs # 0 K/uL ABG pH (7.35-7.45) ABG pCO2 (35-45) mmHG ABG pO2 (80-105) mmHG ABG HCO3 (22-26) mEq/L ABG Total CO2 (23-27) mmol/L ABG Base Excess (-2.0-3.0) Sodium 140 (136-148) mmol/L Potassium 4.3 (3.5-5.1) mmol/L Chloride 105 (98-107) mmol/L Carbon Dioxide 27.1 (21.0-32.0) mmol/L BUN 22 H (7.0-18.0) mg/dL Creatinine 0.9 (0.8-1.3) mg/dL Est Cr Clr Drug Dosing 87.15 mL/min Estimated GFR (MDRD) > 60.0 ml/min Glucose 172 H (74-106) mg/dL POC Glucose 171 H (70-99) mg/dL Calcium 8.5 (8.5-10.1) mg/dL Total Bilirubin 1.1 H (0.2-1.0) mg/dL AST 13 L (15-37) IU/L ALT 26 (14-63) IU/L Alkaline Phosphatase 100 (46-116) U/L Total Protein 6.0 L (6.4-8.2) g/dL Albumin 1.6 L (3.4-5.0) g/dL Globulin 4.4 H (2.6-4.0) g/dL Albumin/Globulin Ratio 0.4 L (0.9-1.6) 08/28/21 08/28/21 08/28/21 Range/Units 08:20 11:55 17:13 WBC (4.0-11.0) K/uL RBC (4.50-5.90) M/uL Hgb (13.0-17.0) g/dL Hct (38.0-50.0) % MCV (80.0-98.0) fL MCH (27.0-32.0) pg MCHC (31.0-37.0) g/dL RDW Std Deviation (28.0-62.0) fl RDW Coeff of [place] (11.0-15.0) % Plt Count (150-400) K/uL MPV (7.40-12.00) fL Neut % (Auto) (48.0-80.0) % Lymph % (Auto) (16.0-40.0) % [place] % (Auto) (0.0-15.0) % Eos % (Auto) (0.0-7.0) % Baso % (Auto) (0.0-1.5) % Neut # (Auto) (1.4-5.7) K/uL Lymph # (Auto) (0.6-2.4) K/uL [place] # (Auto) (0.0-0.8) K/uL Eos # (Auto) (0.0-0.7) K/uL Baso # (Auto) (0.0-0.1) K/uL Nucleated RBC % /100WBC Nucleated RBCs # K/uL ABG pH 7.42 (7.35-7.45) ABG pCO2 45 (35-45) mmHG ABG pO2 78 L (80-105) mmHG ABG HCO3 29 H (22-26) mEq/L ABG Total CO2 25.9 (23-27) mmol/L ABG Base Excess 3.4 H (-2.0-3.0) Sodium (136-148) mmol/L Potassium (3.5-5.1) mmol/L Chloride (98-107) mmol/L Carbon Dioxide (21.0-32.0) mmol/L BUN (7.0-18.0) mg/dL Creatinine (0.8-1.3) mg/dL Est Cr Clr Drug Dosing mL/min Estimated GFR (MDRD) ml/min Glucose (74-106) mg/dL POC Glucose 224 H 246 H (70-99) mg/dL Calcium (8.5-10.1) mg/dL Total Bilirubin (0.2-1.0) mg/dL AST (15-37) IU/L ALT (14-63) IU/L Alkaline Phosphatase (46-116) U/L Total Protein (6.4-8.2) g/dL Albumin (3.4-5.0) g/dL Globulin (2.6-4.0) g/dL Albumin/Globulin Ratio (0.9-1.6) 08/29/21 08/29/21 Range/Units 00:39 06:12 WBC (4.0-11.0) K/uL RBC (4.50-5.90) M/uL Hgb (13.0-17.0) g/dL Hct (38.0-50.0) % MCV (80.0-98.0) fL MCH (27.0-32.0) pg MCHC (31.0-37.0) g/dL RDW Std Deviation (28.0-62.0) fl RDW Coeff of [place] (11.0-15.0) % Plt Count (150-400) K/uL MPV (7.40-12.00) fL Neut % (Auto) (48.0-80.0) % Lymph % (Auto) (16.0-40.0) % [place] % (Auto) (0.0-15.0) % Eos % (Auto) (0.0-7.0) % Baso % (Auto) (0.0-1.5) % Neut # (Auto) (1.4-5.7) K/uL Lymph # (Auto) (0.6-2.4) K/uL [place] # (Auto) (0.0-0.8) K/uL Eos # (Auto) (0.0-0.7) K/uL Baso # (Auto) (0.0-0.1) K/uL Nucleated RBC % /100WBC Nucleated RBCs # K/uL ABG pH (7.35-7.45) ABG pCO2 (35-45) mmHG ABG pO2 (80-105) mmHG ABG HCO3 (22-26) mEq/L ABG Total CO2 (23-27) mmol/L ABG Base Excess (-2.0-3.0) Sodium (136-148) mmol/L Potassium (3.5-5.1) mmol/L Chloride (98-107) mmol/L Carbon Dioxide (21.0-32.0) mmol/L BUN (7.0-18.0) mg/dL Creatinine (0.8-1.3) mg/dL Est Cr Clr Drug Dosing mL/min Estimated GFR (MDRD) ml/min Glucose (74-106) mg/dL POC Glucose 221 H 152 H (70-99) mg/dL Calcium (8.5-10.1) mg/dL Total Bilirubin (0.2-1.0) mg/dL AST (15-37) IU/L ALT (14-63) IU/L Alkaline Phosphatase (46-116) U/L Total Protein (6.4-8.2) g/dL Albumin (3.4-5.0) g/dL Globulin (2.6-4.0) g/dL Albumin/Globulin Ratio (0.9-1.6) Med Orders - Current: Current Medications Hydrocodone Bitart/Acetaminophen (Acetaminophen/Hydrocodone 325-5 Mg Tab) 1 tab PO Q4H PRN PRN Reason: Pain (moderate 4-6) Last Admin: 08/27/21 11:15 Dose: 1 tab Documented by: Albuterol/Ipratropium (Albuterol/Ipratropium 3.0-0.5 Mg/3 Ml Neb Soln) 3 ml NEB Q2H PRN PRN Reason: Dyspepsia Albuterol/Ipratropium (Albuterol/Ipratropium 3.0-0.5 Mg/3 Ml Neb Soln) 3 ml NEB Q4HRRT [facility] Last Admin: 08/29/21 05:19 Dose: 3 ml Documented by: Benzonatate (Benzonatate 100 Mg Cap) 100 mg PO Q8H PRN PRN Reason: Cough Last Admin: 08/27/21 06:02 Dose: 100 mg Documented by: Dexamethasone (Dexamethasone 4 Mg/Ml Sdv) 6 mg IVPUSH DAILY [facility] Last Admin: 08/28/21 08:00 Dose: 6 mg Documented by: Dextrose/Water (50% Dextrose In Water 50 Ml Syringe) 50 ml IVPUSH ASDIRECTED PRN PRN Reason: Hypoglycemia Diphenhydramine HCl (Diphenhydramine 50 Mg/Ml Sdv) 50 mg IVPUSH Q8H PRN PRN Reason: Agitation Last Admin: 08/27/21 11:30 Dose: 50 mg Documented by: Docusate Sodium (Docusate Sodium 100 Mg Cap) 100 mg PO Q12H PRN PRN Reason: Constipation Last Admin: 08/26/21 20:49 Dose: 100 mg Documented by: Enoxaparin Sodium (Enoxaparin 100 Mg/1 Ml Syringe) 100 mg SUBCUT Q12H [facility] Last Admin: 08/29/21 05:19 Dose: 100 mg Documented by: Fentanyl (Fentanyl 100 Mcg/2 Ml Sdv) 25 mcg IVPUSH Q3H PRN PRN Reason: Pain Last Admin: 08/27/21 05:05 Dose: 25 mcg Documented by: Glucagon (Glucagon,Human Recombinant 1 Mg Vial) 1 mg IM ASDIRECTED PRN PRN Reason: Hypoglycemia Guaifenesin/Dextromethorphan (Guaifenesin/Dextromethorphan 100-10 Mg/5 Ml Soln 10 Ml Cup) 10 ml PO Q6H PRN PRN Reason: Cough Last Admin: 08/27/21 08:16 Dose: 10 ml Documented by: Azithromycin 500 mg/ Sodium (Chloride) 250 mls @ 250 mls/hr IV Q24H [facility] Last Admin: 08/28/21 10:30 Dose: 250 mls/hr Documented by: Ceftriaxone Sodium 1 gm/ (Sodium Chloride) 50 mls @ 100 mls/hr IV Q24H [facility] Last Admin: 08/28/21 12:46 Dose: 100 mls/hr Documented by: Propofol (Diprivan 100 Ml) 100 mls @ 2.997 mls/hr IV TITRATE [facility]; Protocol Last Admin: 08/29/21 05:19 Dose: 55 mcg/kg/min, 32.967 mls/hr Documented by: Fentanyl Citrate 2,500 mcg/ (Premix) 250 mls @ 2.5 mls/hr IV TITRATE PRN; Protocol PRN Reason: Other Last Admin: 08/29/21 06:17 Dose: 200 mcg/hr, 20 mls/hr Documented by: Norepinephrine Bitartrate (Norepinephr-0.9% Nacl 4 Mg/250) 4 mg in 250 mls @ 7.5 mls/hr IV TITRATE [facility]; Protocol Last Titration: 08/28/21 10:24 Dose: 0 mcg/min, 0 mls/hr Documented by: Insulin Aspart (Insulin Aspart 100 Units/Ml 3 Ml Pen) 0 unit SUBCUT Q6H [facility]; Protocol Last Admin: 08/29/21 06:15 Dose: 3 units Documented by: Melatonin (Melatonin 3 Mg Tab) 6 mg PO BEDTIME PRN PRN Reason: Insomnia Last Admin: 08/26/21 20:50 Dose: 6 mg Documented by: Nystatin (Nystatin Susp 100,000 Unit/Ml 5 Ml Ud Cup) 5 ml PO QID [facility] Stop: 09/05/21 06:01 Last Admin: 08/29/21 05:19 Dose: 5 ml Documented by: Ondansetron HCl (Ondansetron 4 Mg Tab.Dis) 4 mg PO Q6H PRN PRN Reason: nausea, able to take PO Last Admin: 08/17/21 13:41 Dose: 4 mg Documented by: Ondansetron HCl (Ondansetron 4 Mg/2 Ml Sdv) 4 mg IVPUSH Q6H PRN PRN Reason: Nausea/Vomiting Last Admin: 08/20/21 08:57 Dose: 4 mg Documented by: Pantoprazole Sodium (Pantoprazole 40 Mg/10 Ml Syringe) 40 mg IVPUSH DAILY [facility] Last Admin: 08/28/21 08:00 Dose: 40 mg Documented by: Sodium Chloride (Sodium Chloride 0.65% Nasal [place] 45 Ml Bottle) 0 ml CRISTY Q2H PRN PRN Reason: Other Last Admin: 08/25/21 19:00 Dose: 1 spray Documented by: Discontinued Medications Apixaban (Apixaban 5 Mg Tab) 10 mg PO Q12H [facility] Stop: 08/26/21 06:01 Last Admin: 08/26/21 06:26 Dose: 10 mg Documented by: Apixaban (Apixaban 5 Mg Tab) 5 mg PO Q12H [facility] Last Admin: 08/27/21 20:00 Dose: Not Given Documented by: Baricitinib (Baricitinib 2 Mg Tab) 4 mg PO DAILY [facility] Stop: 08/30/21 09:01 Last Admin: 08/27/21 08:14 Dose: 4 mg Documented by: Dexamethasone (Dexamethasone Solution 0.5 Mg/5 Ml) 6 mg PO DAILY [facility] Last Admin: 08/16/21 17:40 Dose: Not Given Documented by: Dexamethasone (Dexamethasone 4 Mg Tab) 6 mg PO DAILY [facility] Last Admin: 08/27/21 08:14 Dose: 6 mg Documented by: Dextrose/Water (50% Dextrose In Water 50 Ml Syringe) 50 ml IVPUSH ASDIRECTED PRN PRN Reason: Hypoglycemia Enoxaparin Sodium (Enoxaparin 40 Mg/0.4 Ml Syringe) 40 mg SUBCUT Q24H [facility] Last Admin: 08/16/21 17:40 Dose: Not Given Documented by: Enoxaparin Sodium (Enoxaparin 40 Mg/0.4 Ml Syringe) 40 mg SUBCUT Q12HR [facility] Last Admin: 08/19/21 09:25 Dose: 40 mg Documented by: Enoxaparin Sodium (Enoxaparin 40 Mg/0.4 Ml Syringe) 40 mg SUBCUT Q24H [facility] Enoxaparin Sodium (Enoxaparin 40 Mg/0.4 Ml Syringe) 40 mg SUBCUT Q24H [facility] Last Admin: 08/27/21 20:00 Dose: Not Given Documented by: Fentanyl (Fentanyl 50 Mcg/Ml Sdv) 25 mcg IVPUSH Q3H PRN PRN Reason: Pain Glucagon (Glucagon,Human Recombinant 1 Mg Vial) 1 mg IM ASDIRECTED PRN PRN Reason: Hypoglycemia Remdesivir 200 mg/ Sodium (Chloride) 250 mls @ 250 mls/hr IV ONETIME ONE Stop: 08/15/21 19:52 Last Admin: 08/15/21 20:47 Dose: 250 mls/hr Documented by: Sodium Chloride (Normal Saline) 1,000 mls @ 150 mls/hr IV STAT ONE Stop: 08/16/21 03:36 Last Admin: 08/15/21 23:01 Dose: 150 mls/hr Documented by: Remdesivir 100 mg/ Sodium (Chloride) 100 mls @ 100 mls/hr IV Q24H [facility] Stop: 08/19/21 21:59 Last Admin: 08/19/21 21:57 Dose: 100 mls/hr Documented by: Potassium Chloride/Sodium Chloride (Normal Saline With 20 Meq Kcl) 500 mls @ 75 mls/hr IV ASDIRECTED [facility] Ceftriaxone Sodium/Dextrose 1 (gm/ Premix) 50 mls @ 100 mls/hr IV Q24H [facility] Last Admin: 08/26/21 13:10 Dose: 100 mls/hr Documented by: Haloperidol Lactate 5 mg/ (Sodium Chloride) 51 mls @ 102 mls/hr IV Q5H PRN PRN Reason: AGITATION Last Admin: 08/27/21 10:50 Dose: 102 mls/hr Documented by: Norepinephrine Bitartrate (Norepinephr-0.9% Nacl 4 Mg/250) Confirm Administered Dose 4 mg in 250 mls @ as directed .ROUTE .STK-MED ONE Stop: 08/27/21 13:38 Last Admin: 08/27/21 16:38 Dose: Not Given Documented by: Insulin Aspart (Insulin Aspart 100 Units/Ml 3 Ml Pen) 0 unit SUBCUT ACBREAKFASTANDBED [facility]; Protocol Last Admin: 08/17/21 08:16 Dose: 5 units Documented by: Insulin Aspart (Insulin Aspart 100 Units/Ml 3 Ml Pen) 0 unit SUBCUT TIDAC [facility]; Protocol Last Admin: 08/27/21 19:30 Dose: 9 units Documented by: Insulin Aspart (Insulin Aspart 100 Units/Ml 3 Ml Pen) 0 unit SUBCUT BEDTIME [facility]; Protocol Last Admin: 08/18/21 21:58 Dose: Not Given Documented by: Insulin Aspart (Insulin Aspart 100 Units/Ml 3 Ml Pen) 6 unit SUBCUT ONETIME ONE Stop: 08/18/21 21:53 Last Admin: 08/18/21 21:56 Dose: 6 units Documented by: Insulin Glargine (Insulin Glargine,Human Rec. Analog 100 Units/Ml 3 Ml Pen) 20 units SUBCUT BEDTIME [facility] Last Admin: 08/26/21 20:58 Dose: 20 units Documented by: Iopamidol (Iopamidol 755 Mg/Ml 100 Ml Bottle) 100 ml IVPUSH ONETIME ONE Stop: 08/15/21 21:00 Last Admin: 08/15/21 21:37 Dose: 100 ml Documented by: Iopamidol (Iopamidol 755 Mg/Ml 500 Ml Multipack Bottle) 100 ml IVPUSH ONETIME STA Stop: 08/19/21 21:36 Last Admin: 08/19/21 21:36 Dose: 100 ml Documented by: Lidocaine (Lidocaine 2% 5 Ml Sdv) Confirm Administered Dose 5 ml .ROUTE .STK-MED ONE Stop: 08/27/21 12:06 Midazolam HCl (Midazolam 1 Mg/Ml 2 Ml Sdv) Confirm Administered Dose 2 mg .ROUTE .STK-MED ONE Stop: 08/27/21 12:07 Nystatin (Nystatin Susp 100,000 Unit/Ml 5 Ml Ud Cup) Confirm Administered Dose 5 ml .ROUTE .STK-MED ONE Stop: 08/29/21 03:01 Last Admin: 08/29/21 03:23 Dose: Not Given Documented by: Pantoprazole Sodium (Pantoprazole 40 Mg Tab.Cr) 40 mg PO DAILY [facility] Last Admin: 08/27/21 08:14 Dose: 40 mg Documented by: Potassium Chloride (Potassium Chloride 20 Meq Tab.Er) 20 meq PO TID [facility] Stop: 08/19/21 14:01 Last Admin: 08/19/21 13:49 Dose: 20 meq Documented by: Potassium Chloride (Potassium Chloride 20 Meq Tab.Er) 40 meq PO ONETIME ONE Stop: 08/19/21 08:55 Last Admin: 08/19/21 09:24 Dose: 40 meq Documented by: Potassium Chloride (Potassium Chloride 20 Meq Tab.Er) 40 meq PO ONETIME ONE Stop: 08/19/21 14:53 Last Admin: 08/19/21 15:14 Dose: 40 meq Documented by: Potassium Chloride (Potassium Chloride 20 Meq Tab.Er) 40 meq PO ONETIME ONE Stop: 08/23/21 08:39 Last Admin: 08/23/21 08:57 Dose: 40 meq Documented by: Propofol (Propofol 200 Mg/20 Ml Sdv) Confirm Administered Dose 200 mg .ROUTE .STK-MED ONE Stop: 08/27/21 12:07 Rocuronium [place] (Rocuronium [place] 50 Mg/5 Ml Syringe) Confirm Administered Dose 50 mg .ROUTE .STK-MED ONE Stop: 08/27/21 12:06 Discharge Operative/Procedures - Procedures Performed Intubation Indication: Respiratory Failure Arterial Line Indication: hemodynamic monitoring
[2021-08-29 07:39] VITALS: BP 102/60
== END 2021-08-29 07:25 | DRG 208 ==
LOC: MW.ED 19:36 → MW.MS 20:08 → MW.ICU 08-21 11:31
PROVIDERS: ADMIT Hospitalist; ATTEND Hospitalist
PROC: XW033E5 Introduction of Remdesivir Anti-infective into Peripheral Vein, Percutaneous Approach, New Technology Group 5 (ICD-10-PCS; 2021-08-15)
PROC: 3E0DX3Z Introduction of Anti-inflammatory into Mouth and Pharynx, External Approach (ICD-10-PCS; 2021-08-15)
PROC: 5A0955A Assistance with Respiratory Ventilation, Greater than 96 Consecutive Hours, High Flow/Velocity Cannula (ICD-10-PCS; 2021-08-15)
PROC: XW0DXM6 Introduction of Baricitinib into Mouth and Pharynx, External Approach, New Technology Group 6 (ICD-10-PCS; 2021-08-16)
PROC: 0BH17EZ Insertion of Endotracheal Airway into Trachea, Via Natural or Artificial Opening (ICD-10-PCS; principal; 2021-08-27)
PROC: 5A1945Z Respiratory Ventilation, 24-96 Consecutive Hours (ICD-10-PCS; 2021-08-27)
PROC: 3E033XZ Introduction of Vasopressor into Peripheral Vein, Percutaneous Approach (ICD-10-PCS; 2021-08-27)
PROC: 02HV33Z Insertion of Infusion Device into Superior Vena Cava, Percutaneous Approach (ICD-10-PCS; 2021-08-27)
PROC: 03HB33Z Insertion of Infusion Device into Right Radial Artery, Percutaneous Approach (ICD-10-PCS; 2021-08-27)
PROC: 3E0333Z Introduction of Anti-inflammatory into Peripheral Vein, Percutaneous Approach (ICD-10-PCS; 2021-08-28)
DX: U07.1 COVID-19 (principal); I26.99 Other pulmonary embolism without acute cor pulmonale; J96.01 Acute respiratory failure with hypoxia; J12.82 Pneumonia due to coronavirus disease 2019; E78.00 Pure hypercholesterolemia, unspecified; G47.30 Sleep apnea, unspecified; F41.9 Anxiety disorder, unspecified; E66.9 Obesity, unspecified; E11.65 Type 2 diabetes mellitus with hyperglycemia; K59.00 Constipation, unspecified; E87.6 Hypokalemia; Z88.5 Allergy status to narcotic agent; Z88.8 Allergy status to other drugs, medicaments and biological substances; Z79.899 Other long term (current) drug therapy; Z98.890 Other specified postprocedural states; Z68.30 Body mass index [BMI] 30.0-30.9, adult
CPT/HCPCS: 0240U; 31500; 36415; 36556; 36600; 36620; 51701; 51702; 71045; 71045-26; 71275; 71275-26; 80048; 80053; 81001; 81003; 82248; 82306; 82803; 82947; 83605; 83735; 84145; 84484; 85025; 85379; 86140; 93005; 93010; 93306; 94002; 94003; 94640; 94660; 99285; 99285-25; A9270-GY; C9113; J0456; J0696; J1100; J1200; J1630; J1650; J1815-GY; J2250; J2405; J2704; J3010; J7030; J7050; J7620-GY; J8540; Q9967